=== PATIENT | male | born 1935 | race Caucasian/White ===

== ENCOUNTER 2019-11-13 06:00 | Outpatient (RCR) | payer MEDICARE, BC, SELFPAY | END 2019-12-13 23:59 | disposition home or self-care (01) | LOC: SST 06:00 | PROVIDERS: Family Provider Family Medicine; PCP Family Medicine; Visit Provider Family Medicine | DX: G90.3 Multi-system degeneration of the autonomic nervous system (principal); R47.1 Dysarthria and anarthria | CPT/HCPCS: 92607; 92608 ==

== ENCOUNTER 2019-12-14 06:00 | Outpatient (RCR) | payer MEDICARE, BC, SELFPAY | END 2020-01-11 23:59 | disposition home or self-care (01) | LOC: SST 06:00 | PROVIDERS: Family Provider Family Medicine; PCP Family Medicine; Visit Provider Family Medicine | DX: Z01.89 Encounter for other specified special examinations (principal) ==

== ENCOUNTER → 2020-01-31 11:08 | Day surgery (SDC) | payer MEDICARE, BC, SELFPAY | PROVIDERS: Family Provider Family Medicine; PCP Family Medicine; Visit Provider Internal Medicine Cardiovascular Disease | DX: I73.9 Peripheral vascular disease, unspecified (principal) | CPT/HCPCS: J1644; J2001; J2250; J3010; J3490 ==

== ENCOUNTER 2020-10-14 11:00 | Emergency (ER) | payer MEDICARE, BC, SELFPAY ==
[2020-10-14 11:03] VITALS: BP 111/58; PULSE 60; RESP 15; TEMP 36.4; O2SAT 96; BMI 26.9
--- NOTE | 2020-10-14 11:27 | XR_ITS ---
WS: [id number] Portable AP upright chest, 10/14/2020 Clinical Data: fever, diarrhea Comparison: Portable chest, 09/10/2019. Findings: No nodules, masses or effusions are seen. The heart is enlarged. The pulmonary vascularity is not increased. No pneumonia or pneumothorax is seen. The 2-lead pacemaker remains in good position . Midline sternotomy sutures are seen. The aortic arch and descending aorta show calcification and to rtuosity. XR/XR chest 1V portable [id number] Impression: Cardiomegaly and atherosclerosis.
--- NOTE | 2020-10-14 11:29 | W.ED.NAVMDI ---
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 All of the history is given by his . She states that he started having diarrhea about 3 days ago and has been progressively getting weaker. She denies nausea or vomiting. No cough or difficulty breathing beyond his baseline. He did have a low-grade temperature 2 days ago. Because of his progressive weakness she called his primary care provider who advised that he come to the emergency room for evaluation Associated nausea: No Associated symtoms: Denies change in vision, dysuria, headache(s), nausea or palpitations Review of Systems General: Reports: 10 or more systems reviewed and unremarkable except in HPI and below Const: Denies: fever(s), chills or body aches Eyes: Denies: change in vision or blurry vision ENMT: Denies: throat pain, enlarged tonsils, odynophagia, hoarseness, mouth pain or swelling of lips/tongue Card: Denies: palpitations, irregular heart rhythm, edema or swelling of feet/ankles Resp: Denies: dyspnea, productive cough or non-productive cough GI: Reports: diarrhea; Denies: abdominal pain, nausea or vomiting : Denies: flank pain, dysuria, urinary frequency, urinary urgency or urinary hesitancy Musc: Denies: neck pain, back pain or extremity swelling Skin/Breast: Denies: rash, pruritus or erythema Neuro: Reports: other (weakness); Denies: headache(s), numbness in extremities or weakness in extremities Endo: Denies: polyuria, polydipsia or tired all the time PFSH ED PFSH: Medical History CHF (congestive heart failure) Critical limb ischemia with history of revascularization of same extremity History of MA (myocardial infarction) PAD (peripheral artery disease) Surgical History S/P CABG (coronary artery bypass graft) X5 S/P cardiac pacemaker procedure Family History Family/Other No problems noted. Father , age 57 MA Myocardial infarction CAD (coronary artery disease) Hypertension Mother , of Brain CA age 66 Cancer Social History Smoking and tobacco status: former smoker History of recent travel: No Physical Exam Const: COMMON NORMALS: no acute distress, average body habitus, patient oriented x3, no limitations, healthy appearing, alert and well nourished HENMT: COMMON NORMALS: normocephalic, atraumatic and moist oral mucous membranes HEAD & SCALP: normocephalic and atraumatic Neck/C-Spine: COMMON NORMALS: no meningeal signs and no JVD Resp: COMMON NORMALS: normal respiratory effort, No retractions, No use of accessory muscles, clear to auscultation bilaterally and percussion normal AUSCULTATION: clear to auscultation bilaterally PERCUSSION: percussion normal Cardio: COMMON NORMALS: no JVD, regular rate, regular rhythm, S1 normal heart sound present, S2 normal heart sound present, No gallops present (Cardio), No clicks present (Cardio), No murmurs present (Cardio), No rub (Cardio) and Peripheral pulses 2+ throughout RATE: regular rate RHYTHM: regular rhythm HEART SOUNDS: S1 normal heart sound present and S2 normal heart sound present PERIPHERAL PULSES: Peripheral pulses 2+ throughout GI: COMMON NORMALS: Normal to inspection, nondistended, normoactive bowel sounds present, Soft to palpation, non-tender, No hepatosplenomegaly present, no masses and no bruits PALPATION: Yes Soft to palpation and Yes No hepatosplenomegaly present Extremity: COMMON NORMALS: normal to inspection, full ROM, capillary refill normal, no calf tenderness and no pedal edema Neuro: COMMON NORMALS: patient oriented x3 SENSORIUM/ORIENTATION: Yes alert MENINGEAL SIGNS: Yes no meningeal signs Skin: COMMON NORMALS: no rashes or lesions noted, no wounds, turgor normal, no jaundice, no petechiae and no mottling GENERAL SKIN EXAM: no rashes or lesions noted and turgor normal Course Reevaluation(s): Reevaluation #1: Discussed his lab and imaging findings with him. C. difficile still pending. CT scan shows distended colon but no signs of obstruction. Radiologist believes that this is from colitis and not obstruction. Left inguinal hernia with loops of bowel but no signs of obstruction. If his C. difficile is negative he will be discharged home. BUN elevated and he has some dehydration from a few days of diarrhea. Patient and his voiced understanding and they are in agreement with the plan. Time: 15:41 Vital Signs: Vital signs: Vital Signs Temperature 97.6 F 10/14/20 11:03 Pulse Rate 60 10/14/20 19:10 Respiratory Rate 16 10/14/20 19:10 Blood Pressure 118/59 10/14/20 19:10 Pulse Oximetry 97 10/14/20 19:10 MDM - Nausea/Vomiting/Diarrhea MDM Narrative: Medical decision making narrative: 84-year-old male who was brought into the emergency department due to diarrhea for several days causing weakness. Evaluation in the emergency department shows mild dehydration and no other concerning findings. CT scan shows colitis and a left inguinal hernia with bowel loops but no signs of an obstruction. He is discharged home to follow-up with his primary care provider. The patient and his were given signs and symptoms to look out for in case he develops bowel obstruction. We will follow up with his primary care provider. Medical Records: Attestation: I reviewed the patient's medical records. Lab Data: Labs: Lab Results 10/14/20 10/14/20 10/14/20 Range/Units 10:53 10:53 11:47 WBC 4.9 (4.0-10.0) 10^3/ uL RBC 3.83 L (4.1-5.3) 10^6/u L Hgb 12.1 (11.7-16.6) g/dL Hct 37.9 L (42.0-52.0) % MCV 99.0 H (80-94) fL MCH 31.6 (28.0-34.0) pg MCHC 31.9 (30.0-36.0) g/dL RDW 13.8 (12.1-15.1) % Plt Count 143 (130-400) 10^3/c mm MPV 10.5 H (7.4-10.4) fL Neut % (Auto) 62.1 % Lymph % (Auto) 22.8 % [place] % (Auto) 10.4 % Eos % (Auto) 3.9 % Baso % (Auto) 0.6 % Neut # (Auto) 3.06 (1.8-7.7) 10^3/u L Lymph # (Auto) 1.1 (0.8-4.8) 10^3/u L [place] # (Auto) 0.5 (0.2-0.9) 10^3/u L Eos # (Auto) 0.2 (0.0-0.8) 10^3/u L Baso # (Auto) 0.0 (0.0-0.1) 10^3/u L Nucleated RBC % (a uto) 0 % Nucleated RBCs # 0.0 /100WBC Sodium 140 (136-145) mmol/L Potassium 3.6 (3.5-5.1) mmol/L Chloride 104 (98-107) mmol/L Carbon Dioxide 26 (22-29) mmol/L Anion Gap 13.6 (5-19) BUN 26 H (8-23) mg/dL Creatinine 1.0 (0.7-1.2) mg/dL GFR Calculation Not Reportable Glucose 160 H (65-115) mg/dL POC Glucose (70-110) mg/dL Calculated Osmolal ity 298 H (285-295) mOsm/k g Lactate 1.0 (0.5-2.2) mmol/L Calcium 9.1 (8.5-10.5) mg/dL Magnesium 2.0 (1.7-2.3) mg/dL Total Bilirubin 0.5 (0.15-1.2) mg/dL AST 26 (0-40) U/L ALT 20 (0-41) U/L Alkaline Phosphata se 58 (40-130) IU/L Creatine Kinase 104 (39-308) U/L C-Reactive Protein 13.8 H (0.0-4.9) mg/L Total Protein 6.4 L (6.6-8.7) g/dL Albumin 3.8 (3.5-5.2) g/dL Globulin 2.6 (1.3-4.6) g/dL Lipase 8 L (13-60) U/L Urine Color (Yellow) Urine Appearance (CLEAR) Urine pH (5-7) Ur Specific Gravit y (1.005-1.030) Urine Protein (Negative) Urine Glucose (UA) (Normal) Urine Ketones (Negative) Urine Blood (Negative) Urine Nitrate (Negative) Urine Bilirubin (Negative) Urine Urobilinogen (Negative) mg/dL Ur Leukocyte Belén ase (Negative) Influenza Type A A g (Negative) Influenza Type B A g (Negative) SARS-CoV-2 Ag (Rap id) (Negative) 10/14/20 10/14/20 10/14/20 Range/Units 11:47 12:08 12:08 WBC (4.0-10.0) 10^3/ uL RBC (4.1-5.3) 10^6/u L Hgb (11.7-16.6) g/dL Hct (42.0-52.0) % MCV (80-94) fL MCH (28.0-34.0) pg MCHC (30.0-36.0) g/dL RDW (12.1-15.1) % Plt Count (130-400) 10^3/c mm MPV (7.4-10.4) fL Neut % (Auto) % Lymph % (Auto) % [place] % (Auto) % Eos % (Auto) % Baso % (Auto) % Neut # (Auto) (1.8-7.7) 10^3/u L Lymph # (Auto) (0.8-4.8) 10^3/u L [place] # (Auto) (0.2-0.9) 10^3/u L Eos # (Auto) (0.0-0.8) 10^3/u L Baso # (Auto) (0.0-0.1) 10^3/u L Nucleated RBC % (a uto) % Nucleated RBCs # /100WBC Sodium (136-145) mmol/L Potassium (3.5-5.1) mmol/L Chloride (98-107) mmol/L Carbon Dioxide (22-29) mmol/L Anion Gap (5-19) BUN (8-23) mg/dL Creatinine (0.7-1.2) mg/dL GFR Calculation Glucose (65-115) mg/dL POC Glucose (70-110) mg/dL Calculated Osmolal ity (285-295) mOsm/k g Lactate (0.5-2.2) mmol/L Calcium (8.5-10.5) mg/dL Magnesium (1.7-2.3) mg/dL Total Bilirubin (0.15-1.2) mg/dL AST (0-40) U/L ALT (0-41) U/L Alkaline Phosphata se (40-130) IU/L Creatine Kinase (39-308) U/L C-Reactive Protein (0.0-4.9) mg/L Total Protein (6.6-8.7) g/dL Albumin (3.5-5.2) g/dL Globulin (1.3-4.6) g/dL Lipase (13-60) U/L Urine Color Yellow (Yellow) Urine Appearance Clear (CLEAR) Urine pH 5 (5-7) Ur Specific Gravit y 1.015 (1.005-1.030) Urine Protein Neg (Negative) Urine Glucose (UA) Norm (Normal) Urine Ketones Negative (Negative) Urine Blood Neg (Negative) Urine Nitrate Negative (Negative) Urine Bilirubin Neg (Negative) Urine Urobilinogen Norm (Negative) mg/dL Ur Leukocyte Belén [place] Negative (Negative) Influenza Type A A g Negative (Negative) Influenza Type B A g Negative (Negative) SARS-CoV-2 Ag (Rap id) Negative (Negative) 10/14/20 Range/Units 19:41 WBC (4.0-10.0) 10^3/ uL RBC (4.1-5.3) 10^6/u L Hgb (11.7-16.6) g/dL Hct (42.0-52.0) % MCV (80-94) fL MCH (28.0-34.0) pg MCHC (30.0-36.0) g/dL RDW (12.1-15.1) % Plt Count (130-400) 10^3/c mm MPV (7.4-10.4) fL Neut % (Auto) % Lymph % (Auto) % [place] % (Auto) % Eos % (Auto) % Baso % (Auto) % Neut # (Auto) (1.8-7.7) 10^3/u L Lymph # (Auto) (0.8-4.8) 10^3/u L [place] # (Auto) (0.2-0.9) 10^3/u L Eos # (Auto) (0.0-0.8) 10^3/u L Baso # (Auto) (0.0-0.1) 10^3/u L Nucleated RBC % (a uto) % Nucleated RBCs # /100WBC Sodium (136-145) mmol/L Potassium (3.5-5.1) mmol/L Chloride (98-107) mmol/L Carbon Dioxide (22-29) mmol/L Anion Gap (5-19) BUN (8-23) mg/dL Creatinine (0.7-1.2) mg/dL GFR Calculation Glucose (65-115) mg/dL POC Glucose 52 (70-110) mg/dL Calculated Osmolal ity (285-295) mOsm/k g Lactate (0.5-2.2) mmol/L Calcium (8.5-10.5) mg/dL Magnesium (1.7-2.3) mg/dL Total Bilirubin (0.15-1.2) mg/dL AST (0-40) U/L ALT (0-41) U/L Alkaline Phosphata se (40-130) IU/L Creatine Kinase (39-308) U/L C-Reactive Protein (0.0-4.9) mg/L Total Protein (6.6-8.7) g/dL Albumin (3.5-5.2) g/dL Globulin (1.3-4.6) g/dL Lipase (13-60) U/L Urine Color (Yellow) Urine Appearance (CLEAR) Urine pH (5-7) Ur Specific Gravit y (1.005-1.030) Urine Protein (Negative) Urine Glucose (UA) (Normal) Urine Ketones (Negative) Urine Blood (Negative) Urine Nitrate (Negative) Urine Bilirubin (Negative) Urine Urobilinogen (Negative) mg/dL Ur Leukocyte Belén ase (Negative) Influenza Type A A g (Negative) Influenza Type B A g (Negative) SARS-CoV-2 Ag (Rap id) (Negative) Imaging Data^: CXR: Attestation: I personally reviewed and interpreted this imaging study as follows: Radiologist's impression: [place] [id number] XRay Report Signed Patient: Dany Whitehead #: [id number] : 7Acct#:[id number] Age/Sex: 84 / MADM Date: 10/14/20 Loc: ERRoom/Bed: Attending Dr: Ordering Provider/Ordering MD: Piter Jack MD, [facility] Date of Service: 10/14/20 Procedure(s): XR chest 1V portable [id number] Accession Number(s): [id number] Report Number: [id number] WS: [id number] Portable AP upright chest, 10/14/2020 Clinical Data: fever, diarrhea Comparison: Portable chest, 09/10/2019. Findings: No nodules, masses or effusions are seen. The heart is enlarged. The pulmonary vascularity is not increased. No pneumonia or pneumothorax is seen. The 2-lead pacemaker remains in good position. Midline sternotomy sutures are seen. The aortic arch and descending aorta show calcification and tortuosity. XR/XR chest 1V portable [id number] Impression: Cardiomegaly and atherosclerosis. Dictated By:Cathie Gaytan MD Signed By:Cathie Gaytan MDSigned Date/Time:10/14/20 1200 DD/ 1158 CT Abd/Pel: Radiologist's impression: [address] [address] [address] Scan Report Signed Patient: Dany Whitehead #: [id number] : 7Acct#:[id number] Age/Sex: 84 / MADM Date: 10/14/20 Loc: ERRoom/Bed: Attending Dr: Ordering Provider/Ordering MD: Piter Jack MD, [facility] Date of Service: 10/14/20 Procedure(s): CT abdomen pelvis w con* [id number] Accession Number(s): [id number] Report Number: [id number] WS: [id number] CT ABDOMEN AND PELVIS WITH CONTRAST HISTORY: DIARRHEA, weakness TECHNIQUE: Imaging performed of the abdomen and pelvis with IV contrast. Single phase imaging of the abdomen. Coronal and sagittal reformats are submitted. All CT scans at [facility] use at least one of these dose optimization techniques: automated exposure control; mA and/or kV adjustment per patient size (includes targeted exams where dose is matched to clinical indication); or iterative reconstruction. IV CONTRAST: Omnipaque 300; 95 mL IV. Oral contrast: No DLP: 1067.96 mGy.cm COMPARISON: 02/03/2010 Lower thorax: Bilateral lower lobe interstitial thickening, greatest at the LEFT lung base. There is additional atelectasis at the LEFT lung base. Bilateral gynecomastia. Moderately enlarged heart. Dual lead cardiac pacer wires are noted. No hiatal hernia. Liver/biliary system: Normal size liver with mild heterogeneity in the liver. No mass or bile duct dilatation. Gallbladder: Normal. No gallstones or wall thickening. No pericholecystic fluid. Pancreas: Significant fatty replacement of the pancreas. Spleen: Normal. Adrenal glands: Normal. Right kidney: Mild atrophy of the kidney with cortical thinning. Indeterminate low-attenuation lesion from the posterior upper pole. This lesion is partially obscured due to motion artifact. Left kidney: Moderate atrophy. Nonobstructing calcification in the lower pole. Aorta: Moderate atherosclerosis with no aneurysm. Heavy calcification noted in the splenic artery and the superior mesenteric artery. Lymphadenopathy: None. Free fluid: None. GI tract: There is marked fluid distention of the colon without a transition point. There is changing caliber in the mid small bowel without a focal mass at this is probably due to contraction as there is dilatation and fluid distention on both sides of this loop. There is also fluid distention of several small bowel loops. There is no wall thickening. There is very slight narrowing of the rectosigmoid junction but no discrete mass. Abdominal wall: Subcutaneous soft tissue nodule measures 14 mm anterior to the xiphoid process. Pelvis: No free fluid. Normally distended urinary bladder. Loop of small bowel extends into the proximal LEFT inguinal canal. There is mild fluid distention of bowel proximal and distal to this hernia may not be causing a significant obstruction. Bones: T12 anterior compression fracture by 75%. Osteopenia. Prior RIGHT hip arthroplasty. CT/CT abdomen pelvis w con* [id number] IMPRESSION: 1. Moderate fluid distention of the colon and portions of the small bowel. Suspect this is related to diffuse colitis. There is a small bowel transition point best seen on image 50 series 2 which may simply be contraction. 2. LEFT inguinal hernia contains a loop of small bowel. This loop of small bowel is mildly dilated proximal and distal to the hernia. Doubtful that this hernia is the site of obstruction at this time. 3. Moderate cardiomegaly. 4. Gynecomastia. Dictated By:Emily Britton DO Signed By:Emily Britton DOSigned Date/Time:10/14/20 1513 DD/ 1501 Discharge Plan Discharge Patient Disposition: Home Clinical Impression: Colitis, Hernia, inguinal, left, Acute dehydration Condition: Stable Prescriptions: Continued albuterol sulfate [ProAir HFA] 90 mcg/actuation HFA aerosol inhaler 2 puff INHALATION Q4H PRN (Reason: Shortness Of Breath) RF: 0 carvedilol 25 mg tablet 25 mg PO BID RF: 0 simvastatin 80 mg tablet 80 mg PO DAILY RF: 0 aspirin 81 mg tablet,delayed release (DR/EC) 81 mg PO DAILY RF: 0 tramadol 50 mg tablet 50 mg PO BEDTIME PRN (Reason: Pain) RF: 0 potassium chloride 20 mEq tablet,ER particles/crystals 20 meq PO DAILY RF: 0 tamsulosin 0.4 mg capsule 0.4 mg PO DAILY RF: 0 Humulin R Regular U-100 Insuln 100 unit/mL solution See Rx Instructions .ROUTE .COMPLEX RF: 0 escitalopram oxalate [Lexapro] 10 mg tablet 10 mg PO DAILY RF: 0 eplerenone 25 mg tablet 25 mg PO DAILY RF: 0 Spiriva with HandiHaler 18 mcg capsule, w/inhalation device 1 cap INHALATION DAILY RF: 0 Lantus Solostar U-100 Insulin 100 unit/mL (3 mL) insulin pen 20 unit SUBCUT QAM RF: 0 Eliquis 5 mg tablet 5 mg PO BID RF: 0 furosemide [Lasix] 40 mg tablet See Rx Instructions .ROUTE .COMPLEX RF: 0 magnesium L-lactate 84 mg tablet extended release 84 mg PO BID RF: 0 omeprazole 20 mg capsule,delayed release(DR/EC) 20 mg PO DAILY RF: 0 acetaminophen 650 mg Tablet Extended Release 1,300 mg PO BEDTIME RF: 0 olopatadine 0.1 % drops 1 drp ophthalmic (eye) BID RF: 0 gabapentin 300 mg capsule 600 mg PO BID RF: 0 Vitamin D3 25 mcg (1,000 unit) Capsule 1,000 unit PO BID RF: 0 Entresto 97-103 mg tablet 1 tab PO BID RF: 0 multivitamin Tablet 1 tab PO DAILY RF: 0 Discharge Orders: Discharge ED (Routine); Ordered 10/14/20 Ordered By: Piter Jack Referrals: Gopal Cameron MD [Primary Care Provider] - 1-3 days Discharge Diet: Advance as tolerated Discharge Activity: Increase activity as tolerated Patient Instructions: Diarrhea - Adult, Inguinal Hernia (ED) Activity Restrictions/Additional Instructions: Return for any new or worsening symptoms. Follow-up with your primary care provider within 3 days. Keep well-hydrated, so drink plenty of fluids. If you notice your abdomen getting distended or you start to vomit please return for evaluation. Coding Level of Care Code ED [employer] for Chg Fwd Exam Comprehensive
[2020-10-14 11:34] VITALS: BP 113/58; RESP 16; O2SAT 94
[2020-10-14 11:44] LABS: Basophils % 0.6 %; Eosinophils # 0.2 10^3/uL (0.0-0.8); Eosinophils % 3.9 %; Hematocrit 37.9 % (42.0-52.0); Hemoglobin 12.1 g/dL (11.7-16.6); Lymphocytes # 1.1 10^3/uL (0.8-4.8); Lymphocytes % 22.8 %; Mean Corpuscular HGB Conc 31.9 g/dL (30.0-36.0); Mean Corpuscular Hemoglobin 31.6 pg (28.0-34.0); Mean Platelet Volume 10.5 fL (7.4-10.4); Monocytes # 0.5 10^3/uL (0.2-0.9); Monocytes % 10.4 %; Neutrophils # 3.06 10^3/uL (1.8-7.7); Neutrophils % 62.1 %; Nucleated Red Blood Cells % 0 %; Platelet Count 143 10^3/cmm (130-400); Red Blood Count 3.83 10^6/uL (4.1-5.3); Red Cell Distribution Width 13.8 % (12.1-15.1); White Blood Count 4.9 10^3/uL (4.0-10.0)
[2020-10-14 11:53] LABS: Add Urine Microscopic? NO
[2020-10-14 11:58] LABS: Bilirubin Urine Neg (Negative); Blood Urine Neg (Negative); Glucose Urine UA Norm (Normal); Ketones Urine Negative (Negative); Leukocyte Esterase Urine Negative (Negative); Nitrate Urine Negative (Negative); Protein Urine Neg (Negative); Specific Gravity, Urine 1.015 (1.005-1.030); Urine Appearance Clear (CLEAR); Urine Color Yellow (Yellow); Urobilinogen Urine Norm (Negative); pH Urine 5 (5-7)
[2020-10-14 12:01] LABS: Alanine Aminotransferase 20 U/L (0-41); Albumin Level 3.8 g/dL (3.5-5.2); Alkaline Phosphatase 58 IU/L (40-130); Anion Gap 13.6 (5-19); Aspartate Amino Transferase 26 U/L (0-40); Blood Urea Nitrogen 26 mg/dL (8-23); C Reactive Protein 13.8 mg/L (0.0-4.9); Calcium 9.1 mg/dL (8.5-10.5); Carbon Dioxide 26 mmol/L (22-29); Chloride 104 mmol/L (98-107); Creatine Phosphokinase 104 U/L (39-308); Globulin 2.6 g/dL (1.3-4.6); Glucose 160 mg/dL (65-115); Lipase 8 U/L (13-60); Osmolality Calculated 298 mOsm/kg (285-295); Potassium 3.6 mmol/L (3.5-5.1); Sodium 140 mmol/L (136-145); Total Bilirubin 0.5 mg/dL (0.15-1.2); Total Protein 6.4 g/dL (6.6-8.7)
[2020-10-14 12:34] LABS: Influenza A by IFA Negative (Negative); Influenza B by IFA Negative (Negative); SARS Covid-2 Antigen Negative (Negative)
--- NOTE | 2020-10-14 13:16 | CT_ITS ---
WS: [id number] CT ABDOMEN AND PELVIS WITH CONTRAST HISTORY: DIARRHEA, weakness TECHNIQUE: Imaging performed of the abdomen and pelvis with IV contrast. Single phase imaging of the abdomen. Coronal and sagittal reformats are submitted. All CT scans at [facility] use at least one of these dose optimization techniques: automated exposure control; mA and/or kV adjustment per patient size (includes targeted exams where dose is matched to clinical indication); or iterativ e reconstruction. IV CONTRAST: Omnipaque 300; 95 mL IV. Oral contrast: No DLP: 1067.96 mGy.cm COMPARISON: 02/03/2010 Lower thorax: Bilateral lower lobe interstitial thickening, greatest at the LEFT lung base. There is additional atelectasis at the LEFT lung base. Bilateral gynecomastia. Moderately enlarged heart. Dual lead cardiac pacer wires are noted. No hiatal hernia. Liver/biliary system: Normal size liver with mild heterogeneity in the liver. No mass or bile duct di latation. Gallbladder: Normal. No gallstones or wall thickening. No pericholecystic fluid. Pancreas: Significant fatty replacement of the pancreas. Spleen: Normal. Adrenal glands: Normal. Right kidney: Mild atrophy of the kidney with cortical thinning. Indeterminate low-attenuation lesion from the posterior upper pole. This lesion is partially obscured due to motion artifact. Left kidney: Moderate atrophy. Nonobstructing calcification in the lower pole. Aorta: Moderate atherosclerosis with no aneurysm. Heavy calcification noted in the splenic artery and the superior mesenteric artery. Lymphadenopathy: None. Free fluid: None. GI tract: There is marked fluid distention of the colon without a transition point. There is changing caliber in the mid small bowel without a focal mass at this is probably due to contraction as there is dilatation and fluid distention on both sides of this loop. There is also fluid distention of lashae ral small bowel loops. There is no wall thickening. There is very slight narrowing of the rectosigmoi d junction but no discrete mass. Abdominal wall: Subcutaneous soft tissue nodule measures 14 mm anterior to the xiphoid process. Pelvis: No free fluid. Normally distended urinary bladder. Loop of small bowel extends into the proxi mal LEFT inguinal canal. There is mild fluid distention of bowel proximal and distal to this hernia m ay not be causing a significant obstruction. Bones: T12 anterior compression fracture by 75%. Osteopenia. Prior RIGHT hip arthroplasty. CT/CT abdomen pelvis w con* [id number] IMPRESSION: 1. Moderate fluid distention of the colon and portions of the small bowel. Levy spect this is related to diffuse colitis. There is a small bowel transition poi nt best seen on image 50 series 2 which may simply be contraction. 2. LEFT inguinal hernia contains a loop of small bowel. This loop of small bow el is mildly dilated proximal and distal to the hernia. Doubtful that this [place] is the site of obstruction at this time. 3. Moderate cardiomegaly. 4. Gynecomastia.
[2020-10-14 13:52] VITALS: BP 102/52; PULSE 60; RESP 15; O2SAT 95
[2020-10-14] MEDS: sodium chloride 0.9% 1,000 ML 999 ML IV (13:52)
[2020-10-14] MEDS: iohexol 300 mg/mL 100 mL Btl IV (15:01)
[2020-10-14 19:10] VITALS: BP 118/59; PULSE 60; RESP 16; O2SAT 97
[2020-10-14 19:53] LABS: Glucose Point of Care 52 mg/dL (70-110)
[2020-10-16 06:33] LABS: Quest SARS-CoV-2 RNA NOT DETECTED (NOT DETECTED)
--- NOTE | 2020-10-16 09:14 | PC.NURSE ---
Pt called and notified of negative COVID results.
== END 2020-10-14 20:11 | disposition home or self-care (01) ==
PROVIDERS: Emergency Provider Family Medicine; PCP Family Medicine
DX: K52.9 Noninfective gastroenteritis and colitis, unspecified (principal); K40.90 Unilateral inguinal hernia, without obstruction or gangrene, not specified as recurrent; E86.0 Dehydration; Z79.82 Long term (current) use of aspirin; Z79.01 Long term (current) use of anticoagulants; Z79.4 Long term (current) use of insulin; I50.9 Heart failure, unspecified; I25.2 Old myocardial infarction; Z95.1 Presence of aortocoronary bypass graft; Z95.0 Presence of cardiac pacemaker; Z87.891 Personal history of nicotine dependence
CPT/HCPCS: 12345; 36416; 71045; 74177; 80053; 81003; 82550; 82962; 83605; 83690; 83735; 85025; 86140; 87426; 87493; 87635; 87804; 96360; 99283; J7030; Q9967

== ENCOUNTER 2021-05-04 14:30 | Outpatient (CLI) | payer MEDICARE, BC, SELFPAY | END 2021-05-04 14:31 | disposition home or self-care (01) | LOC: WOUND 14:31 | PROVIDERS: PCP Family Medicine; Visit Provider Thoracic Surgery (Cardiothoracic Vascular Surgery) | DX: E11.622 Type 2 diabetes mellitus with other skin ulcer (principal); L97.812 Non-pressure chronic ulcer of other part of right lower leg with fat layer exposed; L97.822 Non-pressure chronic ulcer of other part of left lower leg with fat layer exposed; L97.312 Non-pressure chronic ulcer of right ankle with fat layer exposed | CPT/HCPCS: 97597; G0463 ==

== ENCOUNTER 2021-05-11 10:51 | Outpatient (CLI) | payer MEDICARE, BC, SELFPAY | END 2021-05-11 10:52 | disposition home or self-care (01) | LOC: WOUND 10:52 | PROVIDERS: PCP Family Medicine; Visit Provider Thoracic Surgery (Cardiothoracic Vascular Surgery) | DX: E11.622 Type 2 diabetes mellitus with other skin ulcer (principal); L97.822 Non-pressure chronic ulcer of other part of left lower leg with fat layer exposed; L97.312 Non-pressure chronic ulcer of right ankle with fat layer exposed | CPT/HCPCS: 97597 ==

== ENCOUNTER 2021-05-18 10:51 | Outpatient (CLI) | payer MEDICARE, BC, SELFPAY | END 2021-05-18 10:52 | disposition home or self-care (01) | LOC: WOUND 10:55 | PROVIDERS: PCP Family Medicine; Visit Provider Thoracic Surgery (Cardiothoracic Vascular Surgery) | DX: E11.621 Type 2 diabetes mellitus with foot ulcer (principal); L97.312 Non-pressure chronic ulcer of right ankle with fat layer exposed | CPT/HCPCS: 11042 ==

== ENCOUNTER 2021-06-08 09:50 | Outpatient (CLI) | payer MEDICARE, BC, SELFPAY | END 2021-06-08 09:51 | disposition home or self-care (01) | LOC: WOUND 09:52 | PROVIDERS: PCP Family Medicine; Visit Provider Nurse Practitioner Family | DX: E11.622 Type 2 diabetes mellitus with other skin ulcer (principal); L97.312 Non-pressure chronic ulcer of right ankle with fat layer exposed | CPT/HCPCS: 11042 ==

== ENCOUNTER 2021-06-15 10:27 | Outpatient (CLI) | payer MEDICARE, BC, SELFPAY | END 2021-06-15 10:28 | disposition home or self-care (01) | LOC: WOUND 10:28 | PROVIDERS: PCP Family Medicine; Visit Provider Thoracic Surgery (Cardiothoracic Vascular Surgery) | DX: E11.622 Type 2 diabetes mellitus with other skin ulcer (principal); L97.312 Non-pressure chronic ulcer of right ankle with fat layer exposed; Z87.891 Personal history of nicotine dependence | CPT/HCPCS: 11042 ==

== ENCOUNTER 2021-06-22 10:09 | Outpatient (CLI) | payer MEDICARE, BC, SELFPAY | END 2021-06-22 10:10 | disposition home or self-care (01) | LOC: WOUND 10:10 | PROVIDERS: PCP Family Medicine; Visit Provider Emergency Medicine | DX: E11.622 Type 2 diabetes mellitus with other skin ulcer (principal); L97.312 Non-pressure chronic ulcer of right ankle with fat layer exposed | CPT/HCPCS: 11042 ==

== ENCOUNTER 2021-06-29 10:10 | Outpatient (CLI) | payer MEDICARE, BC, SELFPAY | END 2021-06-29 10:11 | disposition home or self-care (01) | LOC: WOUND 10:13 | PROVIDERS: PCP Family Medicine; Visit Provider Thoracic Surgery (Cardiothoracic Vascular Surgery) | DX: E11.622 Type 2 diabetes mellitus with other skin ulcer (principal); L97.312 Non-pressure chronic ulcer of right ankle with fat layer exposed; Z87.891 Personal history of nicotine dependence | CPT/HCPCS: 11042 ==

== ENCOUNTER 2021-07-06 10:45 | Outpatient (CLI) | payer MEDICARE, BC, SELFPAY | END 2021-07-06 10:46 | disposition home or self-care (01) | LOC: WOUND 10:46 | PROVIDERS: PCP Family Medicine; Visit Provider Nurse Practitioner Family | DX: E11.622 Type 2 diabetes mellitus with other skin ulcer (principal); L97.312 Non-pressure chronic ulcer of right ankle with fat layer exposed; Z87.891 Personal history of nicotine dependence | CPT/HCPCS: 11042 ==

== ENCOUNTER 2021-07-21 10:19 | Outpatient (CLI) | payer MEDICARE, BC, SELFPAY | END 2021-07-21 10:20 | disposition home or self-care (01) | LOC: WOUND 10:21 | PROVIDERS: PCP Family Medicine; Visit Provider Thoracic Surgery (Cardiothoracic Vascular Surgery) | DX: E11.622 Type 2 diabetes mellitus with other skin ulcer (principal); L97.312 Non-pressure chronic ulcer of right ankle with fat layer exposed; Z87.891 Personal history of nicotine dependence | CPT/HCPCS: 97597 ==

== ENCOUNTER 2021-08-04 10:33 | Outpatient (CLI) | payer MEDICARE, BC, SELFPAY | END 2021-08-04 10:34 | disposition home or self-care (01) | LOC: WOUND 10:35 | PROVIDERS: PCP Family Medicine; Visit Provider Thoracic Surgery (Cardiothoracic Vascular Surgery) | DX: E11.622 Type 2 diabetes mellitus with other skin ulcer (principal); L97.312 Non-pressure chronic ulcer of right ankle with fat layer exposed; Z87.891 Personal history of nicotine dependence | CPT/HCPCS: 97597 ==

== ENCOUNTER → 2021-08-25 10:46 | Outpatient (BNVA) | payer MEDICARE, BC, SELFPAY | PROVIDERS: PCP Family Medicine; Visit Provider Internal Medicine | DX: E11.65 Type 2 diabetes mellitus with hyperglycemia (principal); E11.59 Type 2 diabetes mellitus with other circulatory complications; I25.10 Atherosclerotic heart disease of native coronary artery without angina pectoris; I73.9 Peripheral vascular disease, unspecified; I50.9 Heart failure, unspecified; Z79.4 Long term (current) use of insulin; Z87.891 Personal history of nicotine dependence | CPT/HCPCS: 99204 ==

== ENCOUNTER 2021-08-25 13:06 | Outpatient (CLI) | payer MEDICARE, BC, SELFPAY | END 2021-08-25 13:07 | disposition home or self-care (01) | LOC: WOUND 13:08 | PROVIDERS: PCP Family Medicine; Visit Provider Thoracic Surgery (Cardiothoracic Vascular Surgery) | DX: E11.622 Type 2 diabetes mellitus with other skin ulcer (principal); L97.312 Non-pressure chronic ulcer of right ankle with fat layer exposed; L97.821 Non-pressure chronic ulcer of other part of left lower leg limited to breakdown of skin; Z87.891 Personal history of nicotine dependence; E11.65 Type 2 diabetes mellitus with hyperglycemia; E11.59 Type 2 diabetes mellitus with other circulatory complications; I25.10 Atherosclerotic heart disease of native coronary artery without angina pectoris; I73.9 Peripheral vascular disease, unspecified; I50.9 Heart failure, unspecified; Z79.4 Long term (current) use of insulin | CPT/HCPCS: 97597; 99204 ==

== ENCOUNTER 2021-09-08 13:03 | Outpatient (CLI) | payer MEDICARE, BC, SELFPAY | END 2021-09-08 13:04 | disposition home or self-care (01) | LOC: WOUND 13:07 | PROVIDERS: PCP Family Medicine; Visit Provider Thoracic Surgery (Cardiothoracic Vascular Surgery) | DX: E11.622 Type 2 diabetes mellitus with other skin ulcer (principal); L97.312 Non-pressure chronic ulcer of right ankle with fat layer exposed; L97.821 Non-pressure chronic ulcer of other part of left lower leg limited to breakdown of skin; Z87.891 Personal history of nicotine dependence | CPT/HCPCS: 97597 ==

== ENCOUNTER 2021-09-22 13:18 | Outpatient (CLI) | payer MEDICARE, BC, SELFPAY | END 2021-09-22 13:19 | disposition home or self-care (01) | LOC: WOUND 13:20 | PROVIDERS: PCP Family Medicine; Visit Provider Thoracic Surgery (Cardiothoracic Vascular Surgery) | DX: E11.622 Type 2 diabetes mellitus with other skin ulcer (principal); L97.322 Non-pressure chronic ulcer of left ankle with fat layer exposed; Z87.891 Personal history of nicotine dependence | CPT/HCPCS: 97597 ==

== ENCOUNTER 2021-10-06 10:40 | Outpatient (CLI) | payer MEDICARE, BC, SELFPAY | END 2021-10-06 10:41 | disposition home or self-care (01) | LOC: WOUND 10:40 | PROVIDERS: PCP Family Medicine; Visit Provider Nurse Practitioner Family | DX: Z09 Encounter for follow-up examination after completed treatment for conditions other than malignant neoplasm (principal); Z87.891 Personal history of nicotine dependence | CPT/HCPCS: 99212 ==

== ENCOUNTER 2021-10-26 15:36 | Outpatient (CLI) | payer MEDICARE, BC, SELFPAY | END 2021-10-26 15:37 | disposition home or self-care (01) | LOC: WOUND 15:39 | PROVIDERS: PCP Family Medicine; Visit Provider Thoracic Surgery (Cardiothoracic Vascular Surgery) | DX: E11.622 Type 2 diabetes mellitus with other skin ulcer (principal); L97.812 Non-pressure chronic ulcer of other part of right lower leg with fat layer exposed; S80.812A Abrasion, left lower leg, initial encounter; X58.XXXA Exposure to other specified factors, initial encounter; Z87.891 Personal history of nicotine dependence | CPT/HCPCS: 97597; A6021 ==

== ENCOUNTER 2021-11-02 15:20 | Outpatient (CLI) | payer MEDICARE, BC, SELFPAY | END 2021-11-02 15:21 | disposition home or self-care (01) | LOC: WOUND 15:21 | PROVIDERS: PCP Family Medicine; Visit Provider Nurse Practitioner Family | DX: E11.622 Type 2 diabetes mellitus with other skin ulcer (principal); L97.812 Non-pressure chronic ulcer of other part of right lower leg with fat layer exposed; S80.812A Abrasion, left lower leg, initial encounter; X58.XXXA Exposure to other specified factors, initial encounter; Z87.891 Personal history of nicotine dependence | CPT/HCPCS: 11042; A6212 ==

== ENCOUNTER 2021-11-09 15:04 | Outpatient (CLI) | payer MEDICARE, BC, SELFPAY | END 2021-11-09 15:05 | disposition home or self-care (01) | LOC: WOUND 15:06 | PROVIDERS: PCP Family Medicine; Visit Provider Nurse Practitioner Family | DX: E11.622 Type 2 diabetes mellitus with other skin ulcer (principal); L97.812 Non-pressure chronic ulcer of other part of right lower leg with fat layer exposed; Z87.891 Personal history of nicotine dependence | CPT/HCPCS: 11042; 87070; 87077; 87186 ==

== ENCOUNTER 2021-11-16 14:47 | Outpatient (CLI) | payer MEDICARE, BC, SELFPAY | END 2021-11-16 14:48 | disposition home or self-care (01) | LOC: WOUND 14:48 | PROVIDERS: PCP Family Medicine; Visit Provider Nurse Practitioner Family | DX: E11.622 Type 2 diabetes mellitus with other skin ulcer (principal); L97.819 Non-pressure chronic ulcer of other part of right lower leg with unspecified severity; A49.8 Other bacterial infections of unspecified site; Z87.891 Personal history of nicotine dependence | CPT/HCPCS: 99213 ==

== ENCOUNTER 2021-11-25 13:25 | Outpatient (RCR) | payer MEDICARE, BC, SELFPAY | END 2021-12-13 23:59 | disposition home or self-care (01) | LOC: SPT 13:25 | PROVIDERS: PCP Family Medicine; Referring Provider Family Medicine; Visit Provider Family Medicine | DX: R53.1 Weakness (principal) | CPT/HCPCS: 97110; 97116; 97161 ==

== ENCOUNTER 2021-11-29 11:08 | Outpatient (CLI) | payer MEDICARE, BC, SELFPAY | END 2021-11-29 11:09 | disposition home or self-care (01) | LOC: WOUND 11:09 | PROVIDERS: PCP Family Medicine; Visit Provider Nurse Practitioner Family | DX: E11.65 Type 2 diabetes mellitus with hyperglycemia (principal); E11.59 Type 2 diabetes mellitus with other circulatory complications; I25.10 Atherosclerotic heart disease of native coronary artery without angina pectoris; I50.9 Heart failure, unspecified; I73.9 Peripheral vascular disease, unspecified; Z79.899 Other long term (current) drug therapy; E11.622 Type 2 diabetes mellitus with other skin ulcer; L97.812 Non-pressure chronic ulcer of other part of right lower leg with fat layer exposed; Z87.891 Personal history of nicotine dependence | CPT/HCPCS: 11042; 99214 ==

== ENCOUNTER 2021-12-13 04:43 | Inpatient (IN) | payer MEDICARE, BC, SELFPAY ==
[2021-12-13] VITALS (17 sets, daily range): BP systolic 109–160; BP diastolic 50–74; PULSE 60–64; RESP 17–30; TEMP 36.6; O2SAT 95–100; BMI 26.4; BMI 28.1
--- NOTE | 2021-12-13 04:47 | XRR_ITS ---
PROCEDURE INFORMATION: Exam: XR Chest Exam date and time: 12/13/2021 4:47 AM Age: 85 years old Clinical indication: Dyspnea; Prior surgery; Surgery date: 6+ months; Surgery type: Cabg, pacemaker; Additional info: SOB TECHNIQUE: Imaging protocol: XR of the chest. Views: 1 view. COMPARISON: CR XR chest 1V portable [id number] 10/14/2020 11:43 AM FINDINGS: Tubes, catheters and devices: A cardiac pacing device is again seen projecting over the left chest. Surgical clips project over the soft tissues in the left neck. Lungs: There is increased lung markings and patchy bilateral airspace opacities, involving mainly the left lower lobe, highly concerning for multifocal pneumonia. Possible trace left pleural effusion. No pneumothorax. Pleural spaces: See Lungs finding. Heart/Mediastinum: Stable cardiomediastinal silhouette. Bones/joints: Median sternotomy changes seen. Degenerative changes of the spine and shoulder joints noted. XR/XR chest 1V portable [id number] IMPRESSION: Bilateral airspace opacities with trace left pleural effusion, concerning for pneumonia. Pulmonary edema can have this appearance. Clinical correlation is recommended.
--- NOTE | 2021-12-13 04:47 | ECG_ITS ---
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
--- NOTE | 2021-12-13 04:56 | ED_ITS ---
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 She states his mind still works fine but he is bedbound and has difficulty talking here is not been able to answer any questions due to that he is able to shake his head yes or no. She states that he woke up this morning extremely short of breath and she called EMS they arrived patient was in the mid 80s on room air he does not wear oxygen at baseline. Patient is quite tachypneic here with accessory muscle use. Does have a history of congestive heart failure no history of COPD. She states that he has not been feeling real well lately but has had no fever or cough. Review of Systems General: Reports: ROS unobtainable due to medical condition Resp: Reports: dyspnea PFSH ED PFSH: Medical History A-fib ASCVD (arteriosclerotic cardiovascular disease) Cardiac defibrillator in place CHF (congestive heart failure) COPD (chronic obstructive pulmonary disease) Critical limb ischemia with history of revascularization of same extremity Diabetes mellitus History of [place] (myocardial infarction) History of prostate cancer Incontinence PAD (peripheral artery disease) Prostate CA Sleep apnea Surgical History S/P CABG (coronary artery bypass graft) X5 S/P cardiac pacemaker procedure S/P cataract surgery S/P eye surgery S/P hernia surgery S/P hip hemiarthroplasty S/P knee surgery S/P prostatectomy Family History Family/Other No problems noted. Father , age 57 [place] Myocardial infarction CAD (coronary artery disease) Hypertension Mother , of Brain CA age 66 Cancer Social History Smoking risk assessment/counseling performed?: Yes Alcohol intake: current Alcohol intake frequency: few times a week Alcohol type: hard liquor Desire information about alcohol rehabilitation?: No Counseling given: Yes Desire information about substance/drug rehabilitation?: No Counseling given: Yes Adopted: No Caregiver/support person: Yes Lives independently: Yes Household members: spouse and family Housing: House Marital status: Number of children: 23 Highest education level completed: Associate Degree: Academic Program service: No Current occupational status: retired History of recent travel: No Physical Exam Const: COMMON NORMALS: alert (non verbal but responds by shaking head yes or no) GENERAL APPEARANCE: in distress and ill appearing HENMT: COMMON NORMALS: normocephalic and atraumatic HEAD & SCALP: normocephalic and atraumatic Eye: COMMON NORMALS: Equal, round and reactive pupils present and EOMs intact bilaterally PUPIL: Yes Equal, round and reactive pupils present Neck/C-Spine: COMMON NORMALS: full ROM and supple Chest: COMMONS NORMALS: normal inspection of the chest and normal palpation of entire chest wall Resp: EFFORT & INSPECTION: Yes tachypneic, Yes respiratory distress, Yes labored and Yes retractions AUSCULTATION: diminished lung sounds Cardio: COMMON NORMALS: regular rate, regular rhythm and No murmurs present (Cardio) RATE: regular rate RHYTHM: regular rhythm GI: COMMON NORMALS: Normal to inspection, nondistended, normoactive bowel sounds present, Soft to palpation, non-tender and no masses PALPATION: Yes Soft to palpation Extremity: COMMON NORMALS: normal to inspection and full ROM Neuro: SENSORIUM/ORIENTATION: Yes alert (non verbal but responds by shaking head yes or no) Psych: COMMON NORMALS: cooperative Skin: COMMON NORMALS: no rashes or lesions noted and no wounds GENERAL SKIN EXAM: no rashes or lesions noted Course Vital Signs: Vital signs: Vital Signs Pulse Rate 60 12/13/21 07:47 Respiratory Rate 19 H 12/13/21 07:46 Blood Pressure 120/59 12/13/21 07:46 Pulse Oximetry 98 12/13/21 07:47 MDM - SOB/Dyspnea Lab Data : 12/13/21 04:55 12/13/21 04:55 Labs/Radiology: Radiology Impressions Chest X-Ray 12/13/21 04:47 IMPRESSION: Bilateral airspace opacities with trace left pleural effusion, concerning for pneumonia. Pulmonary edema can have this appearance. Clinical correlation is recommended. Chest CTA 12/13/21 05:55 IMPRESSION: 1. No visualized pulmonary embolus limited assessment due to motion degradation. 2. Bilateral pleural effusions and fluid expansion throughout the left oblique fissure. 3. Pulmonary consolidations bilateral lower lobe of lungs and left upper lobe which could reflect areas of atelectasis or pneumonic infiltrate. 4. Cardiomegaly. 5. Stable compression deformity of T12. 6. Mediastinal and right hilar adenopathy probably reactive. 7. Areas of sclerosis right transverse process of T7 and T8 are nonspecific. Laboratory Results WBC 9.0 10^3/uL (4.0-10.0) 12/13/21 04:55 RBC 3.59 10^6/uL (4.1-5.3) L 12/13/21 04:55 Hgb 11.1 g/dL (11.7-16.6) L 12/13/21 04:55 Hct 35.1 % (42.0-52.0) L 12/13/21 04:55 MCV 97.8 fl (80-94) H 12/13/21 04:55 MCH 30.9 pg (28.0-34.0) 12/13/21 04:55 MCHC 31.6 g/dL (30.0-36.0) 12/13/21 04:55 RDW 13.2 % (12.1-15.1) 12/13/21 04:55 Plt Count 146 10^3/cmm (130-400) 12/13/21 04:55 MPV 10.5 fL (7.4-10.4) H 12/13/21 04:55 Neut % (Auto) 82.0 % 12/13/21 04:55 Lymph % (Auto) 5.0 % 12/13/21 04:55 [place] % (Auto) 6.0 % 12/13/21 04:55 Eos % (Auto) 5.9 % 12/13/21 04:55 Baso % (Auto) 0.7 % 12/13/21 04:55 Neut # (Auto) 7.40 10^3/uL (1.8-7.7) 12/13/21 04:55 Lymph # (Auto) 0.5 10^3/uL (0.8-4.8) L 12/13/21 04:55 [place] # (Auto) 0.5 10^3/uL (0.2-0.9) 12/13/21 04:55 Eos # (Auto) 0.5 10^3/uL (0.0-0.8) 12/13/21 04:55 Baso # (Auto) 0.1 10^3/uL (0.0-0.1) 12/13/21 04:55 Nucleated RBC % (auto) 0 % 12/13/21 04:55 Nucleated RBCs # 0.0 /100WBC 12/13/21 04:55 PT 19.10 SECONDS (12.1-14.9) H 12/13/21 04:55 INR 1.56 (0.8-1.2) H 12/13/21 04:55 D-Dimer 3.81 ug/mIFEU (0-0.59) H 12/13/21 04:55 Specimen Type Arterial 12/13/21 04:52 Sample Site Radial, left 12/13/21 04:52 ABG pH 7.40 (7.35-7.45) 12/13/21 04:52 ABG pCO2 42.3 mmHg (35-45) 12/13/21 04:52 ABG pO2 92.5 mmHg (80.0-100.0) 12/13/21 04:52 ABG HCO3 26.0 mmol/L (22-26) 12/13/21 04:52 ABG Base Excess 1.0 mmol/L (-2.0-2.0) 12/13/21 04:52 [place] Test Pos 12/13/21 04:52 Hematocrit 32.8 % (42-52) L 12/13/21 04:52 Hgb O2 Saturation 95.8 % (95-100) 12/13/21 04:52 Carboxyhemoglobin 1.1 %THgb (0.4-20.1) 12/13/21 04:52 Methemoglobin 1.0 % (0.4-1.5) 12/13/21 04:52 Total Hemoglobin 10.7 g/dL (14-18) L 12/13/21 04:52 O2 Delivery Device Nc 12/13/21 04:52 O2 Liters/Min 4.0 % 12/13/21 04:52 Elementary Teacher ID Hensa 12/13/21 04:52 Sodium 139 mmol/L (136-145) 12/13/21 04:55 Potassium 4.7 mmol/L (3.5-5.1) 12/13/21 04:55 Chloride 103 mmol/L (98-107) 12/13/21 04:55 Carbon Dioxide 21 mmol/L (22-29) L 12/13/21 04:55 Anion Gap 19.7 (5-19) H 12/13/21 04:55 BUN 24 mg/dL (8-23) H 12/13/21 04:55 Creatinine 0.8 mg/dL (0.7-1.2) 12/13/21 04:55 GFR Calculation Not Reportable 12/13/21 04:55 Glucose 219 mg/dL (65-115) H 12/13/21 04:55 Calculated Osmolality 299 mOsm/kg (285-295) H 12/13/21 04:55 Lactic Acid 1.6 mmol/L (0.5-2.2) 12/13/21 04:55 Calcium 9.1 mg/dL (8.5-10.5) 12/13/21 04:55 Total Bilirubin 0.5 mg/dL (0.15-1.2) 12/13/21 04:55 AST 35 U/L (0-40) 12/13/21 04:55 ALT 21 U/L (0-41) 12/13/21 04:55 Alkaline Phosphatase 76 IU/L (40-130) 12/13/21 04:55 Troponin T Baseline 34 ng/L (0-15) H 12/13/21 04:55 Troponin T 120 Minute 45.61 ng/L (0-15) H 12/13/21 07:15 Delta Troponin T 11.61 ABS# (0-10) H* 12/13/21 07:15 C-Reactive Protein 63.2 mg/L (0.0-4.9) H 12/13/21 04:55 NT-Pro-B Natriuret Pep 3415 pg/mL (0-450) H 12/13/21 04:55 Total Protein 6.4 g/dL (6.6-8.7) L 12/13/21 04:55 Albumin 3.3 g/dL (3.5-5.2) L 12/13/21 04:55 Globulin 3.1 g/dL (1.3-4.6) 12/13/21 04:55 Procalcitonin 0.08 ng/mL (0-0.5) 12/13/21 04:55 Coronavirus 229E (PCR) Not detected (NOT DETECT) 12/13/21 06:35 SARS-CoV-2 (PCR) Not detected (NOT DETECT) 12/13/21 06:35 SARS-CoV-2 Ag (Rapid) Negative (Negative) 12/13/21 05:07 EKG Data EKG 1: I personally reviewed and interpreted this EKG as follows: EKG Interpretation Date: 12/13/21 EKG interpretation time: 04:56 Interpretation: paced hr [address] or t wave abnormalities qrs 189 qtc 457 Critical Care Time Critical Care Time: Critical Care Time: Yes Total Critical Care Time: 40 Attestation: The high probability of a clinically significant, sudden or life threatening deterioration of the patient's Resp system(s) required my full and direct attention, intervention and personal management. The critical care time is as shown. This time is in addition to time spent performing any reported procedures but includes the following: [x] Data and vital sign review and interpretation [x] Patient assessment, examination and intervention [x] Documentation [x] Medication orders and management Discharge Plan Discharge Patient Disposition: Admitted As Inpatient Clinical Impression: Elevated troponin I level, CHF (congestive heart failure), Diabetes type 2, uncontrolled, Coronary artery disease due to type 2 diabetes mellitus, History of [place] (myocardial infarction) Condition: Stable Sign Out Sign Out Data: Patient Sign Out occurred on 12/13/21 at 06:09. Patient's care was discussed, and care was transferred from to Jimbo Alexandre DO. Coding Level of Care Code ED Pipe Chipper for Chg Fwd Exam Comprehensive Documented by User: Jimbo Alexandre DO 12/13/21 09:40 HPI - SOB/Dyspnea General: Chief Complaint: Shortness of Breath/Dyspnea Stated Complaint: diff breathing Time Seen by Provider: 12/13/21 04:47 [facility] ED PFSH: Medical History A-fib ASCVD (arteriosclerotic cardiovascular disease) Cardiac defibrillator in place CHF (congestive heart failure) COPD (chronic obstructive pulmonary disease) Critical limb ischemia with history of revascularization of same extremity Diabetes mellitus History of [place] (myocardial infarction) History of prostate cancer Incontinence PAD (peripheral artery disease) Prostate CA Sleep apnea Surgical History S/P CABG (coronary artery bypass graft) X5 S/P cardiac pacemaker procedure S/P cataract surgery S/P eye surgery S/P hernia surgery S/P hip hemiarthroplasty S/P knee surgery S/P prostatectomy Family History Family/Other No problems noted. Father , age 57 [place] Myocardial infarction CAD (coronary artery disease) Hypertension Mother , of Brain CA age 66 Cancer Social History Smoking risk assessment/counseling performed?: Yes Alcohol intake: current Alcohol intake frequency: few times a week Alcohol type: hard liquor Desire information about alcohol rehabilitation?: No Counseling given: Yes Desire information about substance/drug rehabilitation?: No Counseling given: Yes Adopted: No Caregiver/support person: Yes Lives independently: Yes Household members: spouse and family Housing: House Marital status: Number of children: 23 Highest education level completed: Associate Degree: Academic Program service: No Current occupational status: retired History of recent travel: No Course Vital Signs: Vital signs: Vital Signs Pulse Rate 60 12/13/21 07:47 Respiratory Rate 19 H 12/13/21 07:46 Blood Pressure 120/59 12/13/21 07:46 Pulse Oximetry 98 12/13/21 07:47 MDM - SOB/Dyspnea Medical Decision Making Delta troponin is elevated D-dimer is also elevated PE scan negative for pulmonary emboli. Clinically highly suspicious for COVID with lymphocytosis procalcitonin normal. He is adequately oxygenated now on the BiPAP. Will admit at the time of this dictation his COVID PCR is pending his rapid was negative however I suspect he just out of the window for that test. He has been given Lovenox he is already had steroids we will hold off on remdesivir until we get his COVID back in house PCR so should be done shortly discussed with hospitalist orders written. In house PCR was negative. Patient given Lasix and Jewell placed discussed with Dr. Munoz. Medical Records I reviewed the patient's medical records. Lab Data I reviewed the patient's lab results. : 12/13/21 04:55 12/13/21 04:55 Labs/Radiology: Radiology Impressions Chest X-Ray 12/13/21 04:47 IMPRESSION: Bilateral airspace opacities with trace left pleural effusion, concerning for pneumonia. Pulmonary edema can have this appearance. Clinical correlation is recommended. Chest CTA 12/13/21 05:55 IMPRESSION: 1. No visualized pulmonary embolus limited assessment due to motion degradation. 2. Bilateral pleural effusions and fluid expansion throughout the left oblique fissure. 3. Pulmonary consolidations bilateral lower lobe of lungs and left upper lobe which could reflect areas of atelectasis or pneumonic infiltrate. 4. Cardiomegaly. 5. Stable compression deformity of T12. 6. Mediastinal and right hilar adenopathy probably reactive. 7. Areas of sclerosis right transverse process of T7 and T8 are nonspecific. Laboratory Results WBC 9.0 10^3/uL (4.0-10.0) 12/13/21 04:55 RBC 3.59 10^6/uL (4.1-5.3) L 12/13/21 04:55 Hgb 11.1 g/dL (11.7-16.6) L 12/13/21 04:55 Hct 35.1 % (42.0-52.0) L 12/13/21 04:55 MCV 97.8 fl (80-94) H 12/13/21 04:55 MCH 30.9 pg (28.0-34.0) 12/13/21 04:55 MCHC 31.6 g/dL (30.0-36.0) 12/13/21 04:55 RDW 13.2 % (12.1-15.1) 12/13/21 04:55 Plt Count 146 10^3/cmm (130-400) 12/13/21 04:55 MPV 10.5 fL (7.4-10.4) H 12/13/21 04:55 Neut % (Auto) 82.0 % 12/13/21 04:55 Lymph % (Auto) 5.0 % 12/13/21 04:55 [place] % (Auto) 6.0 % 12/13/21 04:55 Eos % (Auto) 5.9 % 12/13/21 04:55 Baso % (Auto) 0.7 % 12/13/21 04:55 Neut # (Auto) 7.40 10^3/uL (1.8-7.7) 12/13/21 04:55 Lymph # (Auto) 0.5 10^3/uL (0.8-4.8) L 12/13/21 04:55 [place] # (Auto) 0.5 10^3/uL (0.2-0.9) 12/13/21 04:55 Eos # (Auto) 0.5 10^3/uL (0.0-0.8) 12/13/21 04:55 Baso # (Auto) 0.1 10^3/uL (0.0-0.1) 12/13/21 04:55 Nucleated RBC % (auto) 0 % 12/13/21 04:55 Nucleated RBCs # 0.0 /100WBC 12/13/21 04:55 PT 19.10 SECONDS (12.1-14.9) H 12/13/21 04:55 INR 1.56 (0.8-1.2) H 12/13/21 04:55 D-Dimer 3.81 ug/mIFEU (0-0.59) H 12/13/21 04:55 Specimen Type Arterial 12/13/21 04:52 Sample Site Radial, left 12/13/21 04:52 ABG pH 7.40 (7.35-7.45) 12/13/21 04:52 ABG pCO2 42.3 mmHg (35-45) 12/13/21 04:52 ABG pO2 92.5 mmHg (80.0-100.0) 12/13/21 04:52 ABG HCO3 26.0 mmol/L (22-26) 12/13/21 04:52 ABG Base Excess 1.0 mmol/L (-2.0-2.0) 12/13/21 04:52 [place] Test Pos 12/13/21 04:52 Hematocrit 32.8 % (42-52) L 12/13/21 04:52 Hgb O2 Saturation 95.8 % (95-100) 12/13/21 04:52 Carboxyhemoglobin 1.1 %THgb (0.4-20.1) 12/13/21 04:52 Methemoglobin 1.0 % (0.4-1.5) 12/13/21 04:52 Total Hemoglobin 10.7 g/dL (14-18) L 12/13/21 04:52 O2 Delivery Device Nc 12/13/21 04:52 O2 Liters/Min 4.0 % 12/13/21 04:52 Elementary Teacher ID Hensa 12/13/21 04:52 Sodium 139 mmol/L (136-145) 12/13/21 04:55 Potassium 4.7 mmol/L (3.5-5.1) 12/13/21 04:55 Chloride 103 mmol/L (98-107) 12/13/21 04:55 Carbon Dioxide 21 mmol/L (22-29) L 12/13/21 04:55 Anion Gap 19.7 (5-19) H 12/13/21 04:55 BUN 24 mg/dL (8-23) H 12/13/21 04:55 Creatinine 0.8 mg/dL (0.7-1.2) 12/13/21 04:55 GFR Calculation Not Reportable 12/13/21 04:55 Glucose 219 mg/dL (65-115) H 12/13/21 04:55 Calculated Osmolality 299 mOsm/kg (285-295) H 12/13/21 04:55 Lactic Acid 1.6 mmol/L (0.5-2.2) 12/13/21 04:55 Calcium 9.1 mg/dL (8.5-10.5) 12/13/21 04:55 Total Bilirubin 0.5 mg/dL (0.15-1.2) 12/13/21 04:55 AST 35 U/L (0-40) 12/13/21 04:55 ALT 21 U/L (0-41) 12/13/21 04:55 Alkaline Phosphatase 76 IU/L (40-130) 12/13/21 04:55 Troponin T Baseline 34 ng/L (0-15) H 12/13/21 04:55 Troponin T 120 Minute 45.61 ng/L (0-15) H 12/13/21 07:15 Delta Troponin T 11.61 ABS# (0-10) H* 12/13/21 07:15 C-Reactive Protein 63.2 mg/L (0.0-4.9) H 12/13/21 04:55 NT-Pro-B Natriuret Pep 3415 pg/mL (0-450) H 12/13/21 04:55 Total Protein 6.4 g/dL (6.6-8.7) L 12/13/21 04:55 Albumin 3.3 g/dL (3.5-5.2) L 12/13/21 04:55 Globulin 3.1 g/dL (1.3-4.6) 12/13/21 04:55 Procalcitonin 0.08 ng/mL (0-0.5) 12/13/21 04:55 Coronavirus 229E (PCR) Not detected (NOT DETECT) 12/13/21 06:35 SARS-CoV-2 (PCR) Not detected (NOT DETECT) 12/13/21 06:35 SARS-CoV-2 Ag (Rapid) Negative (Negative) 12/13/21 05:07 Discharge Plan Discharge Patient Disposition: Admitted As Inpatient Clinical Impression: Elevated troponin I level, CHF (congestive heart failure), Diabetes type 2, uncontrolled, Coronary artery disease due to type 2 diabetes mellitus, History of [place] (myocardial infarction) Condition: Stable Sign Out Sign Out Data: Patient Sign Out occurred on 12/13/21 at 06:09. Patient's care was discussed, and care was transferred from to Jimbo Alexandre DO. Coding Level of Care Code ED Pipe Chipper for Codi Fwkobe Exam Comprehensive
[2021-12-13 05:06] LABS: ABG PCO2 42.3 mmHg (35-45); Arterial Blood Gas Hematocrit 32.8 % (42-52); Blood Gas Allen Test Pos; Blood Gas Sample Site Radial, left; Blood Gas Sample Type Arterial; Carboxyhemoglobin 1.1 %THgb (0.4-20.1); HGB O2 Sat 95.8 % (95-100); Oxygen Device NC; PO2 ABG 92.5 mmHg (80.0-100.0); Total Hemoglobin 10.7 g/dL (14-18)
[2021-12-13 05:14] LABS: Basophils # 0.1 10^3/uL (0.0-0.1); Basophils % 0.7 %; Eosinophils # 0.5 10^3/uL (0.0-0.8); Eosinophils % 5.9 %; Hematocrit 35.1 % (42.0-52.0); Hemoglobin 11.1 g/dL (11.7-16.6); Lymphocytes # 0.5 10^3/uL (0.8-4.8); Mean Corpuscular HGB Conc 31.6 g/dL (30.0-36.0); Mean Corpuscular Hemoglobin 30.9 pg (28.0-34.0); Mean Corpuscular Volume 97.8 fl (80-94); Mean Platelet Volume 10.5 fL (7.4-10.4); Monocytes # 0.5 10^3/uL (0.2-0.9); Nucleated Red Blood Cells % 0 %; Platelet Count 146 10^3/cmm (130-400); Red Blood Count 3.59 10^6/uL (4.1-5.3); Red Cell Distribution Width 13.2 % (12.1-15.1)
[2021-12-13] MEDS: ipratropium-albuterol 3 mL Neb INHALATION ×2 (05:24→22:00)
[2021-12-13 05:27] LABS: Lactic Sepsis W/Reflex 1.6 mmol/L (0.5-2.2)
[2021-12-13 05:40] LABS: Troponin(5th) Baseline 34 ng/L (0-15)
[2021-12-13 05:44] LABS: INR 1.56 (0.8-1.2)
[2021-12-13 05:48] LABS: Alanine Aminotransferase 21 U/L (0-41); Albumin Level 3.3 g/dL (3.5-5.2); Alkaline Phosphatase 76 IU/L (40-130); Blood Urea Nitrogen 24 mg/dL (8-23); Calcium 9.1 mg/dL (8.5-10.5); Carbon Dioxide 21 mmol/L (22-29); Chloride 103 mmol/L (98-107); Globulin 3.1 g/dL (1.3-4.6); Glucose 219 mg/dL (65-115); NT Pro B Type Natriuretic Pept 3415 pg/mL (0-450); Osmolality Calculated 299 mOsm/kg (285-295); Sodium 139 mmol/L (136-145); Total Bilirubin 0.5 mg/dL (0.15-1.2); Total Protein 6.4 g/dL (6.6-8.7)
[2021-12-13 05:49] LABS: Anion Gap 19.7 (5-19); Aspartate Amino Transferase 35 U/L (0-40); Potassium 4.7 mmol/L (3.5-5.1)
[2021-12-13 05:53] LABS: D Dimer 3.81 ug/mIFEU (0-0.59)
--- NOTE | 2021-12-13 05:55 | CTR_ITS ---
PROCEDURE INFORMATION: Exam: CTA Chest With Contrast Exam date and time: 12/13/2021 5:55 AM Age: 85 years old Clinical indication: Shortness of breath; Additional info: Sob/possible covid TECHNIQUE: Imaging protocol: Computed tomographic angiography of the chest with contrast. 3D rendering (Not supervised by radiologist): MIP and/or 3D reconstructed images were created by the technologist. Radiation optimization: All CT scans at this facility use at least one of these dose optimization techniques: automated exposure control; mA and/or kV adjustment per patient size (includes targeted exams where dose is matched to clinical indication); or iterative reconstruction. Contrast material: OMNI 350; Contrast volume: 95 ml; Contrast route: INTRAVENOUS (IV); COMPARISON: CT chest wo con [id number] 09/10/2019 3:25 PM RADIATION DOSE METRICS: Total DLP (mGy-cm): 583.06 FINDINGS: Tubes, catheters and devices: Cardiac device projects over the left chest with intracardiac lead tips positioned RA and RV. Pulmonary arteries: No visualized pulmonary embolus with limitation of peripheral arterial structures due to extreme motion degradation. Aorta: Calcified thoracic aorta. Lungs: Emphysematous changes within both lungs. Areas of parenchymal consolidation lower lobes bilaterally and partial interstitial opacity within the left upper lobe which could reflect areas of atelectasis or pneumonia. Few scattered granulomatous calcifications within the lungs bilaterally. Left hilar calcified lymph nodes. Pleural spaces: Bilateral pleural effusions. Likely fluid expansion of the left oblique fissure. Heart: Cardiomegaly. Normal right to left ventricular ratio. Atherosclerotic calcification distribution of coronary arteries. Lymph nodes: Nonspecific small mediastinal lymph nodes. Largest distal paratracheal lymph node measures 2.2 cm. Right hilar lymphadenopathy largest measures approximately 1.8 cm. Diaphragm: Elevation left hemidiaphragm. Stomach and bowel: Accentuated gastric folds. Bones/joints: Postoperative sternotomy. Degenerative change of the spine. Marked compression deformity of T12 is similar. Focal area of sclerosis right transverse process of T7 and T8. Soft tissues: Bilateral gynecomastia. CT/CT angio chest PE protcl [id number] IMPRESSION: 1. No visualized pulmonary embolus limited assessment due to motion degradation. 2. Bilateral pleural effusions and fluid expansion throughout the left oblique fissure. 3. Pulmonary consolidations bilateral lower lobe of lungs and left upper lobe which could reflect areas of atelectasis or pneumonic infiltrate. 4. Cardiomegaly. 5. Stable compression deformity of T12. 6. Mediastinal and right hilar adenopathy probably reactive. 7. Areas of sclerosis right transverse process of T7 and T8 are nonspecific.
[2021-12-13 05:59] LABS: SARS Covid-2 Antigen Negative (Negative)
[2021-12-13] MEDS: iohexol 350 mg/mL 100 mL Btl IV (06:50)
--- NOTE | 2021-12-13 07:00 | ECG_ITS ---
[facility] Test Date: 2021-12-13 Pat Name: Dany Whitehead Department: Room: Gender: Male Human Resources Temp: : [phone] Requested By: Zohreh Voss Order Number: [id number] Reading MD: LUPE BOCANEGRA Measurements Intervals [place] Rate: 60 P: TX: QRS: -82 QRSD: 195 T: 74 QT: 497 QTc: 497 Interpretive Statements ELECTRONIC VENTRICULAR PACEMAKER ABNORMAL RHYTHM ECG Compared to ECG 12/13/2021 04:56:52 No significant changes Electronically Signed On 12-13-2021 19:52:20 SUPERVISOR LITHARGE by ULPE BOCANEGRA [id number]
[2021-12-13 07:43] LABS: Troponin 5 2HR 45.61 ng/L (0-15)
[2021-12-13 07:46] LABS: Troponin 5 2HR Delta 11.61 ABS# (0-10)
[2021-12-13 07:51] LABS: C Reactive Protein 63.2 mg/L (0.0-4.9)
[2021-12-13 07:59] LABS: Procalcitonin 0.08 ng/mL (0-0.5)
--- NOTE | 2021-12-13 09:15 | PC.PHAR ---
pts verified pts medications-pts states the pt hasnt used his insulin since sep 09 2021 pt was using lantus solostar and humulin r 500 units/ml moisésikpen states the pt is only taking januvia-notes are made in the pharmacy comments
[2021-12-13 09:23] LABS: Adenovirus Not Detected (NOT DETECT); Chlamydia Pneumoniae Not Detected (NOT DETECT); Coronavirus 229E,HKU1,NL63,OC4 Not Detected (NOT DETECT); Human Metapneumovirus Not Detected (NOT DETECT); Human Rhinovirus/Enterovirus Not Detected (NOT DETECT); Influenza A Not Detected (NOT DETECT); Influenza A H1 Not Detected (NOT DETECT); Influenza A H1-2009 Not Detected (NOT DETECT); Influenza A H3 Not Detected (NOT DETECT); Influenza B Not Detected (NOT DETECT); Mycoplasma Pneumoniae Not Detected (NOT DETECT); Parainfluenza Virus Type 1 Not Detected (NOT DETECT); Parainfluenza Virus Type 2 Not Detected (NOT DETECT); Parainfluenza Virus Type 3 Not Detected (NOT DETECT); Parainfluenza Virus Type 4 Not Detected (NOT DETECT); Respiratory Syncytial Virus A Not Detected (NOT DETECT); Respiratory Syncytial Virus B Not Detected (NOT DETECT); SARS-COV-2 Not Detected (NOT DETECT)
[2021-12-13] MEDS: enoxaparin 100 mg/mL Syringe 90 MG SUBCUT (09:49)
[2021-12-13] MEDS: FUROsemide 10 mg/mL SDV 4mL 40 MG IVP (09:49)
--- NOTE | 2021-12-13 11:24 | PM.HP ---
Providers/Chief Complaint Admitting Physician: French Munoz MD Primary Care Provider: Gopal Cameron MD Chief Complaint: diff breathing History of Present Illness Dany Whitehead is a 85 year old male who presented to the emergency department with shortness of breath. He had enough distress he was placed on BiPAP shortly after arrival. From my understanding his shortness of breath started this morning, and he was not short of breath yesterday. He has difficulty giving history secondary to his underlying neurologic disorder. was not present when I visited with him. Return later and was present. She reported he was doing well yesterday without any chest pain. He was feeling tired. She has not noticed any excessive edema lately. She confirms the history obtained above. Has had decreased urination lately. Review of Systems General: Reports: 10 or more systems reviewed and unremarkable except in HPI and below Const: Denies: fever(s) or chills Eyes: Denies: change in vision ENMT: Denies: throat pain Card: Denies: chest pain Resp: Reports: dyspnea GI: Denies: abdominal pain, nausea or vomiting : Denies: flank pain Musc: Denies: neck pain Skin/Breast: Denies: rash Neuro: Reports: numbness in extremities and weakness in extremities Psych: Denies: anxiety Endo: Denies: polyuria German/Lymph: Denies: easy bruising All/Imm: Denies: urticaria Medications/Allergies Home Medications Medication Instructions Recorded Confirmed Last Taken Type apixaban 5 mg tablet (Eliquis) 5 mg PO BID 12/23/19 12/13/21 10/14/20 History aspirin 81 mg tablet,delayed 81 mg PO QAM 12/23/19 12/13/21 10/14/20 History release carvedilol 25 mg tablet 25 mg PO BID 12/23/19 12/13/21 10/14/20 History eplerenone 25 mg tablet 25 mg PO DAILY 12/23/19 12/13/21 10/14/20 History potassium chloride 20 mEq 20 meq PO QAM 12/23/19 12/13/21 10/14/20 History tablet,extended release(part/cryst) simvastatin 80 mg tablet 80 mg PO QAM 12/23/19 12/13/21 10/14/20 History tamsulosin 0.4 mg capsule 0.4 mg PO QPM 12/23/19 12/13/21 10/13/20 History tiotropium bromide 18 mcg capsule 1 cap INHALATION DAILY 12/23/19 12/13/21 Unknown History with inhalation device (Spiriva with HandiHaler) tramadol 50 mg tablet 50 mg PO BEDTIME PRN 12/23/19 12/13/21 Unknown History albuterol sulfate 90 mcg/actuation 2 puff INHALATION Q4H PRN 01/09/20 12/13/21 Unknown History aerosol inhaler (ProAir HFA) furosemide 40 mg tablet (Lasix) See Rx Instructions .ROUTE 01/09/20 12/13/21 10/14/20 History .COMPLEX tab magnesium L-lactate 84 mg 84 mg PO BID tab 01/09/20 12/13/21 Unknown History tablet,extended release omeprazole 20 mg capsule,delayed 20 mg PO QAM cap 01/09/20 12/13/21 10/14/20 History release acetaminophen 650 mg 1,300 mg PO BEDTIME PRN 10/14/20 12/13/21 12/12/21 History tablet,extended release cholecalciferol (vitamin D3) 25 1,000 unit PO BID 10/14/20 12/13/21 Unknown History mcg (1,000 unit) capsule (Vitamin D3) olopatadine 0.1 % eye drops 1 drp OPHTHALMIC (EYE) BID PRN 10/14/20 12/13/21 Unknown History sacubitril 97 mg-valsartan 103 mg 1 tab PO BID 10/14/20 12/13/21 10/14/20 History tablet (Entresto) blood-glucose meter,continuous #1 ea 08/25/21 12/13/21 Unknown Rx (Dexcom G6 [employer]) blood-glucose sensor (Dexcom G6 #3 ea 08/25/21 12/13/21 Unknown Rx Sensor) blood-glucose transmitter (Dexcom #1 ea 08/25/21 12/13/21 Unknown Rx G6 Transmitter) escitalopram oxalate 10 mg tablet 10 mg PO QAM 12/13/21 12/13/21 Unknown History gabapentin 400 mg capsule 800 mg PO BID 12/13/21 12/13/21 Unknown History nitrofurantoin 100 mg PO BID 12/13/21 12/13/21 Unknown History monohydrate/macrocrystals 100 mg capsule sitagliptin 100 mg tablet (Januvia) 100 mg PO QAM 12/13/21 12/13/21 Unknown History Allergies Allergy/AdvReac Type Severity Reaction Status Date / Time adhesive tape Allergy Mild ALGY-Rash Verified 12/13/21 08:39 latex Allergy Mild ALGY-Rash Verified 12/13/21 08:39 PFSH Acute PFSH: Medical History (Updated 12/13/21 @ 12:53 by French Munoz MD) A-fib ASCVD (arteriosclerotic cardiovascular disease) Cardiac defibrillator in place CHF (congestive heart failure) COPD (chronic obstructive pulmonary disease) Critical limb ischemia with history of revascularization of same extremity Depression Diabetes mellitus History of RI (myocardial infarction) History of prostate cancer Hyperlipidemia Incontinence PAD (peripheral artery disease) Prostate CA Sleep apnea Surgical History S/P CABG (coronary artery bypass graft) X5 S/P cardiac pacemaker procedure S/P cataract surgery S/P eye surgery S/P hernia surgery S/P hip hemiarthroplasty S/P knee surgery S/P prostatectomy Family History Family/Other No problems noted. Father , age 57 [place] Myocardial infarction CAD (coronary artery disease) Hypertension Mother , of Brain CA age 66 Cancer Social History Smoking risk assessment/counseling performed?: Yes Alcohol intake: current Alcohol intake frequency: few times a week Alcohol type: hard liquor Desire information about alcohol rehabilitation?: No Counseling given: Yes Desire information about substance/drug rehabilitation?: No Counseling given: Yes Adopted: No Caregiver/support person: Yes Lives independently: Yes Household members: spouse and family Housing: House Marital status: Number of children: 23 Highest education level completed: Associate Degree: Academic Program service: No Current occupational status: retired History of recent travel: No Vitals/I&O/Wt Last Vital Signs Pulse 61 12/13/21 11:12 Resp 19 H 12/13/21 07:46 BP 120/59 12/13/21 07:46 Pulse Ox 98 12/13/21 11:12 Weight last 48 hrs Weight 86.183 kg Physical Exam Narrative: EXAM NARRATIVE: General exam is a white male, who can answer yes or no by nodding but is difficult to understand. He is also able to write his responses. HEENT: Atraumatic normocephalic. Pupils equally round. BiPAP is on and oropharynx is not examined Neck is supple no lymphadenopathy or thyromegaly Cardiovascular regular rate and rhythm without murmur, no S3 or S4 Lungs diminished breath sounds bilaterally but clear. No wheezes or crackles heard with BiPAP on. Abdomen is soft nontender with positive bowel sounds. No obvious organomegaly exam is deferred Extremities atrophied. No cyanosis or clubbing. No edema. Neurologic: General atrophy of his musculature in his extremities. Skin no rash Data : 12/13/21 04:55 12/13/21 04:55 Other Labs: Troponin at baseline 34 with repeat of 45 at 120 minutes. 6-hour troponin pending. CRP 63, BNP 3415, albumin 3.3, pro calcitonin 0.08 Urinalysis ordered Covid PCR negative Lactate 1.6 LFTs normal ABG with a pH 7.4, PCO2 42, PO2 92 on 4 L INR 1.56, dimer 3.81 CTA chest demonstrated no pulmonary embolism, bilateral pleural effusions, consolidations atelectasis lower lobes, cardiomegaly Chest x-ray showed pacer, bilateral airspace disease/pulmonary edema Blood cultures were collected EKG demonstrated a ventricular pacemaker Micro: Microbiology 12/13/21 05:05 Blood Culture - Preliminary Blood SPECIMEN COLLECTED 12/13/21 04:55 Blood Culture - Preliminary Blood SPECIMEN COLLECTED A&P Assessment and plan (1) Acute respiratory failure with hypoxia: Covid negative Demonstrated by significant tachypnea in the emergency department, and requiring 4 L. From my understanding he had accessory muscle use as well on presentation. Cannot rule out pneumonia. Some atelectasis or infiltrate also present on x-ray. Considering his global weakness, difficulty phonation aspiration is a risk. Initiate Zosyn. Check MRSA PCR. Status: Acute (2) CHF (congestive heart failure): Acute congestive heart failure. Most likely this is acute diastolic heart failure but echocardiogram will delineate further. Lasix IV has been given in the emergency department. Check echocardiogram. Troponins with a positive delta. Full dose anticoagulation currently. Cannot rule out that this elevation is not secondary to his CHF. Has underlying coronary disease as well. Continue aspirin, carvedilol, statin for his atherosclerotic disease Hold Entresto during diuresis Status: Acute (3) Diabetes type 2, uncontrolled: Sliding scale insulin Consistent carb diet Status: Acute (4) A-fib: On anticoagulation with apixaban. Continue carvedilol Note that he has a ventricular pacer Status: Acute (5) COPD (chronic obstructive pulmonary disease): Eugenio scheduled No wheezing currently to suggest exacerbation. 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 She reports there has not been breathing issues associated with this to date, although the patient does wear trilogy at night to sleep. Status: Acute Plan No intubation or CPR but other aggressive measures/treatment ok Lovenox for DVT prophylaxis Attestations Medical Necessity Statement*: Will require greater than 2 midnight stay for evaluation and treatment of acute hypoxic respiratory failure and exacerbation of CHF. Time Spent in Patient Care: Greater than 35 minutes spent performing history and physical at bedside Coding Level of Care Code Acute Cell Operation Supervisor for Codi Ramos Diagnoses Acute respiratory failure with hypoxia J96.01 CHF (congestive heart failure) I50.9 Diabetes type 2, uncontrolled E11.65 A-fib I48.91 COPD (chronic obstructive pulmonary disease) J44.9 History of neurological degenerative disease Z86.69
[2021-12-13 11:33] LABS: Troponin 5 6HR 48.52 ng/L (0-15)
[2021-12-13 11:39] LABS: Troponin 5 6HR Delta 14.52 ng/L (0-12)
[2021-12-13 11:42] LABS: Bilirubin Urine Neg (Negative); Blood Urine Neg (Negative); Glucose Urine UA Norm (Normal); Ketones Urine 1+ (Negative); Leukocyte Esterase Urine Negative (Negative); Nitrate Urine Negative (Negative); Protein Urine Neg (Negative); Urine Appearance Clear (CLEAR); Urine Color Yellow (Yellow); Urobilinogen Urine Norm (Negative); pH Urine 5 (5-7)
[2021-12-13 11:44] LABS: Bacteria Urine TRACE /hpf; RBC Urine 0-4 /hpf (0-2); Squamous Epithelial Cell Urine 0-4 /hpf (0-5); WBC Urine RARE /hpf (0-5)
[2021-12-13 11:45] LABS: Add Urine Culture? No
--- NOTE | 2021-12-13 17:12 | PC.NURSE ---
Informed pharmacy that several meds that were ordered under transfer orders have not crossed over into [facility]. Pharmacy advised they have been working on meds for an ED code and will update as soon as possible.
[2021-12-13] MEDS: piperacillin-tazobactam 3.375 GM in sodium chloride 0.9% (plus) 50 ML IV (17:59)
[2021-12-13] MEDS: gabapentin 400 mg Capsule 800 MG PO (17:59)
[2021-12-13] MEDS: tamsulosin 0.4 mg Capsule PO (18:00)
[2021-12-13] MEDS: carvedilol 25 mg Tablet PO (18:00)
[2021-12-13] MEDS: apixaban 5 mg Tablet PO (18:00)
[2021-12-13 18:05] LABS: Glucose Point of Care 194 mg/dL (70-110)
[2021-12-13] MEDS: insulin lispro 100 unit/1 mL SUBCUT ×2 (18:05→23:50)
[2021-12-13 23:15] LABS: Glucose Point of Care 193 mg/dL (70-110)
[2021-12-13] MEDS: FUROsemide 10 mg/mL SDV 10mL 60 MG IVP (23:37)
[2021-12-14] VITALS (13 sets, daily range): BP systolic 108–125; BP diastolic 51–63; PULSE 59–79; RESP 6–17; TEMP 36.6–37; O2SAT 90–100
[2021-12-14] MEDS: piperacillin-tazobactam 3.375 GM in sodium chloride 0.9% (plus) 50 ML IV ×3 (01:52→18:34)
[2021-12-14] MEDS: ipratropium-albuterol 3 mL Neb INHALATION ×3 (04:06→14:56)
[2021-12-14] MEDS: potassium chloride ER 20 mEq Tablet PO (05:39)
[2021-12-14] MEDS: aspirin 81 mg EC Tablet PO (05:39)
[2021-12-14] MEDS: pantoprazole DR 40 mg Tablet PO (05:39)
[2021-12-14] MEDS: atorvastatin 40 mg Tablet PO (05:39)
[2021-12-14] MEDS: escitalopram 10 mg Tablet PO (05:39)
[2021-12-14 05:40] LABS: Basophils % 0.2 %; Hematocrit 33.6 % (42.0-52.0); Hemoglobin 10.3 g/dL (11.7-16.6); Lymphocytes # 0.6 10^3/uL (0.8-4.8); Lymphocytes % 11.8 %; Mean Corpuscular HGB Conc 30.7 g/dL (30.0-36.0); Mean Corpuscular Hemoglobin 31.2 pg (28.0-34.0); Mean Corpuscular Volume 101.8 fl (80-94); Mean Platelet Volume 10.6 fL (7.4-10.4); Monocytes # 0.3 10^3/uL (0.2-0.9); Monocytes % 5.5 %; Neutrophils # 4.38 10^3/uL (1.8-7.7); Neutrophils % 82.3 %; Nucleated Red Blood Cells % 0 %; Platelet Count 163 10^3/cmm (130-400); Red Cell Distribution Width 13.2 % (12.1-15.1); White Blood Count 5.3 10^3/uL (4.0-10.0)
--- NOTE | 2021-12-14 06:00 | USCV_ITS ---
Dany Whitehead Age: 85 Gender: M : 1935 Exam Date: 12/14/2021 06:11 Ordering Phys: French Munoz MD Technologist: CLAIRE Exam Location: [facility] [place] Indication: CHF BP: 125 / 54 HR: 59 Rhythm: Atrial fibrillation Technical Quality: Technically difficult study MEASUREMENTS (Male / Female) Normal Values 2D ECHO LVOT Diameter 2.0 cm LV Ejection Fraction MOD 2C 63.8 % LV Ejection Fraction 2C AL 64.4 % LA Diameter 4.3 cm LA Width 4.3 cm LA Height 6.6 cm RA Width 4.6 cm RA Height 5.9 cm Aorta at Sinotubular Diameter 3.0 cm M-MODE MV E Point Septal Separation 1.2 cm DOPPLER AV Peak Velocity 132.0 cm/s LVOT Peak Velocity 59.0 cm/s AV Area Cont Eq vti 1.5 cm squared AV Area Cont Eq pk 1.4 cm squared MV Peak Velocity 114.0 cm/s MV Area PHT 3.3 cm squared MV E' Velocity 58.0 cm/s Mitral E to MV E' Ratio 13.5 Mitral E to LV E' Lateral Ratio 9.9 Mitral E to LV E' Septal Ratio 21.4 TR Peak Velocity 293.4 cm/s TR Peak Gradient 34.4 mmHg TR Mean Velocity 227.0 cm/s TR Mean Gradient 22.7 mmHg TR Velocity Time Integral 94.6 cm TV Peak E Velocity 57.0 cm/s FINDINGS Left Ventricle Technically limited quality echocardiogram because of poor ultrasonic windows. Grossly LV systolic function is moderately reduced. Regional wall motion abnormalities cannot be assessed because of limited visualization. Right Ventricle Grossly normal size. RV function is decreased. Pacemaker lead is seen. Right Atrium The right atrium is normal in size. Left Atrium Left atrium is severely enlarged. Mitral Valve Grossly normal. Mild mitral regurgitation is seen Aortic Valve Not well-visualized. Tricuspid Valve Not well-visualized. Mild tricuspid regurgitation. RV systolic pressure is normal. Pulmonic Valve Not visualized Pericardium Grossly normal Aorta Normal ascending aorta dimension. CONCLUSIONS Technically limited quality echocardiogram because of poor ultrasonic windows. Grossly LV systolic function is moderately reduced. RV function is decreased. Pacemaker lead is seen. Left atrial enlargement. Mild mitral regurgitation. Valvular structures are not well-visualized. Comparison to prior echocardiogram was not possible because of imaging quality. Orlando Sanchez MD (Electronically Signed) Final Date: 14 December 2021 12:36 S
[2021-12-14 06:06] LABS: Alanine Aminotransferase 17 U/L (0-41); Alkaline Phosphatase 60 IU/L (40-130); Blood Urea Nitrogen 26 mg/dL (8-23); Calcium 9.2 mg/dL (8.5-10.5); Carbon Dioxide 23 mmol/L (22-29); Chloride 104 mmol/L (98-107); Globulin 3.4 g/dL (1.3-4.6); Glucose 141 mg/dL (65-115); Osmolality Calculated 299 mOsm/kg (285-295); Sodium 141 mmol/L (136-145); Total Bilirubin 0.4 mg/dL (0.15-1.2); Total Protein 6.4 g/dL (6.6-8.7)
[2021-12-14 06:10] LABS: Anion Gap 18.1 (5-19); Aspartate Amino Transferase 20 U/L (0-40); Potassium 4.1 mmol/L (3.5-5.1)
[2021-12-14 06:54] LABS: Glucose Point of Care 179 mg/dL (70-110)
[2021-12-14] MEDS: FUROsemide 10 mg/mL SDV 10mL 60 MG IVP (08:59)
[2021-12-14] MEDS: gabapentin 400 mg Capsule 800 MG PO ×2 (10:20→18:36)
[2021-12-14] MEDS: magnesium lactate 84 mg Tablet PO ×2 (10:20→18:36)
[2021-12-14] MEDS: insulin lispro 100 unit/1 mL SUBCUT ×3 (10:20→18:36)
[2021-12-14] MEDS: carvedilol 25 mg Tablet PO ×2 (10:21→18:36)
[2021-12-14] MEDS: apixaban 5 mg Tablet PO ×2 (10:21→18:36)
--- NOTE | 2021-12-14 11:15 | P.PN_ITS ---
Subjective Subjective: Interval history: Dany reports he feels much better. He was able to come off the BiPAP. Denies being short of breath currently. Medications: Reviewed: Yes Vitals/I&O/Wt Last Vital Signs Temp 98.6 F 12/14/21 08:00 Pulse 77 12/14/21 08:12 Resp 12 12/14/21 08:12 BP 122/51 12/14/21 08:00 Pulse Ox 95 12/14/21 08:12 12/13/21 12/14/21 12/14/21 22:59 06:59 14:59 Intake Total 50 / 50 50 / 100 Output Total 650 / 650 Balance 50 / 50 -600 / -550 Weight last 48 hrs Weight 91.49 kg Weight 86.183 kg Physical Exam Narrative: EXAM NARRATIVE: General exam is a white male, voice is hoarse but he is understandable. Neck is supple no lymphadenopathy or thyromegaly Cardiovascular regular rate and rhythm without murmur, no S3 or S4 Lungs diminished breath sounds bilaterally but clear. No wheezes or crackles this morning Abdomen is soft nontender with positive bowel sounds. No obvious organomegaly Extremities atrophied. No cyanosis or clubbing. No edema. Neurologic: No change Urinary Catheter Management: Jewell: Cath Placed During This Visit: yes Reason for Continuing Indwelling Catheter: Other Urinary Catheter Date of Insertion: 12/13/21 Urinary Catheter Time of Insertion: 11:15 Data : 12/14/21 04:37 12/14/21 04:37 Micro: Microbiology 12/13/21 05:05 Blood Culture - Preliminary Blood NEGATIVE TO DATE 12/13/21 04:55 Blood Culture - Preliminary Blood NEGATIVE TO DATE A&P Assessment and plan (1) Acute respiratory failure with hypoxia: Covid negative Demonstrated by significant tachypnea in the emergency department, and requiring 4 L. From my understanding he had accessory muscle use as well on presentation. Zosyn initiated for possible pneumonia. Some atelectasis or infiltrate also present on x-ray. Considering his global weakness, difficulty phonation aspiration is a risk. MRSA PCR pending. Currently on a mechanical soft diet. Speech therapy to evaluate. NIF ordered Status: Acute (2) CHF (congestive heart failure): Acute congestive heart failure. Most likely this is acute diastolic heart fa ilure but echocardiogram will delineate further. Currently on IV Lasix, 60 mg IV every 12 hours Await echocardiogram Full dose anticoagulation currently. Cannot rule out that this elevation is not secondary to his CHF. Has underlying coronary disease as well. Cardiology will consult Continue aspirin, carvedilol, statin for his atherosclerotic disease Hold Entresto during diuresis Status: Acute (3) Diabetes type 2, uncontrolled: Sliding scale insulin Consistent carb diet Status: Acute (4) A-fib: On anticoagulation with apixaban. Continue carvedilol Note that he has a ventricular pacer Status: Acute (5) COPD (chronic obstructive pulmonary disease): Eugenio scheduled No wheezing currently to suggest exacerbation. 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 She reports there has not been breathing issues associated with this to date, although the patient does wear trilogy at night to sleep. Await NIF Status: Acute Plan No intubation or CPR but other aggressive measures/treatment ok Lovenox for DVT prophylaxis Attestations Medical Necessity Statement*: Continue IV antibiotics, continue diuresis. Cardiology evaluation pending. Needs continued hospitalization for further diuresis pending this. Coding Level of Care Code Acute Installations Inspector for Chg Fwd Diagnoses Acute respiratory failure with hypoxia J96.01 CHF (congestive heart failure) I50.9 Diabetes type 2, uncontrolled E11.65 A-fib I48.91 COPD (chronic obstructive pulmonary disease) J44.9 History of neurological degenerative disease Z86.69
[2021-12-14 11:16] LABS: Glucose Point of Care 257 mg/dL (70-110)
--- NOTE | 2021-12-14 12:37 | PM.CONSULT ---
Providers/Reason For Consult Consulting Physician/Specialty*: Orlando Sanchez MD/ Cardiology Reason for Consult*: CHF exacerbation Requesting Physician: Dr Munoz Attending Physician: French Munoz MD Primary Care Provider: Gopal Cameron MD History of Present Illness History of Present Illness Dany Whitehead is a 85 year old male with past medical history of congestive heart failure and underlying neurologic disorder presented to the hospital with shortness of breath. He was briefly put on BiPAP. According to patient and family he started noticing breathing difficulty on the morning of presentation to hospital. He denied chest pain. Troponins were mildly elevated. NT proBNP was elevated at 3415. Troponins were 35>45>48. He has responded well to diuresis. Echocardiogram was technically limited however showed moderately reduced LV systolic function. Review of Systems General: Reports: 10 or more systems reviewed and unremarkable except in HPI and below Const: Denies: fever(s) or chills Eyes: Denies: change in vision ENMT: Denies: throat pain Card: Denies: chest pain Resp: Reports: dyspnea GI: Denies: abdominal pain, nausea or vomiting : Denies: flank pain Musc: Denies: neck pain Skin/Breast: Denies: rash Neuro: Reports: numbness in extremities and weakness in extremities Psych: Denies: anxiety Endo: Denies: polyuria German/Lymph: Denies: easy bruising All/Imm: Denies: urticaria Medications/Allergies Home Medications Medication Instructions Recorded Confirmed Last Taken Type apixaban 5 mg tablet (Eliquis) 5 mg PO BID 12/23/19 12/13/21 10/14/20 History aspirin 81 mg tablet,delayed 81 mg PO QAM 12/23/19 12/13/21 10/14/20 History release carvedilol 25 mg tablet 25 mg PO BID 12/23/19 12/13/21 10/14/20 History eplerenone 25 mg tablet 25 mg PO DAILY 12/23/19 12/13/21 10/14/20 History potassium chloride 20 mEq 20 meq PO QAM 12/23/19 12/13/21 10/14/20 History tablet,extended release(part/cryst) simvastatin 80 mg tablet 80 mg PO QAM 12/23/19 12/13/21 10/14/20 History tamsulosin 0.4 mg capsule 0.4 mg PO QPM 12/23/19 12/13/21 10/13/20 History tiotropium bromide 18 mcg capsule 1 cap INHALATION DAILY 12/23/19 12/13/21 Unknown History with inhalation device (Spiriva with HandiHaler) tramadol 50 mg tablet 50 mg PO BEDTIME PRN 12/23/19 12/13/21 Unknown History albuterol sulfate 90 mcg/actuation 2 puff INHALATION Q4H PRN 01/09/20 12/13/21 Unknown History aerosol inhaler (ProAir HFA) magnesium L-lactate 84 mg 84 mg PO BID tab 01/09/20 12/13/21 Unknown History tablet,extended release omeprazole 20 mg capsule,delayed 20 mg PO QAM cap 01/09/20 12/13/21 10/14/20 History release acetaminophen 650 mg 1,300 mg PO BEDTIME PRN 10/14/20 12/13/21 12/12/21 History tablet,extended release cholecalciferol (vitamin D3) 25 1,000 unit PO BID 10/14/20 12/13/21 Unknown History mcg (1,000 unit) capsule (Vitamin D3) olopatadine 0.1 % eye drops 1 drp OPHTHALMIC (EYE) BID PRN 10/14/20 12/13/21 Unknown History sacubitril 97 mg-valsartan 103 mg 1 tab PO BID 10/14/20 12/13/21 10/14/20 History tablet (Entresto) blood-glucose meter,continuous #1 ea 08/25/21 12/13/21 Unknown Rx (Dexcom G6 Block Trimmer) blood-glucose sensor (Dexcom G6 #3 ea 08/25/21 12/13/21 Unknown Rx Sensor) blood-glucose transmitter (Dexcom #1 ea 08/25/21 12/13/21 Unknown Rx G6 Transmitter) escitalopram oxalate 10 mg tablet 10 mg PO QAM 12/13/21 12/13/21 Unknown History gabapentin 400 mg capsule 800 mg PO BID 12/13/21 12/13/21 Unknown History nitrofurantoin 100 mg PO BID 12/13/21 12/13/21 Unknown History monohydrate/macrocrystals 100 mg capsule sitagliptin 100 mg tablet (Januvia) 100 mg PO QAM 12/13/21 12/13/21 Unknown History amoxicillin 875 mg-potassium 1 tab PO BID #14 tab 12/14/21 Unknown Rx clavulanate 125 mg tablet (Augmentin) furosemide 40 mg tablet (Lasix) 80 mg PO BID #120 tab 12/14/21 Unknown Rx Allergies Allergy/AdvReac Type Severity Reaction Status Date / Time adhesive tape Allergy Mild ALGY-Rash Verified 12/13/21 08:39 latex Allergy Mild ALGY-Rash Verified 12/13/21 08:39 Current Medications Generic Name Dose Route Start Last Admin Trade Name Rene PRN Reason Stop Dose Admin Albuterol/Ipratropium 3 ml 12/13/21 21:00 12/14/21 08:08 Ipratropium-Albuterol 3 Ml Neb INHALATION 3 ml Q6H.RESPIRATORY BERNY Administration Apixaban 5 mg 12/13/21 18:00 12/14/21 10:21 Apixaban 5 Mg Tablet PO 5 mg BID BERNY Administration Aspirin 81 mg 12/14/21 06:00 12/14/21 05:39 Aspirin 81 Mg Ec Tablet PO 81 mg QAM BERNY Administration Atorvastatin Calcium 40 mg 12/14/21 06:00 12/14/21 05:39 Atorvastatin 40 Mg Tablet PO 40 mg QAM BERNY Administration Carvedilol 25 mg 12/13/21 18:00 12/14/21 10:21 Carvedilol 25 Mg Tablet PO 25 mg BID BERNY Administration Escitalopram Oxalate 10 mg 12/14/21 06:00 12/14/21 05:39 Escitalopram 10 Mg Tablet PO 10 mg QAM BERNY Administration Furosemide 60 mg 12/13/21 21:00 12/14/21 08:59 Furosemide 10 Mg/Ml Sdv 10ml IVP 60 mg Q12H BERNY Administration Gabapentin 800 mg 12/13/21 18:00 12/14/21 10:20 Gabapentin 400 Mg Capsule PO 800 mg BID BERNY Administration Piperacillin Sod/Tazobactam 50 mls @ 12.5 mls/hr 12/13/21 18:00 12/14/21 10:23 Sod 3.375 gm/ Sodium Chloride IV 12.5 mls/hr Q8H BERNY Administration Insulin Human Lispro 0 unit 12/13/21 18:00 12/14/21 10:20 Insulin Lispro 100 Unit/1 Ml SUBCUT 2 unit WM&BEDTIME BERNY Administration Protocol Magnesium Lactate 84 mg 12/13/21 18:00 12/14/21 10:20 Magnesium Lactate 84 Mg Tablet PO 84 mg BID BERNY Administration Pantoprazole Sodium 40 mg 12/14/21 06:00 12/14/21 05:[address] 40 Mg Tablet PO 40 mg QAM BERNY Administration Potassium Chloride 20 meq 12/14/21 06:00 12/14/21 05:39 Potassium Chloride Er 20 Meq Tablet PO 20 meq QAM BERNY Administration Tamsulosin HCl 0.4 mg 12/13/21 18:00 12/13/21 18:00 Tamsulosin 0.4 Mg Capsule PO 0.4 mg QPM BERNY Administration PFSH Acute PFSH: Medical History A-fib ASCVD (arteriosclerotic cardiovascular disease) Cardiac defibrillator in place CHF (congestive heart failure) COPD (chronic obstructive pulmonary disease) Critical limb ischemia with history of revascularization of same extremity Depression Diabetes mellitus History of [place] (myocardial infarction) History of prostate cancer Hyperlipidemia Incontinence PAD (peripheral artery disease) Prostate CA Sleep apnea Surgical History S/P CABG (coronary artery bypass graft) X5 S/P cardiac pacemaker procedure S/P cataract surgery S/P eye surgery S/P hernia surgery S/P hip hemiarthroplasty S/P knee surgery S/P prostatectomy Family History Family/Other No problems noted. Father , age 57 [place] Myocardial infarction CAD (coronary artery disease) Hypertension Mother , of Brain CA age 66 Cancer Social History Smoking risk assessment/counseling performed?: Yes Alcohol intake: current Alcohol intake frequency: few times a week Alcohol type: hard liquor Desire information about alcohol rehabilitation?: No Counseling given: Yes Desire information about substance/drug rehabilitation?: No Counseling given: Yes Adopted: No Caregiver/support person: Yes Lives independently: Yes Household members: spouse and family Housing: House Marital status: Number of children: 23 Highest education level completed: Associate Degree: Academic Program service: No Current occupational status: retired History of recent travel: No Vitals/I&O/Wt Last Vital Signs Temp 98.6 F 12/14/21 08:00 Pulse 77 12/14/21 08:12 Resp 12 12/14/21 08:12 BP 122/51 12/14/21 08:00 Pulse Ox 95 12/14/21 08:12 12/13/21 12/14/21 12/14/21 22:59 06:59 14:59 Intake Total 50 / 50 50 / 100 Output Total 650 / 650 Balance 50 / 50 -600 / -550 Weight last 48 hrs Weight 201 lb 11.2 oz Weight 190 lb Physical Exam Narrative: EXAM NARRATIVE: GENERAL: Patient is alert no significant distress NECK: No jugular vein distension. [] HEENT: No cyanosis. No icterus. No pallor. [] HEART: Regular S1 and S2. LUNGS: Clear to auscultate bilaterally. [] ABDOMEN: Soft, nontender and nondistended. Positive bowel sounds. No guarding, rebound or tenderness. [] CENTRAL NERVOUS SYSTEM: Grossly nonfocal. [] EXTREMITIES: Lower extremities with 1+ edema Urinary Catheter Management: Jewell: Cath Placed During This Visit: yes Reason for Continuing Indwelling Catheter: Other Urinary Catheter Date of Insertion: 12/13/21 Urinary Catheter Time of Insertion: 11:15 Data : 12/14/21 04:37 12/14/21 04:37 Micro: Microbiology 12/13/21 05:05 Blood Culture - Preliminary Blood NEGATIVE TO DATE 12/13/21 04:55 Blood Culture - Preliminary Blood NEGATIVE TO DATE A&P Assessment and plan (1) A-fib: Status: Acute (2) CHF (congestive heart failure): Status: Acute (3) Coronary artery disease due to type 2 diabetes mellitus: Status: Acute (4) Diabetes type 2, uncontrolled: Status: Acute (5) COPD (chronic obstructive pulmonary disease): Status: Acute Plan Patient has responded well to IV diuretics. Increase in home Lasix dose to 80 mg twice daily. Restart Entresto. Continue Coreg. Continue Eliquis Low-sodium diet and fluid restriction advised. Thank you for involving us with care of this patient. Patient is stable to be discharged from cardiology standpoint. Outpatient follow-up appointment with cardiology in 7 to 10 days Coding Level of Care Code Acute Cable Installation Technician for [facility] Fwd Diagnoses A-fib I48.91 CHF (congestive heart failure) I50.9 Coronary artery disease due to type 2 diabetes mellitus E11.59; I25.10 Diabetes type 2, uncontrolled E11.65 COPD (chronic obstructive pulmonary disease) J44.9
[2021-12-14 17:28] LABS: Glucose Point of Care 165 mg/dL (70-110)
[2021-12-14] MEDS: tamsulosin 0.4 mg Capsule PO (18:36)
--- NOTE | 2021-12-14 18:43 | PM.DCS ---
Discharge Providers Date of Admission: 12/13/21 09:03 Date of Discharge: December 14, 2021 Attending Provider at Admission: French Munoz MD Attending Provider at Discharge: French Munoz MD Primary Care Provider: Gopal Cameron MD Diagnoses at Discharge Discharge Diagnosis (1) Acute respiratory failure with hypoxia: Status: Resolved (2) CHF (congestive heart failure): Status: Acute (3) Diabetes type 2, uncontrolled: Status: Acute (4) A-fib: Status: Acute (5) COPD (chronic obstructive pulmonary disease): Status: Acute (6) History of neurological degenerative disease: Status: Acute Reason for Visit Reason for Visit: diff breathing Hospital Course Hospital Course Dany presented to the hospital with difficulty breathing. Arriving in the emergency department he was requiring 4 L of oxygen but this was not effective and he was significantly tachypneic. He was placed on BiPAP. Laboratory included slight elevation of troponin with delta ultimately of 14. EKG was nondiagnostic, paced ventricular rhythm. BNP was elevated. X-ray was most consistent with congestive heart failure, although pneumonia could not be ruled out. Covid PCR was negative. CTA no pulmonary embolism, bilateral effusions, lower lobe consolidations or atelectasis. He was placed on IV antibiotics, and diuresed. With diuresis he rapidly improved and was able to come off BiPAP by the next day, and was placed on room air. Cardiology evaluated the patient and believed higher Lasix dosing was needed. Echocardiogram was of poor quality but showed moderately reduced LV function, RV decreased function and mild mitral regurgitation. It was thought he could go home on a higher dose of Lasix, complete a short course of antibiotics, and have close follow-up with his primary care provider. Cardiology follow-up was also provided. A NIF was attempted secondary to his neurologic disorder but not unable to be obtained. Certainly following diuresis there appeared to be no overall severe air compromise from his neurologic condition. Physical Exam Narrative: EXAM NARRATIVE: General exam no distress Neck is supple Cardiovascular regular rate and rhythm Lungs clear Abdomen is soft, positive bowel sounds Extremities no sinus clubbing or edema, no atrophy Urinary Catheter Management: Jewell: Cath Placed During This Visit: yes Reason for Continuing Indwelling Catheter: Other Urinary Catheter Date of Insertion: 12/13/21 Urinary Catheter Time of Insertion: 11:15 Discharge Data Studies Completed and Pending Completed Studies During Hospitalization Category Date Time Status CTA chest [CT angio chest PE protcl [id number]] Urgent Cat Scan 12/13/21 05:55 Completed XR chest 1V portable [id number] Urgent Exams 12/13/21 04:47 Completed CV. echo complete* [id number] Routine Ultrasound 12/14/21 06:00 Completed Pending at discharge Category Date Time Status BMP [Basic Metabolic Panel] AM LABS Lab 12/15/21 04:00 Ordered Blood Culture Stat Lab 12/13/21 05:05 Results Sputum Culture Routine Lab 12/13/21 17:01 Uncollected Radiology Impressions Chest X-Ray 12/13/21 04:47 IMPRESSION: Bilateral airspace opacities with trace left pleural effusion, concerning for pneumonia. Pulmonary edema can have this appearance. Clinical correlation is recommended. Chest CTA 12/13/21 05:55 IMPRESSION: 1. No visualized pulmonary embolus limited assessment due to motion degradation. 2. Bilateral pleural effusions and fluid expansion throughout the left oblique fissure. 3. Pulmonary consolidations bilateral lower lobe of lungs and left upper lobe which could reflect areas of atelectasis or pneumonic infiltrate. 4. Cardiomegaly. 5. Stable compression deformity of T12. 6. Mediastinal and right hilar adenopathy probably reactive. 7. Areas of sclerosis right transverse process of T7 and T8 are nonspecific. Laboratory Results WBC 5.3 10^3/uL (4.0-10.0) 12/14/21 04:37 RBC 3.30 10^6/uL (4.1-5.3) L 12/14/21 04:37 Hgb 10.3 g/dL (11.7-16.6) L 12/14/21 04:37 Hct 33.6 % (42.0-52.0) L 12/14/21 04:37 MCV 101.8 fl (80-94) H 12/14/21 04:37 MCH 31.2 pg (28.0-34.0) 12/14/21 04:37 MCHC 30.7 g/dL (30.0-36.0) 12/14/21 04:37 RDW 13.2 % (12.1-15.1) 12/14/21 04:37 Plt Count 163 10^3/cmm (130-400) 12/14/21 04:37 MPV 10.6 fL (7.4-10.4) H 12/14/21 04:37 Neut % (Auto) 82.3 % 12/14/21 04:37 Lymph % (Auto) 11.8 % 12/14/21 04:37 [place] % (Auto) 5.5 % 12/14/21 04:37 Eos % (Auto) 0.0 % 12/14/21 04:37 Baso % (Auto) 0.2 % 12/14/21 04:37 Neut # (Auto) 4.38 10^3/uL (1.8-7.7) 12/14/21 04:37 Lymph # (Auto) 0.6 10^3/uL (0.8-4.8) L 12/14/21 04:37 [place] # (Auto) 0.3 10^3/uL (0.2-0.9) 12/14/21 04:37 Eos # (Auto) 0.0 10^3/uL (0.0-0.8) 12/14/21 04:37 Baso # (Auto) 0.0 10^3/uL (0.0-0.1) 12/14/21 04:37 Nucleated RBC % (auto) 0 % 12/14/21 04:37 Nucleated RBCs # 0.0 /100WBC 12/14/21 04:37 PT 19.10 SECONDS (12.1-14.9) H 12/13/21 04:55 INR 1.56 (0.8-1.2) H 12/13/21 04:55 D-Dimer 3.81 ug/mIFEU (0-0.59) H 12/13/21 04:55 Specimen Type Arterial 12/13/21 04:52 Sample Site Radial, left 12/13/21 04:52 ABG pH 7.40 (7.35-7.45) 12/13/21 04:52 ABG pCO2 42.3 mmHg (35-45) 12/13/21 04:52 ABG pO2 92.5 mmHg (80.0-100.0) 12/13/21 04:52 ABG HCO3 26.0 mmol/L (22-26) 12/13/21 04:52 ABG Base Excess 1.0 mmol/L (-2.0-2.0) 12/13/21 04:52 [place] Test Pos 12/13/21 04:52 Hematocrit 32.8 % (42-52) L 12/13/21 04:52 Hgb O2 Saturation 95.8 % (95-100) 12/13/21 04:52 Carboxyhemoglobin 1.1 %THgb (0.4-20.1) 12/13/21 04:52 Methemoglobin 1.0 % (0.4-1.5) 12/13/21 04:52 Total Hemoglobin 10.7 g/dL (14-18) L 12/13/21 04:52 O2 Delivery Device Nc 12/13/21 04:52 O2 Liters/Min 4.0 % 12/13/21 04:52 Marketing Operations Assistant ID Hensa 12/13/21 04:52 Sodium 141 mmol/L (136-145) 12/14/21 04:37 Potassium 4.1 mmol/L (3.5-5.1) 12/14/21 04:37 Chloride 104 mmol/L (98-107) 12/14/21 04:37 Carbon Dioxide 23 mmol/L (22-29) 12/14/21 04:37 Anion Gap 18.1 (5-19) 12/14/21 04:37 BUN 26 mg/dL (8-23) H 12/14/21 04:37 Creatinine 0.8 mg/dL (0.7-1.2) 12/14/21 04:37 GFR Calculation Not Reportable 12/14/21 04:37 Glucose 141 mg/dL (65-115) H 12/14/21 04:37 POC Glucose 165 mg/dL (70-110) H 12/14/21 17:04 Calculated Osmolality 299 mOsm/kg (285-295) H 12/14/21 04:37 Lactic Acid 1.6 mmol/L (0.5-2.2) 12/13/21 04:55 Calcium 9.2 mg/dL (8.5-10.5) 12/14/21 04:37 Total Bilirubin 0.4 mg/dL (0.15-1.2) 12/14/21 04:37 AST 20 U/L (0-40) 12/14/21 04:37 ALT 17 U/L (0-41) 12/14/21 04:37 Alkaline Phosphatase 60 IU/L (40-130) 12/14/21 04:37 Troponin T Baseline 34 ng/L (0-15) H 12/13/21 04:55 Troponin T 120 Minute 45.61 ng/L (0-15) H 12/13/21 07:15 Delta Troponin T 11.61 ABS# (0-10) H* 12/13/21 07:15 Troponin T Hi Sens 6Hr 48.52 ng/L (0-15) H 12/13/21 10:53 Troponin T Hi Sens 6Hr Delta 14.52 ng/L (0-12) H* 12/13/21 10:53 C-Reactive Protein 63.2 mg/L (0.0-4.9) H 12/13/21 04:55 NT-Pro-B Natriuret Pep 3415 pg/mL (0-450) H 12/13/21 04:55 Total Protein 6.4 g/dL (6.6-8.7) L 12/14/21 04:37 Albumin 3.0 g/dL (3.5-5.2) L 12/14/21 04:37 Globulin 3.4 g/dL (1.3-4.6) 12/14/21 04:37 Procalcitonin 0.08 ng/mL (0-0.5) 12/13/21 04:55 TSH 0.60 uIU/mL (0.27-4.20) 12/13/21 10:53 Urine Color Yellow (Yellow) 12/13/21 11:25 Urine Appearance Clear (CLEAR) 12/13/21 11:25 Urine pH 5 (5-7) 12/13/21 11:25 Ur Specific [place] 1.010 (1.005-1.030) 12/13/21 11:25 Urine Protein Neg (Negative) 12/13/21 11:25 Urine Glucose (UA) Norm (Normal) 12/13/21 11:25 Urine Ketones 1+ (Negative) H 12/13/21 11:25 Urine Blood Neg (Negative) 12/13/21 11:25 Urine Nitrate Negative (Negative) 12/13/21 11:25 Urine Bilirubin Neg (Negative) 12/13/21 11:25 Urine Urobilinogen Norm mg/dL (Negative) 12/13/21 11:25 Ur Leukocyte Esterase Negative (Negative) 12/13/21 11:25 Urine RBC 0-4 /hpf (0-2) H 12/13/21 11:25 Urine WBC Rare /hpf (0-5) 12/13/21 11:25 Ur Squamous Epith Cells 0-4 /hpf (0-5) H 12/13/21 11:25 Amorphous Sediment Not Reportable 12/13/21 11:25 Urine Bacteria Trace /hpf (NONE) 12/13/21 11:25 Coronavirus 229E (PCR) Not detected (NOT DETECT) 12/13/21 06:35 SARS-CoV-2 (PCR) Not detected (NOT DETECT) 12/13/21 06:35 SARS-CoV-2 Ag (Rapid) Negative (Negative) 12/13/21 05:07 Vitals Last Vital Signs Temp 97.9 F 12/14/21 16:00 Pulse 64 12/14/21 16:00 Resp 15 12/14/21 16:00 BP 108/52 12/14/21 16:00 Pulse Ox 100 12/14/21 16:00 Discharge Plan Discharge Patient Disposition: Home Health Service Condition: Stable Prescriptions: New Lasix 40 mg tablet 80 mg PO BID Qty: 120 0RF Augmentin 875-125 mg tablet 1 tab PO BID Qty: 14 0RF Continued albuterol sulfate [ProAir HFA] 90 mcg/actuation HFA aerosol inhaler 2 puff INHALATION Q4H PRN (Reason: Shortness Of Breath) 0RF (DME) Dexcom G6 Extrusion Former Misc See Rx Instructions .Route Qty: 1 3RF Rx Instructions: Check BS 4 times a day. (DME) Dexcom G6 Sensor Device See Rx Instructions .Route Qty: 3 3RF Rx Instructions: As directed (DME) Dexcom G6 Transmitter Device See Rx Instructions .Route Qty: 1 3RF Rx Instructions: As directed carvedilol 25 mg tablet 25 mg PO BID 0RF simvastatin 80 mg tablet 80 mg PO QAM 0RF aspirin 81 mg tablet,delayed release (DR/EC) 81 mg PO QAM 0RF tramadol 50 mg tablet 50 mg PO BEDTIME PRN (Reason: Pain) 0RF potassium chloride 20 mEq tablet,ER particles/crystals 20 meq PO QAM 0RF tamsulosin 0.4 mg capsule 0.4 mg PO QPM 0RF eplerenone 25 mg tablet 25 mg PO DAILY 0RF Spiriva with HandiHaler 18 mcg capsule, w/inhalation device 1 cap INHALATION DAILY 0RF Eliquis 5 mg tablet 5 mg PO BID 0RF magnesium L-lactate 84 mg tablet extended release 84 mg PO BID 0RF omeprazole 20 mg capsule,delayed release(DR/EC) 20 mg PO QAM 0RF nitrofurantoin monohyd/m-cryst 100 mg capsule 100 mg PO BID 0RF escitalopram oxalate 10 mg tablet 10 mg PO QAM 0RF gabapentin 400 mg capsule 800 mg PO BID 0RF Januvia 100 mg tablet 100 mg PO QAM 0RF acetaminophen 650 mg Tablet Extended Release 1,300 mg PO BEDTIME PRN (Reason: Sleep) 0RF olopatadine 0.1 % drops 1 drp ophthalmic (eye) BID PRN (Reason: unknown) 0RF cholecalciferol (vitamin D3) [Vitamin D3] 25 mcg (1,000 unit) Capsule 1,000 unit PO BID 0RF Entresto 97-103 mg tablet 1 tab PO BID 0RF Discontinued furosemide [Lasix] 40 mg tablet See Rx Instructions .ROUTE .COMPLEX 0RF Rx Instructions: 80mg in AM and 40mg in PM Discharge Orders: Discharge Order (Routine); Ordered 12/14/21 Ordered By: French Munoz Referrals: Amparo Shearer FNP [Nurse Practitioner] - 7-10 days Gopal Cameron MD [Primary Care Provider] - 12/15/21 2:00 pm (BMP on followup) Patient Instructions: Furosemide (By mouth), Amoxicillin/Clavulanate Potassium (By mouth), Opioid Safety Activity Restrictions/Additional Instructions: Take all meds as prescirbed. Return for any concerns. Wear your Trilogy at night and whenever sleeping/napping Discharge Attestations Time Spent in Discharge Care*: greater than 30 min Quality Metrics Clinical Quality Measures [ No reported AMI, CVA or VTE this stay] Coding Level of Care Code Acute Chg FW DC note Diagnoses Acute respiratory failure with hypoxia J96.01 CHF (congestive heart failure) I50.9 Diabetes type 2, uncontrolled E11.65 A-fib I48.91 COPD (chronic obstructive pulmonary disease) J44.9 History of neurological degenerative disease Z86.69
== END 2021-12-14 19:41 | disposition home health service (06) | DRG 291 ==
LOC: ER 08:38 → ER IP 16:19 → MEDSURG 20:23
PROVIDERS: Emergency Medicine; Admitting Provider Internal Medicine; Emergency Provider Family Medicine; PCP Family Medicine; Visit Provider Internal Medicine
DX: I50.23 Acute on chronic systolic (congestive) heart failure (principal); J96.01 Acute respiratory failure with hypoxia; J98.11 Atelectasis; E11.65 Type 2 diabetes mellitus with hyperglycemia; I48.91 Unspecified atrial fibrillation; J44.9 Chronic obstructive pulmonary disease, unspecified; Z86.69 Personal history of other diseases of the nervous system and sense organs; Z79.82 Long term (current) use of aspirin; Z79.01 Long term (current) use of anticoagulants; Z79.84 Long term (current) use of oral hypoglycemic drugs; I25.10 Atherosclerotic heart disease of native coronary artery without angina pectoris; Z95.810 Presence of automatic (implantable) cardiac defibrillator; I25.2 Old myocardial infarction; Z85.46 Personal history of malignant neoplasm of prostate; R32 Unspecified urinary incontinence; E11.51 Type 2 diabetes mellitus with diabetic peripheral angiopathy without gangrene
CPT/HCPCS: 36415; 36416; 36600; 51702; 71045; 71275; 80053; 81001; 82805; 82962; 83605; 83880; 84145; 84443; 84484; 85025; 85378; 85610; 86140; 87040; 87426; 87635; 87641; 92523; 92610; 93005; 93306; 94640; 94660; 96365; 96372; 96375; 99291; J1650; J1815; J1940; J2543; J2930; Q9967

== ENCOUNTER 2021-12-23 15:19 | Outpatient (CLI) | payer MEDICARE, BC, SELFPAY | END 2021-12-23 15:20 | disposition home or self-care (01) | LOC: WOUND 15:19 | PROVIDERS: PCP Family Medicine; Visit Provider Nurse Practitioner Family | DX: I96 Gangrene, not elsewhere classified (principal); E11.622 Type 2 diabetes mellitus with other skin ulcer; L97.819 Non-pressure chronic ulcer of other part of right lower leg with unspecified severity; Z87.891 Personal history of nicotine dependence | CPT/HCPCS: 99214 ==

== ENCOUNTER 2021-12-29 15:04 | Outpatient (CLI) | payer MEDICARE, BC, SELFPAY | END 2021-12-29 15:05 | disposition home or self-care (01) | LOC: WOUND 15:06 | PROVIDERS: PCP Family Medicine; Visit Provider Thoracic Surgery (Cardiothoracic Vascular Surgery) | DX: I96 Gangrene, not elsewhere classified (principal); E11.622 Type 2 diabetes mellitus with other skin ulcer; L97.812 Non-pressure chronic ulcer of other part of right lower leg with fat layer exposed; Z87.891 Personal history of nicotine dependence | CPT/HCPCS: 11042; 97597 ==

== ENCOUNTER 2022-01-12 15:00 | Outpatient (CLI) | payer MEDICARE, BC, SELFPAY | END 2022-01-12 15:01 | disposition home or self-care (01) | LOC: WOUND 15:04 | PROVIDERS: PCP Family Medicine; Visit Provider Thoracic Surgery (Cardiothoracic Vascular Surgery) | DX: I96 Gangrene, not elsewhere classified (principal); E11.622 Type 2 diabetes mellitus with other skin ulcer; L97.811 Non-pressure chronic ulcer of other part of right lower leg limited to breakdown of skin; E11.621 Type 2 diabetes mellitus with foot ulcer; L97.411 Non-pressure chronic ulcer of right heel and midfoot limited to breakdown of skin; Z87.891 Personal history of nicotine dependence | CPT/HCPCS: 11042; 97597 ==

== ENCOUNTER 2022-01-26 10:39 | Outpatient (CLI) | payer MEDICARE, BC, SELFPAY | END 2022-01-26 10:40 | disposition home or self-care (01) | LOC: WOUND 10:40 | PROVIDERS: PCP Family Medicine; Visit Provider Thoracic Surgery (Cardiothoracic Vascular Surgery) | DX: E11.622 Type 2 diabetes mellitus with other skin ulcer (principal); L97.811 Non-pressure chronic ulcer of other part of right lower leg limited to breakdown of skin; E11.621 Type 2 diabetes mellitus with foot ulcer; L97.511 Non-pressure chronic ulcer of other part of right foot limited to breakdown of skin; Z87.891 Personal history of nicotine dependence | CPT/HCPCS: 97597 ==

== ENCOUNTER → 2022-02-02 13:47 | Outpatient (BNVA) | payer MEDICARE, BC, SELFPAY | PROVIDERS: PCP Family Medicine; Visit Provider Thoracic Surgery (Cardiothoracic Vascular Surgery) | DX: E11.622 Type 2 diabetes mellitus with other skin ulcer (principal); I96 Gangrene, not elsewhere classified; L97.811 Non-pressure chronic ulcer of other part of right lower leg limited to breakdown of skin; Z09 Encounter for follow-up examination after completed treatment for conditions other than malignant neoplasm | CPT/HCPCS: 97597 ==

== ENCOUNTER → 2022-02-09 15:03 | Outpatient (BNVA) | payer MEDICARE, BC, SELFPAY | PROVIDERS: PCP Family Medicine; Visit Provider Thoracic Surgery (Cardiothoracic Vascular Surgery) | DX: I96 Gangrene, not elsewhere classified (principal); E11.622 Type 2 diabetes mellitus with other skin ulcer; L97.811 Non-pressure chronic ulcer of other part of right lower leg limited to breakdown of skin; Z87.891 Personal history of nicotine dependence | CPT/HCPCS: 97597 ==

== ENCOUNTER → 2022-02-16 14:46 | Outpatient (BNVA) | payer MEDICARE, BC, SELFPAY | PROVIDERS: PCP Family Medicine; Visit Provider Thoracic Surgery (Cardiothoracic Vascular Surgery) | DX: E11.622 Type 2 diabetes mellitus with other skin ulcer (principal); I96 Gangrene, not elsewhere classified; L97.821 Non-pressure chronic ulcer of other part of left lower leg limited to breakdown of skin; Z87.891 Personal history of nicotine dependence | CPT/HCPCS: 11042 ==

== ENCOUNTER → 2022-03-02 14:20 | Outpatient (BNVA) | payer MEDICARE, BC, SELFPAY | PROVIDERS: PCP Family Medicine; Visit Provider Nurse Practitioner Family | DX: E11.622 Type 2 diabetes mellitus with other skin ulcer (principal); I96 Gangrene, not elsewhere classified; L97.811 Non-pressure chronic ulcer of other part of right lower leg limited to breakdown of skin; Z87.891 Personal history of nicotine dependence; Z09 Encounter for follow-up examination after completed treatment for conditions other than malignant neoplasm | CPT/HCPCS: 11042 ==

== ENCOUNTER → 2022-03-16 14:54 | Outpatient (BNVA) | payer MEDICARE, BC, SELFPAY | PROVIDERS: PCP Family Medicine; Visit Provider Thoracic Surgery (Cardiothoracic Vascular Surgery) | DX: E11.621 Type 2 diabetes mellitus with foot ulcer (principal); L97.811 Non-pressure chronic ulcer of other part of right lower leg limited to breakdown of skin; I96 Gangrene, not elsewhere classified; Z87.891 Personal history of nicotine dependence | CPT/HCPCS: 97597; A6212 ==

== ENCOUNTER → 2022-03-23 13:11 | Outpatient (BNVA) | payer MEDICARE, BC, SELFPAY | PROVIDERS: PCP Family Medicine; Visit Provider Thoracic Surgery (Cardiothoracic Vascular Surgery) | DX: E11.622 Type 2 diabetes mellitus with other skin ulcer (principal); L97.811 Non-pressure chronic ulcer of other part of right lower leg limited to breakdown of skin; I96 Gangrene, not elsewhere classified; Z87.891 Personal history of nicotine dependence | CPT/HCPCS: 97597 ==

== ENCOUNTER → 2022-03-30 13:09 | Outpatient (BNVA) | payer MEDICARE, BC, SELFPAY | PROVIDERS: PCP Family Medicine; Visit Provider Thoracic Surgery (Cardiothoracic Vascular Surgery) | DX: E11.621 Type 2 diabetes mellitus with foot ulcer (principal); L97.811 Non-pressure chronic ulcer of other part of right lower leg limited to breakdown of skin; I96 Gangrene, not elsewhere classified | CPT/HCPCS: 97597 ==

== ENCOUNTER 2022-04-07 08:59 | Outpatient (CLI) | payer MEDICARE, BC, SELFPAY ==
--- NOTE | 2022-04-07 | US_ITS ---
WS: [id number] Exam: US soft tissue/extremity [id number] Date/Time of Exam: 04/07/2022 12:00 AM Reason For Exam: LUMP RT LOWER EXTREMITY The right lower leg is targeted for ultrasound evaluation. An ovoid subcutaneous hypoechoic nodule is noted that measures approximately 1 x 0.7 x 0.42 cm. No si gnificant vascularity is noted. This may represent a hematoma. A phlegmon or abscess could have simil ar appearance but would be less likely. There were no other discrete soft tissue lesions in this shikha on. US/US soft tissue/extremity [id number] IMPRESSION: 1. Oh 1 x 0.7 x 0.42 cm subcutaneous hypoechoic ovoid nodule of the right lower leg. This may represent a hematoma or phlegmon. No significant vascularity was demonstrated. Recommendations if the patient fails to respond to conservative management or t his lesion becomes larger, then further workup with contrast CT scanning of thi s area could be considered for further evaluation.
== END 2022-04-07 09:00 | disposition home or self-care (01) ==
LOC: RADOUTREAD 04-08 09:05
PROVIDERS: PCP Family Medicine; Visit Provider Family Medicine
DX: R22.41 Localized swelling, mass and lump, right lower limb (principal)
CPT/HCPCS: 76882

== ENCOUNTER → 2022-04-13 13:09 | Outpatient (BNVA) | payer MEDICARE, BC, SELFPAY | PROVIDERS: PCP Family Medicine; Visit Provider Thoracic Surgery (Cardiothoracic Vascular Surgery) | DX: E11.621 Type 2 diabetes mellitus with foot ulcer (principal); L97.811 Non-pressure chronic ulcer of other part of right lower leg limited to breakdown of skin | CPT/HCPCS: 97597 ==

== ENCOUNTER → 2022-04-27 14:51 | Outpatient (BNVA) | payer MEDICARE, BC, SELFPAY | PROVIDERS: PCP Family Medicine; Visit Provider Nurse Practitioner Family | DX: E11.621 Type 2 diabetes mellitus with foot ulcer (principal); L97.812 Non-pressure chronic ulcer of other part of right lower leg with fat layer exposed; I96 Gangrene, not elsewhere classified | CPT/HCPCS: 11042 ==

== ENCOUNTER → 2022-04-28 11:00 | Outpatient (BNVA) | payer MEDICARE, BC, SELFPAY | PROVIDERS: PCP Family Medicine; Visit Provider Internal Medicine | DX: E11.65 Type 2 diabetes mellitus with hyperglycemia (principal); E11.59 Type 2 diabetes mellitus with other circulatory complications; I25.10 Atherosclerotic heart disease of native coronary artery without angina pectoris; I25.810 Atherosclerosis of coronary artery bypass graft(s) without angina pectoris; I50.9 Heart failure, unspecified; E78.2 Mixed hyperlipidemia; I73.9 Peripheral vascular disease, unspecified; Z79.84 Long term (current) use of oral hypoglycemic drugs; Z87.891 Personal history of nicotine dependence | CPT/HCPCS: 80048; 83036; 99214 ==

== ENCOUNTER → 2022-05-06 11:09 | Outpatient (BNVA) | payer MEDICARE, BC, SELFPAY | PROVIDERS: PCP Family Medicine; Visit Provider Internal Medicine | DX: I50.9 Heart failure, unspecified (principal); E11.59 Type 2 diabetes mellitus with other circulatory complications; I25.10 Atherosclerotic heart disease of native coronary artery without angina pectoris; I99.8 Other disorder of circulatory system; Z95.9 Presence of cardiac and vascular implant and graft, unspecified; Z87.891 Personal history of nicotine dependence | CPT/HCPCS: 99213; 99214 ==

== ENCOUNTER → 2022-05-11 14:47 | Outpatient (BNVA) | payer MEDICARE, BC, SELFPAY | PROVIDERS: PCP Family Medicine; Visit Provider Thoracic Surgery (Cardiothoracic Vascular Surgery) | DX: E11.622 Type 2 diabetes mellitus with other skin ulcer (principal); L97.812 Non-pressure chronic ulcer of other part of right lower leg with fat layer exposed; I96 Gangrene, not elsewhere classified; L97.811 Non-pressure chronic ulcer of other part of right lower leg limited to breakdown of skin | CPT/HCPCS: 11042; 97597; A6212 ==

== ENCOUNTER → 2022-05-18 13:16 | Outpatient (BNVA) | payer MEDICARE, BC, SELFPAY | PROVIDERS: PCP Family Medicine; Visit Provider Podiatrist Foot & Ankle Surgery | DX: E11.8 Type 2 diabetes mellitus with unspecified complications (principal); L60.3 Nail dystrophy; M20.41 Other hammer toe(s) (acquired), right foot; M20.42 Other hammer toe(s) (acquired), left foot; E11.42 Type 2 diabetes mellitus with diabetic polyneuropathy; I73.9 Peripheral vascular disease, unspecified | CPT/HCPCS: 99214 ==

== ENCOUNTER → 2022-06-01 13:34 | Outpatient (BNVA) | payer MEDICARE, BC, SELFPAY | PROVIDERS: PCP Family Medicine; Visit Provider Thoracic Surgery (Cardiothoracic Vascular Surgery) | DX: E11.622 Type 2 diabetes mellitus with other skin ulcer (principal); L97.812 Non-pressure chronic ulcer of other part of right lower leg with fat layer exposed; I96 Gangrene, not elsewhere classified; L97.811 Non-pressure chronic ulcer of other part of right lower leg limited to breakdown of skin | CPT/HCPCS: 11042; 87070; 87077; 87176; 87186; 87205; 97597; A6212 ==

== ENCOUNTER → 2022-06-08 14:04 | Outpatient (BNVA) | payer MEDICARE, BC, SELFPAY | PROVIDERS: PCP Family Medicine; Visit Provider Nurse Practitioner Family | DX: E11.622 Type 2 diabetes mellitus with other skin ulcer (principal); L97.812 Non-pressure chronic ulcer of other part of right lower leg with fat layer exposed; L97.811 Non-pressure chronic ulcer of other part of right lower leg limited to breakdown of skin; I96 Gangrene, not elsewhere classified | CPT/HCPCS: 11042 ==

== ENCOUNTER → 2022-06-22 13:49 | Outpatient (BNVA) | payer MEDICARE, BC, SELFPAY | PROVIDERS: PCP Family Medicine; Visit Provider Thoracic Surgery (Cardiothoracic Vascular Surgery) | DX: E11.622 Type 2 diabetes mellitus with other skin ulcer (principal); L97.812 Non-pressure chronic ulcer of other part of right lower leg with fat layer exposed; L97.821 Non-pressure chronic ulcer of other part of left lower leg limited to breakdown of skin | CPT/HCPCS: 11042; 97597 ==

== ENCOUNTER 2022-06-23 17:51 | Inpatient (IN) | payer MEDICARE, BC, SELFPAY ==
--- NOTE | 2022-06-23 18:01 | ED_ITS ---
HPI - General Adult General: Chief complaint: General Medical Stated complaint: LETHARGIC Time Seen by Provider: 06/23/22 18:00 Limitations: altered mental status and physical limitation History of Present Illness: Mr. Whitehead is an 86-year-old gentleman with significant past medical history of heart failure,Unspecified neurologic disorder, chronic leg wounds, hypertension, hyperlipidemia, atrial fibrillation on Eliquis, and diabetes who presents to the emergency department due to mental status change. At baseline the patient is fairly debilitated but does communicate that was difficult to understand. He was last definitively known well at approximately 2 PM and was subsequently found to be more weak and noncommunicative. He also was noted to have a fever. Recent changes in health include new medication of Levaquin started yesterday for chronic leg wounds. Additionally has had dark cloudy urine. T-max at home was 101. Overall course of symptoms has persisted. Intensity is moderate. History is otherwise limited by patient's mental status/baseline medical condition however no other specific changes in health, exacerbating, or alleviating factors identified. History is provided by daughter and a friend who also helps with caregiving. Onset (ago): hour(s) (LKW 1400) Review of Systems General: Reports: ROS unobtainable due to medical condition and ROS unobtainable due to mental status PFS ED PFSH: Medical History (Updated 07/09/22 @ 15:07 by Sergio Palacios MD) A-fib ASCVD (arteriosclerotic cardiovascular disease) Cardiac defibrillator in place CHF (congestive heart failure) CHF (congestive heart failure) COPD (chronic obstructive pulmonary disease) Critical limb ischemia with history of revascularization of same extremity Depression Diabetes mellitus Diabetes type 2, uncontrolled History of ME (myocardial infarction) History of prostate cancer Hyperlipemia, mixed Hyperlipidemia Incontinence PAD (peripheral artery disease) Prostate CA Sleep apnea Tracheobronchomalacia Surgical History (Updated 06/24/22 @ 14:02 by Cr Bolden MD) S/P CABG (coronary artery bypass graft) X5 S/P cardiac pacemaker procedure S/P carotid endarterectomy S/P cataract surgery S/P eye surgery S/P hernia surgery S/P hip hemiarthroplasty S/P knee surgery S/P prostatectomy Family History Family/Other No problems noted. Father , age 57 [place] Myocardial infarction CAD (coronary artery disease) Hypertension Mother , of Brain CA age 66 Cancer Social History Smoking and tobacco status: former smoker Smoking risk assessment/counseling performed?: Yes Alcohol intake: current Alcohol intake frequency: few times a week Alcohol type: hard liquor Desire information about alcohol rehabilitation?: No Counseling given: Yes Desire information about substance/drug rehabilitation?: No Counseling given: Yes Adopted: No Caregiver/support person: Yes Lives independently: Yes Household members: spouse and family Housing: House Marital status: Number of children: 23 Highest education level completed: Associate Degree: Academic Program service: No Current occupational status: retired History of recent travel: No Physical Exam Const: COMMON NORMALS: alert GENERAL APPEARANCE: ill appearing HENMT: COMMON NORMALS: normocephalic and atraumatic HEAD & SCALP: normocephalic and atraumatic THROAT: posterior oropharynx normal (Dry mucous membranes) Eye: COMMON NORMALS: conjunctivae normal CONJUNCTIVA: Yes conjunctivae no rmal SCLERA: sclerae normal Neck/C-Spine: COMMON NORMALS: supple GENERAL: Yes trachea midline Resp: COMMON NORMALS: clear to auscultation bilaterally EFFORT & INSPECTION: Yes tachypneic AUSCULTATION: clear to auscultation bilaterally Cardio: COMMON NORMALS: regular rate and regular rhythm RATE: regular rate RHYTHM: regular rhythm GI: COMMON NORMALS: Soft to palpation PALPATION: Yes Soft to palpation and No Tenderness to palpation present (GI) Extremity: NARRATIVE EXTREMITY EXAM: Lower extremity wounds on the right lower extremity, dressings in place, no significant evidence of drainage or surrounding erythema GENERAL: Yes normal exam except as noted and No edema Neuro: COMMON NORMALS: moves all extremities SENSORIUM/ORIENTATION: Yes alert and Yes Orientation impaired Course ED course: - Patient was seen and evaluated by me at bedside - Patient placed on cardiac monitors, IV access obtained - Initial evaluation notable for exam as above. Patient outside tPA window. - Labs and xrays personally interpreted by me EKG shows ventricularly paced rhythm, no STEMI -Aspirin given for NSTEMI upon return of delta troponin - Labs notable for leukocytosis, macrocytic anemia. Metabolic panel without acute electrolyte derangement to explain symptoms. ABG with normal pH, mild hypoxemia on nasal cannula. Delta troponin positive, likely type II. BNP elevated. Nitrate positive UTI. Antibiotic ordered. - Imaging notable for no acute intracranial hemorrhage or mass. Chest x-ray with evidence of mild interstitial edema. No acute pathology identified on additional CT imaging to explain abnormalities. - Upon serial reexamination after treatment the patient was similar - Based on patient history, evaluation, and testing as interpreted the most likely cause of the patient's condition is complicated UTI with altered mental status and hypoxemia of uncertain etiology possible related to mild acute on chronic heart failure - The results of ED evaluation were discussed with the patient including plan for admission due to requirement for level of care not available if discharged to prevent significant worsening/deterioration. - Admitting service was contacted and Dr Jolly with the hospitalist service agreed to admit the patient - Patient was admitted without further deterioration or significant events. Note: Click bubbles or prepopulated epps in note writing are used for assistance with data collection and billing and are inherently more limited than narrative and other text portions of this note. Please use narrative for additional clinical history and defer to narrative/free test for any case of contradictory information. If information appears in only free text or click bubble it should be considered present or absent as reported. Please contact note chief writer for clarifications of clinical information or contradictory information. MDM is a brief summary, contradictory or erroneous seeming information should be clarified and full note should be reviewed. Vital Signs: Vital signs: Vital Signs Temperature 98.6 F 06/26/22 12:00 Pulse Rate 65 06/26/22 12:21 Respiratory Rate 16 06/26/22 12:15 Blood Pressure 123/65 06/26/22 12:00 Pulse Oximetry 94 06/26/22 12:15 Oxygen Delivery Me thod 06/26/22 12:15 Oxygen Flow Rate 2 06/25/22 20:42 Fraction of Inspir ed Oxygen 30 06/24/22 08:00 MDM - General Adult Medical Decision Making 86-year-old gentleman with complex past medical history presenting with altered mental status. Patient outside tPA window and neurologic exam is nonfocal. Patient found to have new oxygen requirement of uncertain etiology. Patient additionally found to have urinary tract infection which may explain symptoms. Antibiotic given and patient admitted for further management. Medical Records I reviewed the patient's medical records. Lab Data I reviewed the patient's lab results. : 06/26/22 01:10 06/26/22 01:10 Radiology Impressions Chest/Abdomen/Pelvis CT 06/23/22 19:47 IMPRESSION: 1. No acute findings. 2. Chronic opacity in the left lower lobe is similar to 12/13/2021, suggesting scarring and atelectasis. 3. Incidental findings above. IMPRESSION: 1. No acute findings. 2. Incidental findings above. Head CT 06/23/22 19:47 IMPRESSION: 1. No acute intracranial abnormality. 2. 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 Chest X-Ray 06/25/22 16:54 IMPRESSION: No acute findings. Stable chronic opacity in the left lung base. Probable scarring and atelectasis. Laboratory Results WBC 12.6 10^3/uL (4.0-10.0) H 06/23/22 19:17 RBC 3.68 10^6/uL (4.1-5.3) L 06/23/22 19:17 Hgb 11.3 g/dL (11.7-16.6) L 06/23/22 19:17 Hct 36.3 % (42.0-52.0) L 06/23/22 19:17 MCV 98.6 fl (80-94) H 06/23/22 19:17 MCH 30.7 pg (28.0-34.0) 06/23/22 19:17 MCHC 31.1 g/dL (30.0-36.0) 06/23/22 19:17 RDW 14.4 % (12.1-15.1) 06/23/22 19:17 Plt Count 135 10^3/cmm (130-400) 06/23/22 19:17 MPV 10.2 fL (7.4-10.4) 06/23/22 19:17 Neut % (Auto) 88.4 % 06/23/22 19:17 Lymph % (Auto) 4.7 % 06/23/22 19:17 [place] % (Auto) 5.0 % 06/23/22 19:17 Eos % (Auto) 1.2 % 06/23/22 19:17 Baso % (Auto) 0.3 % 06/23/22 19:17 Neut # (Auto) 11.11 10^3/uL (1.8-7.7) H 06/23/22 19:17 Lymph # (Auto) 0.6 10^3/uL (0.8-4.8) L 06/23/22 19:17 [place] # (Auto) 0.6 10^3/uL (0.2-0.9) 06/23/22 19:17 Eos # (Auto) 0.2 10^3/uL (0.0-0.8) 06/23/22 19:17 Baso # (Auto) 0.0 10^3/uL (0.0-0.1) 06/23/22 19:17 Nucleated RBC % (auto) 0 % 06/23/22 19:17 Nucleated RBCs # 0.0 /100WBC 06/23/22 19:17 Specimen Type Arterial 06/23/22 18:33 Sample Site Radial, left 06/23/22 18:33 ABG pH 7.42 (7.35-7.45) 06/23/22 18:33 ABG pCO2 40.0 mmHg (35-45) 06/23/22 18:33 ABG pO2 65.2 mmHg (80.0-100.0) L 06/23/22 18:33 ABG HCO3 26.0 mmol/L (22-26) 06/23/22 18:33 ABG Base Excess 1.4 mmol/L (-2.0-2.0) 06/23/22 18:33 [place] Test Pos 06/23/22 18:33 Hematocrit 36.0 % (42-52) L 06/23/22 18:33 O2 Delivery Device Nc 06/23/22 18:33 O2 Liters/Min 2.0 % 06/23/22 18:33 FiO2 28.0 % 06/23/22 18:33 Production Foreman ID glc 06/23/22 18:33 Sodium 142 mmol/L (136-145) 06/23/22 19:17 Potassium 4.8 mmol/L (3.5-5.1) 06/23/22 19:17 Chloride 102 mmol/L (98-107) 06/23/22 19:17 Carbon Dioxide 27 mmol/L (22-29) 06/23/22 19:17 Anion Gap 17.8 (5-19) 06/23/22 19:17 BUN 25 mg/dL (8-23) H 06/23/22 19:17 Creatinine 0.8 mg/dL (0.7-1.2) 06/23/22 19:17 GFR Calculation Not Reportable 06/23/22 19:17 Glucose 254 mg/dL (65-115) H 06/23/22 19:17 POC Glucose 264 mg/dL (70-110) H 06/23/22 19:12 Estimat Average Glucose 146 06/23/22 19:17 Hemoglobin A1c 6.7 % (4.0-6.0) H 06/23/22 19:17 Calculated Osmolality 307 mOsm/kg (285-295) H 06/23/22 19:17 Calcium 8.9 mg/dL (8.5-10.5) 06/23/22 19:17 Magnesium 2.0 mg/dL (1.7-2.3) 06/23/22 19:17 Total Bilirubin 0.5 mg/dL (0.15-1.2) 06/23/22 19:17 AST 25 U/L (0-40) 06/23/22 19:17 ALT 20 U/L (0-41) 06/23/22 19:17 Alkaline Phosphatase 57 IU/L (40-130) 06/23/22 19:17 Creatine Kinase 69 U/L (39-308) 06/23/22 19:17 Troponin T Baseline 25 ng/L (0-15) H 06/23/22 19:17 Troponin T 120 Minute 35.55 ng/L (0-15) H 06/23/22 21:38 Delta Troponin T 10.55 ABS# (0-10) H* 06/23/22 21:38 C-Reactive Protein 9.1 mg/L (0.0-4.9) H 06/23/22 19:17 NT-Pro-B Natriuret Pep 2780 pg/mL (0-450) H 06/23/22 19:17 Total Protein 6.6 g/dL (6.6-8.7) 06/23/22 19:17 Albumin 4.1 g/dL (3.5-5.2) 06/23/22 19:17 Globulin 2.5 g/dL (1.3-4.6) 06/23/22 19:17 Procalcitonin 0.21 ng/mL (0-0.5) 06/23/22 19:17 TSH 1.93 uIU/mL (0.27-4.20) 06/23/22 19:17 Urine Color Yellow (Yellow) 06/23/22 20:59 Urine Appearance Clear (CLEAR) 06/23/22 20:59 Urine pH 5 (5-7) 06/23/22 20:59 Ur Specific [place] 1.015 (1.005-1.030) 06/23/22 20:59 Urine Protein Neg (Negative) 06/23/22 20:59 Urine Glucose (UA) Trace (Normal) H 06/23/22 20:59 Urine Ketones 1+ (Negative) H 06/23/22 20:59 Urine Blood 3+ (Negative) H 06/23/22 20:59 Urine Nitrate Positive (Negative) H 06/23/22 20:59 Urine Bilirubin Neg (Negative) 06/23/22 20:59 Urine Urobilinogen Norm mg/dL (Negative) 06/23/22 20:59 Ur Leukocyte Esterase 1+ (Negative) H 06/23/22 20:59 Urine RBC 5-10 /hpf (0-2) H 06/23/22 20:59 Urine WBC >100 /hpf (0-5) H 06/23/22 20:59 Ur Squamous Epith Cells 0-4 /hpf (0-5) H 06/23/22 20:59 Amorphous Sediment Not Reportable 06/23/22 20:59 Urine Bacteria 4+ /hpf (NONE) H 06/23/22 20:59 Influenza Type A Ag Negative (Negative) 06/23/22 19:12 Influenza Type B Ag Negative (Negative) 06/23/22 19:12 SARS-CoV-2 Ag (Rapid) Negative (Negative) 06/23/22 19:12 Critical Care Time Critical Care Time: Critical Care Time: Yes Total Critical Care Time: 40 Attestation: Due to a high probability of clinically significant, possibly life threatening deterioration, the patient required my highest level of attention and preparedness to intervene emergently and I personally spent this critical care time directly and personally managing the patient. This critical care time included obtaining a history; examining the patient; pulse oximetry; ordering and review of laboratory and imaging studies; arranging urgent treatment with development of a management plan; evaluation of patient's response to treatment; frequent reassessment; and, discussions with other providers as applicable. It was exclusive of separately billable procedures. Primary system involved is neuro and infectious/immune. Discharge Plan Discharge Patient Disposition: Admitted As Inpatient Admit Provider: Job Jolly Clinical Impression: Complicated urinary tract infection, Altered mental status, Hypoxemia, CHF (congestive heart failure), Non-ST elevation (NSTEMI) myocardial infarction Condition: Stable Discharge Diet: Cardiac and Diabetic Discharge Activity: Resume usual activity Coding Level of Care Code ED System Software Programmer for Chg Fwd Exam Comprehensive
[2022-06-23 18:07] VITALS: BP 148/76; PULSE 60; RESP 20; TEMP 37.2; O2SAT 95; BMI 25.9
--- NOTE | 2022-06-23 18:21 | XRR_ITS ---
PROCEDURE INFORMATION: Exam: XR Chest Exam date and time: 06/23/2022 6:35 PM Age: 86 years old Clinical indication: Cough and shortness of breath; Additional info: AMS, new o2 TECHNIQUE: Imaging protocol: Radiologic exam of the chest. Views: 1 view. COMPARISON: CR (CHEST, ) 12/13/2021 5:02 AM FINDINGS: Tubes, catheters and devices: There is a dual-lead AICD with leads positioned in the right atrium and right ventricle. Lungs: There is no consolidation. Central interstitial markings are indistinct. Findings are similar to those seen on 12/13/2021. Pleural spaces: There is no pleural effusion or pneumothorax. Heart/Mediastinum: There is moderate enlargement of the cardiac silhouette. Bones/joints: Sternal wires are present. There is no displacement to suggest sternal dehiscence. No acute fracture. XR/XR chest 1V portable [id number] IMPRESSION: Stable cardiac enlargement and indistinct central interstitial markings since 12/13/2021. Findings suggest mild chronic or recurrent interstitial edema.
--- NOTE | 2022-06-23 18:22 | ECG_ITS ---
[facility] Test Date: 2022-06-23 Pat Name: Dany Whitehead Department: Room: Gender: Male Rim Technician: : 1935 Requested By: Sergio Palacios Order Number: [id number] Loredo MD: Shelia Del Valle M.D. Measurements Intervals [place] Rate: 60 P: [place]: QRS: -80 QRSD: 189 T: 0 QT: 455 QTc: 455 Interpretive Statements ELECTRONIC VENTRICULAR PACEMAKER ABNORMAL RHYTHM ECG Compared to ECG 12/13/2021 06:51:36 No significant changes Electronically Signed On 06-23-2022 18:36:43 CDT by Shelia Del Valle M.D. [id number]
[2022-06-23 18:45] LABS: ABG PH Result 7.42 (7.35-7.45); Base Excess ABG 1.4 mmol/L (-2.0-2.0); Blood Gas Allen Test Pos; Blood Gas Operator Identificat glc; Blood Gas Sample Site Radial, left; Blood Gas Sample Type Arterial; Oxygen Device NC; PO2 ABG 65.2 mmHg (80.0-100.0)
--- NOTE | 2022-06-23 19:21 | PC.NURSE ---
REPORT GIVEN TO HIMA HARVEY ASSUMED CARE.
[2022-06-23 19:22] LABS: Basophils % 0.3 %; Eosinophils # 0.2 10^3/uL (0.0-0.8); Eosinophils % 1.2 %; Hematocrit 36.3 % (42.0-52.0); Hemoglobin 11.3 g/dL (11.7-16.6); Lymphocytes # 0.6 10^3/uL (0.8-4.8); Lymphocytes % 4.7 %; Mean Corpuscular HGB Conc 31.1 g/dL (30.0-36.0); Mean Corpuscular Hemoglobin 30.7 pg (28.0-34.0); Mean Corpuscular Volume 98.6 fl (80-94); Mean Platelet Volume 10.2 fL (7.4-10.4); Monocytes # 0.6 10^3/uL (0.2-0.9); Neutrophils # 11.11 10^3/uL (1.8-7.7); Neutrophils % 88.4 %; Nucleated Red Blood Cells % 0 %; Platelet Count 135 10^3/cmm (130-400); Red Blood Count 3.68 10^6/uL (4.1-5.3); Red Cell Distribution Width 14.4 % (12.1-15.1); White Blood Count 12.6 10^3/uL (4.0-10.0)
[2022-06-23 19:45] LABS: Troponin(5th) Baseline 25 ng/L (0-15)
[2022-06-23 19:47] LABS: Influenza A by IFA Negative (Negative); Influenza B by IFA Negative (Negative)
--- NOTE | 2022-06-23 19:47 | CTR_ITS ---
PROCEDURE INFORMATION: Exam: CT Head Without Contrast Exam date and time: 06/23/2022 8:15 PM Age: 86 years old Clinical indication: Altered mental status/memory loss; Patient HX: General weakness with lethargy and fever. ; Additional info: AMS TECHNIQUE: Imaging protocol: Computed tomography of the head without contrast. Radiation optimization: All CT scans at this facility use at least one of these dose optimization techniques: automated exposure control; mA and/or kV adjustment per patient size (includes targeted exams where dose is matched to clinical indication); or iterative reconstruction. COMPARISON: CT head wo con* [id number] 09/10/2019 10:58 AM RADIATION DOSE METRICS: Total DLP (mGy-cm): 1507.28 FINDINGS: Brain: There is diffuse cerebral atrophy and chronic microvascular white matter disease. There are focal hypodensities in the bilateral basal ganglia consistent with old lacunar infarcts. There is no acute intracranial hemorrhage. Cerebral ventricles: There is mild ex vacuo dilation of the lateral ventricles. The basal cisterns are unremarkable. Paranasal sinuses: There is mucosal thickening in the ethmoid air cells. There is no fluid in the paranasal sinuses to suggest acute sinusitis. Mastoid air cells: The mastoid air cells are clear. Bones/joints: The calvarium is intact. Soft tissues: The visible extracranial soft tissues are unremarkable. CT/CT head wo con* [id number] IMPRESSION: 1. No acute intracranial abnormality. 2. 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
--- NOTE | 2022-06-23 19:47 | CTR_ITS ---
PROCEDURE INFORMATION: Exam: CT Chest With Contrast; Diagnostic Exam date and time: 06/23/2022 8:21 PM Age: 86 years old Clinical indication: Abdominal tenderness; Fever and shortness of breath; Prior surgery; Surgery type: Cabg. Pacemaker. Hernia repair. Prostatectomy. Thr. Patient HX: SOB with fever and abd discomfort. Elevated troponin and hypoxia on monitor. History of prostate cancer. ; Additional info: AMS, new o2, abd discomfort TECHNIQUE: Imaging protocol: Diagnostic computed tomography of the chest with contrast. Radiation optimization: All CT scans at this facility use at least one of these dose optimization techniques: automated exposure control; mA and/or kV adjustment per patient size (includes targeted exams where dose is matched to clinical indication); or iterative reconstruction. Contrast material: OMNI 350; Contrast volume: 80 ml; COMPARISON: CT angio chest PE protcl [id number] 12/13/2021 6:41 AM RADIATION DOSE METRICS: Total DLP (mGy-cm): 1362.03 FINDINGS: Limitations: Mild respiratory motion artifact. Tubes, catheters and devices: There is a dual-lead AICD with leads positioned in the right atrium and right ventricle. Lungs: There is mild upper lung predominant centrilobular emphysema. There is volume loss and coarse reticular opacity in the left lung base, similar to the findings on 12/13/2021. There is decreased AP diameter of the distal trachea and central bronchi consistent with tracheobronchomalacia. Pleural spaces: Unremarkable. No pneumothorax. No pleural effusion. Heart: There is moderate cardiac enlargement. There is moderate coronary artery calcification. There is no pericardial effusion. Lymph nodes: There is no mediastinal or hilar lymphadenopathy. Vasculature: There is moderate aortic atherosclerotic disease. The central pulmonary arteries are unremarkable. Bones/joints: There are bone islands in the right T7 and T8 transverse processes. No acute fracture. There has been a sternotomy with intact repair. No dehiscence. Moderate chronic T12 compression fractures stable. Soft tissues: There is bilateral gynecomastia. PROCEDURE INFORMATION: Exam: CT Abdomen And Pelvis With Contrast Exam date and time: 06/23/2022 8:21 PM Age: 86 years old Clinical indication: Abdominal tenderness; Fever and shortness of breath; Prior surgery; Surgery type: Cabg. Pacemaker. Hernia repair. Prostatectomy. Thr. Patient HX: SOB with fever and abd discomfort. Elevated troponin and hypoxia on monitor. History of prostate cancer. ; Additional info: AMS, new o2, abd discomfort TECHNIQUE: Imaging protocol: Computed tomography of the abdomen and pelvis with contrast. Radiation optimization: All CT scans at this facility use at least one of these dose optimization techniques: automated exposure control; mA and/or kV adjustment per patient size (includes targeted exams where dose is matched to clinical indication); or iterative reconstruction. Contrast material: OMNI 350; Contrast volume: 80 ml; COMPARISON: CT abdomen pelvis w con* [id number] 10/14/2020 2:46 PM RADIATION DOSE METRICS: Total DLP (mGy-cm): 1362.03 FINDINGS: Liver: The liver is normal. Gallbladder and bile ducts: The gallbladder is distended. The wall is thin. No calcified stones. There is no intrahepatic or extrahepatic bile duct dilation. Pancreas: There is marked atrophy of the pancreas. Spleen: The spleen is unremarkable. Adrenal glands: The adrenal glands are unremarkable. Kidneys and ureters: There is mild atrophy of both kidneys. There is no hydronephrosis or stones. Mild bilateral renal vascular calcification. Stomach and bowel: The stomach is unremarkable. The small bowel is nondilated. The colon is unremarkable. The rectum is stool distended measuring 7.6 cm diameter. There is no sign of colitis. Appendix: The appendix is not visible. Intraperitoneal space: There is no free air or significant intraperitoneal free fluid. Vasculature: There is severe aortic atherosclerotic disease. The portal, splenic and superior mesenteric veins are patent. Lymph nodes: There is no lymphadenopathy in the retroperitoneum, mesentery, pelvis or inguinal regions. Urinary bladder: The urinary bladder is unremarkable. Reproductive: The prostate has been removed. Bones/joints: There is moderate degenerative disease in the lumbar spine. The right hip prosthesis is intact and well aligned. The bony pelvis is intact. Soft tissues: There is a small left inguinal hernia containing a short segment of nondilated small bowel. CT/CT chest abd pel w con* IMPRESSION: 1. No acute findings. 2. Chronic opacity in the left lower lobe is similar to 12/13/2021, suggesting scarring and atelectasis. 3. Incidental findings above. IMPRESSION: 1. No acute findings. 2. Incidental findings above.
[2022-06-23 19:49] LABS: SARS Covid-2 Antigen Negative (Negative)
[2022-06-23 19:53] LABS: NT Pro B Type Natriuretic Pept 2780 pg/mL (0-450); Procalcitonin 0.21 ng/mL (0-0.5)
[2022-06-23 20:04] LABS: Alanine Aminotransferase 20 U/L (0-41); Albumin Level 4.1 g/dL (3.5-5.2); Alkaline Phosphatase 57 IU/L (40-130); Anion Gap 17.8 (5-19); Aspartate Amino Transferase 25 U/L (0-40); Blood Urea Nitrogen 25 mg/dL (8-23); C Reactive Protein 9.1 mg/L (0.0-4.9); Calcium 8.9 mg/dL (8.5-10.5); Carbon Dioxide 27 mmol/L (22-29); Chloride 102 mmol/L (98-107); Creatine Phosphokinase 69 U/L (39-308); Globulin 2.5 g/dL (1.3-4.6); Glucose 254 mg/dL (65-115); Osmolality Calculated 307 mOsm/kg (285-295); Potassium 4.8 mmol/L (3.5-5.1); Sodium 142 mmol/L (136-145); Total Bilirubin 0.5 mg/dL (0.15-1.2); Total Protein 6.6 g/dL (6.6-8.7)
--- NOTE | 2022-06-23 20:22 | ECG_ITS ---
[facility] Test Date: 2022-06-23 Pat Name: Dany Whitehead Department: Room: Gender: Male Chocolate Dipper: : 1935 Requested By: Sergio Palacios Order Number: [id number] Loredo MD: Shelia Del Valle M.D. Measurements Intervals [place] Rate: 60 P: MD: QRS: -79 QRSD: 184 T: 60 QT: 487 QTc: 487 Interpretive Statements ELECTRONIC VENTRICULAR PACEMAKER ABNORMAL RHYTHM ECG Compared to ECG 06/23/2022 18:32:59 No significant changes Electronically Signed On 06-24-2022 7:07:07 CDT by Shelia Del Valle M.D. [id number]
[2022-06-23] MEDS: iohexol 350 mg/mL 100 mL Btl IV (20:23)
[2022-06-23 21:21] LABS: Thyroid Stimulating Hormone 1.93 uIU/mL (0.27-4.20)
[2022-06-23 21:35] LABS: Add Urine Culture? Yes; Add Urine Microscopic? YES; Bacteria Urine 4+ /hpf; Bilirubin Urine Neg (Negative); Blood Urine 3+ (Negative); Glucose Urine UA Trace (Normal); Ketones Urine 1+ (Negative); Leukocyte Esterase Urine 1+ (Negative); Nitrate Urine Positive (Negative); Protein Urine Neg (Negative); Specific Gravity, Urine 1.015 (1.005-1.030); Squamous Epithelial Cell Urine 0-4 /hpf (0-5); Urine Appearance Clear (CLEAR); Urine Color Yellow (Yellow); Urobilinogen Urine Norm (Negative); WBC Urine >100 /hpf (0-5); pH Urine 5 (5-7)
[2022-06-23] MEDS: cefTRIAXone 1,000 MG in sodium chloride 0.9% (plus) 50 ML 100 MG IV (21:40)
[2022-06-23 22:06] LABS: Troponin 5 2HR 35.55 ng/L (0-15)
[2022-06-23 22:17] LABS: Troponin 5 2HR Delta 10.55 ABS# (0-10)
--- NOTE | 2022-06-23 22:36 | P.HP_ITS ---
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 Patient is accompanied by daughter present bedside, currently patient alert to person, not to place, not to time, does not follow commands is on 2 L, normotensive, afebrile. Most of the history was provided by patient's daughter and patient's personal nurse at bedside. I am told that at baseline patient is not able to ambulate, is in wheelchair and can feed himself, he does have troubles with speech at times, but no significant cognitive issues. He has a history of recurrent UTIs. He has had prostate cancer with a prostatectomy. He is also had increased coughing episodes. Family tells me since this afternoon, he has been much more confused, more altered, not following commands, more weak, decreased appetite, he has had a fever. Review of Systems General: Reports: ROS unobtainable due to mental status Medications/Allergies Home Medications Medication Instructions Recorded Confirmed Last Taken Type apixaban 5 mg tablet (Eliquis) 5 mg PO BID 12/23/19 05/06/22 10/14/20 History aspirin 81 mg tablet,delayed 81 mg PO QAM 12/23/19 05/06/22 10/14/20 History release carvedilol 25 mg tablet 25 mg PO BID 12/23/19 05/06/22 10/14/20 History eplerenone 25 mg tablet 25 mg PO DAILY 12/23/19 05/06/22 10/14/20 History potassium chloride 20 mEq 20 meq PO QAM 12/23/19 05/06/22 10/14/20 History tablet,extended release(part/cryst) simvastatin 80 mg tablet 80 mg PO QAM 12/23/19 05/06/22 10/14/20 History tamsulosin 0.4 mg capsule 0.4 mg PO QPM 12/23/19 05/06/22 10/13/20 History tiotropium bromide 18 mcg capsule 1 cap inhalation DAILY 12/23/19 05/06/22 Unknown History with inhalation device (Spiriva with HandiHaler) tramadol 50 mg tablet 50 mg PO BEDTIME PRN Pain 12/23/19 05/06/22 Unknown History albuterol sulfate 90 mcg/actuation 2 puff inhalation Q4H PRN 01/09/20 05/06/22 Unknown History aerosol inhaler (ProAir HFA) Shortness Of Breath magnesium L-lactate 84 mg 84 mg PO BID 01/09/20 05/06/22 Unknown History tablet,extended release omeprazole 20 mg capsule,delayed 20 mg PO QAM rx filled on 10/21/21 01/09/20 05/06/22 10/14/20 History release 30d/s for 20mg bid pts states pt takes 20mg daily acetaminophen 650 mg 1,300 mg PO BEDTIME PRN Sleep 10/14/20 05/06/22 12/12/21 History tablet,extended release cholecalciferol (vitamin D3) 25 1,000 unit PO BID 10/14/20 05/06/22 Unknown History mcg (1,000 unit) capsule (Vitamin D3) olopatadine 0.1 % eye drops 1 drp ophthalmic (eye) BID PRN 10/14/20 05/06/22 Unknown History unknown sacubitril 97 mg-valsartan 103 mg 1 tab PO BID 10/14/20 05/06/22 10/14/20 History tablet (Entresto) blood-glucose meter,continuous #1 ea 08/25/21 04/28/22 Unknown Rx (Dexcom G6 Wire Worker) blood-glucose sensor (Dexcom G6 #3 ea 08/25/21 04/28/22 Unknown Rx Sensor) blood-glucose transmitter (Dexcom #1 ea 08/25/21 04/28/22 Unknown Rx G6 Transmitter) escitalopram oxalate 10 mg tablet 10 mg PO QAM 12/13/21 05/06/22 Unknown History gabapentin 400 mg capsule 800 mg PO BID 12/13/21 05/06/22 Unknown History sitagliptin 100 mg tablet (Januvia) 100 mg PO QAM 12/13/21 05/06/22 Unknown History furosemide 40 mg tablet (Lasix) 80 mg PO BID 05/06/22 Unknown History hydrocodone 5 mg-acetaminophen 325 1 tab PO BID PRN pain 05/06/22 05/06/22 Unknown History mg tablet Diabetic Shoes with smooth bottom #1 ea 05/18/22 05/18/22 Unknown Rx and 3 Pairs of Inserts levofloxacin 500 mg tablet 500 mg PO DAILY infection 7 days 06/22/22 Unknown Rx #7 tabs metronidazole 500 mg tablet 500 mg PO TID infection 5 days #15 06/23/22 Unknown Rx tabs Allergies Allergy/AdvReac Type Severity Reaction Status Date / Time adhesive tape Allergy Mild ALGY-Rash Verified 05/18/22 13:36 latex Allergy Mild ALGY-Rash Verified 05/18/22 13:36 PFSH Acute PFSH: Medical History A-fib ASCVD (arteriosclerotic cardiovascular disease) Cardiac defibrillator in place CHF (congestive heart failure) COPD (chronic obstructive pulmonary disease) Critical limb ischemia with history of revascularization of same extremity Depression Diabetes mellitus History of CT (myocardial infarction) History of prostate cancer Hyperlipidemia Incontinence PAD (peripheral artery disease) Prostate CA Sleep apnea Surgical History S/P CABG (coronary artery bypass graft) X5 S/P cardiac pacemaker procedure S/P cataract surgery S/P eye surgery S/P hernia surgery S/P hip hemiarthroplasty S/P knee surgery S/P prostatectomy Family History Family/Other No problems noted. Father , age 57 [address] Myocardial infarction CAD (coronary artery disease) Hypertension Mother , of Brain CA age 66 Cancer Social History Smoking and tobacco status: former smoker Smoking risk assessment/counseling performed?: Yes Alcohol intake: current Alcohol intake frequency: few times a week Alcohol type: hard liquor Desire information about alcohol rehabilitation?: No Counseling given: Yes Desire information about substance/drug rehabilitation?: No Counseling given: Yes Adopted: No Caregiver/support person: Yes Lives independently: Yes Household members: spouse and family Housing: House Marital status: Number of children: 23 Highest education level completed: Associate Degree: Academic Program service: No Current occupational status: retired History of recent travel: No Vitals/I&O/Wt Last Vital Signs Temp 99.0 F 06/23/22 18:07 Pulse 60 06/23/22 18:07 Resp 20 H 06/23/22 18:07 BP 148/76 06/23/22 18:07 Pulse Ox 95 06/23/22 18:07 O2 Del Method 06/23/22 18:07 O2 Flow Rate 2 06/23/22 18:07 Weight last 48 hrs Weight 84.368 kg Physical Exam Const: COMMON NORMALS: no acute distress EXAM LIMITATIONS: altered mental status ORIENTATION/CONSCIOUSNESS: Yes awake, Yes oriented to person and Yes confused; not oriented to place and not oriented to time HENMT: COMMON NORMALS: normocephalic HEAD & SCALP: normocephalic Resp: COMMON NORMALS: normal respiratory effort, No retractions, No use of accessory muscles and clear to auscultation bilaterally AUSCULTATION: clear to auscultation bilaterally Cardio: COMMON NORMALS: no JVD, regular rate, regular rhythm, S1 normal heart sound present and S2 normal heart sound present RATE: regular rate RHYTHM: regular rhythm HEART SOUNDS: S1 normal heart sound present and S2 normal heart sound present GI: COMMON NORMALS: Normal to inspection, nondistended, normoactive bowel sounds present, Soft to palpation, non-tender, No hepatosplenomegaly present, no masses and no bruits PALPATION: Yes Soft to palpation and Yes No hepatosplenomegaly present Extremity: COMMON NORMALS: no calf tenderness and no pedal edema NARRATIVE EXTREMITY EXAM: Right lower extremity, she, has 2 superficial ulcers, dressed Data : 06/23/22 19:17 06/23/22 19:17 Micro: Microbiology 06/23/22 19:25 Blood Culture - Preliminary Blood SPECIMEN COLLECTED 06/23/22 19:21 Blood Culture - Preliminary Blood SPECIMEN COLLECTED A&P Assessment and plan (1) Altered mental status: Status: Acute (2) Complicated urinary tract infection: Status: Acute (3) Aspiration pneumonia: Status: Acute (4) Cellulitis: Status: Acute (5) NSTEMI (non-ST elevated myocardial infarction): Status: Acute (6) Sepsis: Status: Acute (7) Hyperlipemia, mixed: Status: Acute (8) COPD (chronic obstructive pulmonary disease): Status: Acute (9) A-fib: Status: Acute (10) CHF (congestive heart failure): Status: Acute Plan Altered mental status -Likely multifactorial from UTI, aspiration pneumonia -Has a history of recurrent UTIs, -Potentially has urinary retention from multisystem atrophy -Has had prostate cancer with prostatectomy -Start Zosyn -Urine cultures, blood cultures Aspiration pneumonia -Monitor respiratory status closely -Currently n.p.o. -Zosyn as above -Aspiration precautions -We will have speech therapy see patient -Potential aspiration pneumonia aspiration pneumonitis related to multisystem atrophy Cellulitis, has been on Levaquin -Right matamoros, wound care -Vancomycin as above -Monitor and de-escalate antibiotic therapy Sepsis -With endorgan dysfunction, including acute encephalopathy, NSTEMI NSTEMI -Serial EKGs, serial troponins, telemetry monitoring -Is already on aspirin, statin, Eliquis -Likely from sepsis as above, however cannot rule out underlying cardiac etiology CAD COPD, continue home Trelegy CHF, not in exacerbation, will reduce reduce Lasix to 40 twice daily, continue Entresto, continue Coreg Full code Eliquis for DVT prophylaxis Attestations Medical Necessity Statement*: Patient requires hospitalization, inpatient, greater than 2 midnights for altered mental status, UTI, aspiration pneumonia, cellulitis, NSTEMI Coding Level of Care Code Acute Manufacturing Laborer for [facility] Fwd Diagnoses Altered mental status R41.82 Complicated urinary tract infection N39.0 Aspiration pneumonia J69.0 Cellulitis L03.90 NSTEMI (non-ST elevated myocardial infarction) I21.4 Sepsis A41.9 Hyperlipemia, mixed E78.2 COPD (chronic obstructive pulmonary disease) J44.9 A-fib I48.91 CHF (congestive heart failure) I50.9
[2022-06-23] MEDS: aspirin 300 mg Supp PR (22:55)
[2022-06-23 23:17] LABS: Glucose Point of Care 264 mg/dL (70-110)
[2022-06-23 23:32] VITALS: BP 115/48; PULSE 60; RESP 22; TEMP 38.4; O2SAT 97
[2022-06-24] VITALS (15 sets, daily range): BP systolic 113–173; BP diastolic 48–78; PULSE 59–62; RESP 14–22; TEMP 36.7–38.4; O2SAT 95–100
[2022-06-24 00:18] LABS: Estmated Average Glucose 146; Hemoglobin A1C 6.7 % (4.0-6.0)
--- NOTE | 2022-06-24 00:20 | PC.PHAR ---
Pharmacokinetic dosing service Date: 06/24/22 Time: 20 Objective: Patient: Dany Whitehead Floor: 264-1 Age: 86 yo Serum creatinine: 0.8 mg/dL Height: 71.0 Inches Weight (kg): 84.368 Diagnosis: Relevant medical/social history: Cultures and sensitivities: Other labs: Assessment: IBW (kg): 75.30 Dosing wt(kg): 84.368 Estimated Creatinine clearance (ml/min): 71.9 CRCL method: Cockcroft and Gault using ibw(default). Drug selected: Vancomycin Loading dose (mg): 0 Vd (liters): 75.9 (factor used: 0.9 L/kg) Herbie (hr-1): 0.064 Half life (hrs): 10.83 Recommended dose: 1250 mg Interval: 12 hrs Infusion time (hrs): 1.5 Predicted peak (mcg/mL): 29.3 Predicted trough (mcg/mL): 14.96 Total body weight is being used for vancomycin dosing. Renal function is stable [ ] /unstable [ ] Recommendations: Give Vancomycin 1250 mg q 12 hrs with an expected Cpeak of 29.3 mcg/ml and an expected Ctrough of 14.96 mcg/ml Renal dosing of other antibiotics (review renal dosing of other medications and list guidelines here): Thank you for the consult, will continue to follow. Signature: Beth Meng [facility]
--- NOTE | 2022-06-24 00:22 | ECG_ITS ---
[facility] Test Date: 2022-06-24 Pat Name: Dany Whitehead Department: Room: 264 Gender: Male School Manager: : 1935 Requested By: Sergio Palacios Order Number: [id number] Loredo MD: Thiago Horton M.D. Measurements Intervals [place] Rate: 60 P: NM: QRS: -80 QRSD: 197 T: -24 QT: 496 QTc: 496 Interpretive Statements ELECTRONIC VENTRICULAR PACEMAKER ABNORMAL RHYTHM ECG Compared to ECG 06/23/2022 20:37:06 No significant changes Electronically Signed On 06-24-2022 18:30:39 CDT by Thiago Horton M.D. [id number]
[2022-06-24] MEDS: acetaminophen 650 mg Supp PR (00:45)
[2022-06-24] MEDS: vancomycin 1,250 MG/250 ML PIGGYBACK 250 MG IV ×2 (00:54→13:11)
[2022-06-24 00:56] LABS: Lactic Sepsis W/Reflex 1.9 mmol/L (0.5-2.2)
[2022-06-24 02:09] LABS: Basophils % 0.2 %; Hematocrit 32.5 % (42.0-52.0); Hemoglobin 10.2 g/dL (11.7-16.6); Lymphocytes # 0.6 10^3/uL (0.8-4.8); Lymphocytes % 4.1 %; Mean Corpuscular HGB Conc 31.4 g/dL (30.0-36.0); Mean Corpuscular Hemoglobin 31.3 pg (28.0-34.0); Mean Corpuscular Volume 99.7 fl (80-94); Mean Platelet Volume 10.2 fL (7.4-10.4); Monocytes # 0.6 10^3/uL (0.2-0.9); Monocytes % 4.1 %; Neutrophils # 12.95 10^3/uL (1.8-7.7); Nucleated Red Blood Cells % 0 %; Platelet Count 139 10^3/cmm (130-400); Red Blood Count 3.26 10^6/uL (4.1-5.3); Red Cell Distribution Width 14.6 % (12.1-15.1); White Blood Count 14.2 10^3/uL (4.0-10.0)
[2022-06-24 02:20] LABS: Lactate (Lactic Acid level) 1.5 mmol/L (0.5-2.2)
[2022-06-24 02:34] LABS: Troponin 5 6HR 47.76 ng/L (0-15)
[2022-06-24 02:37] LABS: NT Pro B Type Natriuretic Pept 6002 pg/mL (0-450); Procalcitonin 3.27 ng/mL (0-0.5)
[2022-06-24 02:39] LABS: Troponin 5 6HR Delta 22.76 ng/L (0-12)
[2022-06-24 02:52] LABS: Alanine Aminotransferase 23 U/L (0-41); Albumin Level 3.4 g/dL (3.5-5.2); Alkaline Phosphatase 52 IU/L (40-130); Anion Gap 13.4 (5-19); Aspartate Amino Transferase 27 U/L (0-40); Blood Urea Nitrogen 23 mg/dL (8-23); C Reactive Protein 24.5 mg/L (0.0-4.9); Calcium 8.7 mg/dL (8.5-10.5); Carbon Dioxide 27 mmol/L (22-29); Chloride 104 mmol/L (98-107); Globulin 2.8 g/dL (1.3-4.6); Glucose 263 mg/dL (65-115); Osmolality Calculated 303 mOsm/kg (285-295); Phosphorus 3.1 mg/dL (2.5-4.5); Potassium 4.4 mmol/L (3.5-5.1); Sodium 140 mmol/L (136-145); Total Bilirubin 0.4 mg/dL (0.15-1.2); Total Protein 6.2 g/dL (6.6-8.7)
[2022-06-24 06:18] LABS: Glucose Point of Care 218 mg/dL (70-110)
[2022-06-24] MEDS: insulin lispro 100 unit/1 mL SUBCUT ×2 (09:16→17:55)
[2022-06-24] MEDS: carvedilol 25 mg Tablet PO (10:40)
[2022-06-24] MEDS: FUROsemide 40 mg Tablet PO (10:40)
[2022-06-24] MEDS: apixaban 5 mg Tablet PO (10:40)
[2022-06-24] MEDS: cholecalciferol (vitamin D3) 1,000 unit Tablet 1000 UNIT PO (10:40)
[2022-06-24] MEDS: sacubitril/valsartan 24-26 mg Tablet 4 EACH PO (10:40)
[2022-06-24] MEDS: magnesium lactate 84 mg Tablet PO (10:40)
[2022-06-24] MEDS: lactobacillus 1 Tablet 1 TAB PO (10:40)
--- NOTE | 2022-06-24 11:38 | PC.OT ---
OT orders received. Per telephone order with physician, OT evaluation order cancelled d/t pt at baseline function.
--- NOTE | 2022-06-24 12:08 | PC.PT ---
Discussed patient with Dr. Hutchison, after learning patient's baseline function to be nonambulatory, and requiring total assistance of 2 persons for transfers, for quite some time now, and it was decided that PT and OT evaluations are inappropriate at this time .
[2022-06-24 12:51] LABS: Glucose Point of Care 125 mg/dL (70-110)
--- NOTE | 2022-06-24 13:58 | P.PN_ITS ---
Subjective Subjective: Admitted overnight. Patient's caregiver at bedside. Overnight patient was on BiPAP. Appreciate lab results and imaging results. Has remained hemodynamically stable and afebrile. On examination patient is on nasal cannula, awake, somewhat alert but not able to communicate. Able to follow simp le commands. Able to swallow his oral medications but at high risk of aspiration. Vitals/I&O/Wt Last Vital Signs Temp 98.7 F 06/24/22 12:00 Pulse 60 06/24/22 12:00 Resp 17 06/24/22 12:00 BP 130/75 06/24/22 12:00 Pulse Ox 99 06/24/22 12:00 O2 Del Method 06/24/22 12:00 O2 Flow Rate 2 06/24/22 00:00 FiO2 30 06/24/22 08:00 06/23/22 06/24/22 06/24/22 22:59 06:59 14:59 Intake Total 50 / 50 250 / 300 Output Total 700 / 700 Balance 50 / 50 -450 / -400 Weight last 48 hrs Weight 84.368 kg Physical Exam Narrative: General: No acute distress, awake, somewhat alert, able to follow simple commands, not able to communicate, chronically sick appearing HEENT: PERRLA, pupils bilaterally equal and reactive Chest: Normal vesicular breath sounds bilaterally, bronchial breath sounds bilaterally upper zone, coarse crackles present CVS: S1-S2 regular, no murmurs, no tachycardia, no gallops, no rubs Abdomen: Soft, nontender, no organomegaly, bowel sounds present, morbidly obese Neuro: No focal deficits, no facial deformity, AO x3, no focal deficit Data : 06/24/22 01:37 06/24/22 01:37 Micro: Microbiology 06/24/22 02:02 MRSA Culture - Final Nose 06/23/22 19:25 Blood Culture - Preliminary Blood SPECIMEN COLLECTED 06/23/22 19:21 Blood Culture - Preliminary Blood SPECIMEN COLLECTED A&P Assessment and plan (1) Sepsis: Status: Acute (2) Complicated urinary tract infection: Status: Acute (3) Aspiration pneumonia: Status: Acute (4) Altered mental status: Status: Acute (5) COPD (chronic obstructive pulmonary disease): Status: Acute (6) A-fib: Status: Acute (7) CHF (congestive heart failure): Status: Acute (8) Diabetes type 2, uncontrolled: Status: Acute Plan Altered mental status: Multifactorial. Most likely secondary to sepsis from UTI and possible aspiration pneumonia along with worsening of baseline mentation. Pro-Osei elevated. Urinalysis dirty. Follow-up cultures including blood culture, urine culture. MRSA swab negative. On review of culture history has history of Proteus E. coli, MSSA from leg wound. Start on Zosyn. Stop vancomycin. High likelihood of aspiration pneumonia. 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 NPO. Cannot do modified barium swallow as patient did not go in wheelchair. Diet to be advanced as per speech evaluation. Cellulitis of right matamoros: Continue with wound care as before. Antibiotic as above. Elevated troponin: Most likely demand ischemia from sepsis. Already on aspirin, statin, Eliquis. Cannot rule out underlying cardiac etiology as patient cannot tell about his baseline symptoms. COPD without exacerbation Type 2 diabetes mellitus: Insulin sliding scale every 6 hourly. 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 Continue other chronic medications. Analgesia: Tylenol as needed Glycemic control: Insulin sliding scale low-dose protocol every 6 hourly Nutrition: N.p.o. except medications. To be advanced as per swallow evaluation. CODE STATUS: Full code. Will need to confirm with patient's DPOA regarding goals of care. Likely patient will need modified diet versus PEG tube placement for nutrition. PUD prophylaxis: Famotidine DVT prophylaxis: Eliquis will suffice as DVT prophylaxis Discharge planning: Back home with caregiver once medically appropriate Continue with care at [facility] floor with telemetry. This documentation was created by [employer] manager books software. Every effort was made to ensure accuracy of manager books. Any obvious errors or omissions should be clarified with the author of the document. Attestations Medical Necessity Statement*: Requires further hospitalization for management of sepsis secondary to UTI, aspiration pneumonitis while diet is appropriately advanced Time Spent in Patient Care: Greater than 35 minutes Coding Level of Care Code Acute Staff Physical Therapist for [facility] Fwd Diagnoses Sepsis A41.9 Complicated urinary tract infection N39.0 Aspiration pneumonia J69.0 Altered mental status R41.82 COPD (chronic obstructive pulmonary disease) J44.9 A-fib I48.91 CHF (congestive heart failure) I50.9 Diabetes type 2, uncontrolled E11.65
[2022-06-24] MEDS: famotidine 20 mg/2 mL INJ IVP (14:39)
[2022-06-24] MEDS: piperacillin-tazobactam 3.375 GM in sodium chloride 0.9% (plus) 50 ML IV ×2 (14:39→21:56)
[2022-06-24] MEDS: tamsulosin 0.4 mg Capsule PO (17:22)
[2022-06-24 17:34] LABS: Glucose Point of Care 226 mg/dL (70-110)
[2022-06-24 20:58] LABS: Glucose Point of Care 136 mg/dL (70-110)
[2022-06-25] VITALS (11 sets, daily range): BP systolic 132–165; BP diastolic 71–87; PULSE 58–68; RESP 16–33; TEMP 36.8–37.8; O2SAT 92–100
[2022-06-25] MEDS: ondansetron 2 mg/ML SDV 2 mL 4 MG IVP (01:21)
[2022-06-25] MEDS: famotidine 20 mg/2 mL INJ IVP ×2 (01:21→15:42)
[2022-06-25 05:44] LABS: Basophils % 0.4 %; Eosinophils % 0.2 %; Hematocrit 33.3 % (42.0-52.0); Hemoglobin 10.4 g/dL (11.7-16.6); Lymphocytes # 0.7 10^3/uL (0.8-4.8); Lymphocytes % 7.5 %; Mean Corpuscular HGB Conc 31.2 g/dL (30.0-36.0); Mean Corpuscular Hemoglobin 30.8 pg (28.0-34.0); Mean Corpuscular Volume 98.5 fl (80-94); Mean Platelet Volume 10.6 fL (7.4-10.4); Monocytes # 0.5 10^3/uL (0.2-0.9); Monocytes % 5.3 %; Neutrophils # 7.98 10^3/uL (1.8-7.7); Neutrophils % 86.3 %; Nucleated Red Blood Cells % 0 %; Platelet Count 117 10^3/cmm (130-400); Red Blood Count 3.38 10^6/uL (4.1-5.3); Red Cell Distribution Width 14.6 % (12.1-15.1); White Blood Count 9.3 10^3/uL (4.0-10.0)
[2022-06-25] MEDS: piperacillin-tazobactam 3.375 GM in sodium chloride 0.9% (plus) 50 ML IV ×3 (06:11→23:17)
[2022-06-25 06:20] LABS: Alanine Aminotransferase 39 U/L (0-41); Albumin Level 3.3 g/dL (3.5-5.2); Alkaline Phosphatase 62 IU/L (40-130); Anion Gap 17.7 (5-19); Aspartate Amino Transferase 58 U/L (0-40); Blood Urea Nitrogen 24 mg/dL (8-23); Calcium 8.9 mg/dL (8.5-10.5); Carbon Dioxide 24 mmol/L (22-29); Chloride 106 mmol/L (98-107); Globulin 3.1 g/dL (1.3-4.6); Glucose 202 mg/dL (65-115); Magnesium 2.1 mg/dL (1.7-2.3); Osmolality Calculated 308 mOsm/kg (285-295); Phosphorus 2.9 mg/dL (2.5-4.5); Potassium 3.7 mmol/L (3.5-5.1); Sodium 144 mmol/L (136-145); Total Bilirubin 0.4 mg/dL (0.15-1.2); Total Protein 6.4 g/dL (6.6-8.7)
[2022-06-25 06:24] LABS: Glucose Point of Care 199 mg/dL (70-110)
[2022-06-25] MEDS: sacubitril/valsartan 24-26 mg Tablet 4 EACH PO ×2 (09:08→20:55)
[2022-06-25] MEDS: atorvastatin 40 mg Tablet PO (09:09)
[2022-06-25] MEDS: potassium chloride ER 20 mEq Tablet PO (09:09)
[2022-06-25] MEDS: FUROsemide 40 mg Tablet PO ×2 (09:09→20:55)
[2022-06-25] MEDS: lactobacillus 1 Tablet 1 TAB PO ×2 (09:09→20:55)
[2022-06-25] MEDS: cholecalciferol (vitamin D3) 1,000 unit Tablet 1000 UNIT PO ×2 (09:09→20:56)
[2022-06-25] MEDS: magnesium lactate 84 mg Tablet PO ×2 (09:09→20:55)
[2022-06-25] MEDS: escitalopram 10 mg Tablet PO (09:09)
[2022-06-25] MEDS: carvedilol 25 mg Tablet PO ×2 (09:09→20:55)
[2022-06-25] MEDS: aspirin 81 mg EC Tablet PO (09:10)
[2022-06-25] MEDS: apixaban 5 mg Tablet PO ×2 (09:10→20:55)
[2022-06-25 10:56] LABS: Glucose Point of Care 230 mg/dL (70-110)
--- NOTE | 2022-06-25 13:58 | P.PN_ITS ---
Subjective Subjective: No acute events overnight. Today morning seen with daughter at bedside. Patient is awake and alert. Diet changed as per swallow evaluation yesterday. Tolerating better. Has remained afebrile. Vitals/I&O/Wt Last Vital Signs Temp 98.3 F 06/25/22 11:42 Pulse 64 06/25/22 11:42 Resp 16 06/25/22 11:42 BP 142/71 06/25/22 11:42 Pulse Ox 100 06/25/22 11:42 O2 Del Method 06/25/22 11:42 O2 Flow Rate 2 06/25/22 04:00 FiO2 30 06/24/22 08:00 06/24/22 06/25/22 06/25/22 22:59 06:59 14:59 Intake Total 50 / 300 50 / 350 360 / 360 Output Total 900 / 900 250 / 1150 Balance -850 / -600 -200 / -800 359 / 359 Weight last 48 hrs Weight 84.368 kg Physical Exam Narrative: General: No acute distress, awake, somewhat alert, able to follow simple commands, not able to communicate, chronically sick appearing HEENT: PERRLA, pupils bilaterally equal and reactive Chest: Normal vesicular breath sounds bilaterally, bronchial breath sounds bilaterally upper zone, coarse crackles present CVS: S1-S2 regular, no murmurs, no tachycardia, no gallops, no rubs Abdomen: Soft, nontender, no organomegaly, bowel sounds present, morbidly obese Neuro: No focal deficits, no facial deformity, AO x3, no focal deficit Data : 06/25/22 05:20 06/25/22 05:20 Micro: Microbiology 06/23/22 20:59 Urine Culture - Final Urine,Clean Catch 06/23/22 19:25 Blood Culture - Preliminary Blood NEGATIVE TO DATE 06/23/22 19:21 Blood Culture - Preliminary Blood NEGATIVE TO DATE 06/24/22 02:02 MRSA Culture - Final Nose A&P Assessment and plan (1) Sepsis: Status: Acute (2) Complicated urinary tract infection: Status: Acute (3) Aspiration pneumonia: Status: Acute (4) Altered mental status: Status: Acute (5) COPD (chronic obstructive pulmonary disease): Status: Acute (6) A-fib: Status: Acute (7) CHF (congestive heart failure): Status: Acute (8) Diabetes type 2, uncontrolled: Status: Acute Plan Altered mental status: Resolved. Multifactorial. Most likely secondary to sepsis from UTI and possible aspiration pneumonia along with worsening of baseline mentation. Follow-up cultures including blood culture, urine culture. MRSA swab negative. On review of culture history has history of Proteus E. coli, MSSA from leg wound. Continue with Zosyn. Most likely patient will be discharged on Augmentin and Levaquin to finish a 7-day course High likelihood of aspiration pneumonia. 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 Diet change as per swallow evaluation. Continue with dysphagia level 1 pur?ed diet. Given BPH, being bedridden, it is advised to the patient that going forward going straight catheterization once every 2 to 3 days would prevent from further UTI, renal dysfunction from urinary retention. Daughter verbalized understanding. Cellulitis of right matamoros: Continue with wound care as before. Antibiotic as above. Elevated troponin: Most likely demand ischemia from sepsis. Already on aspirin, statin, Eliquis. Cannot rule out underlying cardiac etiology as patient cannot tell about his baseline symptoms. COPD without exacerbation Type 2 diabetes mellitus: Insulin sliding scale every 6 hourly. 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 Continue other chronic medications. Analgesia: Tylenol as needed Glycemic control: Insulin sliding scale moderate dose protocol before meals and at bedtime Nutrition: Dysphagia 1 pur?ed diet. To advance as per swallow evaluation. CODE STATUS: Full code. Discussed in detail with patient and patient's daughter at bedside. For now patient would like to remain full code. Will discuss further with his family. PUD prophylaxis: Famotidine DVT prophylaxis: Eliquis will suffice as DVT prophylaxis Discharge planning: Back home with caregiver once medically appropriate Continue with care at [facility] with telemetry. This documentation was created by [employer] business operations consultant software. Every effort was made to ensure accuracy of business operations consultant. Any obvious errors or omissions should be clarified with the author of the document. Attestations Medical Necessity Statement*: Requires further hospitalization for management of UTI, aspiration pneumonitis from chronic aspiration. Time Spent in Patient Care: Greater than 35 minutes Coding Level of Care Code Acute Snuff Grinder And Screener for [facility] Fwd Diagnoses Sepsis A41.9 Complicated urinary tract infection N39.0 Aspiration pneumonia J69.0 Altered mental status R41.82 COPD (chronic obstructive pulmonary disease) J44.9 A-fib I48.91 CHF (congestive heart failure) I50.9 Diabetes type 2, uncontrolled E11.65
[2022-06-25 16:46] LABS: Glucose Point of Care 241 mg/dL (70-110)
--- NOTE | 2022-06-25 16:54 | XRR_ITS ---
PROCEDURE INFORMATION: Exam: XR Chest Exam date and time: 06/25/2022 5:06 PM Age: 86 years old Clinical indication: Shortness of breath; Prior surgery; Surgery date: 6+ months; Surgery type: Pacemaker in 2004; Patient HX: SOB, per nursing respiratory breaths became more shallow today, per family not normally on o2, 93% on 2l today TECHNIQUE: Imaging protocol: Radiologic exam of the chest. Views: 1 view. COMPARISON: CT chest abd pel w con* 06/23/2022 8:21 PM FINDINGS: Tubes, catheters and devices: There is a dual-lead AICD with leads positioned in the right atrium and right ventricle. Lungs: Stable mild nonspecific opacity in the left lung base. Right lung is grossly clear. Pleural spaces: There is no pleural effusion or pneumothorax. Heart/Mediastinum: There is moderate enlargement of the cardiac silhouette. Bones/joints: Sternal wires are present. There is no displacement to suggest sternal dehiscence. XR/XR chest 1V portable [id number] IMPRESSION: No acute findings. Stable chronic opacity in the left lung base. Probable scarring and atelectasis.
[2022-06-25] MEDS: FUROsemide 10 mg/mL SDV 4mL 40 MG IVP (17:17)
[2022-06-25 17:18] LABS: ABG PCO2 43.6 mmHg (35-45); ABG PH Result 7.39 (7.35-7.45); Alveolar-Arterial Oxygen Gradi 3.8 mmHg (5-10); Arterial Blood Gas Hematocrit 34.9 % (42-52); Base Excess ABG 0.8 mmol/L (-2.0-2.0); Blood Gas Allen Test Pos; Blood Gas Operator Identificat O; Blood Gas Sample Site Radial, left; Blood Gas Sample Type Arterial; Carboxyhemoglobin 1.2 %THgb (0.4-20.1); HCO3 ABG 26.1 mmol/L (22-26); HGB O2 Sat 92.7 % (95-100); Ionized Calcium Level - ABG 1.2 mmol/L (1.1-1.4); Methemoglobin 0.7 % (0.4-1.5); Oxygen Device NC; Oxygen Saturation ABG 94.5; PO2 ABG 66.8 mmHg (80.0-100.0); Total Hemoglobin 11.4 g/dL (14-18)
[2022-06-25] MEDS: ipratropium-albuterol 3 mL Neb INHALATION ×2 (17:24→20:31)
[2022-06-25 17:40] LABS: NT Pro B Type Natriuretic Pept 18110 pg/mL (0-450)
--- NOTE | 2022-06-25 18:14 | ECG_ITS ---
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 Measurements Intervals [place] Rate: 62 P: CT: QRS: -74 QRSD: 202 T: 0 QT: 459 QTc: 468 Interpretive Statements ELECTRONIC VENTRICULAR PACEMAKER Compared to ECG 06/24/2022 00:06:17 No significant changes Electronically Signed On 06-25-2022 20:29:47 CDT by Orlando Sanchez M.D. [id number]
[2022-06-25 18:56] LABS: Troponin(5th) Baseline 49 ng/L (0-15)
--- NOTE | 2022-06-25 20:14 | ECG_ITS ---
[facility] Test Date: 2022-06-25 Pat Name: Dany Whitehead Department: Room: 264 Gender: Male Lab Assistant: : 1935 Requested By: Cr Bolden Order Number: [id number] Facundo MD: Orlando Sanchez M.D. Measurements Intervals [place] Rate: 60 P: AK: QRS: -57 QRSD: 146 T: 13 QT: 459 QTc: 459 Interpretive Statements ELECTRONIC VENTRICULAR PACEMAKER -- CONTOUR ANALYSIS BASED ON INTRINSIC RHYTHM INTRAVENTRICULAR CONDUCTION DELAY [130+ ms QRS DURATION] Compared to ECG 06/25/2022 18:34:30 Intraventricular conduction delay now present Electronically Signed On 06-27-2022 17:50:19 CDT by Orlando Sanchez M.D. [id number]
[2022-06-25] MEDS: budesonide 0.5 mg/2 mL Neb INHALATION (20:32)
[2022-06-25] MEDS: tamsulosin 0.4 mg Capsule PO (20:56)
[2022-06-25 21:14] LABS: Glucose Point of Care 261 mg/dL (70-110)
[2022-06-25 21:31] LABS: Troponin 5 2HR 48.63 ng/L (0-15)
[2022-06-25 21:43] LABS: Troponin 5 2HR Delta -0.37 ABS# (0-10)
[2022-06-25] MEDS: insulin lispro 100 unit/1 mL SUBCUT (21:48)
[2022-06-26] VITALS (8 sets, daily range): BP systolic 123–164; BP diastolic 65–88; PULSE 60–92; RESP 15–16; TEMP 36.4–37; O2SAT 92–96
--- NOTE | 2022-06-26 00:14 | ECG_ITS ---
[facility] Test Date: 2022-06-26 Pat Name: Dany Whitehead Department: Room: 264 Gender: Male Machine Icer: : 1935 Requested By: Cr Bolden Order Number: [id number] Facundo MD: Orlando Sanchez M.D. Measurements Intervals [place] Rate: 61 P: WI: QRS: -64 QRSD: 150 T: -35 QT: 474 QTc: 479 Interpretive Statements ELECTRONIC VENTRICULAR PACEMAKER -- CONTOUR ANALYSIS BASED ON INTRINSIC RHYTHM LEFT AXIS DEVIATION [QRS AXIS < -30] RIGHT BUNDLE BRANCH BLOCK [120+ ms QRS DURATION, UPRIGHT V1, 40+ ms S IN I/aVL/V4/V5/V6] Compared to ECG 06/25/2022 20:36:32 Left-axis deviation now present Right bundle-branch block now present Intraventricular conduction delay no longer present Electronically Signed On 06-27-2022 17:49:26 CDT by Orlando Sanchez M.D. [id number]
[2022-06-26 01:44] LABS: Basophils % 0.1 %; Hemoglobin 10.6 g/dL (11.7-16.6); Lymphocytes # 0.7 10^3/uL (0.8-4.8); Lymphocytes % 10.5 %; Mean Corpuscular HGB Conc 32.1 g/dL (30.0-36.0); Mean Corpuscular Volume 96.5 fl (80-94); Mean Platelet Volume 10.6 fL (7.4-10.4); Monocytes # 0.2 10^3/uL (0.2-0.9); Monocytes % 2.3 %; Neutrophils # 6.12 10^3/uL (1.8-7.7); Neutrophils % 86.5 %; Nucleated Red Blood Cells % 0 %; Platelet Count 116 10^3/cmm (130-400); Red Blood Count 3.42 10^6/uL (4.1-5.3); Red Cell Distribution Width 14.3 % (12.1-15.1); White Blood Count 7.1 10^3/uL (4.0-10.0)
[2022-06-26 02:09] LABS: Troponin 5 6HR 40.91 ng/L (0-15)
[2022-06-26 02:12] LABS: Alanine Aminotransferase 31 U/L (0-41); Albumin Level 3.5 g/dL (3.5-5.2); Alkaline Phosphatase 50 IU/L (40-130); Anion Gap 15.3 (5-19); Aspartate Amino Transferase 26 U/L (0-40); Blood Urea Nitrogen 25 mg/dL (8-23); Calcium 8.9 mg/dL (8.5-10.5); Carbon Dioxide 27 mmol/L (22-29); Chloride 105 mmol/L (98-107); Globulin 2.9 g/dL (1.3-4.6); Glucose 191 mg/dL (65-115); Magnesium 2.1 mg/dL (1.7-2.3); Osmolality Calculated 308 mOsm/kg (285-295); Potassium 3.3 mmol/L (3.5-5.1); Sodium 144 mmol/L (136-145); Total Bilirubin 0.4 mg/dL (0.15-1.2); Total Protein 6.4 g/dL (6.6-8.7)
[2022-06-26 02:13] LABS: Troponin 5 6HR Delta -8.09 ng/L (0-12)
[2022-06-26] MEDS: famotidine 20 mg/2 mL INJ IVP (02:38)
[2022-06-26] MEDS: escitalopram 10 mg Tablet PO (05:28)
[2022-06-26] MEDS: potassium chloride ER 20 mEq Tablet PO (05:28)
[2022-06-26] MEDS: aspirin 81 mg EC Tablet PO (05:28)
[2022-06-26] MEDS: atorvastatin 40 mg Tablet PO (05:28)
[2022-06-26] MEDS: piperacillin-tazobactam 3.375 GM in sodium chloride 0.9% (plus) 50 ML IV (05:31)
[2022-06-26 06:47] LABS: Glucose Point of Care 203 mg/dL (70-110)
[2022-06-26] MEDS: apixaban 5 mg Tablet PO (08:18)
[2022-06-26] MEDS: carvedilol 25 mg Tablet PO (08:18)
[2022-06-26] MEDS: lactobacillus 1 Tablet 1 TAB PO (08:18)
[2022-06-26] MEDS: cholecalciferol (vitamin D3) 1,000 unit Tablet 1000 UNIT PO (08:18)
[2022-06-26] MEDS: magnesium lactate 84 mg Tablet PO (08:18)
[2022-06-26] MEDS: FUROsemide 40 mg Tablet PO (08:18)
[2022-06-26] MEDS: sacubitril/valsartan 24-26 mg Tablet 4 EACH PO (08:47)
[2022-06-26] MEDS: ipratropium-albuterol 3 mL Neb INHALATION ×2 (08:49→12:10)
[2022-06-26] MEDS: budesonide 0.5 mg/2 mL Neb INHALATION (08:49)
--- NOTE | 2022-06-26 09:26 | PC.SOCIAL ---
IMM update IMM updated with patient and daughter. Copy Pg 2 provided. Verbalized an understanding. Initialled, dated, timed, and placed in chart.
[2022-06-26] MEDS: insulin lispro 100 unit/1 mL SUBCUT (09:27)
--- NOTE | 2022-06-26 10:52 | PM.DCS ---
Discharge Providers Date of Admission: 06/23/22 21:49 Date of Discharge: June 26, 2022 Attending Provider at Admission: Job Jolly MD Attending Provider at Discharge: Cr Bolden MD Primary Care Provider: Gopal Cameron MD Diagnoses at Discharge Discharge Diagnosis (1) Sepsis: Status: Acute (2) Complicated urinary tract infection: Status: Acute (3) Aspiration pneumonia: Status: Acute (4) Altered mental status: Status: Acute (5) COPD (chronic obstructive pulmonary disease): Status: Acute (6) A-fib: Status: Acute (7) CHF (congestive heart failure): Status: Acute (8) Diabetes type 2, uncontrolled: Status: Acute Reason for Visit Reason for Visit: LETHARGIC Hospital Course Hospital Course Dany Whitehead is a 86 year old male with a past medical history of multisystem atrophy, atrial fibrillation on Eliquis, history of CHF, noninsulin-dependent type 2 diabetes mellitus, GERD, CAD, history of defibrillator placed, COPD on home trilogy, history of limb ischemia, history of CABG, who presents to [facility] due to altered mental status and fevers.? Patient is accompanied by daughter present bedside, currently patient alert to person, not to place, not to time, does not follow commands is on 2 L, normotensive, afebrile.? Most of the history was provided by patient's daughter and patient's personal nurse at bedside.? I am told that at baseline patient is not able to ambulate, is in wheelchair and can feed himself, he does have troubles with speech at times, but no significant cognitive issues.? He has a history of recurrent UTIs.? He has had prostate cancer with a prostatectomy.? He is also had increased coughing episodes.? Family tells me since this afternoon, he has been much more confused, more altered, not following commands, more weak, decreased appetite, he has had a fever. Patient known to the hospital for evaluation and management of altered mental status secondary to sepsis from possible UTI and aspiration pneumonia. He was started on broad-spectrum antibiotics. His blood cultures, urine culture during hospitalization remain negative. He responded well to the treatment and has been back to his baseline mentation for last 48 hours. As there was a concern for aspiration pneumonia swallow evaluation was done and diet was changed accordingly. Patient could not have a modified barium swallow done because he was unable to sit in the wheelchair. His hospitalization was otherwise unremarkable. He is been discharged in hemodynamically stable condition on oral Levaquin and doxycycline for next 7 days. He is advised to change his diet as per swallow evaluation recommendation. He is also advised to have a straight catheterization done at home once every 2 to 3 days. Physical Exam Narrative: General: No acute distress, AO x3, able to communicate HEENT: PERRLA, pupils bilaterally equal and reactive Chest: Normal vesicular breath sounds bilaterally, bronchial breath sounds bilaterally upper zone, coarse crackles present CVS: S1-S2 regular, no murmurs, no tachycardia, no gallops, no rubs Abdomen: Soft, nontender, no organomegaly, bowel sounds present, morbidly obese Neuro: No focal deficits, no facial deformity, AO x3, no focal deficit Discharge Data Studies Completed and Pending Completed Studies During Hospitalization Category Date Time Status CT chest abdomen pelvis [CT chest abd pel w con*] Stat Cat Scan 06/23/22 19:[address] head wo con* [id number] Stat Cat Scan 06/23/22 19:47 Completed XR chest 1V portable [id number] Stat Exams 06/23/22 18:21 Completed XR chest 1V portable [id number] Stat Exams 06/25/22 16:54 Completed Pending at discharge Category Date Time Status Blood Culture Stat Lab 06/23/22 19:25 Results Clostridioides Difficile PCR Routine Lab 06/23/22 23:32 Ordered Enteric Bacterial Panel by PCR Routine Lab 06/23/22 23:32 Ordered Enteric Parasite Panel by PCR Routine Lab 06/23/22 23:32 Ordered Immunochemical Fecal OCB Routine Lab 06/23/22 23:32 Ordered Lactoferrin Routine Lab 06/23/22 23:32 Ordered Sputum Culture and Gram Stain Stat Lab 06/23/22 22:35 Uncollected Radiology Impressions Chest/Abdomen/Pelvis CT 06/23/22 19:47 IMPRESSION: 1. No acute findings. 2. Chronic opacity in the left lower lobe is similar to 12/13/2021, suggesting scarring and atelectasis. 3. Incidental findings above. IMPRESSION: 1. No acute findings. 2. Incidental findings above. Head CT 06/23/22 19:47 IMPRESSION: 1. No acute intracranial abnormality. 2. 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 Chest X-Ray 06/25/22 16:54 IMPRESSION: No acute findings. Stable chronic opacity in the left lung base. Probable scarring and atelectasis. Microbiology 06/23/22 20:59 Urine,Clean Catch Urine Culture - Final 06/23/22 19:25 Blood Blood Culture - Preliminary NEGATIVE TO DATE 06/23/22 19:21 Blood Blood Culture - Preliminary NEGATIVE TO DATE 06/24/22 02:02 Nose MRSA Culture - Final Laboratory Results WBC 7.1 10^3/uL (4.0-10.0) 06/26/22 01:10 RBC 3.42 10^6/uL (4.1-5.3) L 06/26/22 01:10 Hgb 10.6 g/dL (11.7-16.6) L 06/26/22 01:10 Hct 33.0 % (42.0-52.0) L 06/26/22 01:10 MCV 96.5 fl (80-94) H 06/26/22 01:10 MCH 31.0 pg (28.0-34.0) 06/26/22 01:10 MCHC 32.1 g/dL (30.0-36.0) 06/26/22 01:10 RDW 14.3 % (12.1-15.1) 06/26/22 01:10 Plt Count 116 10^3/cmm (130-400) L 06/26/22 01:10 MPV 10.6 fL (7.4-10.4) H 06/26/22 01:10 Neut % (Auto) 86.5 % 06/26/22 01:10 Lymph % (Auto) 10.5 % 06/26/22 01:10 [place] % (Auto) 2.3 % 06/26/22 01:10 Eos % (Auto) 0.0 % 06/26/22 01:10 Baso % (Auto) 0.1 % 06/26/22 01:10 Neut # (Auto) 6.12 10^3/uL (1.8-7.7) 06/26/22 01:10 Lymph # (Auto) 0.7 10^3/uL (0.8-4.8) L 06/26/22 01:10 [place] # (Auto) 0.2 10^3/uL (0.2-0.9) 06/26/22 01:10 Eos # (Auto) 0.0 10^3/uL (0.0-0.8) 06/26/22 01:10 Baso # (Auto) 0.0 10^3/uL (0.0-0.1) 06/26/22 01:10 Nucleated RBC % (auto) 0 % 06/26/22 01:10 Nucleated RBCs # 0.0 /100WBC 06/26/22 01:10 Specimen Type Arterial 06/25/22 17:08 Sample Site Radial, left 06/25/22 17:08 ABG pH 7.39 (7.35-7.45) 06/25/22 17:08 ABG pCO2 43.6 mmHg (35-45) 06/25/22 17:08 ABG pO2 66.8 mmHg (80.0-100.0) L 06/25/22 17:08 ABG HCO3 26.1 mmol/L (22-26) H 06/25/22 17:08 ABG O2 Saturation 94.5 06/25/22 17:08 ABG Base Excess 0.8 mmol/L (-2.0-2.0) 06/25/22 17:08 [place] Test Pos 06/25/22 17:08 A-a O2 Gradient 3.8 mmHg (5-10) L 06/25/22 17:08 Hematocrit 34.9 % (42-52) L 06/25/22 17:08 Hgb O2 Saturation 92.7 % (95-100) L 06/25/22 17:08 Carboxyhemoglobin 1.2 %THgb (0.4-20.1) 06/25/22 17:08 Methemoglobin 0.7 % (0.4-1.5) 06/25/22 17:08 Total Hemoglobin 11.4 g/dL (14-18) L 06/25/22 17:08 Sodium 143.0 mmol/L (131-143) 06/25/22 17:08 Potassium 4.0 mmol/L (3.5-5.0) 06/25/22 17:08 Glucose 239.0 mg/dL (70-115) H 06/25/22 17:08 Ionized Calcium 1.2 mmol/L (1.1-1.4) 06/25/22 17:08 O2 Delivery Device Nc 06/25/22 17:08 O2 Liters/Min 2.0 % 06/25/22 17:08 FiO2 28.0 % 06/23/22 18:33 Sales Record Clerk ID O 06/25/22 17:08 Sodium 144 mmol/L (136-145) 06/26/22 01:10 Potassium 3.3 mmol/L (3.5-5.1) L 06/26/22 01:10 Chloride 105 mmol/L (98-107) 06/26/22 01:10 Carbon Dioxide 27 mmol/L (22-29) 06/26/22 01:10 Anion Gap 15.3 (5-19) 06/26/22 01:10 BUN 25 mg/dL (8-23) H 06/26/22 01:10 Creatinine 0.9 mg/dL (0.7-1.2) 06/26/22 01:10 GFR Calculation Not Reportable 06/26/22 01:10 Glucose 191 mg/dL (65-115) H 06/26/22 01:10 POC Glucose 203 mg/dL (70-110) H 06/26/22 06:36 Estimat Average Glucose 146 06/23/22 19:17 Hemoglobin A1c 6.7 % (4.0-6.0) H 06/23/22 19:17 Calculated Osmolality 308 mOsm/kg (285-295) H 06/26/22 01:10 Lactic Acid 1.9 mmol/L (0.5-2.2) 06/23/22 23:54 Lactate 1.5 mmol/L (0.5-2.2) 06/24/22 01:37 Calcium 8.9 mg/dL (8.5-10.5) 06/26/22 01:10 Phosphorus 3.0 mg/dL (2.5-4.5) 06/26/22 01:10 Magnesium 2.1 mg/dL (1.7-2.3) 06/26/22 01:10 Total Bilirubin 0.4 mg/dL (0.15-1.2) 06/26/22 01:10 AST 26 U/L (0-40) 06/26/22 01:10 ALT 31 U/L (0-41) 06/26/22 01:10 Alkaline Phosphatase 50 IU/L (40-130) 06/26/22 01:10 Creatine Kinase 69 U/L (39-308) 06/23/22 19:17 Troponin T Baseline 49 ng/L (0-15) H 06/25/22 18:27 Troponin T 120 Minute 48.63 ng/L (0-15) H 06/25/22 20:50 Delta Troponin T -0.37 ABS# (0-10) L 06/25/22 20:50 Troponin T Hi Sens 6Hr 40.91 ng/L (0-15) H 06/26/22 01:10 Troponin T Hi Sens 6Hr Delta -8.09 ng/L (0-12) L 06/26/22 01:10 C-Reactive Protein 24.5 mg/L (0.0-4.9) H 06/24/22 01:37 NT-Pro-B Natriuret Pep 65059 pg/mL (0-450) H 06/25/22 05:20 Total Protein 6.4 g/dL (6.6-8.7) L 06/26/22 01:10 Albumin 3.5 g/dL (3.5-5.2) 06/26/22 01:10 Globulin 2.9 g/dL (1.3-4.6) 06/26/22 01:10 Procalcitonin 3.27 ng/mL (0-0.5) H 06/24/22 01:37 TSH 1.93 uIU/mL (0.27-4.20) 06/23/22 19:17 Urine Color Yellow (Yellow) 06/23/22 20:59 Urine Appearance Clear (CLEAR) 06/23/22 20:59 Urine pH 5 (5-7) 06/23/22 20:59 Ur Specific [place] 1.015 (1.005-1.030) 06/23/22 20:59 Urine Protein Neg (Negative) 06/23/22 20:59 Urine Glucose (UA) Trace (Normal) H 06/23/22 20:59 Urine Ketones 1+ (Negative) H 06/23/22 20:59 Urine Blood 3+ (Negative) H 06/23/22 20:59 Urine Nitrate Positive (Negative) H 06/23/22 20:59 Urine Bilirubin Neg (Negative) 06/23/22 20:59 Urine Urobilinogen Norm mg/dL (Negative) 06/23/22 20:59 Ur Leukocyte Esterase 1+ (Negative) H 06/23/22 20:59 Urine RBC 5-10 /hpf (0-2) H 06/23/22 20:59 Urine WBC >100 /hpf (0-5) H 06/23/22 20:59 Ur Squamous Epith Cells 0-4 /hpf (0-5) H 06/23/22 20:59 Amorphous Sediment Not Reportable 06/23/22 20:59 Urine Bacteria 4+ /hpf (NONE) H 06/23/22 20:59 Influenza Type A Ag Negative (Negative) 06/23/22 19:12 Influenza Type B Ag Negative (Negative) 06/23/22 19:12 SARS-CoV-2 Ag (Rapid) Negative (Negative) 06/23/22 19:12 Vitals Last Vital Signs Temp 97.9 F 06/26/22 07:53 Pulse 92 06/26/22 09:09 Resp 16 06/26/22 09:00 BP 162/77 06/26/22 07:53 Pulse Ox 93 06/26/22 09:00 O2 Del Method 06/26/22 09:00 O2 Flow Rate 2 06/25/22 20:42 FiO2 30 06/24/22 08:00 Discharge Plan Discharge Patient Disposition: Home Condition: Stable Prescriptions: New doxycycline hyclate 100 mg capsule 100 mg PO Q12H 7 Days Qty: 14 0RF Continued albuterol sulfate [ProAir HFA] 90 mcg/actuation HFA aerosol inhaler 2 puff INHALATION Q4H PRN (Reason: Shortness Of Breath) (DME) Dexcom G6 Corporate Quality Manager Misc See Rx Instructions .Route Qty: 1 3RF Rx Instructions: Check BS 4 times a day. (DME) Dexcom G6 Sensor Device See Rx Instructions .Route Qty: 3 3RF Rx Instructions: As directed (DME) Dexcom G6 Transmitter Device See Rx Instructions .Route Qty: 1 3RF Rx Instructions: As directed Lasix 40 mg tablet 80 mg PO DIRECTED Label Comments: 80mg qam and 40q q pm Rx Instructions: takes 2 (80mg) in AM and 1 (40 mg) PM hydrocodone-acetaminophen 5-325 mg tablet 1 tab PO BID PRN (Reason: pain) carvedilol 25 mg tablet 25 mg PO BID simvastatin 80 mg tablet 80 mg PO QAM aspirin 81 mg tablet,delayed release (DR/EC) 81 mg PO QAM potassium chloride 20 mEq tablet,ER particles/crystals 20 meq PO QAM tamsulosin 0.4 mg capsule 0.4 mg PO QPM eplerenone 25 mg tablet 25 mg PO DAILY Spiriva with HandiHaler 18 mcg capsule, w/inhalation device 1 cap INHALATION DAILY Eliquis 5 mg tablet 5 mg PO BID magnesium L-lactate 84 mg tablet extended release 84 mg PO BID omeprazole 20 mg capsule,delayed release(DR/EC) 20 mg PO QAM (DME) Diabetic Shoes with smooth bottom and 3 Pairs of Inserts See Rx Instructions .Route .MEDSUPPLY Qty: 1 0RF Rx Instructions: As directed escitalopram oxalate 10 mg tablet 10 mg PO QAM Januvia 100 mg tablet 100 mg PO QAM acetaminophen 650 mg Tablet Extended Release 650 mg PO BEDTIME PRN (Reason: Sleep) olopatadine 0.1 % drops 1 drp ophthalmic (eye) BID PRN (Reason: unknown) cholecalciferol (vitamin D3) [Vitamin D3] 25 mcg (1,000 unit) Capsule 1,000 unit PO BID Entresto 97-103 mg tablet 1 tab PO BID levofloxacin 500 mg tablet 500 mg PO DAILY 7 Days Qty: 7 0RF Changed gabapentin 400 mg capsule 400 mg PO BID Qty: 10 0RF Discontinued metronidazole 500 mg tablet 500 mg PO TID 5 Days Qty: 15 0RF Discharge Orders: Discharge Order (Routine); Ordered 06/26/22 Ordered By: Cr Bolden Referrals: Gopal Cameron MD [Primary Care Provider] - 7-10 days (Please call Monday to schedule a follow up appointment.) Discharge Diet: Cardiac and Diabetic Discharge Activity: Resume usual activity Patient Instructions: Doxycycline (By mouth), Heart Attack (DC), Urinary Tract Infection in Men (DC), Sepsis (DC) Activity Restrictions/Additional Instructions: Dysphagia Level 1 Pureed Diet Straight catheterization to be done every 3 days. Levoflox once a day for 7 days, Doxycycline 100 mg PO BID for 7 days. Discharge Attestations Time Spent in Discharge Care*: greater than 30 min Specific Discharge Activities: educating patient, educating and/or supporting family/caregiver, discussing with rn case management/social workers/dc planners, documenting/other paperwork and evaluating patient/reviewing data Status at Discharge: Cognitive status at discharge: mildly impaired cognition, Behavioral status at discharge: cooperative, Functional status at discharge: wheelchair bound, Overall status at discharge: patient is back to baseline Quality Metrics Clinical Quality Measures [ No reported AMI, CVA or VTE this stay] Coding Level of Care Code Acute Chg FW DC note History Comprehensive Exam Comprehensive Medical Decision Making High Complexity Diagnoses Sepsis A41.9 Complicated urinary tract infection N39.0 Aspiration pneumonia J69.0 Altered mental status R41.82 COPD (chronic obstructive pulmonary disease) J44.9 A-fib I48.91 CHF (congestive heart failure) I50.9 Diabetes type 2, uncontrolled E11.65
[2022-06-26 11:02] LABS: Glucose Point of Care 229 mg/dL (70-110)
== END 2022-06-26 14:19 | disposition home or self-care (01) | DRG 871 ==
LOC: ER 21:48 → MEDSURG 22:09
PROVIDERS: Admitting Provider Family Medicine; Emergency Provider Emergency Medicine; PCP Family Medicine; Visit Provider Student in an Organized Health Care Education/Training Program
DX: A41.9 Sepsis, unspecified organism (principal); J69.0 Pneumonitis due to inhalation of food and vomit; N39.0 Urinary tract infection, site not specified; I50.42 Chronic combined systolic (congestive) and diastolic (congestive) heart failure; L03.115 Cellulitis of right lower limb; I24.8 Other forms of acute ischemic heart disease; I48.91 Unspecified atrial fibrillation; E11.51 Type 2 diabetes mellitus with diabetic peripheral angiopathy without gangrene; K21.9 Gastro-esophageal reflux disease without esophagitis; I25.10 Atherosclerotic heart disease of native coronary artery without angina pectoris; J44.9 Chronic obstructive pulmonary disease, unspecified; F32.A Depression, unspecified; E78.2 Mixed hyperlipidemia; N40.0 Benign prostatic hyperplasia without lower urinary tract symptoms; J39.8 Other specified diseases of upper respiratory tract; Z99.3 Dependence on wheelchair; Z79.01 Long term (current) use of anticoagulants; Z79.51 Long term (current) use of inhaled steroids; Z79.84 Long term (current) use of oral hypoglycemic drugs; Z79.82 Long term (current) use of aspirin; Z99.81 Dependence on supplemental oxygen; Z87.440 Personal history of urinary (tract) infections; Z87.891 Personal history of nicotine dependence; Z95.810 Presence of automatic (implantable) cardiac defibrillator; Z85.46 Personal history of malignant neoplasm of prostate; Z95.1 Presence of aortocoronary bypass graft; I25.2 Old myocardial infarction
CPT/HCPCS: 11042; 36415; 36416; 36600; 51701; 70450; 71045; 71260; 74177; 80051; 80053; 81001; 82330; 82550; 82803; 82805; 82962; 83036; 83605; 83735; 83880; 84100; 84145; 84443; 84484; 85025; 86140; 87040; 87086; 87426; 87641; 87804; 92507; 92523; 92526; 92610; 93005; 94640; 94660; 94664; 96365; 96372; 97597; 99285; J0696; J1815; J1940; J2405; J2543; J2930; J3370; J3490; J7626; Q9967

== ENCOUNTER → 2022-07-06 13:55 | Outpatient (BNVA) | payer MEDICARE, BC, SELFPAY | PROVIDERS: PCP Family Medicine; Visit Provider Thoracic Surgery (Cardiothoracic Vascular Surgery) | DX: I96 Gangrene, not elsewhere classified (principal); L97.821 Non-pressure chronic ulcer of other part of left lower leg limited to breakdown of skin | CPT/HCPCS: 97597; A6212 ×2 ==

== ENCOUNTER → 2022-07-20 14:03 | Outpatient (BNVA) | payer MEDICARE, BC, SELFPAY | PROVIDERS: PCP Family Medicine; Visit Provider Thoracic Surgery (Cardiothoracic Vascular Surgery) | DX: E11.621 Type 2 diabetes mellitus with foot ulcer (principal); L97.811 Non-pressure chronic ulcer of other part of right lower leg limited to breakdown of skin; L97.822 Non-pressure chronic ulcer of other part of left lower leg with fat layer exposed; I96 Gangrene, not elsewhere classified | CPT/HCPCS: 15271; A6206; A6250; A6251; Q4205 ==

== ENCOUNTER → 2022-07-27 14:55 | Outpatient (BNVA) | payer MEDICARE, BC, SELFPAY | PROVIDERS: PCP Family Medicine; Visit Provider Nurse Practitioner Family | DX: I96 Gangrene, not elsewhere classified (principal); E11.622 Type 2 diabetes mellitus with other skin ulcer; L97.822 Non-pressure chronic ulcer of other part of left lower leg with fat layer exposed | CPT/HCPCS: 15275; A6206; A6250; Q4205 ==

== ENCOUNTER → 2022-07-28 13:55 | Outpatient (BNVA) | payer MEDICARE, BC, SELFPAY | PROVIDERS: PCP Family Medicine; Visit Provider Internal Medicine | DX: E11.59 Type 2 diabetes mellitus with other circulatory complications (principal); E11.65 Type 2 diabetes mellitus with hyperglycemia; I25.10 Atherosclerotic heart disease of native coronary artery without angina pectoris; I73.9 Peripheral vascular disease, unspecified; I50.9 Heart failure, unspecified; E78.2 Mixed hyperlipidemia; Z87.891 Personal history of nicotine dependence; Z79.84 Long term (current) use of oral hypoglycemic drugs | CPT/HCPCS: 99214 ==

== ENCOUNTER → 2022-08-03 14:47 | Outpatient (BNVA) | payer MEDICARE, BC, SELFPAY | PROVIDERS: PCP Family Medicine; Visit Provider Thoracic Surgery (Cardiothoracic Vascular Surgery) | DX: I96 Gangrene, not elsewhere classified (principal); E11.621 Type 2 diabetes mellitus with foot ulcer; L97.822 Non-pressure chronic ulcer of other part of left lower leg with fat layer exposed | CPT/HCPCS: 15271; A6207; Q4205 ==

== ENCOUNTER → 2022-08-10 14:44 | Outpatient (BNVA) | payer MEDICARE, BC, SELFPAY | PROVIDERS: PCP Family Medicine; Visit Provider Thoracic Surgery (Cardiothoracic Vascular Surgery) | DX: I96 Gangrene, not elsewhere classified (principal); E11.622 Type 2 diabetes mellitus with other skin ulcer; L97.822 Non-pressure chronic ulcer of other part of left lower leg with fat layer exposed | CPT/HCPCS: 15271; A6206; Q4205 ==

== ENCOUNTER → 2022-08-17 15:29 | Outpatient (BNVA) | payer MEDICARE, BC, SELFPAY | PROVIDERS: PCP Family Medicine; Visit Provider Thoracic Surgery (Cardiothoracic Vascular Surgery) | DX: E11.622 Type 2 diabetes mellitus with other skin ulcer (principal); L97.822 Non-pressure chronic ulcer of other part of left lower leg with fat layer exposed | CPT/HCPCS: 99212 ==

== ENCOUNTER → 2022-08-24 13:30 | Outpatient (BNVA) | payer MEDICARE, BC, SELFPAY | PROVIDERS: PCP Family Medicine; Visit Provider Thoracic Surgery (Cardiothoracic Vascular Surgery) | DX: Z09 Encounter for follow-up examination after completed treatment for conditions other than malignant neoplasm (principal) | CPT/HCPCS: 99212 ==

== ENCOUNTER → 2022-09-15 11:02 | Outpatient (BNVA) | payer MEDICARE, BC, SELFPAY | PROVIDERS: PCP Family Medicine; Visit Provider Podiatrist Foot & Ankle Surgery | DX: E11.8 Type 2 diabetes mellitus with unspecified complications (principal); L60.3 Nail dystrophy; M20.41 Other hammer toe(s) (acquired), right foot; M20.42 Other hammer toe(s) (acquired), left foot; E11.42 Type 2 diabetes mellitus with diabetic polyneuropathy; I73.9 Peripheral vascular disease, unspecified | CPT/HCPCS: 11721 ==

== ENCOUNTER 2022-09-23 15:24 | Emergency (ER) | payer MEDICARE, BC, SELFPAY ==
[2022-09-23] VITALS (9 sets, daily range): BP systolic 94–135; BP diastolic 49–78; PULSE 59–81; RESP 14–18; TEMP 36.3–36.6; O2SAT 95–98; BMI 24.7
--- NOTE | 2022-09-23 17:12 | XRR_ITS ---
PROCEDURE INFORMATION: Exam: XR Chest Exam date and time: 09/23/2022 7:52 PM Age: 86 years old Clinical indication: Cough TECHNIQUE: Imaging protocol: Radiologic exam of the chest. Views: 1 view. COMPARISON: CR XR chest 1V portable [id number] 06/25/2022 5:06 PM FINDINGS: Tubes, catheters and devices: There is transvenous AICD in place with leads in appropriate position. Lungs: There are emphysematous changes in both lungs. There is some mild subsegmental atelectasis or infiltrate at the left lung base not significantly changed. Visualized portions of the right lung are clear. Pleural spaces: Unremarkable. No pleural effusion. No pneumothorax. Heart/Mediastinum: Heart is within normal limits of size. Bones/joints: Sternotomy wires and mediastinal surgical clips are present, consistent with previous coronary arterial bypass grafting. XR/XR chest 1V portable [id number] IMPRESSION: Mild left basilar atelectasis or infiltrate similar to 06/25/2022.
[2022-09-23 18:04] LABS: Glucose Point of Care 183 mg/dL (70-110)
[2022-09-23 18:09] LABS: Basophils # 0.1 10^3/uL (0.0-0.1); Basophils % 0.9 %; Eosinophils # 0.4 10^3/uL (0.0-0.8); Eosinophils % 7.6 %; Hematocrit 36.3 % (42.0-52.0); Hemoglobin 11.3 g/dL (11.7-16.6); Lymphocytes # 0.7 10^3/uL (0.8-4.8); Lymphocytes % 12.1 %; Mean Corpuscular HGB Conc 31.1 g/dL (30.0-36.0); Mean Corpuscular Hemoglobin 30.6 pg (28.0-34.0); Mean Corpuscular Volume 98.4 fl (80-94); Mean Platelet Volume 10.3 fL (7.4-10.4); Monocytes # 0.4 10^3/uL (0.2-0.9); Monocytes % 7.8 %; Neutrophils # 3.83 10^3/uL (1.8-7.7); Neutrophils % 71.2 %; Nucleated Red Blood Cells % 0 %; Platelet Count 136 10^3/cmm (130-400); Red Blood Count 3.69 10^6/uL (4.1-5.3); Red Cell Distribution Width 13.7 % (12.1-15.1); White Blood Count 5.4 10^3/uL (4.0-10.0)
[2022-09-23 18:33] LABS: Lactic Sepsis W/Reflex 1.2 mmol/L (0.5-2.2)
[2022-09-23 18:46] LABS: Alanine Aminotransferase 11 U/L (0-41); Albumin Level 3.8 g/dL (3.5-5.2); Alkaline Phosphatase 50 U/L (40-130); Anion Gap 15.4 (5-19); Aspartate Amino Transferase 17 U/L (0-40); Blood Urea Nitrogen 45 mg/dL (8-23); Calcium 9.3 mg/dL (8.5-10.5); Carbon Dioxide 28 mmol/L (22-29); Chloride 101 mmol/L (98-107); Globulin 3.6 g/dL (1.3-4.6); Glucose 162 mg/dL (65-115); NT Pro B Type Natriuretic Pept 4491 pg/mL (0-450); Osmolality Calculated 305 mOsm/kg (285-295); Potassium 4.4 mmol/L (3.5-5.1); Sodium 140 mmol/L (136-145); Total Bilirubin 0.4 mg/dL (0.15-1.2); Total Protein 7.4 g/dL (6.6-8.7)
--- NOTE | 2022-09-23 19:18 | ED_ITS ---
HPI - General Adult General: Chief complaint: General Medical Stated complaint: lethargy, respiratory infection Time Seen by Provider: 09/23/22 18:45 Source: patient History of Present Illness: 86-year-old male with multiple medical problems. These include multisystem atrophy, CHF, A. fib, coronary disease, pacemaker placement, type 2 diabetes. He presents with lethargy today. Home health noted that he had a low blood pressure at home. He seemed to improve in the lethargy department since being here for the last few hours in the waiting room. He has recently been treated for respiratory infection with Flagyl and doxycycline. He still has a wet cough. He ran a temperature yesterday but not today. Onset (ago): hour(s) Radiation: non-radiation Quality: other Pain Consistency: other Relieving factors: other Exacerbating factors: other Associated symptoms: Reports confusion (very mild earlier, improved currenly), cough, decreased appetite, dyspnea (improving), fevers/chills and weakness (generalized); Deny chest pain, diaphoresis, headache(s), nausea, seizures or vomiting Review of Systems Const: Reports: fever(s) (yesterday); Denies: chills, body aches or diaphoresis ENMT: Denies: throat pain Card: Denies: chest pain Resp: Reports: dyspnea (improving) GI: Denies: abdominal pain, nausea or vomiting Musc: Denies: neck pain Neuro: Reports: confusion (very mild earlier, improved currenly); Denies: headache(s) PFS ED PFSH: Medical History A-fib ASCVD (arteriosclerotic cardiovascular disease) Cardiac defibrillator in place CHF (congestive heart failure) CHF (congestive heart failure) COPD (chronic obstructive pulmonary disease) Critical limb ischemia with history of revascularization of same extremity Depression Diabetes mellitus Diabetes type 2, uncontrolled History of [place] (myocardial infarction) History of prostate cancer Hyperlipemia, mixed Hyperlipidemia Incontinence PAD (peripheral artery disease) Prostate CA Sleep apnea Tracheobronchomalacia Surgical History S/P CABG (coronary artery bypass graft) X5 S/P cardiac pacemaker procedure S/P carotid endarterectomy S/P cataract surgery S/P eye surgery S/P hernia surgery S/P hip hemiarthroplasty S/P knee surgery S/P prostatectomy Family History Family/Other No problems noted. Father , age 57 [place] Myocardial infarction CAD (coronary artery disease) Hypertension Mother , of Brain CA age 66 Cancer Social History Smoking and tobacco status: former smoker Smoking risk assessment/counseling performed?: Yes Alcohol intake: current Alcohol intake frequency: few times a week Alcohol type: hard liquor Desire information about alcohol rehabilitation?: No Counseling given: Yes Desire information about substance/drug rehabilitation?: No Counseling given: Yes Adopted: No Caregiver/support person: Yes Lives independently: Yes Household members: spouse and family Housing: House Marital status: Number of children: 23 Highest education level completed: Associate Degree: Academic Program service: No Current occupational status: retired History of recent travel: No Physical Exam Const: GENERAL APPEARANCE: cooperative and frail appearing HENMT: COMMON NORMALS: normocephalic, atraumatic and Normal external nose present HEAD & SCALP: normocephalic and atraumatic FACE & SINUS: normal facial exam NOSE: Normal external nose present Eye: COMMON NORMALS: Equal, round and reactive pupils present and EOMs intact bilaterally PUPIL: Yes Equal, round and reactive pupils present Neck/C-Spine: GENERAL: Yes trachea midline Chest: CHEST: Yes Symmetrical chest wall rise Resp: COMMON NORMALS: normal respiratory effort and No use of accessory mu scles AUSCULTATION: rhonchi lower bilaterally and diminished lung sounds GI: COMMON NORMALS: Normal to inspection, nondistended, normoactive bowel sounds present, Soft to palpation and non-tender PALPATION: Yes Soft to palpation Course Vital Signs: Vital signs: Vital Signs Temperature 97.9 F 09/23/22 22:57 Pulse Rate 60 09/23/22 22:57 Respiratory Rate 17 09/23/22 22:57 Blood Pressure 130/70 09/23/22 22:57 Pulse Oximetry 98 09/23/22 22:57 Oxygen Delivery Me thod 09/23/22 21:00 [facility] - General Adult Medical Decision Making Patient is significantly more awake currently. His hemoglobin is 11. White blood cell count is 5.4. His BUN and creatinine are elevated above baseline at 45 and 1.5. His sugar is 162. His chest x-ray appears stable from prior with chronic scarring in the left lower lobe. He does have a wet cough on exam.. Patient is much improved after a liter of fluid here. He is alert, awake, and talking. He is normotensive. Explained to patient and family that is renal function worsens, likely due to dehydration, medication takes longer to clear which can cause hypotension and mental status change, essentially has symptoms. His other laboratory looks benign. He needs his renal function rechecked in 48 to 72 hours to ensure it continues to improve. Lab Data : 09/23/22 17:53 09/23/22 17:53 Radiology Impressions Chest X-Ray 09/23/22 17:12 IMPRESSION: Mild left basilar atelectasis or infiltrate similar to 06/25/2022. Laboratory Results WBC 5.4 10^3/uL (4.0-10.0) 09/23/22 17:53 RBC 3.69 10^6/uL (4.1-5.3) L 09/23/22 17:53 Hgb 11.3 g/dL (11.7-16.6) L 09/23/22 17:53 Hct 36.3 % (42.0-52.0) L 09/23/22 17:53 MCV 98.4 fl (80-94) H 09/23/22 17:53 MCH 30.6 pg (28.0-34.0) 09/23/22 17:53 MCHC 31.1 g/dL (30.0-36.0) 09/23/22 17:53 RDW 13.7 % (12.1-15.1) 09/23/22 17:53 Plt Count 136 10^3/cmm (130-400) 09/23/22 17:53 MPV 10.3 fL (7.4-10.4) 09/23/22 17:53 Neut % (Auto) 71.2 % 09/23/22 17:53 Lymph % (Auto) 12.1 % 09/23/22 17:53 [place] % (Auto) 7.8 % 09/23/22 17:53 Eos % (Auto) 7.6 % 09/23/22 17:53 Baso % (Auto) 0.9 % 09/23/22 17:53 Neut # (Auto) 3.83 10^3/uL (1.8-7.7) 09/23/22 17:53 Lymph # (Auto) 0.7 10^3/uL (0.8-4.8) L 09/23/22 17:53 [place] # (Auto) 0.4 10^3/uL (0.2-0.9) 09/23/22 17:53 Eos # (Auto) 0.4 10^3/uL (0.0-0.8) 09/23/22 17:53 Baso # (Auto) 0.1 10^3/uL (0.0-0.1) 09/23/22 17:53 Nucleated RBC % (auto) 0 % 09/23/22 17:53 Nucleated RBCs # 0.0 /100WBC 09/23/22 17:53 Sodium 140 mmol/L (136-145) 09/23/22 17:53 Potassium 4.4 mmol/L (3.5-5.1) 09/23/22 17:53 Chloride 101 mmol/L (98-107) 09/23/22 17:53 Carbon Dioxide 28 mmol/L (22-29) 09/23/22 17:53 Anion Gap 15.4 (5-19) 09/23/22 17:53 BUN 45 mg/dL (8-23) H 09/23/22 17:53 Creatinine 1.5 mg/dL (0.7-1.2) H 09/23/22 17:53 GFR Calculation Not Reportable 09/23/22 17:53 Glucose 162 mg/dL (65-115) H 09/23/22 17:53 POC Glucose 183 mg/dL (70-110) H 09/23/22 17:56 Calculated Osmolality 305 mOsm/kg (285-295) H 09/23/22 17:53 Lactic Acid 1.2 mmol/L (0.5-2.2) 09/23/22 17:53 Calcium 9.3 mg/dL (8.5-10.5) 09/23/22 17:53 Total Bilirubin 0.4 mg/dL (0.15-1.2) 09/23/22 17:53 AST 17 U/L (0-40) 09/23/22 17:53 ALT 11 U/L (0-41) 09/23/22 17:53 Alkaline Phosphatase 50 U/L (40-130) 09/23/22 17:53 NT-Pro-B Natriuret Pep 4491 pg/mL (0-450) H 09/23/22 17:53 Total Protein 7.4 g/dL (6.6-8.7) 09/23/22 17:53 Albumin 3.8 g/dL (3.5-5.2) 09/23/22 17:53 Globulin 3.6 g/dL (1.3-4.6) 09/23/22 17:53 Urine Color Yellow (Yellow) 09/23/22 21:40 Urine Appearance Clear (CLEAR) 09/23/22 21:40 Urine pH 5 (5-7) 09/23/22 21:40 Ur Specific [place] 1.015 (1.005-1.030) 09/23/22 21:40 Urine Protein Neg (Negative) 09/23/22 21:40 Urine Glucose (UA) Norm (Normal) 09/23/22 21:40 Urine Ketones Negative (Negative) 09/23/22 21:40 Urine Blood 2+ (Negative) H 09/23/22 21:40 Urine Nitrate Negative (Negative) 09/23/22 21:40 Urine Bilirubin Neg (Negative) 09/23/22 21:40 Urine Urobilinogen Neg mg/dL (Negative) 09/23/22 21:40 Ur Leukocyte Esterase Negative (Negative) 09/23/22 21:40 Urine RBC None /hpf (0-2) 09/23/22 21:40 Urine WBC 0-4 /hpf (0-5) H 09/23/22 21:40 Ur Squamous Epith Cells None /hpf (0-5) 09/23/22 21:40 Amorphous Sediment Not Reportable 09/23/22 21:40 Urine Bacteria None /hpf (NONE) 09/23/22 21:40 Discharge Plan Discharge Patient Disposition: Home Clinical Impression: Acute dehydration, Acute kidney injury Condition: Stable Prescriptions: No Action albuterol sulfate [ProAir HFA] 90 mcg/actuation HFA aerosol inhaler 2 puff INHALATION Q4H PRN (Reason: Shortness Of Breath) (DME) 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 (DME) Dexcom G6 Sensor Device See Rx Instructions .Route Qty: 3 3RF Rx Instructions: As directed (DME) Dexcom G6 Transmitter Device See Rx Instructions .Route Qty: 1 3RF Rx Instructions: As directed Lasix 40 mg tablet 80 mg PO DIRECTED Label Comments: 80mg qam and 40q q pm Rx Instructions: takes 2 (80mg) in AM and 1 (40 mg) PM hydrocodone-acetaminophen 5-325 mg tablet 1 tab PO BID PRN (Reason: pain) carvedilol 25 mg tablet 25 mg PO BID simvastatin 80 mg tablet 80 mg PO QAM aspirin 81 mg tablet,delayed release (DR/EC) 81 mg PO QAM potassium chloride 20 mEq tablet,ER particles/crystals 20 meq PO QAM tamsulosin 0.4 mg capsule 0.4 mg PO QPM eplerenone 25 mg tablet 25 mg PO DAILY Spiriva with HandiHaler 18 mcg capsule, w/inhalation device 1 cap INHALATION DAILY Eliquis 5 mg tablet 5 mg PO BID magnesium L-lactate 84 mg tablet extended release 84 mg PO BID omeprazole 20 mg capsule,delayed release(DR/EC) 20 mg PO QAM sitagliptin 50 mg tablet 50 mg PO DAILY Qty: 90 3RF (DME) Diabetic Shoes with smooth bottom and 3 Pairs of Inserts See Rx Instructions .Route .MEDSUPPLY Qty: 1 0RF Rx Instructions: As directed escitalopram oxalate 10 mg tablet 10 mg PO QAM acetaminophen 650 mg Tablet Extended Release 650 mg PO BEDTIME PRN (Reason: Sleep) olopatadine 0.1 % drops 1 drp ophthalmic (eye) BID PRN (Reason: unknown) cholecalciferol (vitamin D3) [Vitamin D3] 25 mcg (1,000 unit) Capsule 1,000 unit PO BID Entresto 97-103 mg tablet 1 tab PO BID gabapentin 400 mg capsule 400 mg PO BID Qty: 10 0RF levofloxacin 500 mg tablet 500 mg PO DAILY 7 Days Qty: 7 0RF Discharge Orders: Discharge ED (Routine); Ordered 09/23/22 Ordered By: Bassam Lynn Referrals: Gopal Cameron MD [Primary Care Provider] - Patient Instructions: Dehydration (ED), Acute Kidney Injury (DC) Activity Restrictions/Additional Instructions: Drink plenty of liquids for the next 24 to 48 hours you should have your kidney function rechecked at your doctor's office early in the week, Monday or Monday. Return for worsening lethargy, shortness of breath, mental status changes, fever, any other concerning symptoms. 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
--- NOTE | 2022-09-23 19:20 | ECG_ITS ---
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 Measurements Intervals [place] Rate: 66 P: 0 PA: 0 QRS: 30 QRSD: 187 T: 69 QT: 471 QTc: 496 Interpretive Statements ELECTRONIC VENTRICULAR PACEMAKER 100% V paced rhythm For interpretation is not possible Electronically Signed On 09-24-2022 15:06:43 SAFETY INTERN by Thiago Horton M.D. [id number]
--- NOTE | 2022-09-23 19:30 | PC.NURSE ---
Pt placed in room at shift change, this nurse came in to assess him and get history from family. ekg completed by nurse tech. Pt is on monitor, is comfortable, a&ox4, daughter is here at bedside, vitals are stable.
[2022-09-23] MEDS: sodium chloride 0.9% 1,000 ML 999 ML IV (21:03)
[2022-09-23 22:05] LABS: Add Urine Microscopic? YES; Bilirubin Urine Neg (Negative); Blood Urine 2+ (Negative); Glucose Urine UA Norm (Normal); Ketones Urine Negative (Negative); Leukocyte Esterase Urine Negative (Negative); Nitrate Urine Negative (Negative); Protein Urine Neg (Negative); Specific Gravity, Urine 1.015 (1.005-1.030); Urine Appearance Clear (CLEAR); Urine Color Yellow (Yellow); Urobilinogen Urine Neg (Negative); pH Urine 5 (5-7)
[2022-09-23 22:07] LABS: Add Urine Culture? No; WBC Urine 0-4 /hpf (0-5)
== END 2022-09-23 23:00 | disposition home or self-care (01) ==
PROVIDERS: Emergency Medicine; Emergency Provider Emergency Medicine; PCP Family Medicine
DX: E86.0 Dehydration (principal); N17.9 Acute kidney failure, unspecified; Z79.82 Long term (current) use of aspirin; Z79.01 Long term (current) use of anticoagulants; Z87.891 Personal history of nicotine dependence; I50.9 Heart failure, unspecified; J44.9 Chronic obstructive pulmonary disease, unspecified; E11.9 Type 2 diabetes mellitus without complications; I25.2 Old myocardial infarction; Z85.46 Personal history of malignant neoplasm of prostate; E78.2 Mixed hyperlipidemia; Z95.1 Presence of aortocoronary bypass graft; Z95.0 Presence of cardiac pacemaker
CPT/HCPCS: 36415; 36416; 51701; 71045; 80053; 81001; 82962; 83605; 83880; 85025; 93005; 99285; J7030

== ENCOUNTER → 2022-12-06 10:21 | Outpatient (BNVA) | payer MEDICARE, BC, SELFPAY | PROVIDERS: PCP Family Medicine; Visit Provider Podiatrist Foot & Ankle Surgery | DX: E11.8 Type 2 diabetes mellitus with unspecified complications (principal); L60.3 Nail dystrophy; M20.41 Other hammer toe(s) (acquired), right foot; M20.42 Other hammer toe(s) (acquired), left foot; E11.42 Type 2 diabetes mellitus with diabetic polyneuropathy; I73.9 Peripheral vascular disease, unspecified | CPT/HCPCS: 11721 ==

== ENCOUNTER → 2023-01-12 10:38 | Outpatient (BNVA) | payer MEDICARE, BC, SELFPAY | PROVIDERS: PCP Family Medicine; Visit Provider Podiatrist Foot & Ankle Surgery | DX: E11.621 Type 2 diabetes mellitus with foot ulcer (principal); L97.512 Non-pressure chronic ulcer of other part of right foot with fat layer exposed; L60.3 Nail dystrophy; M20.41 Other hammer toe(s) (acquired), right foot; M20.42 Other hammer toe(s) (acquired), left foot; E11.42 Type 2 diabetes mellitus with diabetic polyneuropathy; I73.9 Peripheral vascular disease, unspecified | CPT/HCPCS: 99214 ==

== ENCOUNTER → 2023-01-18 10:31 | Outpatient (BNVA) | payer MEDICARE, BC, SELFPAY | PROVIDERS: PCP Family Medicine; Visit Provider Podiatrist Foot & Ankle Surgery | DX: E11.621 Type 2 diabetes mellitus with foot ulcer (principal); L97.512 Non-pressure chronic ulcer of other part of right foot with fat layer exposed; L60.3 Nail dystrophy; M20.41 Other hammer toe(s) (acquired), right foot; M20.42 Other hammer toe(s) (acquired), left foot; E11.42 Type 2 diabetes mellitus with diabetic polyneuropathy; I73.9 Peripheral vascular disease, unspecified | CPT/HCPCS: 99214 ==

== ENCOUNTER 2023-01-30 09:48 | Outpatient (CLI) | payer MEDICARE, BC, SELFPAY ==
[2023-01-30 10:29] LABS: Estmated Average Glucose 154
[2023-01-30 10:33] LABS: Alanine Aminotransferase 11 U/L (0-41); Albumin Level 3.9 g/dL (3.5-5.2); Alkaline Phosphatase 52 U/L (40-130); Anion Gap 14.1 (5-19); Aspartate Amino Transferase 14 U/L (0-40); Blood Urea Nitrogen 18 mg/dL (8-23); Calcium 9.2 mg/dL (8.5-10.5); Carbon Dioxide 29 mmol/L (22-29); Chloride 102 mmol/L (98-107); Chol HDL Ratio 2.49 mg/dL (1.0-5.00); Cholesterol 107 mg/dL (0-200); Globulin 2.6 g/dL (1.3-4.6); Glucose 145 mg/dL (65-115); HDL Cholesterol 43 mg/dL (60-100); LDL Cholesterol Calculated 47 mg/dL (50-129); LDL HDL Ratio 1.09 RATIO (0.00-3.22); Osmolality Calculated 296 mOsm/kg (285-295); Potassium 4.1 mmol/L (3.5-5.1); Sodium 141 mmol/L (136-145); Total Bilirubin 0.5 mg/dL (0.15-1.2); Total Protein 6.5 g/dL (6.6-8.7); Triglycerides 84 mg/dL (0-150)
== END 2023-01-30 09:49 | disposition home or self-care (01) ==
LOC: LAB 09:51
PROVIDERS: PCP Family Medicine; Visit Provider Family Medicine
DX: E11.22 Type 2 diabetes mellitus with diabetic chronic kidney disease (principal)
CPT/HCPCS: 80053; 80061; 83036

== ENCOUNTER → 2023-02-01 15:06 | Outpatient (BNVA) | payer MEDICARE, BC, SELFPAY | PROVIDERS: PCP Family Medicine; Visit Provider Podiatrist Foot & Ankle Surgery | DX: E11.621 Type 2 diabetes mellitus with foot ulcer (principal); L97.512 Non-pressure chronic ulcer of other part of right foot with fat layer exposed; L60.3 Nail dystrophy; M20.41 Other hammer toe(s) (acquired), right foot; M20.42 Other hammer toe(s) (acquired), left foot; E11.42 Type 2 diabetes mellitus with diabetic polyneuropathy; I73.9 Peripheral vascular disease, unspecified | CPT/HCPCS: 99214 ==

== ENCOUNTER → 2023-02-15 15:44 | Outpatient (BNVA) | payer MEDICARE, BC, SELFPAY | PROVIDERS: PCP Family Medicine; Visit Provider Podiatrist Foot & Ankle Surgery | DX: E11.621 Type 2 diabetes mellitus with foot ulcer (principal); I73.9 Peripheral vascular disease, unspecified; L97.512 Non-pressure chronic ulcer of other part of right foot with fat layer exposed; L60.3 Nail dystrophy; M20.41 Other hammer toe(s) (acquired), right foot; M20.42 Other hammer toe(s) (acquired), left foot; E11.42 Type 2 diabetes mellitus with diabetic polyneuropathy | CPT/HCPCS: 99214 ==

== ENCOUNTER → 2023-03-02 13:39 | Outpatient (BNVA) | payer MEDICARE, BC, SELFPAY | PROVIDERS: PCP Family Medicine; Visit Provider Podiatrist Foot & Ankle Surgery | DX: E11.621 Type 2 diabetes mellitus with foot ulcer (principal); L97.512 Non-pressure chronic ulcer of other part of right foot with fat layer exposed; L60.3 Nail dystrophy; M20.41 Other hammer toe(s) (acquired), right foot; M20.42 Other hammer toe(s) (acquired), left foot; E11.42 Type 2 diabetes mellitus with diabetic polyneuropathy; I73.9 Peripheral vascular disease, unspecified | CPT/HCPCS: 99213 ==

== ENCOUNTER → 2023-03-15 14:45 | Outpatient (BNVA) | payer MEDICARE, BC, SELFPAY | PROVIDERS: PCP Family Medicine; Visit Provider Podiatrist Foot & Ankle Surgery | DX: E11.621 Type 2 diabetes mellitus with foot ulcer (principal); I73.9 Peripheral vascular disease, unspecified; L97.512 Non-pressure chronic ulcer of other part of right foot with fat layer exposed; Z51.89 Encounter for other specified aftercare; L60.3 Nail dystrophy; M20.41 Other hammer toe(s) (acquired), right foot; M20.42 Other hammer toe(s) (acquired), left foot; E11.42 Type 2 diabetes mellitus with diabetic polyneuropathy | CPT/HCPCS: 99213 ==

== ENCOUNTER → 2023-03-29 12:56 | Outpatient (BNVA) | payer MEDICARE, BC, SELFPAY | PROVIDERS: PCP Family Medicine; Visit Provider Podiatrist Foot & Ankle Surgery | DX: E11.621 Type 2 diabetes mellitus with foot ulcer (principal); L97.512 Non-pressure chronic ulcer of other part of right foot with fat layer exposed; L60.3 Nail dystrophy; M20.41 Other hammer toe(s) (acquired), right foot; M20.42 Other hammer toe(s) (acquired), left foot; E11.42 Type 2 diabetes mellitus with diabetic polyneuropathy; I73.9 Peripheral vascular disease, unspecified; M20.31 Hallux varus (acquired), right foot; M20.32 Hallux varus (acquired), left foot | CPT/HCPCS: 99214 ==

== ENCOUNTER 2023-04-01 20:28 | Inpatient (IN) | payer MEDICARE, BC, SELFPAY ==
[2023-04-01] VITALS (14 sets, daily range): BP systolic 70–109; BP diastolic 40–56; PULSE 60–62; RESP 16–20; TEMP 36.4; O2SAT 92–97
--- NOTE | 2023-04-01 20:49 | XRR_ITS ---
PROCEDURE INFORMATION: Exam: XR Chest Exam date and time: 04/01/2023 9:03 PM Age: 87 years old Clinical indication: Other: AMS; Prior surgery; Surgery date: 6+ months; Surgery type: Unknown TECHNIQUE: Imaging protocol: Radiologic exam of the chest. Views: 1 view. COMPARISON: CR XR chest 1V portable [id number] 09/23/2022 7:52 PM FINDINGS: Tubes, catheters and devices: Permanent pacemaker/AICD noted. Lungs: Mild increased interstitial lung markings. Increased density at the bilateral lung bases, left worse than right. Findings suggest mild pulmonary edema. Bibasilar pneumonia not excluded. Pleural spaces: Small left pleural effusion. No pneumothorax. Heart/Mediastinum: Cardiomegaly is present. Vasculature: The thoracic aorta is atherosclerotic. Bones/joints: Median sternotomy noted. XR/XR chest 1V portable [id number] IMPRESSION: 1. Cardiomegaly is present. 2. Mild increased interstitial lung markings. Increased density at the bilateral lung bases, left worse than right. Findings suggest mild pulmonary edema. Bibasilar pneumonia not excluded. 3. Small left pleural effusion suspected.
--- NOTE | 2023-04-01 20:49 | CTR_ITS ---
PROCEDURE INFORMATION: Exam: CT Head Without Contrast Exam date and time: 04/01/2023 9:48 PM Age: 87 years old Clinical indication: Altered mental status/memory loss; Additional info: AMS TECHNIQUE: Imaging protocol: Computed tomography of the head without contrast. Radiation optimization: All CT scans at this facility use at least one of these dose optimization techniques: automated exposure control; mA and/or kV adjustment per patient size (includes targeted exams where dose is matched to clinical indication); or iterative reconstruction. REPORTING DATA: Count of CT and Cardiac NM exams in prior 12 months: This patient has received 2 known CTs and 0 known cardiac nuclear medicine studies in the 12 months prior to the current study. COMPARISON: CT head wo con* [id number] 06/23/2022 8:15 PM RADIATION DOSE METRICS: Total DLP (mGy-cm): 1614.08 FINDINGS: Brain: Age related parenchymal volume loss noted. There is decreased attenuation of the periventricular white matter, consistent with chronic microangiopathic white matter disease. 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 No parenchymal edema identified. No intracranial hemorrhage noted. Cerebral ventricles: No ventriculomegaly. Paranasal sinuses: Air-fluid level noted in the left sphenoid sinus. Mucoperiosteal thickening in the ethmoid frontal, and maxillary sinuses. Mastoid air cells: Unremarkable as visualized. No mastoid effusion. Bones/joints: Unremarkable. No acute fracture. Soft tissues: There are punctate foci of air seen in the right scalp soft tissues, of uncertain etiology. CT/CT head wo con* [id number] IMPRESSION: 1. There are punctate foci of air seen in the right scalp soft tissues, of uncertain etiology. 2. No acute intracranial abnormality demonstrated. 3. Findings of pansinusitis are noted.
[2023-04-01] MEDS: sodium chloride 0.9% 1,000 ML 999 ML IV ×2 (20:55→21:15)
--- NOTE | 2023-04-01 20:57 | ECG_ITS ---
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 Measurements Intervals [place] Rate: 60 P: 0 [place]: 0 QRS: -82 QRSD: 201 T: 91 QT: 524 QTc: 524 Interpretive Statements ELECTRONIC VENTRICULAR PACEMAKER Compared to ECG 09/23/2022 19:20:59 No significant changes Electronically Signed On 04-01-2023 22:05:12 CDT by Orlando Sanchez M.D. [id number]
--- NOTE | 2023-04-01 20:58 | ECG_ITS ---
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 Measurements Intervals [place] Rate: 60 P: 0 [place]: 0 QRS: -82 QRSD: 200 T: 92 QT: 533 QTc: 533 Interpretive Statements ELECTRONIC VENTRICULAR PACEMAKER Compared to ECG 04/01/2023 20:57:34 No significant changes Electronically Signed On 04-02-2023 12:37:27 CDT by Orlando Sanchez M.D. [id number]
[2023-04-01 21:06] LABS: ABG PCO2 47.3 mmHg (35-45); ABG PH Result 7.36 (7.35-7.45); Base Excess ABG 0.7 mmol/L (-2.0-2.0); Blood Gas Allen Test Pos; Blood Gas LPM 2.5 %; Blood Gas Sample Site Radial, left; Blood Gas Sample Type Arterial; HCO3 ABG 26.5 mmol/L (22-26); Oxygen Device NC; PO2 ABG 70.1 mmHg (80.0-100.0)
[2023-04-01] MEDS: naloxone 0.4 mg/ml SDV IVP ×2 (21:06→22:46)
[2023-04-01 21:08] LABS: Basophils # 0.1 10^3/uL (0.0-0.1); Basophils % 0.5 %; Eosinophils # 0.2 10^3/uL (0.0-0.8); Eosinophils % 1.6 %; Hematocrit 33.5 % (42.0-52.0); Hemoglobin 10.5 g/dL (11.7-16.6); Lymphocytes # 0.7 10^3/uL (0.8-4.8); Lymphocytes % 7.7 %; Mean Corpuscular HGB Conc 31.3 g/dL (30.0-36.0); Mean Corpuscular Hemoglobin 30.7 pg (28.0-34.0); Mean Platelet Volume 10.1 fL (7.4-10.4); Monocytes # 0.6 10^3/uL (0.2-0.9); Monocytes % 5.8 %; Neutrophils # 7.97 10^3/uL (1.8-7.7); Neutrophils % 83.9 %; Nucleated Red Blood Cells % 0 %; Platelet Count 178 10^3/cmm (130-400); Red Blood Count 3.42 10^6/uL (4.1-5.3); Red Cell Distribution Width 13.9 % (12.1-15.1); White Blood Count 9.5 10^3/uL (4.0-10.0)
--- NOTE | 2023-04-01 21:11 | PC.NURSE ---
Daughter states pt seems to be more awake and like himself after the narcan, reports pt had last pain pill around 1830.
[2023-04-01 21:25] LABS: Lactic Sepsis W/Reflex 1.9 mmol/L (0.5-2.2)
[2023-04-01 21:27] LABS: Troponin(5th) Baseline 46 ng/L (0-15)
[2023-04-01 21:35] LABS: Alanine Aminotransferase 6 U/L (0-41); Albumin Level 3.4 g/dL (3.5-5.2); Alkaline Phosphatase 41 U/L (40-130); Anion Gap 16.1 (5-19); Aspartate Amino Transferase 9 U/L (0-40); Blood Urea Nitrogen 22 mg/dL (8-23); C Reactive Protein 37.4 mg/L (0.0-4.9); Calcium 8.4 mg/dL (8.5-10.5); Carbon Dioxide 26 mmol/L (22-29); Chloride 100 mmol/L (98-107); Globulin 2.7 g/dL (1.3-4.6); Glucose 292 mg/dL (65-115); Magnesium 1.9 mg/dL (1.7-2.3); NT Pro B Type Natriuretic Pept 4667 pg/mL (0-450); Osmolality Calculated 300 mOsm/kg (285-295); Potassium 4.1 mmol/L (3.5-5.1); Sodium 138 mmol/L (136-145); Total Bilirubin 0.4 mg/dL (0.15-1.2); Total Protein 6.1 g/dL (6.6-8.7)
--- NOTE | 2023-04-01 22:03 | ED_ITS ---
HPI - Altered Mental Status General: Chief Complaint: Altered Mental Status Stated Complaint: AMS Time Seen by Provider: 04/01/23 20:42 History of Present Illness: 87-year-old gentleman presenting with decreased mental status. Daughter has noticed a change in his mental status over the last 24 hours or so. He is currently being treated for urinary tract infection and a respiratory infection she says. No fever. He has seemed generally more sleepy. He has been in more pain than usual, and has received a couple of more hydrocodone lately than usual as well. He does not usually use oxygen at home complaint: altered mental status and decreased responsiveness Onset (ago): hour(s) Timing confirmed by: family member Severity: moderate Consistency of symptoms: Getting Worse Context: change in medication and other Associated symptoms: Deny depression Review of Systems Const: Reports: chills; Denies: fever(s) ENMT: Denies: throat pain Card: Denies: chest pain Resp: Reports: dyspnea and non-productive cough GI: Denies: abdominal pain, nausea or vomiting Neuro: Denies: headache(s) Psych: Denies: depression PFSH ED PFSH: Medical History A-fib ASCVD (arteriosclerotic cardiovascular disease) Cardiac defibrillator in place CHF (congestive heart failure) CHF (congestive heart failure) COPD (chronic obstructive pulmonary disease) Critical limb ischemia with history of revascularization of same extremity Depression Diabetes mellitus Diabetes type 2, uncontrolled History of [place] (myocardial infarction) History of prostate cancer Hyperlipemia, mixed Hyperlipidemia Incontinence PAD (peripheral artery disease) Prostate CA Sleep apnea Tracheobronchomalacia Surgical History S/P CABG (coronary artery bypass graft) X5 S/P cardiac pacemaker procedure S/P carotid endarterectomy S/P cataract surgery S/P eye surgery S/P hernia surgery S/P hip hemiarthroplasty S/P knee surgery S/P prostatectomy Family History Family/Other No problems noted. Father , age 57 [place] Myocardial infarction CAD (coronary artery disease) Hypertension Mother , of Brain CA age 66 Cancer Social History (Reviewed 04/01/23 @ 23:49 by KATYA Delgadillo Smoking and tobacco status: former smoker Smoking risk assessment/counseling performed?: Yes Alcohol intake: current Alcohol intake frequency: few times a week Alcohol type: hard liquor Desire information about alcohol rehabilitation?: No Counseling given: Yes Substance/Drug Use: never Desire information about substance/drug rehabilitation?: No Counseling given: Yes Adopted: No Caregiver/support person: Yes Lives independently: Yes Household members: spouse and family Housing: House Marital status: Number of children: 23 Highest education level completed: Associate Degree: Academic Program service: No Current occupational status: retired Physical Exam Const: GENERAL APPEARANCE: cooperative, lethargic, ill appearing and frail appearing ORIENTATION/CONSCIOUSNESS: Yes lethargic HENMT: COMMON NORMALS: normocephalic and atraumatic HEAD & SCALP: normocephalic and atraumatic FACE & SINUS: face symmetric Eye: GENERAL EYE: normal light reflex PUPIL: Yes Pinpoint pupils DIRECT OPHTHALMOSCOPY: Yes normal light reflex Neck/C-Spine: GENERAL: Yes trachea midline Chest: CHEST: Yes Symmetrical chest wall rise Resp: EFFORT & INSPECTION: Yes labored and Yes uses accessory muscles AUSCULTATION: diminished lung sounds Cardio: COMMON NORMALS: regular rate and regular rhythm RATE: regular rate RHYTHM: regular rhythm GI: COMMON NORMALS: Normal to inspection, nondistended, normoactive bowel sounds present, Soft to palpation and non-tender PALPATION: Yes Soft to palpation Extremity: GENERAL: Yes edema (1+) Neuro: [place] COMA SCALE: document GCS findings [place] coma scale eye opening: To sound [place] coma scale verbal response: Confused [place] coma scale motor response: Obey commands [place] coma scale total score: 13 SENSORIUM/ORIENTATION: Yes lethargic Psych: COMMON NORMALS: cooperative Skin: NARRATIVE SKIN EXAM: right toe wound/ulcer Course Vital Signs: Vital signs: Vital Signs Temperature 99.9 F H 04/02/23 14:00 Pulse Rate 60 04/02/23 16:00 Respiratory Rate 18 04/02/23 16:00 Blood Pressure 101/38 04/02/23 16:00 Pulse Oximetry 92 04/02/23 16:00 Oxygen Delivery Me thod Nasal Cannula 04/02/23 16:00 Oxygen Flow Rate 2 04/02/23 16:00 Fraction of Inspir ed Oxygen 30 04/02/23 08:45 MDM - Altered Mental Status Medical Decision Making 87-year-old male with decreased mental status. He was found to be significantly hypotensive with pressures in the 60s systolic on arrival. Given his extra hyd rocodone, recent illness, and pupil size, 0.4 mg of Narcan was administered with increased blood pressure and increase in mental status. Blood pressure after 2 L has improved to 100/50. Heart rate remains paced at 60. Saturations 92% on a 2 L nasal cannula. White blood cell count is 9.5. Hemoglobin 10.5. Sugar is 292, other BMP parameters not remarkable. Blood gas shows pH is 7.36, with some PCO2 elevation of 47 which is minimal. Chest x-ray shows increased interstitial infiltrates bilaterally in the bases with a small left pleural effusion suspicious for worsening pneumonia versus heart failure. BNP is significantly elevated. First troponin is mildly elevated but does appear near baseline. Lactic acid is only 1.9. Head CT is nonacute. There are findings of pansinusitis present. Blood cultures have been drawn. Antibiotics started for broad-spectrum coverage. Given his history of hypotension that is significant on arrival, he will require ICU admit. Lab Data 04/02/23 02:50 04/02/23 02:50 Radiology Impressions Chest X-Ray 04/01/23 20:49 IMPRESSION: 1. Cardiomegaly is present. 2. Mild increased interstitial lung markings. Increased density at the bilateral lung bases, left worse than right. Findings suggest mild pulmonary edema. Bibasilar pneumonia not excluded. 3. Small left pleural effusion suspected. Head CT 04/01/23 20:49 IMPRESSION: 1. There are punctate foci of air seen in the right scalp soft tissues, of uncertain etiology. 2. No acute intracranial abnormality demonstrated. 3. Findings of pansinusitis are noted. Laboratory Results WBC 9.5 10^3/uL (4.0-10.0) 04/01/23 20:50 RBC 3.42 10^6/uL (4.1-5.3) L 04/01/23 20:50 Hgb 10.5 g/dL (11.7-16.6) L 04/01/23 20:50 Hct 33.5 % (42.0-52.0) L 04/01/23 20:50 MCV 98.0 fl (80-94) H 04/01/23 20:50 MCH 30.7 pg (28.0-34.0) 04/01/23 20:50 MCHC 31.3 g/dL (30.0-36.0) 04/01/23 20:50 RDW 13.9 % (12.1-15.1) 04/01/23 20:50 Plt Count 178 10^3/cmm (130-400) 04/01/23 20:50 MPV 10.1 fL (7.4-10.4) 04/01/23 20:50 Neut % (Auto) 83.9 % 04/01/23 20:50 Lymph % (Auto) 7.7 % 04/01/23 20:50 [place] % (Auto) 5.8 % 04/01/23 20:50 Eos % (Auto) 1.6 % 04/01/23 20:50 Baso % (Auto) 0.5 % 04/01/23 20:50 Neut # (Auto) 7.97 10^3/uL (1.8-7.7) H 04/01/23 20:50 Lymph # (Auto) 0.7 10^3/uL (0.8-4.8) L 04/01/23 20:50 [place] # (Auto) 0.6 10^3/uL (0.2-0.9) 04/01/23 20:50 Eos # (Auto) 0.2 10^3/uL (0.0-0.8) 04/01/23 20:50 Baso # (Auto) 0.1 10^3/uL (0.0-0.1) 04/01/23 20:50 Nucleated RBC % (auto) 0 % 04/01/23 20:50 Nucleated RBCs # 0.0 /100WBC 04/01/23 20:50 Specimen Type Arterial 04/01/23 21:00 Sample Site Radial, left 04/01/23 21:00 ABG pH 7.36 (7.35-7.45) 04/01/23 21:00 ABG pCO2 47.3 mmHg (35-45) H 04/01/23 21:00 ABG pO2 70.1 mmHg (80.0-100.0) L 04/01/23 21:00 ABG HCO3 26.5 mmol/L (22-26) H 04/01/23 21:00 ABG Base Excess 0.7 mmol/L (-2.0-2.0) 04/01/23 21:00 [place] Test Pos 04/01/23 21:00 Hematocrit 30.0 % (42-52) L 04/01/23 21:00 O2 Delivery Device Nc 04/01/23 21:00 O2 Liters/Min 2.5 % 04/01/23 21:00 Manager Of Health ID [email or web address] 04/01/23 21:00 Sodium 138 mmol/L (136-145) 04/01/23 20:50 Potassium 4.1 mmol/L (3.5-5.1) 04/01/23 20:50 Chloride 100 mmol/L (98-107) 04/01/23 20:50 Carbon Dioxide 26 mmol/L (22-29) 04/01/23 20:50 Anion Gap 16.1 (5-19) 04/01/23 20:50 BUN 22 mg/dL (8-23) 04/01/23 20:50 Creatinine 1.2 mg/dL (0.7-1.2) 04/01/23 20:50 GFR Calculation Not Reportable 04/01/23 20:50 Glucose 292 mg/dL (65-115) H 04/01/23 20:50 Calculated Osmolality 300 mOsm/kg (285-295) H 04/01/23 20:50 Lactic Acid 1.9 mmol/L (0.5-2.2) 04/01/23 20:50 Calcium 8.4 mg/dL (8.5-10.5) L 04/01/23 20:50 Magnesium 1.9 mg/dL (1.7-2.3) 04/01/23 20:50 Total Bilirubin 0.4 mg/dL (0.15-1.2) 04/01/23 20:50 AST 9 U/L (0-40) 04/01/23 20:50 ALT 6 U/L (0-41) 04/01/23 20:50 Alkaline Phosphatase 41 U/L (40-130) 04/01/23 20:50 Troponin T Baseline 46 ng/L (0-15) H 04/01/23 20:50 Troponin T 120 Minute 39.60 ng/L (0-15) H 04/01/23 22:22 Delta Troponin T -6.40 ABS# (0-10) L 04/01/23 22:22 C-Reactive Protein 37.4 mg/L (0.0-4.9) H 04/01/23 20:50 NT-Pro-B Natriuret Pep 4667 pg/mL (0-450) H 04/01/23 20:50 Total Protein 6.1 g/dL (6.6-8.7) L 04/01/23 20:50 Albumin 3.4 g/dL (3.5-5.2) L 04/01/23 20:50 Globulin 2.7 g/dL (1.3-4.6) 04/01/23 20:50 Critical Care Time Critical Care Time: Critical Care Time: Yes Total Critical Care Time: 45 Attestation: This case had a high probability of a clinically significant, sudden, or life threatening deterioration of this patient's condition which required my full and direct attention, intervention and personal management. Time is independent of any procedures performed. Discharge Plan Discharge Patient Disposition: Admitted As Inpatient Admit Provider: Lenka Cuba Clinical Impression: Opiate overdose, Aspiration pneumonia, Hypoxemia Condition: Serious Coding Level of Care Code ED Research Associate Policy for Codi Ramos
[2023-04-01] MEDS: piperacillin-tazobactam 4.5 GM in sodium chloride 0.9% (plus) 50 ML IV (22:47)
--- NOTE | 2023-04-01 23:42 | PM.HP ---
Providers/Chief Complaint Admitting Physician: Lenka Cuba MD Primary Care Provider: Gopal Cameron MD Chief Complaint: AMS History of Present Illness Dany Whitehead is a 87 year old male with a past medical history of atrial fibrillation on Eliquis, history of CHF, noninsulin-dependent type 2 diabetes mellitus, GERD, CAD, history of defibrillator placed, COPD on home trilogy, history of limb ischemia, history of CABG, who presents to [facility] due to altered mental status. Most of the history was provided by patient's daughter. At baseline patient is not able to ambulate, is in wheelchair and can feed himself, he does have troubles with speech at times, but no significant cognitive issues.? He has a history of recurrent UTIs.? He has had prostate cancer with a prostatectomy. Over the last week, patient has been complaining of persistent nausea which has not improved in spite of taking antiemetics. Over the last 24 hrs patient has been much more confused, more altered, not following commands. He was diagnosed with a pneumonia approximately 1 week ago for which she is currently on doxycycline. Anytime that patient takes antibiotics he also takes prophylactic metronidazole for a prior history of C. difficile. He is also been treated for UTI in the past 2 weeks. He has been using more opiates for pain management. On ER arrival he was found to be significantly hypotensive with pressures in the 60s systolic on arrival.? Given his extra hydrocodone, and constricted pupil , 0.4 mg of Narcan was administered with increased blood pressure and improvement in mental status. Patient's mentation is now closer to baseline and he is much more alert according to the daughter. I am unable to understand his speech, however daughter confirms that this is at baseline he does have some dysarthria, daughter is able to understand his speech completely. Blood pressure after 2 L NS has improved to 100/50.? Heart rate remains paced at 60.? Saturations 92% on a 2 L nasal cannula. He is able to correctly tell me his name, date of , the fact that he is in a hospital. Review of Systems General: Reports: ROS unobtainable due to mental status Medications/Allergies Home Medications Medication Instructions Recorded Confirmed Last Taken Type apixaban 5 mg tablet (Eliquis) 5 mg PO BID 12/23/19 03/19/23 10/14/20 History aspirin 81 mg tablet,delayed 81 mg PO QAM 12/23/19 03/19/23 10/14/20 History release carvedilol 25 mg tablet 25 mg PO BID 12/23/19 03/19/23 10/14/20 History eplerenone 25 mg tablet 25 mg PO DAILY 12/23/19 03/19/23 10/14/20 History potassium chloride 20 mEq 20 meq PO QAM 12/23/19 03/19/23 10/14/20 History tablet,extended release(part/cryst) simvastatin 80 mg tablet 80 mg PO QAM 12/23/19 03/19/23 10/14/20 History tamsulosin 0.4 mg capsule 0.4 mg PO QPM 12/23/19 03/19/23 10/13/20 History tiotropium bromide 18 mcg capsule 1 cap inhalation DAILY 12/23/19 03/19/23 Unknown History with inhalation device (Spiriva with HandiHaler) albuterol sulfate 90 mcg/actuation 2 puff inhalation Q4H PRN 01/09/20 03/19/23 Unknown History aerosol inhaler (ProAir HFA) Shortness Of Breath magnesium L-lactate 84 mg 84 mg PO BID 01/09/20 03/19/23 Unknown History tablet,extended release omeprazole 20 mg capsule,delayed 20 mg PO QAM rx filled on 10/21/21 01/09/20 03/19/23 10/14/20 History release 30d/s for 20mg bid pts states pt takes 20mg daily acetaminophen 650 mg 650 mg PO BEDTIME PRN Sleep 10/14/20 03/19/23 12/12/21 History tablet,extended release cholecalciferol (vitamin D3) 25 1,000 unit PO BID 10/14/20 03/19/23 Unknown History mcg (1,000 unit) capsule (Vitamin D3) olopatadine 0.1 % eye drops 1 drp ophthalmic (eye) BID PRN 10/14/20 03/19/23 Unknown History unknown sacubitril 97 mg-valsartan 103 mg 1 tab PO BID 10/14/20 03/19/23 10/14/20 History tablet (Entresto) blood-glucose meter,continuous #1 ea 08/25/21 03/19/23 Unknown Rx (Dexcom G6 Order Desk Clerk) blood-glucose sensor (Dexcom G6 #3 ea 08/25/21 03/19/23 Unknown Rx Sensor device) blood-glucose transmitter (Dexcom #1 ea 08/25/21 03/19/23 Unknown Rx G6 Transmitter device) escitalopram oxalate 10 mg tablet 10 mg PO QAM 12/13/21 03/19/23 Unknown History furosemide 40 mg tablet (Lasix) 80 mg PO DIRECTED 05/06/22 03/19/23 Unknown History hydrocodone 5 mg-acetaminophen 325 1 tab PO BID PRN pain 05/06/22 03/19/23 Unknown History mg tablet Diabetic Shoes with smooth bottom #1 ea 05/18/22 03/19/23 Unknown Rx and 3 Pairs of Inserts gabapentin 400 mg capsule 400 mg PO BID #10 caps 06/26/22 03/19/23 Unknown Rx sitagliptin phosphate 50 mg tablet 50 mg PO DAILY #90 tabs 08/30/22 03/19/23 Unknown Rx cadexomer iodine 0.9 % topical gel 40 g topical ONCE 30 days #40 grams 01/12/23 03/19/23 Unknown Rx ciprofloxacin HCl 500 mg tablet 500 mg PO BID 14 days #28 tabs 02/01/23 03/19/23 Unknown Rx (Cipro) metronidazole 500 mg tablet 500 mg PO BID 14 days #28 tabs 02/01/23 03/19/23 Unknown Rx Allergies Allergy/AdvReac Type Severity Reaction Status Date / Time adhesive tape Allergy Mild ALGY-Rash Verified 04/01/23 20:58 latex Allergy Mild ALGY-Rash Verified 04/01/23 20:58 PFSH Acute PFSH: Medical History A-fib ASCVD (arteriosclerotic cardiovascular disease) Cardiac defibrillator in place CHF (congestive heart failure) CHF (congestive heart failure) COPD (chronic obstructive pulmonary disease) Critical limb ischemia with history of revascularization of same extremity Depression Diabetes mellitus Diabetes type 2, uncontrolled History of [place] (myocardial infarction) History of prostate cancer Hyperlipemia, mixed Hyperlipidemia Incontinence PAD (peripheral artery disease) Prostate CA Sleep apnea Tracheobronchomalacia Surgical History S/P CABG (coronary artery bypass graft) X5 S/P cardiac pacemaker procedure S/P carotid endarterectomy S/P cataract surgery S/P eye surgery S/P hernia surgery S/P hip hemiarthroplasty S/P knee surgery S/P prostatectomy Family History Family/Other No problems noted. Father , age 57 [place] Myocardial infarction CAD (coronary artery disease) Hypertension Mother , of Brain CA age 66 Cancer Social History Smoking and tobacco status: former smoker Smoking risk assessment/counseling performed?: Yes Alcohol intake: current Alcohol intake frequency: few times a week Alcohol type: hard liquor Desire information about alcohol rehabilitation?: No Counseling given: Yes Substance/Drug Use: never Desire information about substance/drug rehabilitation?: No Counseling given: Yes Adopted: No Caregiver/support person: Yes Lives independently: Yes Household members: spouse and family Housing: House Marital status: Number of children: 23 Highest education level completed: Associate Degree: Academic Program service: No Current occupational status: retired Vitals/I&O/Wt Last Vital Signs Temp 97.6 F 04/01/23 20:33 Pulse 62 04/01/23 21:30 Resp 17 04/01/23 21:30 BP 99/53 04/01/23 21:30 Pulse Ox 95 04/01/23 21:30 O2 Del Method Nasal Cannula 04/01/23 21:30 O2 Flow Rate 2.5 04/01/23 21:10 04/01/23 04/01/23 04/02/23 14:59 22:59 06:59 Intake Total 1333 / 1333 50 / 1383 Balance 1333 / 1333 50 / 1383 Weight last 48 hrs Weight 80.739 kg Physical Exam Narrative: General: Chronically ill-appearing male laying in bed in no acute distress, AO x3, speech is extremely slurred, daughter confirms this is baseline, she is able to understand his speech completely. HEENT: PERRLA, pupils bilaterally equal and reactive, pallors not present Chest: Normal vesicular breath sounds, no added sounds, equal good air entry bilaterally CVS: S1-S2 regular, no murmurs, no tachycardia, no gallops, no rubs Abdomen: Soft, nontender, no organomegaly, bowel sounds present Neuro: Bilateral lower extremity diffuse muscle atrophy. Extremities: Healthy surgical dressing present on the right hip, mild tenderness, soft no erythema. Data 04/02/23 02:50 04/02/23 02:50 Micro: Microbiology 04/01/23 22:22 Blood Culture - Preliminary Blood SPECIMEN COLLECTED 04/01/23 22:10 Blood Culture - Preliminary Blood SPECIMEN COLLECTED Other data: Radiology Impressions Chest X-Ray 04/01/23 20:49 IMPRESSION: 1. Cardiomegaly is present. 2. Mild increased interstitial lung markings. Increased density at the bilateral lung bases, left worse than right. Findings suggest mild pulmonary edema. Bibasilar pneumonia not excluded. 3. Small left pleural effusion suspected. Head CT 04/01/23 20:49 IMPRESSION: 1. There are punctate foci of air seen in the right scalp soft tissues, of uncertain etiology. 2. No acute intracranial abnormality demonstrated. 3. Findings of pansinusitis are noted. Laboratory Results WBC 9.5 10^3/uL (4.0-10.0) 04/01/23 20:50 RBC 3.42 10^6/uL (4.1-5.3) L 04/01/23 20:50 Hgb 10.5 g/dL (11.7-16.6) L 04/01/23 20:50 Hct 33.5 % (42.0-52.0) L 04/01/23 20:50 MCV 98.0 fl (80-94) H 04/01/23 20:50 MCH 30.7 pg (28.0-34.0) 04/01/23 20:50 MCHC 31.3 g/dL (30.0-36.0) 04/01/23 20:50 RDW 13.9 % (12.1-15.1) 04/01/23 20:50 Plt Count 178 10^3/cmm (130-400) 04/01/23 20:50 MPV 10.1 fL (7.4-10.4) 04/01/23 20:50 Neut % (Auto) 83.9 % 04/01/23 20:50 Lymph % (Auto) 7.7 % 04/01/23 20:50 [place] % (Auto) 5.8 % 04/01/23 20:50 Eos % (Auto) 1.6 % 04/01/23 20:50 Baso % (Auto) 0.5 % 04/01/23 20:50 Neut # (Auto) 7.97 10^3/uL (1.8-7.7) H 04/01/23 20:50 Lymph # (Auto) 0.7 10^3/uL (0.8-4.8) L 04/01/23 20:50 [place] # (Auto) 0.6 10^3/uL (0.2-0.9) 04/01/23 20:50 Eos # (Auto) 0.2 10^3/uL (0.0-0.8) 04/01/23 20:50 Baso # (Auto) 0.1 10^3/uL (0.0-0.1) 04/01/23 20:50 Nucleated RBC % (auto) 0 % 04/01/23 20:50 Nucleated RBCs # 0.0 /100WBC 04/01/23 20:50 Specimen Type Arterial 04/01/23 21:00 Sample Site Radial, left 04/01/23 21:00 ABG pH 7.36 (7.35-7.45) 04/01/23 21:00 ABG pCO2 47.3 mmHg (35-45) H 04/01/23 21:00 ABG pO2 70.1 mmHg (80.0-100.0) L 04/01/23 21:00 ABG HCO3 26.5 mmol/L (22-26) H 04/01/23 21:00 ABG Base Excess 0.7 mmol/L (-2.0-2.0) 04/01/23 21:00 [place] Test Pos 04/01/23 21:00 Hematocrit 30.0 % (42-52) L 04/01/23 21:00 O2 Delivery Device Nc 04/01/23 21:00 O2 Liters/Min 2.5 % 04/01/23 21:00 Liquid Sugar Melter ID [email or web address] 04/01/23 21:00 Sodium 138 mmol/L (136-145) 04/01/23 20:50 Potassium 4.1 mmol/L (3.5-5.1) 04/01/23 20:50 Chloride 100 mmol/L (98-107) 04/01/23 20:50 Carbon Dioxide 26 mmol/L (22-29) 04/01/23 20:50 Anion Gap 16.1 (5-19) 04/01/23 20:50 BUN 22 mg/dL (8-23) 04/01/23 20:50 Creatinine 1.2 mg/dL (0.7-1.2) 04/01/23 20:50 GFR Calculation Not Reportable 04/01/23 20:50 Glucose 292 mg/dL (65-115) H 04/01/23 20:50 Calculated Osmolality 300 mOsm/kg (285-295) H 04/01/23 20:50 Lactic Acid 1.9 mmol/L (0.5-2.2) 04/01/23 20:50 Calcium 8.4 mg/dL (8.5-10.5) L 04/01/23 20:50 Magnesium 1.9 mg/dL (1.7-2.3) 04/01/23 20:50 Total Bilirubin 0.4 mg/dL (0.15-1.2) 04/01/23 20:50 AST 9 U/L (0-40) 04/01/23 20:50 ALT 6 U/L (0-41) 04/01/23 20:50 Alkaline Phosphatase 41 U/L (40-130) 04/01/23 20:50 Troponin T Baseline 46 ng/L (0-15) H 04/01/23 20:50 Troponin T 120 Minute 39.60 ng/L (0-15) H 04/01/23 22:22 Delta Troponin T -6.40 ABS# (0-10) L 04/01/23 22:22 C-Reactive Protein 37.4 mg/L (0.0-4.9) H 04/01/23 20:50 NT-Pro-B Natriuret Pep 4667 pg/mL (0-450) H 04/01/23 20:50 Total Protein 6.1 g/dL (6.6-8.7) L 04/01/23 20:50 Albumin 3.4 g/dL (3.5-5.2) L 04/01/23 20:50 Globulin 2.7 g/dL (1.3-4.6) 04/01/23 20:50 04/01/23 21:00 ABG pH 7.36 ABG pCO2 47.3 H ABG pO2 70.1 L ABG HCO3 26.5 H ABG Base Excess 0.7 A&P Assessment and plan (1) Altered mental status: (2) Opiate overdose: (3) CHF (congestive heart failure): Acute on chronic systolic and diastolic heart failure Last echocardiogram from December 2021 showed grossly LV systolic function moderately reduced reduced RV function. Plan 87-year-old male with multiple comorbidities as listed above presenting to the emergency room today with altered mental status. Upon arrival was noted to be increasingly lethargic and somnolent, blood pressure 60/40 He has been taking increased dose of opiates over the past week due to generalized aches and pains He was given Narcan with excellent response. Patient's mentation improved, now back at baseline, blood pressure additionally improved. With Narcan and fluid bolus his blood pressure is currently maintained at 100/50 at the time of my assessment. Troponins are mildly elevated, baseline at 46, 2-hour at 39 and 6-hour at 40, delta is are negative at both 2 and 6-hour. Less likely ACS. EKG showing paced rhythm. Check UA, urine culture Blood cultures taken prior to starting antibiotics. Recent urine cultures are not available for review at this time, however given history of recurrent UTIs and multiple different courses of antibiotics, will use meropenem empirically. CT of his head is without any acute intracranial abnormalities. Chest x-ray shows cardiomegaly and bilateral increased interstitial markings likely pulmonary edema. Lasix 40 mg IV every 24 hours to be started. If BP tolerates may need to be titrated up. Given hypotension, currently holding Entresto and eplerenone. Attestations Medical Necessity Statement*: Greater than 2 midnight admission is anticipated for above defined care, close monitoring in the ICU after being given Narcan Coding Level of Care Code Critical Care >/= 30 minutes Diagnoses Altered mental status R41.82 Opiate overdose T40.601A CHF (congestive heart failure) I50.9
[2023-04-02] VITALS (85 sets, daily range): BP systolic 85–133; BP diastolic 36–75; PULSE 49–80; RESP 12–21; TEMP 36.6–37.7; O2SAT 82–100; BMI 26.5
[2023-04-02] MEDS: vancomycin 1,250 MG/250 ML PIGGYBACK 250 MG IV (00:17)
[2023-04-02] MEDS: meropenem 1,000 MG in sodium chloride 0.9% (plus) 50 ML 100 MG IV ×3 (01:12→15:54)
--- NOTE | 2023-04-02 02:50 | ECG_ITS ---
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 Measurements Intervals [place] Rate: 60 P: 0 CO: 0 QRS: -87 QRSD: 180 T: 86 QT: 487 QTc: 487 Interpretive Statements ELECTRONIC VENTRICULAR PACEMAKER Compared to ECG 04/01/2023 20:58:53 No significant changes Electronically Signed On 04-02-2023 12:36:36 CDT by Orlando Sanchez M.D. [email or web address]
[2023-04-02] MEDS: ipratropium-albuterol 3 mL Neb INHALATION ×4 (03:16→19:54)
[2023-04-02 03:53] LABS: Basophils % 0.6 %; Eosinophils # 0.2 10^3/uL (0.0-0.8); Eosinophils % 3.2 %; Hematocrit 29.5 % (42.0-52.0); Hemoglobin 8.9 g/dL (11.7-16.6); Lymphocytes # 0.7 10^3/uL (0.8-4.8); Lymphocytes % 10.3 %; Mean Corpuscular HGB Conc 30.2 g/dL (30.0-36.0); Mean Corpuscular Hemoglobin 30.7 pg (28.0-34.0); Mean Corpuscular Volume 101.7 fl (80-94); Mean Platelet Volume 10.1 fL (7.4-10.4); Monocytes # 0.4 10^3/uL (0.2-0.9); Monocytes % 5.9 %; Neutrophils # 5.51 10^3/uL (1.8-7.7); Neutrophils % 79.9 %; Nucleated Red Blood Cells % 0 %; Platelet Count 141 10^3/cmm (130-400); Red Cell Distribution Width 13.9 % (12.1-15.1); White Blood Count 6.9 10^3/uL (4.0-10.0)
[2023-04-02 04:31] LABS: Troponin 5 6HR 40.43 ng/L (0-15)
[2023-04-02 04:35] LABS: Bilirubin Urine Neg (Negative); Blood Urine Trace (Negative); Glucose Urine UA Norm (Normal); Ketones Urine Negative (Negative); Nitrate Urine Positive (Negative); Protein Urine Neg (Negative); Specific Gravity, Urine 1.015 (1.005-1.030); Urine Appearance Cloudy (CLEAR); Urine Color Yellow (Yellow); Urobilinogen Urine Norm (Negative); pH Urine 5 (5-7)
[2023-04-02 04:36] LABS: Add Urine Microscopic? YES; Leukocyte Esterase Urine 1+ (Negative)
[2023-04-02 04:38] LABS: Add Urine Culture? Yes; Bacteria Urine 1+ /hpf; RBC Urine 0-4 /hpf (0-2); Squamous Epithelial Cell Urine 0-4 /hpf (0-5); WBC Urine 80-100 /hpf (0-5)
[2023-04-02 04:42] LABS: Troponin 5 6HR Delta -5.57 ng/L (0-12)
[2023-04-02 05:13] LABS: Alanine Aminotransferase 6 U/L (0-41); Albumin Level 3.1 g/dL (3.5-5.2); Alkaline Phosphatase 41 U/L (40-130); Aspartate Amino Transferase 9 U/L (0-40); Blood Urea Nitrogen 20 mg/dL (8-23); Calcium 7.7 mg/dL (8.5-10.5); Carbon Dioxide 26 mmol/L (22-29); Chloride 106 mmol/L (98-107); Globulin 2.2 g/dL (1.3-4.6); Glucose 129 mg/dL (65-115); Magnesium 1.8 mg/dL (1.7-2.3); Osmolality Calculated 296 mOsm/kg (285-295); Sodium 141 mmol/L (136-145); Total Bilirubin 0.3 mg/dL (0.15-1.2); Total Protein 5.3 g/dL (6.6-8.7)
[2023-04-02] MEDS: FUROsemide 10 mg/mL SDV 4mL 40 MG IVP (06:55)
[2023-04-02 07:08] LABS: Glucose Point of Care 184 mg/dL (70-110)
[2023-04-02] MEDS: insulin lispro 100 unit/1 mL SUBCUT ×3 (09:10→20:53)
[2023-04-02] MEDS: carvedilol 25 mg Tablet PO (09:12)
[2023-04-02] MEDS: apixaban 5 mg Tablet PO ×2 (09:12→17:57)
--- NOTE | 2023-04-02 09:12 | PM.PN ---
Subjective Subjective: This morning patient was on BiPAP He gives me a thumbs up when asked him how he is doing Blood pressures is better Patient is wanting to eat I have updated ICU nurse Denia Vitals/I&O/Wt Last Vital Signs Temp 99.9 F H 04/02/23 07:47 Pulse 60 04/02/23 08:54 Resp 16 04/02/23 08:49 BP 102/45 04/02/23 06:30 Pulse Ox 96 04/02/23 08:49 O2 Del Method BiPAP 04/02/23 08:49 O2 Flow Rate 30 04/02/23 08:49 FiO2 30 04/02/23 08:45 04/01/23 04/02/23 04/02/23 22:59 06:59 14:59 Intake Total 1333 / 1333 350.017 / 1683.017 Output Total 350 / 350 Balance 1333 / 1333 0.017 / 1333.017 Weight last 48 hrs Weight 84 kg Weight 80.739 kg Physical Exam Narrative: Muscle mass loss Signs of heart failure Lower extremity venous stasis dermatitis [place] Currently on BiPAP Give me a thumbs up when asked him how he is doing Able to follow commands Hemodynamically stable Abdomen soft Jewell catheter in place Bowel sound present Urinary Catheter Management: Jewell: Cath Placed During This Visit: yes Reason for Continuing Indwelling Catheter: Accurate Measurement of Urinary Output in Critically Ill Patients Urinary Catheter Date of Insertion: 04/02/23 Urinary Catheter Time of Insertion: 04:00 Data 04/02/23 02:50 04/02/23 02:50 Micro: Microbiology 04/01/23 22:22 Blood Culture - Preliminary Blood SPECIMEN COLLECTED 04/01/23 22:10 Blood Culture - Preliminary Blood SPECIMEN COLLECTED A&P Assessment and plan (1) Opiate overdose: (2) Hammertoe, bilateral: (3) Onychodystrophy: (4) Hypoxemia: (5) Altered mental status: (6) Complicated urinary tract infection: (7) CHF (congestive heart failure): (8) Coronary artery disease due to type 2 diabetes mellitus: (9) DNI (do not intubate): Plan Unintentional/accidental opiate overdose Improved with Narcan Metabolic encephalopathy related to UTI: Resolving Acute systolic CHF exacerbation Judicious use of diuretics because of low blood pressure clinically patient looks fluid overloaded Patient has an AICD Patient is wheelchair-bound, use trilogy at nighttime, currently on BiPAP DNR/DNI okay with defibrillation and ACLS drugs Left voicemail to her daughter Patient can eat today He can get a break from his BiPAP Afebrile CT head unremarkable I will start him on low-dose Lasix monitor his blood pressure for now Attestations Medical Necessity Statement*: Can be transferred out of ICU Diagnoses Opiate overdose T40.601A Hammertoe, bilateral M20.41; M20.42 Onychodystrophy L60.3 Hypoxemia R09.02 Altered mental status R41.82 Complicated urinary tract infection N39.0 CHF (congestive heart failure) I50.9 Coronary artery disease due to type 2 diabetes mellitus E11.59; I25.10 DNI (do not intubate) Z78.9
[2023-04-02 11:24] LABS: Glucose Point of Care 224 mg/dL (70-110)
[2023-04-02] MEDS: metroNIDAZOLE 500 MG Tablet PO ×2 (15:54→20:39)
[2023-04-02 16:56] LABS: Glucose Point of Care 81 mg/dL (70-110)
[2023-04-02] MEDS: tamsulosin 0.4 mg Capsule PO (17:57)
[2023-04-02] MEDS: acetaminophen 325 mg Tablet 650 MG PO (20:29)
[2023-04-02 20:52] LABS: Glucose Point of Care 199 mg/dL (70-110)
[2023-04-03] VITALS (52 sets, daily range): BP systolic 102–165; BP diastolic 34–77; PULSE 60–67; RESP 9–24; TEMP 36.9–37.6; O2SAT 90–100
[2023-04-03] MEDS: meropenem 1,000 MG in sodium chloride 0.9% (plus) 50 ML 100 MG IV ×2 (01:54→08:51)
[2023-04-03 03:43] LABS: Basophils # 0.1 10^3/uL (0.0-0.1); Basophils % 0.7 %; Eosinophils # 0.4 10^3/uL (0.0-0.8); Eosinophils % 5.4 %; Hematocrit 33.9 % (42.0-52.0); Hemoglobin 10.1 g/dL (11.7-16.6); Lymphocytes # 1.2 10^3/uL (0.8-4.8); Lymphocytes % 15.9 %; Mean Corpuscular HGB Conc 29.8 g/dL (30.0-36.0); Mean Corpuscular Hemoglobin 29.5 pg (28.0-34.0); Mean Corpuscular Volume 99.1 fl (80-94); Mean Platelet Volume 10.5 fL (7.4-10.4); Monocytes # 0.7 10^3/uL (0.2-0.9); Monocytes % 9.4 %; Neutrophils # 5.22 10^3/uL (1.8-7.7); Neutrophils % 68.1 %; Nucleated Red Blood Cells % 0 %; Platelet Count 171 10^3/cmm (130-400); Red Blood Count 3.42 10^6/uL (4.1-5.3); Red Cell Distribution Width 13.9 % (12.1-15.1); White Blood Count 7.7 10^3/uL (4.0-10.0)
[2023-04-03 04:01] LABS: Blood Urea Nitrogen 20 mg/dL (8-23); Calcium 8.5 mg/dL (8.5-10.5); Carbon Dioxide 26 mmol/L (22-29); Chloride 107 mmol/L (98-107); Glucose 108 mg/dL (65-115); Osmolality Calculated 299 mOsm/kg (285-295); Sodium 143 mmol/L (136-145)
[2023-04-03 04:19] LABS: Anion Gap 14.3 (5-19); Potassium 4.3 mmol/L (3.5-5.1)
[2023-04-03] MEDS: atorvastatin 40 mg Tablet PO (06:14)
[2023-04-03] MEDS: pantoprazole DR 40 mg Tablet PO (06:16)
[2023-04-03] MEDS: aspirin 81 mg EC Tablet PO (06:17)
[2023-04-03 07:28] LABS: Glucose Point of Care 148 mg/dL (70-110)
[2023-04-03] MEDS: ipratropium-albuterol 3 mL Neb INHALATION (08:31)
[2023-04-03] MEDS: insulin lispro 100 unit/1 mL SUBCUT (08:42)
[2023-04-03] MEDS: metroNIDAZOLE 500 MG Tablet PO (08:51)
[2023-04-03] MEDS: FUROsemide 20 mg Tablet PO (08:51)
[2023-04-03 11:20] LABS: Glucose Point of Care 159 mg/dL (70-110)
--- NOTE | 2023-04-03 11:51 | P.DS_ITS ---
Discharge Providers Date of Admission: 04/01/23 23:24 Date of Discharge: April 03, 2023 Attending Provider at Admission: Lenka Cuba MD Attending Provider at Discharge: Miriam Greenberg MD Primary Care Provider: Gopal Cameron MD Diagnoses at Discharge Discharge Diagnosis (1) Opiate overdose: Status: Acute (2) Hammertoe, bilateral: Status: Acute (3) Onychodystrophy: Status: Acute (4) Hypoxemia: Status: Acute (5) Altered mental status: Status: Acute (6) Complicated urinary tract infection: Status: Acute (7) CHF (congestive heart failure): Status: Acute (8) Coronary artery disease due to type 2 diabetes mellitus: Status: Acute (9) DNI (do not intubate): Status: Acute Reason for Visit Reason for Visit: AMS Hospital Course Hospital Course 87-year-old male with multiple comorbid conditions such as systolic CHF, AICD, wheelchair-bound, follows up with tenderizer tender in [place] currently on Entre sto, eplerenone, Eliquis for A-fib, DNR/DNI presented with metabolic encephalopathy related to UTI, daughter is stating that there is no way he overdosed on opioids, she thinks his body might be slowly metabolizing medications as he is suffering from polypharmacy. Patient mentation improved within 10 to 8 hours, patient was able to eat better, he has been diagnosed with UTI for which he will require Levaquin at the time of discharge. Cultures are negative. He remained afebrile. Daughter kept updated on daily basis who was at the bedside. Patient may resume all of his medications, he has close follow-up appointment with his tenderizer tender in upcoming few weeks. CODE STATUS rediscussed with his daughter: Patient does not want chest compressions or intubation however he does have an AICD they would allow ACLS medications and defibrillation Physical Exam Narrative: Patient is awake and alert Room air Afebrile Able to follow commands Tolerating diet Daughters at the bedside Lower extremity muscle weakness, venous stasis dermatitis Urinary Catheter Management: Jewell: Cath Placed During This Visit: yes Reason for Continuing Indwelling Catheter: Accurate Measurement of Urinary Output in Critically Ill Patients Urinary Catheter Date of Insertion: 04/02/23 Urinary Catheter Time of Insertion: 04:00 Discharge Data Studies Completed and Pending Completed Studies During Hospitalization Category Date Time Status CT head wo con* [id number] Stat Cat Scan 04/01/23 20:49 Completed XR chest 1V portable [id number] Stat Exams 04/01/23 20:49 Completed Pending at discharge Category Date Time Status Blood Culture Stat Lab 04/01/23 22:22 Results Urine Culture Stat Lab 04/02/23 04:00 Results Radiology Impressions Chest X-Ray 04/01/23 20:49 IMPRESSION: 1. Cardiomegaly is present. 2. Mild increased interstitial lung markings. Increased density at the bilateral lung bases, left worse than right. Findings suggest mild pulmonary edema. Bibasilar pneumonia not excluded. 3. Small left pleural effusion suspected. Head CT 04/01/23 20:49 IMPRESSION: 1. There are punctate foci of air seen in the right scalp soft tissues, of uncertain etiology. 2. No acute intracranial abnormality demonstrated. 3. Findings of pansinusitis are noted. Laboratory Results WBC 7.7 10^3/uL (4.0-10.0) 04/03/23 02:25 RBC 3.42 10^6/uL (4.1-5.3) L 04/03/23 02:25 Hgb 10.1 g/dL (11.7-16.6) L 04/03/23 02:25 Hct 33.9 % (42.0-52.0) L 04/03/23 02:25 MCV 99.1 fl (80-94) H 04/03/23 02:25 MCH 29.5 pg (28.0-34.0) 04/03/23 02:25 MCHC 29.8 g/dL (30.0-36.0) L 04/03/23 02:25 RDW 13.9 % (12.1-15.1) 04/03/23 02:25 Plt Count 171 10^3/cmm (130-400) 04/03/23 02:25 MPV 10.5 fL (7.4-10.4) H 04/03/23 02:25 Neut % (Auto) 68.1 % 04/03/23 02:25 Lymph % (Auto) 15.9 % 04/03/23 02:25 [place] % (Auto) 9.4 % 04/03/23 02:25 Eos % (Auto) 5.4 % 04/03/23 02:25 Baso % (Auto) 0.7 % 04/03/23 02:25 Neut # (Auto) 5.22 10^3/uL (1.8-7.7) 04/03/23 02:25 Lymph # (Auto) 1.2 10^3/uL (0.8-4.8) 04/03/23 02:25 [place] # (Auto) 0.7 10^3/uL (0.2-0.9) 04/03/23 02:25 Eos # (Auto) 0.4 10^3/uL (0.0-0.8) 04/03/23 02:25 Baso # (Auto) 0.1 10^3/uL (0.0-0.1) 04/03/23 02:25 Nucleated RBC % (auto) 0 % 04/03/23 02:25 Nucleated RBCs # 0.0 /100WBC 04/03/23 02:25 Specimen Type Arterial 04/01/23 21:00 Sample Site Radial, left 04/01/23 21:00 ABG pH 7.36 (7.35-7.45) 04/01/23 21:00 ABG pCO2 47.3 mmHg (35-45) H 04/01/23 21:00 ABG pO2 70.1 mmHg (80.0-100.0) L 04/01/23 21:00 ABG HCO3 26.5 mmol/L (22-26) H 04/01/23 21:00 ABG Base Excess 0.7 mmol/L (-2.0-2.0) 04/01/23 21:00 [place] Test Pos 04/01/23 21:00 Hematocrit 30.0 % (42-52) L 04/01/23 21:00 O2 Delivery Device Nc 04/01/23 21:00 O2 Liters/Min 2.5 % 04/01/23 21:00 Fun House Operator ID [email or web address] 04/01/23 21:00 Sodium 143 mmol/L (136-145) 04/03/23 02:25 Potassium 4.3 mmol/L (3.5-5.1) 04/03/23 02:25 Chloride 107 mmol/L (98-107) 04/03/23 02:25 Carbon Dioxide 26 mmol/L (22-29) 04/03/23 02:25 Anion Gap 14.3 (5-19) 04/03/23 02:25 BUN 20 mg/dL (8-23) 04/03/23 02:25 Creatinine 0.7 mg/dL (0.7-1.2) 04/03/23 02:25 GFR Calculation Not Reportable 04/03/23 02:25 Glucose 108 mg/dL (65-115) 04/03/23 02:25 POC Glucose 159 mg/dL (70-110) H 04/03/23 11:12 Calculated Osmolality 299 mOsm/kg (285-295) H 04/03/23 02:25 Lactic Acid 1.9 mmol/L (0.5-2.2) 04/01/23 20:50 Calcium 8.5 mg/dL (8.5-10.5) 04/03/23 02:25 Magnesium 1.8 mg/dL (1.7-2.3) 04/02/23 02:50 Total Bilirubin 0.3 mg/dL (0.15-1.2) 04/02/23 02:50 AST 9 U/L (0-40) 04/02/23 02:50 ALT 6 U/L (0-41) 04/02/23 02:50 Alkaline Phosphatase 41 U/L (40-130) 04/02/23 02:50 Troponin T Baseline 46 ng/L (0-15) H 04/01/23 20:50 Troponin T 120 Minute 39.60 ng/L (0-15) H 04/01/23 22:22 Delta Troponin T -6.40 ABS# (0-10) L 04/01/23 22:22 Troponin T Hi Sens 6Hr 40.43 ng/L (0-15) H 04/02/23 02:50 Troponin T Hi Sens 6Hr Delta -5.57 ng/L (0-12) L 04/02/23 02:50 C-Reactive Protein 37.4 mg/L (0.0-4.9) H 04/01/23 20:50 NT-Pro-B Natriuret Pep 4667 pg/mL (0-450) H 04/01/23 20:50 Total Protein 5.3 g/dL (6.6-8.7) L 04/02/23 02:50 Albumin 3.1 g/dL (3.5-5.2) L 04/02/23 02:50 Globulin 2.2 g/dL (1.3-4.6) 04/02/23 02:50 Urine Color Yellow (Yellow) 04/02/23 04:00 Urine Appearance Cloudy (CLEAR) A 04/02/23 04:00 Urine pH 5 (5-7) 04/02/23 04:00 Ur Specific [place] 1.015 (1.005-1.030) 04/02/23 04:00 Urine Protein Neg (Negative) 04/02/23 04:00 Urine Glucose (UA) Norm (Normal) 04/02/23 04:00 Urine Ketones Negative (Negative) 04/02/23 04:00 Urine Blood Trace (Negative) H 04/02/23 04:00 Urine Nitrate Positive (Negative) H 04/02/23 04:00 Urine Bilirubin Neg (Negative) 04/02/23 04:00 Urine Urobilinogen Norm mg/dL (Negative) 04/02/23 04:00 Ur Leukocyte Esterase 1+ (Negative) H 04/02/23 04:00 Urine RBC 0-4 /hpf (0-2) H 04/02/23 04:00 Urine WBC 80-100 /hpf (0-5) H 04/02/23 04:00 Ur Squamous Epith Cells 0-4 /hpf (0-5) H 04/02/23 04:00 Amorphous Sediment Not Reportable 04/02/23 04:00 Urine Bacteria 1+ /hpf (NONE) H 04/02/23 04:00 Vitals Last Vital Signs Temp 98.6 F 04/03/23 08:45 Pulse 62 04/03/23 10:15 Resp 19 H 04/03/23 09:00 BP 115/70 04/03/23 10:15 Pulse Ox 91 04/03/23 10:15 O2 Del Method Room Air 04/03/23 08:45 O2 Flow Rate 4 04/03/23 08:30 FiO2 30 04/03/23 10:00 Discharge Plan Discharge Patient Disposition: Home Condition: Serious Prescriptions: New levofloxacin 750 mg tablet 750 mg PO DAILY 7 Days Qty: 7 0RF Continued albuterol sulfate [ProAir HFA] 90 mcg/actuation HFA aerosol inhaler 2 puff INHALATION Q4H PRN (Reason: Shortness Of Breath) (DME) Dexcom G6 Requirements Manager Misc See Rx Instructions .Route Qty: 1 3RF Rx Instructions: Check BS 4 times a day. (DME) Dexcom G6 Sensor Device See Rx Instructions .Route Qty: 3 3RF Rx Instructions: As directed (DME) Dexcom G6 Transmitter Device See Rx Instructions .Route Qty: 1 3RF Rx Instructions: As directed Lasix 40 mg tablet 80 mg PO DIRECTED Patient Comments: 80mg qam and 40q q pm Rx Instructions: takes 2 (80mg) in AM and 1 (40 mg) PM hydrocodone-acetaminophen 5-325 mg tablet 1 tab PO BID PRN (Reason: pain) carvedilol 25 mg tablet 25 mg PO BID simvastatin 80 mg tablet 80 mg PO QAM aspirin 81 mg tablet,delayed release (DR/EC) 81 mg PO QAM potassium chloride 20 mEq tablet,ER particles/crystals 20 meq PO QAM tamsulosin 0.4 mg capsule 0.4 mg PO QPM eplerenone 25 mg tablet 25 mg PO DAILY Spiriva with HandiHaler 18 mcg capsule, w/inhalation device 1 cap INHALATION DAILY Eliquis 5 mg tablet 5 mg PO BID magnesium L-lactate 84 mg tablet extended release 84 mg PO BID omeprazole 20 mg capsule,delayed release(DR/EC) 20 mg PO QAM sitagliptin phosphate 50 mg tablet 50 mg PO DAILY Qty: 90 3RF (DME) Diabetic Shoes with smooth bottom and 3 Pairs of Inserts See Rx Instructions .Route .MEDSUPPLY Qty: 1 0RF Rx Instructions: As directed metronidazole 500 mg tablet 500 mg PO BID 14 Days Qty: 28 0RF escitalopram oxalate 10 mg tablet 10 mg PO QAM acetaminophen 650 mg Tablet Extended Release 650 mg PO BEDTIME PRN (Reason: Sleep) olopatadine 0.1 % drops 1 drp ophthalmic (eye) BID PRN (Reason: unknown) cholecalciferol (vitamin D3) [Vitamin D3] 25 mcg (1,000 unit) Capsule 1,000 unit PO BID Entresto 97-103 mg tablet 1 tab PO BID Zofran 4 mg Tablet 4 mg PO Q8H PRN (Reason: Nausea) hydroxyzine HCl 25 mg tablet 25 mg PO BEDTIME Macrobid 100 mg Capsule 100 mg PO BID Rx Instructions: must administer with a meal/food gabapentin 400 mg capsule 400 mg PO BID Qty: 10 0RF Discharge Orders: Discharge Order (Routine); Ordered 04/03/23 Ordered By: iMriam Greenberg Referrals: Gopal Cameron MD [Primary Care Provider] - Discharge Diet: Cardiac Patient Instructions: Hyponatremia (ED), Benzodiazepine Use Disorder (ED), Dementia (ED), Non-diabetic Hypoglycemia (ED), Hypoglycemia in a Person with Diabetes (ED), Concussion (ED), Alcohol Intoxication (ED), Subarachnoid Hemorrhage (GEN), Altered Mental Status (ED), Opioid Safety Discharge Attestations Time Spent in Discharge Care*: greater than 30 min Status at Discharge: Cognitive status at discharge: mildly impaired cognition , Behavioral status at discharge: cooperative , Quality Metrics Clinical Quality Measures [ No reported AMI, CVA or VTE this stay] Coding Level of Care Code Acute Code for Chg Fwd Diagnoses Opiate overdose T40.601A Hammertoe, bilateral M20.41; M20.42 Onychodystrophy L60.3 Hypoxemia R09.02 Altered mental status R41.82 Complicated urinary tract infection N39.0 CHF (congestive heart failure) I50.9 Coronary artery disease due to type 2 diabetes mellitus E11.59; I25.10 DNI (do not intubate) Z78.9
--- NOTE | 2023-04-03 13:25 | PC.NURSE ---
Discharge Note Patient discharged to home via wheelchair accompanied by daughter. Discharge instructions reviewed with patient and daughter. All prescriptions sent to patient preferred pharmacy. Belongings sent home with patient upon discharge.
== END 2023-04-03 12:44 | disposition home health service (06) | DRG 917 ==
LOC: ER 22:04 → ICU 23:24
PROVIDERS: Admitting Provider Student in an Organized Health Care Education/Training Program; Emergency Provider Emergency Medicine; PCP Family Medicine; Visit Provider Internal Medicine
DX: T40.601A Poisoning by unspecified narcotics, accidental (unintentional), initial encounter (principal); G93.41 Metabolic encephalopathy; I50.23 Acute on chronic systolic (congestive) heart failure; J18.9 Pneumonia, unspecified organism; N39.0 Urinary tract infection, site not specified; Z95.0 Presence of cardiac pacemaker; Z99.3 Dependence on wheelchair; I48.91 Unspecified atrial fibrillation; Z66 Do not resuscitate; Z79.51 Long term (current) use of inhaled steroids; Z79.891 Long term (current) use of opiate analgesic; Z79.82 Long term (current) use of aspirin; Z79.01 Long term (current) use of anticoagulants; Z79.02 Long term (current) use of antithrombotics/antiplatelets; G31.84 Mild cognitive impairment of uncertain or unknown etiology; M20.42 Other hammer toe(s) (acquired), left foot; M20.41 Other hammer toe(s) (acquired), right foot; I25.10 Atherosclerotic heart disease of native coronary artery without angina pectoris; Z95.1 Presence of aortocoronary bypass graft; E11.51 Type 2 diabetes mellitus with diabetic peripheral angiopathy without gangrene; Z85.46 Personal history of malignant neoplasm of prostate; Z87.891 Personal history of nicotine dependence; E78.2 Mixed hyperlipidemia; I25.2 Old myocardial infarction; F32.A Depression, unspecified; R47.1 Dysarthria and anarthria; I95.9 Hypotension, unspecified; Z87.440 Personal history of urinary (tract) infections; Z90.79 Acquired absence of other genital organ(s)
CPT/HCPCS: 36415; 36416; 36600; 51702; 70450; 71045; 80048; 80053; 81001; 82803; 82962; 83605; 83735; 83880; 84484; 85025; 86140; 87040; 87086; 93005; 94640; 94660; 96365; 96366; 96367; 96372; 96375; 99214; 99285; J1815; J1940; J2185; J2310; J2543; J3370; J7030; J7060

== ENCOUNTER → 2023-04-11 13:25 | Outpatient (BNVA) | payer MEDICARE, BC, SELFPAY | PROVIDERS: PCP Family Medicine; Visit Provider Podiatrist Foot & Ankle Surgery | DX: E11.621 Type 2 diabetes mellitus with foot ulcer (principal); L97.512 Non-pressure chronic ulcer of other part of right foot with fat layer exposed; L60.3 Nail dystrophy; M20.41 Other hammer toe(s) (acquired), right foot; M20.42 Other hammer toe(s) (acquired), left foot; E11.42 Type 2 diabetes mellitus with diabetic polyneuropathy; I73.9 Peripheral vascular disease, unspecified; M20.31 Hallux varus (acquired), right foot; M20.32 Hallux varus (acquired), left foot | CPT/HCPCS: 99213 ==

== ENCOUNTER → 2023-04-12 12:55 | Outpatient (BNVA) | payer MEDICARE, BC, SELFPAY | PROVIDERS: PCP Family Medicine; Visit Provider Internal Medicine | DX: E11.59 Type 2 diabetes mellitus with other circulatory complications (principal); E11.65 Type 2 diabetes mellitus with hyperglycemia; E11.649 Type 2 diabetes mellitus with hypoglycemia without coma; I25.10 Atherosclerotic heart disease of native coronary artery without angina pectoris; I50.9 Heart failure, unspecified; E78.2 Mixed hyperlipidemia; I95.9 Hypotension, unspecified; Z79.84 Long term (current) use of oral hypoglycemic drugs | CPT/HCPCS: 99214 ==

== ENCOUNTER → 2023-04-18 14:02 | Outpatient (BNVA) | payer MEDICARE, BC, SELFPAY | PROVIDERS: PCP Family Medicine; Visit Provider Internal Medicine | DX: I50.9 Heart failure, unspecified (principal); E11.59 Type 2 diabetes mellitus with other circulatory complications; I25.10 Atherosclerotic heart disease of native coronary artery without angina pectoris; I99.8 Other disorder of circulatory system; Z95.9 Presence of cardiac and vascular implant and graft, unspecified; Z79.84 Long term (current) use of oral hypoglycemic drugs | CPT/HCPCS: 99214 ==

== ENCOUNTER → 2023-05-02 13:47 | Outpatient (BNVA) | payer MEDICARE, BC, SELFPAY | PROVIDERS: PCP Family Medicine; Visit Provider Podiatrist Foot & Ankle Surgery | DX: E11.621 Type 2 diabetes mellitus with foot ulcer (principal); L97.512 Non-pressure chronic ulcer of other part of right foot with fat layer exposed; L60.3 Nail dystrophy; M20.41 Other hammer toe(s) (acquired), right foot; M20.42 Other hammer toe(s) (acquired), left foot; E11.42 Type 2 diabetes mellitus with diabetic polyneuropathy; I73.9 Peripheral vascular disease, unspecified; M20.31 Hallux varus (acquired), right foot; M20.32 Hallux varus (acquired), left foot | CPT/HCPCS: 99214 ==

== ENCOUNTER → 2023-05-19 10:54 | Outpatient (BNVA) | payer MEDICARE, BC, SELFPAY | PROVIDERS: PCP Family Medicine; Visit Provider Podiatrist Foot & Ankle Surgery | DX: I73.9 Peripheral vascular disease, unspecified (principal); E11.621 Type 2 diabetes mellitus with foot ulcer; L97.514 Non-pressure chronic ulcer of other part of right foot with necrosis of bone; L60.3 Nail dystrophy; M20.41 Other hammer toe(s) (acquired), right foot; M20.42 Other hammer toe(s) (acquired), left foot; E11.42 Type 2 diabetes mellitus with diabetic polyneuropathy; M20.31 Hallux varus (acquired), right foot; M20.32 Hallux varus (acquired), left foot | CPT/HCPCS: 11044 ==

== ENCOUNTER → 2023-06-02 11:12 | Outpatient (BNVA) | payer MEDICARE, BC, SELFPAY | PROVIDERS: PCP Family Medicine; Visit Provider Podiatrist Foot & Ankle Surgery | DX: Z51.89 Encounter for other specified aftercare (principal); E11.621 Type 2 diabetes mellitus with foot ulcer; L97.514 Non-pressure chronic ulcer of other part of right foot with necrosis of bone; I73.9 Peripheral vascular disease, unspecified; E11.42 Type 2 diabetes mellitus with diabetic polyneuropathy; M20.42 Other hammer toe(s) (acquired), left foot; M20.41 Other hammer toe(s) (acquired), right foot; L60.3 Nail dystrophy; M20.31 Hallux varus (acquired), right foot; M20.32 Hallux varus (acquired), left foot | CPT/HCPCS: 99214 ==

== ENCOUNTER → 2023-06-28 14:24 | Outpatient (BNVA) | payer MEDICARE, BC, SELFPAY | PROVIDERS: PCP Family Medicine; Visit Provider Podiatrist Foot & Ankle Surgery | DX: L60.3 Nail dystrophy (principal); M20.41 Other hammer toe(s) (acquired), right foot; M20.42 Other hammer toe(s) (acquired), left foot; L97.514 Non-pressure chronic ulcer of other part of right foot with necrosis of bone; Z51.89 Encounter for other specified aftercare; M20.32 Hallux varus (acquired), left foot; M20.31 Hallux varus (acquired), right foot | CPT/HCPCS: 99213 ==

== ENCOUNTER → 2023-07-19 14:28 | Outpatient (BNVA) | payer MEDICARE, BC, SELFPAY | PROVIDERS: PCP Family Medicine; Visit Provider Podiatrist Foot & Ankle Surgery | DX: M20.41 Other hammer toe(s) (acquired), right foot (principal); M20.42 Other hammer toe(s) (acquired), left foot; L97.514 Non-pressure chronic ulcer of other part of right foot with necrosis of bone; M20.31 Hallux varus (acquired), right foot; M20.32 Hallux varus (acquired), left foot | CPT/HCPCS: 11044 ==

== ENCOUNTER → 2023-07-27 16:05 | Outpatient (BNVA) | payer MEDICARE, BC, SELFPAY | PROVIDERS: PCP Family Medicine; Visit Provider Podiatrist Foot & Ankle Surgery | DX: L97.514 Non-pressure chronic ulcer of other part of right foot with necrosis of bone (principal) | CPT/HCPCS: 11044; 87070; 87075; 87205 ==

== ENCOUNTER → 2023-08-08 15:46 | Outpatient (BNVA) | payer MEDICARE, BC, SELFPAY | PROVIDERS: PCP Family Medicine; Visit Provider Podiatrist Foot & Ankle Surgery | DX: M20.41 Other hammer toe(s) (acquired), right foot (principal); M20.42 Other hammer toe(s) (acquired), left foot; L97.514 Non-pressure chronic ulcer of other part of right foot with necrosis of bone; M20.32 Hallux varus (acquired), left foot; M20.31 Hallux varus (acquired), right foot | CPT/HCPCS: 99213 ==

== ENCOUNTER → 2023-08-24 16:01 | Outpatient (BNVA) | payer MEDICARE, BC, SELFPAY | PROVIDERS: PCP Family Medicine; Visit Provider Podiatrist Foot & Ankle Surgery | DX: L97.514 Non-pressure chronic ulcer of other part of right foot with necrosis of bone (principal); M20.32 Hallux varus (acquired), left foot; M20.31 Hallux varus (acquired), right foot; M20.41 Other hammer toe(s) (acquired), right foot; M20.42 Other hammer toe(s) (acquired), left foot | CPT/HCPCS: 73630; 99213 ==

== ENCOUNTER → 2023-09-08 11:13 | Outpatient (BNVA) | payer MEDICARE, BC, SELFPAY | PROVIDERS: PCP Family Medicine; Visit Provider Podiatrist Foot & Ankle Surgery | DX: M20.41 Other hammer toe(s) (acquired), right foot (principal); M20.42 Other hammer toe(s) (acquired), left foot; M20.30 Hallux varus (acquired), unspecified foot; L97.514 Non-pressure chronic ulcer of other part of right foot with necrosis of bone | CPT/HCPCS: 99213 ==

== ENCOUNTER → 2023-09-28 15:16 | Outpatient (BNVA) | payer MEDICARE, BC, SELFPAY | PROVIDERS: PCP Family Medicine; Visit Provider Podiatrist Foot & Ankle Surgery | DX: M20.41 Other hammer toe(s) (acquired), right foot (principal); M20.42 Other hammer toe(s) (acquired), left foot; L97.514 Non-pressure chronic ulcer of other part of right foot with necrosis of bone; M20.32 Hallux varus (acquired), left foot; M20.31 Hallux varus (acquired), right foot | CPT/HCPCS: 99213 ==

== ENCOUNTER → 2023-10-17 15:31 | Outpatient (BNVA) | payer MEDICARE, BC, SELFPAY | PROVIDERS: PCP Family Medicine; Visit Provider Internal Medicine | DX: E11.59 Type 2 diabetes mellitus with other circulatory complications (principal); I25.10 Atherosclerotic heart disease of native coronary artery without angina pectoris; E11.65 Type 2 diabetes mellitus with hyperglycemia; I50.9 Heart failure, unspecified; E78.2 Mixed hyperlipidemia; I95.9 Hypotension, unspecified; Z87.440 Personal history of urinary (tract) infections; Z79.84 Long term (current) use of oral hypoglycemic drugs; M20.41 Other hammer toe(s) (acquired), right foot; M20.42 Other hammer toe(s) (acquired), left foot; M20.31 Hallux varus (acquired), right foot; M20.32 Hallux varus (acquired), left foot; L97.514 Non-pressure chronic ulcer of other part of right foot with necrosis of bone | CPT/HCPCS: 36415; 80053; 80061; 83036; 99214 ==

== ENCOUNTER 2023-10-18 13:49 | Outpatient (CLI) | payer MEDICARE, BC, SELFPAY ==
[2023-10-18 14:45] LABS: Creatinine Urine, Random 63 mg/dL (39-259)
[2023-10-18 15:00] LABS: Microalbum Creatinine Ratio Ur 1651 mg/dL (0-20); Microalbumin Random Urine 104 ug/dL (0-20)
== END 2023-10-18 13:50 | disposition home or self-care (01) ==
LOC: LAB 13:52
PROVIDERS: PCP Family Medicine; Visit Provider Internal Medicine
DX: E11.59 Type 2 diabetes mellitus with other circulatory complications (principal); I25.10 Atherosclerotic heart disease of native coronary artery without angina pectoris
CPT/HCPCS: 82044

== ENCOUNTER → 2023-11-02 15:34 | Outpatient (BNVA) | payer MEDICARE, BC, SELFPAY | PROVIDERS: PCP Family Medicine; Visit Provider Podiatrist Foot & Ankle Surgery | DX: M20.41 Other hammer toe(s) (acquired), right foot (principal); M20.42 Other hammer toe(s) (acquired), left foot; L97.514 Non-pressure chronic ulcer of other part of right foot with necrosis of bone; M20.32 Hallux varus (acquired), left foot; M20.31 Hallux varus (acquired), right foot | CPT/HCPCS: 99213 ==

== ENCOUNTER 2023-11-08 12:47 | Outpatient (CLI) | payer MEDICARE, BC, SELFPAY ==
--- NOTE | 2023-11-08 13:24 | USR_ITS ---
PROCEDURE INFORMATION: Exam: US Retroperitoneal; Complete; Kidneys and Bladder Exam date and time: 11/08/2023 1:44 PM Age: 87 years old Clinical indication: Condition or disease; Kidney or ureter condition; Other: UTI; Additional info: Recurrent uti/hx of smoking/hx of hematuria TECHNIQUE: Imaging protocol: Real-time ultrasound of the retroperitoneum with image documentation. Complete exam focused on the kidneys and bladder. COMPARISON: US bladder [id number] 09/18/2017 7:21 AM FINDINGS: Right kidney: No stones. No hydronephrosis. Left kidney: No stones. No hydronephrosis. Urinary bladder: No acute findings. US/US renal BI* [id number] IMPRESSION: No acute findings.
== END 2023-11-08 12:48 | disposition home or self-care (01) ==
LOC: RAD 12:47
PROVIDERS: PCP Family Medicine; Visit Provider Nurse Practitioner Family
DX: N39.0 Urinary tract infection, site not specified (principal); Z87.891 Personal history of nicotine dependence; Z87.448 Personal history of other diseases of urinary system
CPT/HCPCS: 76770

== ENCOUNTER → 2023-11-22 15:06 | Outpatient (BNVA) | payer MEDICARE, BC, SELFPAY | PROVIDERS: PCP Family Medicine; Visit Provider Podiatrist Foot & Ankle Surgery | DX: M20.41 Other hammer toe(s) (acquired), right foot (principal); M20.42 Other hammer toe(s) (acquired), left foot; L97.514 Non-pressure chronic ulcer of other part of right foot with necrosis of bone; M20.32 Hallux varus (acquired), left foot; M20.31 Hallux varus (acquired), right foot | CPT/HCPCS: 99213 ==

== ENCOUNTER → 2023-12-06 13:32 | Outpatient (BNVA) | payer MEDICARE, BC, SELFPAY | PROVIDERS: PCP Family Medicine; Visit Provider Podiatrist Foot & Ankle Surgery | DX: I73.9 Peripheral vascular disease, unspecified (principal); L97.522 Non-pressure chronic ulcer of other part of left foot with fat layer exposed; L97.514 Non-pressure chronic ulcer of other part of right foot with necrosis of bone | CPT/HCPCS: 11043; 73630 ==

== ENCOUNTER → 2023-12-13 15:16 | Outpatient (BNVA) | payer MEDICARE, BC, SELFPAY | PROVIDERS: PCP Family Medicine; Visit Provider Podiatrist Foot & Ankle Surgery | DX: L97.514 Non-pressure chronic ulcer of other part of right foot with necrosis of bone (principal); I73.9 Peripheral vascular disease, unspecified; L97.522 Non-pressure chronic ulcer of other part of left foot with fat layer exposed; R60.0 Localized edema | CPT/HCPCS: 29445 ==

== ENCOUNTER → 2023-12-18 15:27 | Outpatient (BNVA) | payer MEDICARE, BC, SELFPAY | PROVIDERS: PCP Family Medicine; Visit Provider Podiatrist Foot & Ankle Surgery | DX: L97.514 Non-pressure chronic ulcer of other part of right foot with necrosis of bone (principal); I73.9 Peripheral vascular disease, unspecified; L97.522 Non-pressure chronic ulcer of other part of left foot with fat layer exposed; R60.0 Localized edema | CPT/HCPCS: 29445 ==

== ENCOUNTER → 2023-12-25 15:38 | Outpatient (BNVA) | payer MEDICARE, BC, SELFPAY | PROVIDERS: PCP Family Medicine; Visit Provider Podiatrist Foot & Ankle Surgery | DX: L97.514 Non-pressure chronic ulcer of other part of right foot with necrosis of bone (principal); I73.9 Peripheral vascular disease, unspecified; L97.522 Non-pressure chronic ulcer of other part of left foot with fat layer exposed; R60.0 Localized edema | CPT/HCPCS: 29445 ==

== ENCOUNTER → 2024-01-01 15:12 | Outpatient (BNVA) | payer MEDICARE, BC, SELFPAY | PROVIDERS: PCP Family Medicine; Visit Provider Podiatrist Foot & Ankle Surgery | DX: Z51.89 Encounter for other specified aftercare (principal); L97.514 Non-pressure chronic ulcer of other part of right foot with necrosis of bone; I73.9 Peripheral vascular disease, unspecified; L97.522 Non-pressure chronic ulcer of other part of left foot with fat layer exposed; R60.0 Localized edema | CPT/HCPCS: 29445 ==

== ENCOUNTER → 2024-01-08 15:15 | Outpatient (BNVA) | payer MEDICARE, BC, SELFPAY | PROVIDERS: PCP Family Medicine; Visit Provider Podiatrist Foot & Ankle Surgery | DX: L97.514 Non-pressure chronic ulcer of other part of right foot with necrosis of bone (principal); I73.9 Peripheral vascular disease, unspecified; L97.522 Non-pressure chronic ulcer of other part of left foot with fat layer exposed; R60.0 Localized edema | CPT/HCPCS: 99213 ==

== ENCOUNTER → 2024-01-15 15:14 | Outpatient (BNVA) | payer MEDICARE, BC, SELFPAY | PROVIDERS: PCP Family Medicine; Visit Provider Podiatrist Foot & Ankle Surgery | DX: L97.514 Non-pressure chronic ulcer of other part of right foot with necrosis of bone (principal); I73.9 Peripheral vascular disease, unspecified; L97.522 Non-pressure chronic ulcer of other part of left foot with fat layer exposed; R60.0 Localized edema | CPT/HCPCS: 29445 ==

== ENCOUNTER → 2024-01-22 15:17 | Outpatient (BNVA) | payer MEDICARE, BC, SELFPAY | PROVIDERS: PCP Family Medicine; Visit Provider Podiatrist Foot & Ankle Surgery | DX: L97.514 Non-pressure chronic ulcer of other part of right foot with necrosis of bone (principal); I73.9 Peripheral vascular disease, unspecified; L97.522 Non-pressure chronic ulcer of other part of left foot with fat layer exposed; R60.0 Localized edema | CPT/HCPCS: 29445 ==

== ENCOUNTER 2024-01-26 16:02 | Inpatient (IN) | payer MEDICARE, BC, SELFPAY ==
[2024-01-26] VITALS (7 sets, daily range): BP systolic 100–127; BP diastolic 50–57; PULSE 62–72; RESP 19–24; TEMP 37.1–37.4; O2SAT 91–95; BMI 25.1
--- NOTE | 2024-01-26 16:07 | ECG_ITS ---
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 Measurements Intervals [place] Rate: 60 P: 0 VA: 0 QRS: -89 QRSD: 199 T: 90 QT: 497 QTc: 498 Interpretive Statements ELECTRONIC VENTRICULAR PACEMAKER Compared to ECG 04/02/2023 03:26:06 No significant changes Electronically Signed On 01-26-2024 22:01:38 CDT by Orlando Sanchez M.D. [email or web address]
--- NOTE | 2024-01-26 16:08 | XRR_ITS ---
PROCEDURE INFORMATION: Exam: XR Chest Exam date and time: 01/26/2024 4:16 PM Age: 88 years old Clinical indication: Cough and dyspnea; Additional info: Dyspnea/cough TECHNIQUE: Imaging protocol: Radiologic exam of the chest. Views: 1 view. COMPARISON: CR XR chest 2V* [id number] 04/27/2023 3:01 PM FINDINGS: Tubes, catheters and devices: Sternal sutures are noted along with a left-sided pacemaker with leads in good position. Lungs: There is patchy atelectasis in the left lung base which appears chronic. No lung mass or infiltrate. Pleural spaces: Unremarkable. No pleural effusion. No pneumothorax. Heart/Mediastinum: Mild cardiomegaly is noted. Bones/joints: Unremarkable. XR/XR chest 1V portable [id number] IMPRESSION: No acute findings.
--- NOTE | 2024-01-26 16:10 | CTR_ITS ---
PROCEDURE INFORMATION: Exam: CT Head Without Contrast Exam date and time: 01/26/2024 4:38 PM Age: 88 years old Clinical indication: Altered mental status/memory loss; Age related cognitive decline; Additional info: AMS TECHNIQUE: Imaging protocol: Computed tomography of the head without contrast. Radiation optimization: All CT scans at this facility use at least one of these dose optimization techniques: automated exposure control; mA and/or kV adjustment per patient size (includes targeted exams where dose is matched to clinical indication); or iterative reconstruction. COMPARISON: CT head wo con* [id number] 04/01/2023 9:48 PM RADIATION DOSE METRICS: Total DLP (mGy-cm): 1162.11 FINDINGS: Brain: Prominent diffuse cerebral atrophy is noted. There is mild chronic periventricular white matter ischemic change. There is no evidence of mass effect, infarct or hemorrhage. Cerebral ventricles: No ventriculomegaly. No midline shift. Paranasal sinuses: Visualized sinuses are unremarkable. No fluid levels. Mastoid air cells: Visualized mastoid air cells are well aerated. Bones/joints: Unremarkable. No acute fracture. Soft tissues: Unremarkable. CT/CT head wo con* [id number] IMPRESSION: 1. No acute findings. 2. Cerebral atrophy is noted along with chronic white matter ischemic changes.
--- NOTE | 2024-01-26 16:26 | ED_ITS ---
HPI - Altered Mental Status 2 General: Chief Complaint: Altered Mental Status Stated Complaint: ams, sob, altered mentation Time Seen by Provider: 01/26/24 16:06 Source: family Mode of arrival: EMS History of Present Illness: 88-year-old male presents emergency room with increased weakness shortness of breath on altered mental status he is alert to verbal stimulation but does not respond well. He has pressure ulcers bilaterally on his feet on the left he has an Unna boot in place on the right he has issue daughter that is with him says there is been some osteomyelitis involved on the right foot he is not currently getting antibiotics but is followed regularly by Dr. Francis. His blood sugars been elevated. They have noticed a low-grade fever. No report of chest pain. Has a rollator but since April 2023 he has been a full assist to use a stand to sit or wheelchair to get him around he lives at home currently. He does get therapies at home. No reports of chest pain. MD complaint: altered mental status Review of Systems 2 Const: Denies: fever(s) or chills Card: Denies: chest pain Resp: Denies: dyspnea GI: Denies: abdominal pain : Denies: dysuria, urinary frequency or urinary urgency Musc: Denies: neck pain or back pain Skin/Breast: Denies: rash PFSH ED 2 PFSH: Medical History DNI (do not intubate) Opiate overdose Tracheobronchomalacia Aspiration pneumonia Hypoxemia Altered mental status Complicated urinary tract infection Hyperlipemia, mixed Depression Hyperlipidemia CHF (congestive heart failure) Coronary artery disease due to type 2 diabetes mellitus Sleep apnea Diabetes mellitus History of prostate cancer COPD (chronic obstructive pulmonary disease) ASCVD (arteriosclerotic cardiovascular disease) A-fib Cardiac defibrillator in place Prostate CA Incontinence Diabetes type 2, uncontrolled PAD (peripheral artery disease) Critical limb ischemia with history of revascularization of same extremity History of UT (myocardial infarction) CHF (congestive heart failure) Hammertoe, bilateral Onychodystrophy Surgical History S/P carotid endarterectomy S/P hip hemiarthroplasty S/P hernia surgery S/P cataract surgery S/P knee surgery S/P eye surgery S/P prostatectomy S/P cardiac pacemaker procedure S/P CABG (coronary artery bypass graft) X5 Family History Family/Other No problems noted. Father , age 57 UT Myocardial infarction CAD (coronary artery disease) Hypertension Mother , of Brain CA age 66 Cancer Social History Smoking and tobacco/nicotine status: former use of tobacco/nicotine Alcohol intake: current Alcohol intake frequency: few times a week Alcohol type: hard liquor Substance/Drug Use: never Adopted: No Caregiver/support person: Yes Lives independently: Yes Household members: spouse and family Housing: House Marital status: Number of children: 23 Highest education level completed: Associate Degree: Academic Program service: No Current occupational status: retired Physical Exam 2 Const: GENERAL APPEARANCE: lethargic ORIENTATION/CONSCIOUSNESS: Yes lethargic HENMT: COMMON NORMALS: normocephalic and atraumatic HEAD & SCALP: n ormocephalic and atraumatic Resp: COMMON NORMALS: normal respiratory effort, No retractions, No use of accessory muscles and clear to auscultation bilaterally AUSCULTATION: clear to auscultation bilaterally Cardio: COMMON NORMALS: regular rate, regular rhythm and No murmurs present (Cardio) RATE: regular rate RHYTHM: regular rhythm GI: COMMON NORMALS: Soft to palpation and No hepatosplenomegaly present A USCULTATION: Yes normoactive bowel sounds PALPATION: Yes Soft to palpation, No Tenderness to palpation present (GI), No Guarding due to palpation present (GI) and Yes No hepatosplenomegaly present Extremity: COMMON NORMALS: normal to inspection, capillary refill normal, no clubbing, cyanosis or edema, no calf tenderness and no pedal edema Neuro: SENSORIUM/ORIENTATION: Yes lethargic Skin: COMMON NORMALS: no rashes or lesions noted GENERAL SKIN EXAM: no rashes or lesions noted Course 2 Vital Signs: Vital signs: Vital Signs Temperature 98.2 F 01/27/24 04:00 Pulse Rate 86 01/27/24 08:00 Respiratory Rate 16 01/27/24 08:00 Blood Pressure 135/67 01/27/24 08:00 Pulse Oximetry 93 01/27/24 08:00 Oxygen Delivery Me thod Room Air 01/27/24 08:00 MDM - Altered Mental Status Medical Decision Making Altered mental status difficult to arouse. No leukocytosis but does have cystitis.. No acute CT findings in the head. Will admit to observation IV antibiotics started discussed with family. Reviewed with hospitalist orders written. CT confirms no acute obstruction or nephrolithiasis there is question of delayed gastric emptying. Reviewed with hospitalist they will address. Medical Records I reviewed the patient's medical records. Lab Data I reviewed the patient's lab results. 01/27/24 03:20 01/27/24 03:20 Radiology Impressions Chest X-Ray 01/26/24 16:08 IMPRESSION: No acute findings. Head CT 01/26/24 16:10 IMPRESSION: 1. No acute findings. 2. Cerebral atrophy is noted along with chronic white matter ischemic changes. Abdomen/Pelvis CT 01/26/24 17:35 IMPRESSION: 1. Findings raising the question of low-grade partial small bowel obstruction in the proper clinical setting. 2. Rectal wall thickening raising the question of proctitis or sequela of radiation change. Follow-up proctoscopy is recommended to exclude an underlying mucosal neoplasm. 3. Mild pericholecystic haziness. Consider correlation with biliary labs and right upper quadrant ultrasound. Laboratory Results WBC 11.12 10^3/uL (3.29-11.43) 01/26/24 16:42 RBC 3.92 10^6/uL (3.85-5.65) 01/26/24 16:42 Hgb 12.00 g/dL (11.27-16.99) 01/26/24 16:42 Hct 37.5 % (37-53) 01/26/24 16:42 MCV 95.7 fl (82-101) 01/26/24 16:42 MCH 30.6 pg (27-33) 01/26/24 16:42 MCHC 32.0 g/dL (30-55) 01/26/24 16:42 RDW 14.0 % (12.1-15.1) 01/26/24 16:42 Plt Count 119 10^3/cmm (157-399) L 01/26/24 16:42 MPV 10.4 fL (7.4-10.4) 01/26/24 16:42 Neut % (Auto) 88.8 % 01/26/24 16:42 Lymph % (Auto) 5.2 % 01/26/24 16:42 [place]ing % (Auto) 5.0 % 01/26/24 16:42 Eos % (Auto) 0.2 % 01/26/24 16:42 Baso % (Auto) 0.4 % 01/26/24 16:42 Neut # (Auto) 9.88 10^3/uL (1.8-7.7) H 01/26/24 16:42 Lymph # (Auto) 0.6 10^3/uL (0.8-4.8) L 01/26/24 16:42 Harding # (Auto) 0.6 10^3/uL (0.2-0.9) 01/26/24 16:42 Eos # (Auto) 0.0 10^3/uL (0.0-0.8) 01/26/24 16:42 Baso # (Auto) 0.0 10^3/uL (0.0-0.1) 01/26/24 16:42 Nucleated RBC % (auto) 0 % 01/26/24 16: Nucleated RBCs # 0.0 /100WBC 01/26/24 16:42 D-Dimer 1.30 ug/mLFEU (0-0.59) H 01/26/24 16:42 Sodium 138 mmol/L (136-145) 01/26/24 16:42 Potassium 4.7 mmol/L (3.5-5.1) 01/26/24 16:42 Chloride 99 mmol/L (98-107) 01/26/24 16:42 Carbon Dioxide 27 mmol/L (22-29) 01/26/24 16:42 Anion Gap 16.7 (5-19) 01/26/24 16:42 BUN 29 mg/dL (8-23) H 01/26/24 16:42 Creatinine 0.9 mg/dL (0.7-1.2) 01/26/24 16:42 GFR Calculation Not Reportable 01/26/24 16:42 Glucose 347 mg/dL (65-115) H 01/26/24 16:42 POC Glucose 323 mg/dL (70-110) H 01/26/24 16:32 Calculated Osmolality 306 mOsm/kg (285-295) H 01/26/24 16:42 Lactic Acid 1.6 mmol/L (0.5-2.2) 01/26/24 16:42 Calcium 9.1 mg/dL (8.5-10.5) 01/26/24 16:42 Total Bilirubin 1.0 mg/dL (0.15-1.2) 01/26/24 16:42 AST 20 U/L (0-40) 01/26/24 16:42 ALT 16 U/L (0-41) 01/26/24 16:42 Alkaline Phosphatase 64 U/L (40-130) 01/26/24 16:42 Creatine Kinase 51 U/L (39-308) 01/26/24 16:42 Troponin T Baseline 48 ng/L (0-15) H 01/26/24 16:42 NT-Pro-B Natriuret Pep 5427 pg/mL (0-450) H 01/26/24 16:42 Total Protein 6.7 g/dL (6.6-8.7) 01/26/24 16:42 Albumin 4.1 g/dL (3.5-5.2) 01/26/24 16:42 Globulin 2.6 g/dL (1.3-4.6) 01/26/24 16:42 Urine Color Yellow (Yellow) 01/26/24 17:03 Urine Appearance Clear (CLEAR) 01/26/24 17:03 Urine pH 5 (5-7) 01/26/24 17:03 Ur Specific [place] 1.015 (1.005-1.030) 01/26/24 17:03 Urine Protein Neg (Negative) 01/26/24 17:03 Urine Glucose (UA) Norm (Normal) 01/26/24 17:03 Urine Ketones Negative (Negative) 01/26/24 17:03 Urine Blood 3+ (Negative) H 01/26/24 17:03 Urine Nitrate Positive (Negative) H 01/26/24 17:03 Urine Bilirubin Neg (Negative) 01/26/24 17:03 Urine Urobilinogen Norm mg/dL (Negative) 01/26/24 17:03 Ur Leukocyte Esterase 1+ (Negative) H 01/26/24 17:03 Urine RBC 0-4 /hpf (0-2) H 01/26/24 17:03 Urine WBC 5-10 /hpf (0-5) H 01/26/24 17:03 Ur Squamous Epith Cells 0-4 /hpf (0-5) H 01/26/24 17:03 Amorphous Sediment Not Reportable 01/26/24 17:03 Urine Bacteria 4+ /hpf (NONE) H 01/26/24 17:03 All radiology interpretation(s) finalized by discharge Discharge Plan Discharge Patient Disposition: Admitted As Inpatient Admit Provider: Le Hutson Clinical Impression: Cystitis, Proctitis Condition: Stable Coding Level of Care Code ED Dipper Machine Operator for Codi Ramos
[2024-01-26 16:35] LABS: Glucose Point of Care 323 mg/dL (70-110)
--- NOTE | 2024-01-26 16:54 | PC.PHAR ---
pts daughter verified pts medications-notes are made in the pharmacy comments
[2024-01-26 17:04] LABS: Basophils % 0.4 %; Eosinophils % 0.2 %; Hematocrit 37.5 % (37-53); Lymphocytes # 0.6 10^3/uL (0.8-4.8); Lymphocytes % 5.2 %; Mean Corpuscular Hemoglobin 30.6 pg (27-33); Mean Corpuscular Volume 95.7 fl (82-101); Mean Platelet Volume 10.4 fL (7.4-10.4); Monocytes # 0.6 10^3/uL (0.2-0.9); Neutrophils # 9.88 10^3/uL (1.8-7.7); Neutrophils % 88.8 %; Nucleated Red Blood Cells % 0 %; Platelet Count 119 10^3/cmm (157-399); Red Blood Count 3.92 10^6/uL (3.85-5.65); White Blood Count 11.12 10^3/uL (3.29-11.43)
[2024-01-26 17:19] LABS: Troponin(5th) Baseline 48 ng/L (0-15)
[2024-01-26 17:21] LABS: Lactic Sepsis W/Reflex 1.6 mmol/L (0.5-2.2)
[2024-01-26 17:23] LABS: Add Urine Culture? Yes; Add Urine Microscopic? YES; Bacteria Urine 4+ /hpf; Bilirubin Urine Neg (Negative); Blood Urine 3+ (Negative); Glucose Urine UA Norm (Normal); Ketones Urine Negative (Negative); Leukocyte Esterase Urine 1+ (Negative); Nitrate Urine Positive (Negative); Protein Urine Neg (Negative); RBC Urine 0-4 /hpf (0-2); Specific Gravity, Urine 1.015 (1.005-1.030); Squamous Epithelial Cell Urine 0-4 /hpf (0-5); Urine Appearance Clear (CLEAR); Urine Color Yellow (Yellow); Urobilinogen Urine Norm (Negative); pH Urine 5 (5-7)
--- NOTE | 2024-01-26 17:35 | CTR_ITS ---
PROCEDURE INFORMATION: Exam: CT Abdomen And Pelvis Without Contrast Exam date and time: 01/26/2024 6:08 PM Age: 88 years old Clinical indication: Abdominal pain; Prior surgery; Surgery date: 6+ months; Surgery type: Cabg. Pacer. Hernia. Prostate. [place]. Patient HX: Bilateral flank pain with fever and hematuria. History of prostate cancer. TECHNIQUE: Imaging protocol: Computed tomography of the abdomen and pelvis without contrast. Radiation optimization: All CT scans at this facility use at least one of these dose optimization techniques: automated exposure control; mA and/or kV adjustment per patient size (includes targeted exams where dose is matched to clinical indication); or iterative reconstruction. COMPARISON: CT chest abdpel w/*[id number] 06/23/2022 8:21 PM RADIATION DOSE METRICS: Total DLP (mGy-cm): 733.13 FINDINGS: Lungs: Subsegmental bibasilar atelectasis. The visualized lung bases are otherwise clear. Moderate cardiomegaly with pacer lead partially visualized. Diaphragm: No evidence of diaphragmatic defect. Liver: No evidence of focal hepatic lesion within limitation of a noncontrast exam. Gallbladder and bile ducts: Mild pericholecystic haziness. No evidence of intra-hepatic or extra-hepatic biliary dilatation. Pancreas: Atrophic. Spleen: Grossly unremarkable. Adrenal glands: Grossly unremarkable. Kidneys and ureters: No gross renal parenchymal abnormality. No evidence of hydronephrosis or ureteral stone. Stomach and bowel: Multiple loops of prominent and borderline dilated small bowel measuring up to 2.7 cm with scattered air-fluid levels. There is nondistention of the distal ileum. There is rectal wall thickening. Appendix: Diverticulosis without evidence of acute diverticulitis. No bowel obstruction or perienteric inflammatory changes. Intraperitoneal space: No evidence of free air or fluid collection. Vasculature: Extensive atherosclerosis without evidence of aneurysmal dilitation of abdominal aorta. Lymph nodes: No evidence of adenopathy. Urinary bladder: Grossly unremarkable. Reproductive: Status post prostatectomy. Bones/joints: No evidence of acute fracture or aggresive osseous lesion. Bony demineralization compatible with osteopenia or osteoporosis. Chronic T12 vertebral body compression fracture with a proximally 60% height loss. 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 Right hip arthroplasty noted without gross evidence of complication within the field of view. Soft tissues: No evidence of fluid collection or hematoma in the superficial soft tissues. CT/CT kidney stone [id number] IMPRESSION: 1. Findings raising the question of low-grade partial small bowel obstruction in the proper clinical setting. 2. Rectal wall thickening raising the question of proctitis or sequela of radiation change. Follow-up proctoscopy is recommended to exclude an underlying mucosal neoplasm. 3. Mild pericholecystic haziness. Consider correlation with biliary labs and right upper quadrant ultrasound.
[2024-01-26 17:40] LABS: Alanine Aminotransferase 16 U/L (0-41); Albumin Level 4.1 g/dL (3.5-5.2); Alkaline Phosphatase 64 U/L (40-130); Anion Gap 16.7 (5-19); Aspartate Amino Transferase 20 U/L (0-40); Blood Urea Nitrogen 29 mg/dL (8-23); Calcium 9.1 mg/dL (8.5-10.5); Carbon Dioxide 27 mmol/L (22-29); Chloride 99 mmol/L (98-107); Creatine Phosphokinase 51 U/L (39-308); Creatinine Clr Calc Pharmacy 65.5034; Globulin 2.6 g/dL (1.3-4.6); Glucose 347 mg/dL (65-115); NT Pro B Type Natriuretic Pept 5427 pg/mL (0-450); Osmolality Calculated 306 mOsm/kg (285-295); Potassium 4.7 mmol/L (3.5-5.1); Sodium 138 mmol/L (136-145); Total Protein 6.7 g/dL (6.6-8.7)
[2024-01-26] MEDS: cefTRIAXone 1,000 MG in sodium chloride 0.9% (plus) 50 ML 100 MG IV (17:56)
[2024-01-26 19:09] LABS: Troponin 5 2HR 50.68 ng/L (0-15); Troponin 5 2HR Delta 2.68 ABS# (0-10)
[2024-01-26] MEDS: sodium chloride 0.9% 1,000 ML 75 ML IV (20:49)
--- NOTE | 2024-01-26 20:58 | P.HP_ITS ---
Providers/Chief Complaint 2 Admitting Physician: Le Hutson MD Primary Care Provider: Gopal Cameron MD Chief Complaint: ams, sob, altered mentation History of Present Illness Dany Whitehead is a 88 year old male who came to the hospital for worsening of confusion lethargy fatigue. Daughter at the bedside, as per the daughter Mr. Whitehead tries to communicate with the family, he eats regular food, family is being taught higher lift because he has multiple ulcers on his left foot for which she is seeing Dr. Francis, his dressing is changed every Monday, As per the daughter Mr. Whitehead received COVID-19 booster vaccine on Monday and since then he has been going downhill, they have not noticed any fever, nausea, vomiting, diarrhea but today he had a large bowel movement before he came to the hospital, patient has not complained abdominal pain or chest pain There is concern for UTI CT abdomen pelvis scanning showing partial bowel obstruction with concern of proctitis Patient extremely dry Oriented to himself only Daughter stating that due to self cath, his urologist is in [facility], [place], operated by [facility], patient wears adult diapers Workup in the ER also reveals BNP of 5000 troponin without significant delta Patient clinical looks extremely dry Review of Systems 2 General: Reports: ROS unobtainable due to medical condition Medications/Allergies Home Medications Medication Instructions Recorded Confirmed Last Taken Type apixaban 5 mg tablet (Eliquis) 5 mg PO BID 12/23/19 01/26/24 01/26/24 History aspirin 81 mg tablet,delayed 81 mg PO QAM 12/23/19 01/26/24 01/26/24 History release carvedilol 25 mg tablet 25 mg PO BID 12/23/19 01/26/24 01/26/24 History eplerenone 25 mg tablet 25 mg PO QAM 12/23/19 01/26/24 01/26/24 History potassium chloride 20 mEq 20 meq PO QAM 12/23/19 01/26/24 01/26/24 History tablet,extended release(part/cryst) simvastatin 80 mg tablet 80 mg PO QAM 12/23/19 01/26/24 01/26/24 History tamsulosin 0.4 mg capsule 0.4 mg PO QPM 12/23/19 01/26/24 01/25/24 History albuterol sulfate 90 mcg/actuation 1 - 2 puff inhalation Q4H PRN 01/09/20 01/26/24 Unknown History aerosol inhaler (ProAir HFA) Shortness Of Breath magnesium L-lactate 84 mg 84 mg PO BID 01/09/20 01/26/24 01/26/24 History tablet,extended release omeprazole 20 mg capsule,delayed 20 mg PO BID 01/09/20 01/26/24 01/26/24 History release acetaminophen 650 mg 650 mg PO BEDTIME PRN Sleep 10/14/20 01/26/24 12/12/21 History tablet,extended release cholecalciferol (vitamin D3) 25 1,000 unit PO BID 10/14/20 01/26/24 01/26/24 History mcg (1,000 unit) capsule (Vitamin D3) olopatadine 0.1 % eye drops 1 drp ophthalmic (eye) BID unknown 10/14/20 01/26/24 Unknown History furosemide 40 mg tablet (Lasix) See Rx Instructions .Route .COMPLEX 05/06/22 01/26/24 01/26/24 History hydrocodone 5 mg-acetaminophen 325 1 tab PO BEDTIME 05/06/22 01/26/24 01/24/24 History mg tablet Diabetic Shoes with smooth bottom #1 ea 05/18/22 01/26/24 Unknown Rx and 3 Pairs of Inserts hydroxyzine HCl 25 mg tablet 25 mg PO BEDTIME 04/02/23 01/26/24 01/25/24 History ondansetron HCl 4 mg tablet 4 mg PO Q8H PRN Nausea 04/02/23 01/26/24 Unknown History gabapentin 400 mg capsule 400 mg PO BID 04/18/23 01/26/24 01/26/24 History sacubitril 49 mg-valsartan 51 mg 1 tab PO BID 05/19/23 01/26/24 01/26/24 History tablet (Entresto) compression stockings C and D #1 ea 12/25/23 01/26/24 Unknown Rx escitalopram oxalate 20 mg tablet 20 mg PO QAM 01/26/24 01/26/24 01/26/24 History fexofenadine 60 mg tablet (Noelle 60 mg PO BID 01/26/24 01/26/24 01/26/24 History Allergy) sitagliptin phosphate 50 mg tablet 50 mg PO QAM 0301/26/24 01/26/24 History (Januvia) umeclidinium 62.5 mcg/actuation 1 inh inhalation QAM 01/26/24 01/26/24 Unknown History blister powder for inhalation (Incruse Ellipta) Allergies Allergy/AdvReac Type Severity Reaction Status Date / Time adhesive tape Allergy Mild ALGY-Rash Verified 01/22/24 15:45 latex Allergy Mild ALGY-Rash Verified 01/22/24 15:45 cats Allergy coughing Uncoded 01/22/24 15:45 dogs Allergy coughing Uncoded 01/22/24 15:45 PFSH Acute 2 PFSH: Medical History DNI (do not intubate) Opiate overdose Tracheobronchomalacia Aspiration pneumonia Hypoxemia Altered mental status Complicated urinary tract infection Hyperlipemia, mixed Depression Hyperlipidemia CHF (congestive heart failure) Coronary artery disease due to type 2 diabetes mellitus Sleep apnea Diabetes mellitus History of prostate cancer COPD (chronic obstructive pulmonary disease) ASCVD (arteriosclerotic cardiovascular disease) A-fib Cardiac defibrillator in place Prostate CA Incontinence Diabetes type 2, uncontrolled PAD (peripheral artery disease) Critical limb ischemia with history of revascularization of same extremity History of UT (myocardial infarction) CHF (congestive heart failure) Hammertoe, bilateral Onychodystrophy Surgical History S/P carotid endarterectomy S/P hip hemiarthroplasty S/P hernia surgery S/P cataract surgery S/P knee surgery S/P eye surgery S/P prostatectomy S/P cardiac pacemaker procedure S/P CABG (coronary artery bypass graft) X5 Family History Family/Other No problems noted. Father , age 57 UT Myocardial infarction CAD (coronary artery disease) Hypertension Mother , of Brain CA age 66 Cancer Social History Smoking and tobacco/nicotine status: former use of tobacco/nicotine Alcohol intake: current Alcohol intake frequency: few times a week Alcohol type: hard liquor Substance/Drug Use: never Adopted: No Caregiver/support person: Yes Lives independently: Yes Household members: spouse and family Housing: House Marital status: Number of children: 23 Highest education level completed: Associate Degree: Academic Program service: No Current occupational status: retired Vitals/I&O/Wt Last Vital Signs Temp 98.8 F 01/26/24 20:00 Pulse 67 01/26/24 20:00 Resp 19 H 01/26/24 20:00 BP 100/50 01/26/24 20:00 Pulse Ox 95 01/26/24 20:00 O2 Del Method Room Air 01/26/24 20:00 01/26/24 01/26/24 01/26/24 06:59 14:59 22:59 Intake Total 50 / 50 Balance 50 / 50 Weight last 48 hrs Weight 79.469 kg Weight 90.718 kg Physical Exam 2 Narrative: Pleasant and cooperative Very dry mucous membranes Dehydrated Left foot covered with dressing Offloading dressing right foot Abdomen soft Hyperactive bowel sounds S1, S2 Currently on room air Patient is oriented to himself multiple to answer all of my questions Short attention span Daughter is at the bedside Currently patient is on room air afebrile with stable hemodynamics Data 01/26/24 16:42 01/26/24 16:42 Micro: Microbiology 01/26/24 16:45 Blood Culture - Preliminary Blood SPECIMEN COLLECTED 01/26/24 16:42 Blood Culture - Preliminary Blood SPECIMEN COLLECTED A&P Assessment and plan (1) Hypotension: (2) PVD (peripheral vascular disease): (3) History of neurological degenerative disease: (4) Tracheobronchomalacia: (5) Proctitis: (6) Partial bowel obstruction: (7) Hyperglycemia: Plan Metabolic encephalopathy related to proctitis Concern for UTI Start antibiotics Keep him n.p.o. for possible obstruction No active emesis Abdominal pain not present Hyperactive bowel sounds My threshold to put NG tube will stay low in case he starts complain abdominal pain or vomits For now I would continue gentle fluid hydration Clinically he is extremely dry High BNP no active signs of heart failure For UTI patient will get antibiotics we will wait for urine culture report Patient self caths at home urologist in [place] Patient is bedbound will request D-dimer to rule out thromboembolic phenomenon He will be considered high risk He is on Eliquis already 5 mg twice a day which I would hold because of partial SBO we will switch him to therapeutic Lovenox Patient is on limited resuscitation does not want intubation, this was discussed on previous admissions patient only wants defibrillation and ACLS drugs in ICU admission This should be discussed in the morning when patient is more awake and alert Attestations 2 Medical Necessity Statement*: More than 2 midnights anticipated Diagnoses Hypotension I95.9 PVD (peripheral vascular disease) I73.9 History of neurological degenerative disease Z86.69 Tracheobronchomalacia J39.8 Proctitis K62.89 Partial bowel obstruction K56.600 Hyperglycemia R73.9
[2024-01-26 21:03] LABS: Lactic Sepsis W/Reflex 1.9 mmol/L (0.5-2.2)
[2024-01-26 21:18] LABS: Procalcitonin 4.36 ng/mL (0-0.5); Thyroid Stimulating Hormone 1.97 uIU/mL (0.27-4.20)
[2024-01-26 22:21] LABS: Glucose Point of Care 329 mg/dL (70-110)
[2024-01-26] MEDS: insulin lispro 100 unit/1 mL SUBCUT (23:17)
[2024-01-26] MEDS: enoxaparin 100 mg/mL Syringe 80 MG SUBCUT (23:17)
[2024-01-26] MEDS: piperacillin-tazobactam 3.375 GM in sodium chloride 0.9% (plus) 50 ML IV (23:17)
[2024-01-26 23:18] LABS: Troponin 5 6HR 43.28 ng/L (0-15)
[2024-01-26 23:19] LABS: Troponin 5 6HR Delta -4.72 ng/L (0-12)
[2024-01-27] VITALS (14 sets, daily range): BP systolic 109–140; BP diastolic 58–83; PULSE 57–86; RESP 16–21; TEMP 36.4–38.4; O2SAT 92–100
--- NOTE | 2024-01-27 02:11 | PC.NURSE ---
NG insertion Insertion of NG tube was unsuccessful. 3 attempts were made by this nurse and Charge nurse. Insertion was attempted in both nares. Third attempt resulted in bloody nose in left nare. Patient had difficulty following instructions during insertion. Dr. Greenberg notified that NG had not been placed, no new orders at this time.
[2024-01-27 03:50] LABS: Basophils % 0.3 %; Eosinophils % 0.1 %; Hematocrit 35.8 % (37-53); Lymphocytes % 9.9 %; Mean Corpuscular HGB Conc 31.3 g/dL (30-55); Mean Corpuscular Hemoglobin 30.2 pg (27-33); Mean Corpuscular Volume 96.5 fl (82-101); Mean Platelet Volume 10.9 fL (7.4-10.4); Monocytes # 0.7 10^3/uL (0.2-0.9); Neutrophils % 82.2 %; Nucleated Red Blood Cells % 0 %; Platelet Count 118 10^3/cmm (157-399); Red Blood Count 3.71 10^6/uL (3.85-5.65); Red Cell Distribution Width 14.2 % (12.1-15.1); White Blood Count 10.33 10^3/uL (3.29-11.43)
--- NOTE | 2024-01-27 04:21 | PC.RESP ---
Patient has a bipap order the order states that patient needs NG tube before being placed on bipap so he does not vomit in the mask. contcacted Doctor at 0225. waiting on a reply. Due to the possible vomitting patient was not placed on bipap to avoid the risk of aspiration.
[2024-01-27 04:23] LABS: Alanine Aminotransferase 13 U/L (0-41); Albumin Level 3.6 g/dL (3.5-5.2); Alkaline Phosphatase 51 U/L (40-130); Aspartate Amino Transferase 18 U/L (0-40); Blood Urea Nitrogen 27 mg/dL (8-23); Calcium 9.1 mg/dL (8.5-10.5); Carbon Dioxide 28 mmol/L (22-29); Chloride 104 mmol/L (98-107); Creatinine Clr Calc Pharmacy 61.8232; Globulin 2.9 g/dL (1.3-4.6); Glucose 162 mg/dL (65-115); Osmolality Calculated 303 mOsm/kg (285-295); Sodium 142 mmol/L (136-145); Total Bilirubin 0.6 mg/dL (0.15-1.2); Total Protein 6.5 g/dL (6.6-8.7)
[2024-01-27] MEDS: piperacillin-tazobactam 3.375 GM in sodium chloride 0.9% (plus) 50 ML IV ×3 (06:22→21:39)
[2024-01-27 06:26] LABS: Glucose Point of Care 178 mg/dL (70-110)
[2024-01-27] MEDS: morphine 4 mg/mL SDV 1 mL 2 MG IVP ×2 (07:14→14:54)
[2024-01-27] MEDS: sodium chloride 0.9% 1,000 ML 75 ML IV ×2 (09:35→21:40)
--- NOTE | 2024-01-27 09:39 | US_ITS ---
WS: [id number] RIGHT UPPER QUADRANT ULTRASOUND HISTORY: pericholecystic haziness on CT, fever COMPARISON: 01/26/2024 Liver: 15.6 cm in length. Incompletely visualized liver due to bowel gas. No mass or intrahepatic dil atation. Portal Vein: Normal hepatopetal flow with monophasic waveform. Gallbladder: Normally distended gallbladder with no stones or wall thickening. CBD: 0.6 cm Pancreas: Not visualized. Right kidney: 10.2 cm in length. Normal size and echogenicity. No hydronephrosis or mass. Aorta and IVC: Unremarkable abdominal aorta and IVC. No ascites. IMPRESSION: 1. Negative gallbladder. No wall thickening or cholelithiasis. 2. Pancreas is not visualized.
[2024-01-27] MEDS: acetaminophen 650 mg/20.3 mL UDC PO (10:45)
[2024-01-27] MEDS: enoxaparin 100 mg/mL Syringe 80 MG SUBCUT ×2 (10:46→21:39)
--- NOTE | 2024-01-27 12:14 | PC.SLP ---
Pt lethargic and could not keep his eyes open. Pt also demonstrated significant difficulty expectorating, while therapist was in his room. The therapist informed family to not give food/drinks until and eval can be done. Therapist did ok wetting the oral cavity with toothettes. Pt will attempt to evaluate tomorrow. Therapist spoke to nursing.
--- NOTE | 2024-01-27 13:24 | P.PN_ITS ---
Subjective 2 Subjective: Seen this morning. Family at bedside. Patient: As I am seeing him at bedside. Family states that he has had issues with aspiration in the past and they feel he might be aspirating at home as well. They say whenever he gets discharged from the hospital to try to stick to a thickened liquid diet and sometimes small bite sized. They deny that he has a history of dementia. Believe that currently he is close to his baseline mental status. They do notice that he gets more lethargic at times with Tylenol or the hydrocodone he takes at night. In the last few days he has been more lethargic but still taking all his medications.. Family had concerns of why he was not getting all his home medications were at explained that they were being held on purpose given his current condition. Daughter states that patient gets chronic UTIs and recurrent UTIs. They have started doing straight cath for the patient twice a day recently. Follows with urology in [place]. They are unsure however if at this time patient is aspirating or not. 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 Patient used to follow-up with Dr. Schilling and was seen by neurologist in [place] however no longer follows with anybody anymore. Patient uses trilogy at home at nighttime for his sleep apnea. Neurology note reviewed from 2013. 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 He has progressively declined and had profound dysarthria with severe midline ataxia. Patient did not respond to dopaminergic therapy back in the day. 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 Vitals/I&O/Wt Last Vital Signs Temp 98.0 F 01/27/24 12:00 Pulse 79 01/27/24 12:00 Resp 16 01/27/24 12:00 BP 135/67 01/27/24 08:00 Pulse Ox 94 01/27/24 12:00 O2 Del Method Room Air 01/27/24 12:00 01/26/24 01/27/24 01/27/24 22:59 06:59 14:59 Intake Total 50 / 50 50 / 100 1007.5 / 1007.5 Output Total 250 / 250 Balance 50 / 50 -200 / -150 1007.5 / 1007.5 Weight last 48 hrs Weight 78.103 kg Weight 79.469 kg Weight 90.718 kg Physical Exam 2 Narrative: Pleasant and cooperative, dysarthria, difficult to understand Very dry mucous membranes, appears dehydrated. Gurgling at this time. Possibly microaspiration continuous. Does appear slightly drowsy. Offloading dressing right foot Abdomen soft, nontender does not grimace to palpation. States he is not in pain. Bowel sounds present all 4 quadrants. S1, S2 Currently on room air Patient is oriented to himself and does answer questions when asked. Short attention span Daughter is at the bedside, is at bedside. 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 Patient has been kept n.p.o. for possible obstruction However he has had 2 bowel movement so far. Bowel sounds present in all 4 quadrants. Abdominal exam is benign. Nontender soft. Patient is passing gas. I may go ahead and start clear liquid diet for him however he has failed his swallow evaluation at this time. Speech therapy will attempt again in the morning. Patient has slightly drowsy at this time. NG tube was attempted overnight 3 times however could not be placed. I will wait for speech to be see the patient however patient may need modified barium swallow. Clinically I believe he may be aspirating. Initiated aspiration precautions Continue on IV fluids at this time. I will hold Lasix, Entresto at this time. Continue Zosyn. UTI Chronic UTIs Recurrent UTIs Neurogenic bladder?self-catheterization twice a day by family. ? This status has been difficult to cath patient at home due to position and other circumstances. ? I may recommend a Jewell at this time since he is unable to get straight cathed very frequently during the day. He may see urology outpatient to have that removed at a later date. ? Continue on Zosyn at this time. ? Await urine culture report ? Patient to follow-up with urology as outpatient after discharge. For UTI patient will get antibiotics we will wait for urine culture report Patient self caths at home urologist in [place] Patient is bedbound will request D-dimer to rule out thromboembolic phenomenon -D-dimer 1.30. H assessment done. VTE unlikely. He will be considered high risk Continue on Lovenox therapeutic twice daily. 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 Patient on Entresto eplerenone, Lasix at home. Will hold all 3 above at this time Continue aspirin, Coreg. Coreg to be given at reduced dose of 12.5 twice daily. Diabetes mellitus ? On Januvia at home which we will hold at this time. ? May place on low-dose intensity sliding scale however patient is n.p.o. at this time. Patient is on limited resuscitation does not want intubation, this was discussed on previous admissions patient only wants defibrillation and ACLS drugs in ICU admission Attestations 2 Medical Necessity Statement*: More than 2 midnights anticipated Diagnoses Hypotension I95.9 PVD (peripheral vascular disease) I73.9 History of neurological degenerative disease Z86.69 Tracheobronchomalacia J39.8 Proctitis K62.89 Partial bowel obstruction K56.600 Hyperglycemia R73.9
[2024-01-27 16:10] LABS: Glucose Point of Care 155 mg/dL (70-110)
[2024-01-27 16:47] LABS: Acinetobacter baumannii Not Detected (NOT DETECT); Bacteroides fragilis Not Detected (NOT DETECT); CTX-M Not Detected (NOT DETECT); Citrobacter Not Detected (NOT DETECT); Cronobacter sakazakii Not Detected (NOT DETECT); Enterobacter cloacae complex Not Detected (NOT DETECT); Enterobacter non cloacae Not Detected (NOT DETECT); Fusobacterium necrophorum Not Detected (NOT DETECT); Fusobacterium nucleatum Not Detected (NOT DETECT); Haemophilus influenzae Not Detected (NOT DETECT); IMP Resistance Gene Not Detected (NOT DETECT); KPC Resistance Gene Not Detected (NOT DETECT); Klebsiella pneumoniae group Not Detected (NOT DETECT); Morganella morganii Not Detected (NOT DETECT); NDM Resistance Gene Not Detected (NOT DETECT); Neisseria meningitidis Not Detected (NOT DETECT); OXA Resistance Gene Not Detected (NOT DETECT); Pan Candida Not Detected (NOT DETECT); Pan Gram-Positive Not Detected (NOT DETECT); Proteus mirabilis Not Detected (NOT DETECT); Pseudomonas aeruginosa Detected (NOT DETECT); Salmonella Not Detected (NOT DETECT); Serratia Not Detected (NOT DETECT); Serratia marcescens Not Detected (NOT DETECT); Stenotrophomonas maltophilia Not Detected (NOT DETECT); VIM Resistance Gene Not Detected (NOT DETECT)
[2024-01-27 21:44] LABS: Glucose Point of Care 144 mg/dL (70-110)
[2024-01-28] VITALS (11 sets, daily range): BP systolic 116–149; BP diastolic 68–83; PULSE 59–65; RESP 16–21; TEMP 36.3–37.5; O2SAT 90–100
[2024-01-28] MEDS: morphine 4 mg/mL SDV 1 mL 2 MG IVP ×2 (03:03→06:50)
[2024-01-28 04:15] LABS: Glucose Point of Care 171 mg/dL (70-110)
[2024-01-28] MEDS: piperacillin-tazobactam 3.375 GM in sodium chloride 0.9% (plus) 50 ML IV ×2 (05:30→20:00)
[2024-01-28 05:43] LABS: Basophils % 0.4 %; Eosinophils # 0.1 10^3/uL (0.0-0.8); Eosinophils % 0.7 %; Lymphocytes # 0.8 10^3/uL (0.8-4.8); Lymphocytes % 10.3 %; Mean Corpuscular HGB Conc 31.4 g/dL (30-55); Mean Corpuscular Hemoglobin 30.2 pg (27-33); Mean Corpuscular Volume 96.3 fl (82-101); Mean Platelet Volume 10.7 fL (7.4-10.4); Monocytes # 0.4 10^3/uL (0.2-0.9); Monocytes % 5.7 %; Neutrophils # 6.28 10^3/uL (1.8-7.7); Neutrophils % 82.6 %; Nucleated Red Blood Cells % 0 %; Platelet Count 119 10^3/cmm (157-399); Red Blood Count 3.74 10^6/uL (3.85-5.65); Red Cell Distribution Width 14.1 % (12.1-15.1); White Blood Count 7.59 10^3/uL (3.29-11.43)
[2024-01-28 06:18] LABS: Alanine Aminotransferase 12 U/L (0-41); Albumin Level 3.5 g/dL (3.5-5.2); Alkaline Phosphatase 50 U/L (40-130); Anion Gap 17.4 (5-19); Aspartate Amino Transferase 18 U/L (0-40); Blood Urea Nitrogen 28 mg/dL (8-23); Carbon Dioxide 24 mmol/L (22-29); Chloride 108 mmol/L (98-107); Creatinine Clr Calc Pharmacy 61.8975; Glucose 190 mg/dL (65-115); Magnesium 1.9 mg/dL (1.7-2.3); Osmolality Calculated 313 mOsm/kg (285-295); Phosphorus 3.2 mg/dL (2.5-4.5); Potassium 3.4 mmol/L (3.5-5.1); Sodium 146 mmol/L (136-145); Total Bilirubin 0.6 mg/dL (0.15-1.2); Total Protein 6.5 g/dL (6.6-8.7)
--- NOTE | 2024-01-28 09:26 | PC.SLP ---
Therapist spoke to Dr. Hutson prior to evaluating pt. Therapist and agreed to wait on feeding/drinking trials, therefore, trials were not given. Therapist spoke to patient's daughter regarding the risks of aspiration, even if an MBS is completed, the patient has the potential to aspirate during the MBS. Education given regarding weakness of swallowing musculature/function provided. Education involving silent aspiration was also given. The patient's daughter demonstrated understanding. Pt was given morphine prior to ST going into the patient's room. Pt not alert enough, as well. Nursing was present in room during discussion of aspiration risks.
[2024-01-28] MEDS: enoxaparin 100 mg/mL Syringe 80 MG SUBCUT ×2 (09:48→21:40)
[2024-01-28 10:31] LABS: Glucose Point of Care 170 mg/dL (70-110)
[2024-01-28] MEDS: scopolamine 1.5 Patch 1 PATCH TRANSDERMA (11:55)
--- NOTE | 2024-01-28 11:57 | XRR_ITS ---
PROCEDURE INFORMATION: Exam: XR Chest Exam date and time: 01/28/2024 12:35 PM Age: 88 years old Clinical indication: Cough and dyspnea; Additional info: Possible aspiration TECHNIQUE: Imaging protocol: Radiologic exam of the chest. Views: 1 view. COMPARISON: CT chest wo con [id number] 01/28/2024 12:33 PM FINDINGS: Tubes, catheters and devices: Cardiac pacemaker on the left with leads in satisfactory position. Lungs: There is diffuse bilateral pulmonary infiltrate, worse on the left than right. Pleural spaces: A small pleural effusion is noted in the left base. Heart/Mediastinum: Moderate cardiomegaly is noted. Bones/joints: Sternal sutures are noted. XR/XR chest 1V portable [id number] IMPRESSION: CHF with small left pleural effusion
--- NOTE | 2024-01-28 12:06 | CTR_ITS ---
PROCEDURE INFORMATION: Exam: CT Chest Without Contrast; Diagnostic Exam date and time: 01/28/2024 12:33 PM Age: 88 years old Clinical indication: Cough and dyspnea; Additional info: Aspiration? TECHNIQUE: Imaging protocol: Diagnostic computed tomography of the chest without contrast. Radiation optimization: All CT scans at this facility use at least one of these dose optimization techniques: automated exposure control; mA and/or kV adjustment per patient size (includes targeted exams where dose is matched to clinical indication); or iterative reconstruction. COMPARISON: CT chest abdpel w/*[id number] 06/23/2022 8:21 PM RADIATION DOSE METRICS: Total DLP (mGy-cm): 651.25 FINDINGS: Tubes, catheters and devices: Cardiac pacemaker on the left with leads in satisfactory position. Lungs: Patchy pulmonary edema is scattered throughout both lungs. Pleural spaces: Small pleural effusions are noted bilaterally along with bibasilar atelectasis. Heart: Prominent cardiomegaly is noted and there is evidence of previous heart surgery. Lymph nodes: Unremarkable. No enlarged lymph nodes. Vasculature: Unremarkable. No aortic aneurysm. Bones/joints: Unremarkable. No acute fracture. Soft tissues: Unremarkable. CT/CT chest con [id number] IMPRESSION: CHF
--- NOTE | 2024-01-28 12:59 | USCV_ITS ---
Dany Whitehead Age: 88 Gender: M : 1935 Exam Date: 01/28/2024 15:55 Ordering Phys: Le Hutson MD Technologist: Paolo Maynard [place] [facility] [place]: chf BP: 149 / 83 HR: 60 Rhythm: Sinus Technical Quality: MEASUREMENTS (Male / Female) Normal Values 2D ECHO LV Ejection Fraction MOD 2C 28.5 % LV Ejection Fraction 2C AL 28.2 % RA Systolic Volume 4C AL 64.5 ml RA Systolic Volume 4C MOD 62.5 ml DOPPLER AV Peak Velocity 108.0 cm/s LVOT Peak Velocity 61.0 cm/s MV Peak Velocity 106.0 cm/s MV Area PHT 6.5 cm squared Mitral E to A Ratio 2.5 TR Peak Velocity 312.0 cm/s TR Peak Gradient 38.9 mmHg TR Mean Velocity 251.0 cm/s TR Mean Gradient 27.5 mmHg TR Velocity Time Integral 95.0 cm FINDINGS Left Ventricle Moderately dilated left-ventricular with a severe diffuse hypokinesia. Ejection fraction 28%. Right Ventricle Defibrillator wire in the right ventricle. Normal RV size with a slightly diminished ejection fraction Right Atrium Mildly increased right atrial size. Left Atrium Mildly increased left atrial size. Mitral Valve Thickened mitral valve. Mild mitral annular calcification. Moderate mitral valve regurgitation. Aortic Valve No gross abnormalities noted Tricuspid Valve Trace tricuspid valve regurgitation. Pulmonic Valve Pulmonic valve not well visualized. Pericardium No pericardial effusion. Aorta Aorta not well visualized. IVC Inferior vena cava not visualized. CONCLUSIONS Moderately dilated left-ventricular with a severe diffuse hypokinesia, ejection fraction of 28%.. Mild biatrial enlargement. Normal RV size with a slightly diminished ejection fraction Defibrillator wire in the right ventricle. Thickened mitral valve. Mild mitral annular calcification. Moderate mitral valve regurgitation. Trace tricuspid valve regurgitation. There is no pericardial effusion. There are no intracardiac masses. Comparison with the previous study is difficult because of the difference in the technical quality. Dr Thiago Horton MD [facility] (Electronically Signed) Final Date: 28 January 2024 21:24 S
--- NOTE | 2024-01-28 13:07 | P.PN_ITS ---
Subjective 2 Subjective: Overnight patient was given morphine shortness of breath as per nursing staff. Patient gurgling somewhat and is at high risk of aspiration. Daughter states that at home patient has clinical and has been recommended thickened liquids in the past however he takes them for a few days after being discharged from the hospital and then goes back to thin liquids again. She says that he had a good meal on . Monday and Monday he started getting weak and did not eat much. He became more lethargic. Blood culture positive for Pseudomonas. Urine culture positive for gram-negative rods Also has a history of Pseudomonas and toe which is being managed by Dr. Francis at this time. Sodium 146, potassium 3.4. Discussed with speech therapist who recommends to keep patient n.p.o. at this time. Speech therapist recommending modified barium swallow. I discussed this with the family. Daughter states patient will be amenable to a feeding tube if it comes down to it. We have decided to go ahead and order a barium swallow for tomorrow. Patient is confused this morning however follows commands and said hi to me in the room. Able to move all 4 extremities. Says he can breathe comfortably but at times says has trouble breathing. Crackles bilaterally at bases. No longer appears dehydrated. +1200 net balance. Daughter states that patient has history of CABG, CHF and has not received his Entresto or Lasix in last 2 days. I explained to her these were being held since patient was severely dehydrated on admission. She is requesting to see cardiology. Cardiology notified. Dr. Horton will consult with the patient. CT chest was ordered. Patient has been ordered Lasix 40 IV x 1 as well. Nursing staff report that overnight patient was up from 1 AM to 6 AM and then eventually became very restless. Vitals/I&O/Wt Last Vital Signs Temp 98.1 F 01/28/24 10:59 Pulse 62 01/28/24 10:59 Resp 18 01/28/24 10:59 BP 149/83 01/28/24 10:59 Pulse Ox 97 01/28/24 10:59 O2 Del Method Nasal Cannula 01/28/24 10:59 FiO2 28 01/27/24 23:26 01/27/24 01/28/24 01/28/24 22:59 06:59 14:59 Intake Total 956.25 / 1963.75 50 / 2013.75 50 / 50 Output Total 425 / 425 200 / 625 Balance 531.25 / 1538.75 -150 / 1388.75 50 / 50 Weight last 48 hrs Weight 79.696 kg Weight 78.103 kg Weight 79.469 kg Weight 90.718 kg Physical Exam 2 Narrative: Pleasant and cooperative, dysarthria, difficult to understand Good skin turgor. Does not appear dehydrated. Moist mucous membranes At times gurgles which daughter states is his usual Does not appear drowsy at this time. Awake alert. Offloading dressing right foot Abdomen soft, nontender does not grimace to palpation. States he is not in pain. Bowel sounds present all 4 quadrants. S1, S2 Currently on room air Patient appears somewhat confused this morning. Short attention span Daughter at bedside. Saturating 90% on room air. Urinary Catheter Management: Jewell: Cath Placed During This Visit: yes Reason for Continuing Indwelling Catheter: Acute Urinary Retention or Obstruction Urinary Catheter Date of Insertion: 01/27/24 Urinary Catheter Time of Insertion: 00:30 Data 01/28/24 04:58 01/28/24 04:58 Micro: Microbiology 01/26/24 17:03 Urine Culture - Preliminary Urine,Clean Catch Gram Negative Rods 01/27/24 19:15 Blood Culture - Preliminary Blood SPECIMEN COLLECTED 01/27/24 19:15 Blood Culture - Preliminary Blood SPECIMEN COLLECTED 01/26/24 16:45 Blood Culture - Preliminary Blood Pseudomonas aeruginosa 01/26/24 16:42 Blood Culture - Preliminary Blood NEGATIVE TO DATE A&P Assessment and plan (1) Hypotension: (2) PVD (peripheral vascular disease): (3) 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 Pseudomonas bacteremia History of aspiration pneumonia History of tracheobronchomalacia History of multiple systems atrophy Obstructive sleep apnea Patient has been kept n.p.o. for possible obstruction However he has had 3 bowel movement so far. Bowel sounds present in all 4 quadrants. Abdominal exam is benign. Nontender soft. Patient is passing gas. There is suspicion that patient may be aspirating. Speech therapist consult has been ordered. They recommend to keep patient n.p.o. for now. Recommendation to do modified barium swallow in AM. Initiated aspiration precautions Stop normal saline. Will place on D5 water. I will hold Entresto at this time. Continue Zosyn. 1 out of 4 blood cultures bottle positive for Pseudomonas. Repeat cultures obtained 01/26. May repeat every 48 hours till negative. 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 Consult podiatry UTI Chronic UTIs Recurrent UTIs Neurogenic bladder?self-catheterization twice a day by family. ? This status has been difficult to cath patient at home due to position and other circumstances. ? I may recommend a Jewell at this time since he is unable to get straight cathed very frequently during the day. He may see urology outpatient to have that removed at a later date. ? Continue on Zosyn at this time. ? Await urine culture report ? Patient to follow-up with urology as outpatient after discharge. For UTI patient will get antibiotics we will wait for urine culture report Patient self caths at home urologist in [place] Urine culture positive for gram-negative rods. Patient is bedbound will request D-dimer to rule out thromboembolic phenomenon -D-dimer 1.30. H assessment done. VTE unlikely. He will be considered high risk Continue on Lovenox therapeutic twice daily. Acute on chronic right and left-sided systolic heart failure History of CABG History of CAD History of [place] Hyperlipidemia ? Patient on Entresto eplerenone, Lasix at home. Initially medications were being held. Continue aspirin, Coreg. Coreg to be given at reduced dose of 12.5 twice daily. Restart Lasix. Will give Lasix 40 IV x 1 now. Patient is +1200 pounds at this time. Consult cardiology as per patient's daughter's request. Discussed with Dr. Horton. He will see patient in consultation. Diabetes mellitus type II ? On Januvia at home which we will hold at this time. ? May place on low-dose intensity sliding scale however patient is n.p.o. at this time. Patient is on limited resuscitation does not want intubation, this was discussed on previous admissions patient only wants defibrillation and ACLS drugs in ICU admission Discussed CODE STATUS with patient's daughter today. She agrees with above. She says if he does go into respiratory distress or aspirates or any other acute events happen to only provide supportive care at this time.. Attestations 2 Medical Necessity Statement*: More than 2 midnights anticipated Diagnoses Hypotension I95.9 PVD (peripheral vascular disease) I73.9 History of neurological degenerative disease Z86.69 Tracheobronchomalacia J39.8 Proctitis K62.89 Partial bowel obstruction K56.600 Hyperglycemia R73.9
--- NOTE | 2024-01-28 13:21 | PM.CONSULT ---
Providers/Reason For Consult Consulting Physician/Specialty*: GABRIELA Horton MD/cardiology Reason for Consult*: Patient with history of coronary disease, peripheral artery disease, congestive heart failure, cardiomyopathy Requesting Physician: Dr. Hutson Attending Physician: Le Hutson MD Primary Care Provider: Gopal Cameron MD History of Present Illness History of Present Illness Dany Whitehead is a 88 year old male with multiple medical problems, is admitted to hospital with complaints of progressive weakness, shortness of breath and some altered mental status. This patient is known to have coronary artery disease, 5 vessel coronary bypass surgery, ischemic cardiomyopathy, congestive heart failure, chronic atrial fibrillation, status post ICD implantation with revision, peripheral arterial disease status post [employer] of the left SFA, atherectomy angioplasty of the right tibioperoneal system, chronic leg ulcers and multiple other medical problems. He has a history of recurrent UTI and currently has possible aspiration pneumonia. He also is known to have tracheobronchomalacia. Many of his medications were held because of the difficulty in swallowing. Patient was found to have features of decompensated heart failure. cardiology consult is requested for further cardiac evaluation recommendations This patient is not able to give any detailed history. He seems to be responding appropriately to verbal commands. He has not had any chest pain. He had a recent COVID-19 booster shot. As per the family, his symptoms started getting worse since then. He might have had a low-grade fever. He also has a dry cough. Denies any abdominal pain. He has difficulty in urination and has been self catheterizing. Denies any Significant palpitations or syncopal episodes. No ICD discharges lately. He is being followed by Dr. Sanchez at the [facility]. He also is being followed by Dr. Nichols at the [facility] in [place] for his ICD. He had an ICD revision a few years ago. As per the family, he has not had any discharges. He has been compliant with medications and follow-ups. 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 His chronic nonpressure ulcers of the bilateral big toes and second toe is being followed by the entry analyst. He has a total cast system in the left leg and an Unna boot on the right foot. Also is known to have peripheral neuropathy with a right foot drop. History of type 2 diabetes, hypertension, dyslipidemia, COPD and sleep apnea. He has Trelegy History of dysarthria ,multisystem atrophy with a pronounced cerebellar ataxia Review of Systems Narrative: CONSTITUTIONAL: Questionable low-grade fever at home EYES: No blurring of vision or other visual disturbances lately. ENT: Profound dysarthria, and tracheobronchomalacia CARDIOVASCULAR: As mentioned above. RESPIRATORY: As mentioned above GASTROINTESTINAL: Difficulty in swallowing the possible aspiration GENITOURINARY: Difficulty in urination, using self catheterization INTEGUMENTARY: No skin rashes or history of skin cancer. NEURO: As mentioned above PSYCHIATRIC: No history of psychosis or major depression. HEMATOLOGIC: No bleeding disorders or significant anemia. ENDOCRINE: Type 2 diabetes and diabetic neuropathy MUSCULOSKELETAL: No recent joint pain or swelling. ALLERGY/IMMUNOLOGY: As mentioned above. Medications/Allergies Home Medications Medication Instructions Recorded Confirmed Last Taken Type apixaban 5 mg tablet (Eliquis) 5 mg PO BID 12/23/19 01/26/24 01/26/24 History aspirin 81 mg tablet,delayed 81 mg PO QAM 12/23/19 01/26/24 01/26/24 History release carvedilol 25 mg tablet 25 mg PO BID 12/23/19 01/26/24 01/26/24 History eplerenone 25 mg tablet 25 mg PO QAM 12/23/19 01/26/24 01/26/24 History potassium chloride 20 mEq 20 meq PO QAM 12/23/19 01/26/24 01/26/24 History tablet,extended release(part/cryst) simvastatin 80 mg tablet 80 mg PO QAM 12/23/19 01/26/24 01/26/24 History tamsulosin 0.4 mg capsule 0.4 mg PO QPM 12/23/19 01/26/24 01/25/24 History albuterol sulfate 90 mcg/actuation 1 - 2 puff inhalation Q4H PRN 01/09/20 01/26/24 Unknown History aerosol inhaler (ProAir HFA) Shortness Of Breath magnesium L-lactate 84 mg 84 mg PO BID 01/09/20 01/26/24 01/26/24 History tablet,extended release omeprazole 20 mg capsule,delayed 20 mg PO BID 01/09/20 01/26/24 01/26/24 History release acetaminophen 650 mg 650 mg PO BEDTIME PRN Sleep 10/14/20 01/26/24 12/12/21 History tablet,extended release cholecalciferol (vitamin D3) 25 1,000 unit PO BID 10/14/20 01/26/24 01/26/24 History mcg (1,000 unit) capsule (Vitamin D3) olopatadine 0.1 % eye drops 1 drp ophthalmic (eye) BID unknown 10/14/20 01/26/24 Unknown History furosemide 40 mg tablet (Lasix) See Rx Instructions .Route .COMPLEX 05/06/22 01/26/24 01/26/24 History hydrocodone 5 mg-acetaminophen 325 1 tab PO BEDTIME 05/06/22 01/26/24 01/24/24 History mg tablet Diabetic Shoes with smooth bottom #1 ea 05/18/22 01/26/24 Unknown Rx and 3 Pairs of Inserts hydroxyzine HCl 25 mg tablet 25 mg PO BEDTIME 04/02/23 01/26/24 01/25/24 History ondansetron HCl 4 mg tablet 4 mg PO Q8H PRN Nausea 04/02/23 01/26/24 Unknown History gabapentin 400 mg capsule 400 mg PO BID 04/18/23 01/26/24 01/26/24 History sacubitril 49 mg-valsartan 51 mg 1 tab PO BID 05/19/23 01/26/24 01/26/24 History tablet (Entresto) compression stockings C and D #1 ea 12/25/23 01/26/24 Unknown Rx escitalopram oxalate 20 mg tablet 20 mg PO QAM 01/26/24 01/26/24 01/26/24 History fexofenadine 60 mg tablet (Noelle 60 mg PO BID 01/26/24 01/26/24 01/26/24 History Allergy) sitagliptin phosphate 50 mg tablet 50 mg PO QAM 01/26/24 01/26/24 01/26/24 History (Januvia) umeclidinium 62.5 mcg/actuation 1 inh inhalation QAM 01/26/24 01/26/24 Unknown History blister powder for inhalation (Incruse Ellipta) Allergies Allergy/AdvReac Type Severity Reaction Status Date / Time adhesive tape Allergy Mild ALGY-Rash Verified 01/22/24 15:45 latex Allergy Mild ALGY-Rash Verified 01/22/24 15:45 cats Allergy coughing Uncoded 01/22/24 15:45 dogs Allergy coughing Uncoded 01/22/24 15:45 Current Medications Generic Name Dose Route Start Last Admin Trade Name Bandarq PRN Reason Stop Dose Admin Acetaminophen 650 mg 01/27/24 10:28 01/27/24 10:45 Acetaminophen 650 Mg/20.3 Ml Udc PO 650 mg Q6H PRN Administration Mild/Mod Pain Or Temp >/= 101 Aspirin 81 mg 01/28/24 06:00 01/28/24 05:26 Aspirin 81 Mg Ec Tablet PO Not Given QAM [facility] Atorvastatin Calcium 40 mg 01/28/24 06:00 01/28/24 05:26 Atorvastatin 40 Mg Tablet PO Not Given QAM [facility] Carvedilol 12.5 mg 01/27/24 18:00 01/28/24 09:01 Carvedilol 25 Mg Tablet PO Not Given BID [facility] Enoxaparin Sodium 80 mg 01/26/24 22:15 01/28/24 09:48 Enoxaparin 100 Mg/Ml Syringe 1 mg/kg (80 mg) 80 mg SUBCUT Administration Q12H [facility] Piperacillin Sod/Tazobactam 50 mls @ 12.5 mls/hr 01/26/24 22:30 01/28/24 09:30 Sod 3.375 gm/ Sodium Chloride IV Infused Q8H [facility] Infusion Magnesium Lactate 84 mg 01/27/24 18:00 01/28/24 09:01 Magnesium Lactate 84 Mg Tablet PO Not Given BID [facility] Pantoprazole Sodium 40 mg 01/28/24 09:00 01/28/24 09:[address] 40 Mg Tablet PO Not Given DAILY [facility] Tamsulosin HCl 0.4 mg 01/27/24 18:00 01/27/24 17:28 Tamsulosin 0.4 Mg Capsule PO Not Given QPM [facility] PFSH Acute PFSH: Medical History (Updated 01/28/24 @ 18:43 by Thiago Horton MD) Diabetes type 2, uncontrolled DNI (do not intubate) Opiate overdose Tracheobronchomalacia Aspiration pneumonia Hypoxemia Altered mental status Complicated urinary tract infection Hyperlipemia, mixed Depression Hyperlipidemia CHF (congestive heart failure) Coronary artery disease due to type 2 diabetes mellitus Sleep apnea Diabetes mellitus History of prostate cancer COPD (chronic obstructive pulmonary disease) ASCVD (arteriosclerotic cardiovascular disease) A-fib Cardiac defibrillator in place Prostate CA Incontinence PAD (peripheral artery disease) Critical limb ischemia with history of revascularization of same extremity History of [place] (myocardial infarction) CHF (congestive heart failure) Vu, bilateral Onychodystrophy Surgical History S/P carotid endarterectomy S/P hip hemiarthroplasty S/P hernia surgery S/P cataract surgery S/P knee surgery S/P eye surgery S/P prostatectomy S/P cardiac pacemaker procedure S/P CABG (coronary artery bypass graft) X5 Family History Family/Other No problems noted. Father , age 57 [place] Myocardial infarction CAD (coronary artery disease) Hypertension Mother , of Brain CA age 66 Cancer Social History Smoking and tobacco/nicotine status: former use of tobacco/nicotine Alcohol intake: current Alcohol intake frequency: few times a week Alcohol type: hard liquor Substance/Drug Use: never Adopted: No Caregiver/support person: Yes Lives independently: Yes Household members: spouse and family Housing: House Marital status: Number of children: 23 Highest education level completed: Associate Degree: Academic Program service: No Current occupational status: retired Vitals/I&O/Wt Last Vital Signs Temp 98.1 F 01/28/24 10:59 Pulse 62 01/28/24 10:59 Resp 18 01/28/24 10:59 BP 149/83 01/28/24 10:59 Pulse Ox 97 01/28/24 10:59 O2 Del Method Nasal Cannula 01/28/24 10:59 FiO2 28 01/27/24 23:26 01/27/24 01/28/24 01/28/24 22:59 06:59 14:59 Intake Total 956.25 / 1963.75 50 / 2012.75 50 / 50 Output Total 425 / 425 200 / 625 Balance 531.25 / 1538.75 -150 / 1388.75 50 / 50 Weight last 48 hrs Weight 175 lb 11.2 oz Weight 172 lb 3 oz Weight 175 lb 3.2 oz Weight 200 lb Physical Exam Narrative: GENERAL: The patient is somewhat drowsy. Seems to be responding to the verbal commands appropriately. Has some difficulty hearing. Profound dysarthria causing difficulty in communication HEENT: Minimal pallor no icterus or lymphadenopathy NECK: Seems to have some flexion deformity RESPIRATORY: Chest is symmetrical. No intercostals muscle retraction or any accessory muscle activation. There is no chest wall tenderness. Breath sounds are heard bilaterally. No rales or rhonchi heard. No evidence of any consolidation. Diminished intensity present in the bases BREASTS: Deferred. HEART: The heart sounds are of low intensity no S3 or S4. No significant murmurs. No pericardial rub ABDOMEN: No vessel pulsations or distention. No tenderness. No organomegaly appreciated. Bowel sounds are normally heard. : Deferred. RECTAL: Deferred. LYMPHATIC: No lymphadenopathy noted in the neck. EXTREMITIES: Features of chronic venous stasis in the right lower extremity. Foot drop on the right side, he is wearing an Unna boot. Total cast system on the left side MUSCULOSKELETAL: No acute joint deformities or swelling SKIN: There are no significant rashes or ecchymosis NEUROPSYCHIATRIC: Patient is drowsy with a profound dysarthria. Urinary Catheter Management: Jewell: Cath Placed During This Visit: yes Reason for Continuing Indwelling Catheter: Acute Urinary Retention or Obstruction Urinary Catheter Date of Insertion: 01/27/24 Urinary Catheter Time of Insertion: 00:30 Data 01/28/24 04:58 01/28/24 04:58 Other Labs: Laboratory Last Values WBC 7.59 10^3/uL (3.29-11.43) 01/28/24 04:58 RBC 3.74 10^6/uL (3.85-5.65) L 01/28/24 04:58 Hgb 11.30 g/dL (11.27-16.99) 01/28/24 04:58 Hct 36.0 % (37-53) L 01/28/24 04:58 MCV 96.3 fl (82-101) 01/28/24 04:58 MCH 30.2 pg (27-33) 01/28/24 04:58 MCHC 31.4 g/dL (30-55) 01/28/24 04:58 RDW 14.1 % (12.1-15.1) 01/28/24 04:58 Plt Count 119 10^3/cmm (157-399) L 01/28/24 04:58 MPV 10.7 fL (7.4-10.4) H 01/28/24 04:58 Neut % (Auto) 82.6 % 01/28/24 04:58 Lymph % (Auto) 10.3 % 01/28/24 04:58 Bonner % (Auto) 5.7 % 01/28/24 04:58 Eos % (Auto) 0.7 % 01/28/24 04:58 Baso % (Auto) 0.4 % 01/28/24 04:58 Neut # (Auto) 6.28 10^3/uL (1.8-7.7) 01/28/24 04:58 Lymph # (Auto) 0.8 10^3/uL (0.8-4.8) 01/28/24 04:58 Bonner # (Auto) 0.4 10^3/uL (0.2-0.9) 01/28/24 04:58 Eos # (Auto) 0.1 10^3/uL (0.0-0.8) 01/28/24 04:58 Baso # (Auto) 0.0 10^3/uL (0.0-0.1) 01/28/24 04:58 Nucleated RBC % (auto) 0 % 01/28/24 04:58 Nucleated RBCs # 0.0 /100WBC 01/28/24 04:58 D-Dimer 1.30 ug/mLFEU (0-0.59) H 01/26/24 16:42 Sodium 146 mmol/L (136-145) H 01/28/24 04:58 Potassium 3.4 mmol/L (3.5-5.1) L 01/28/24 04:58 Chloride 108 mmol/L (98-107) H 01/28/24 04:58 Carbon Dioxide 24 mmol/L (22-29) 01/28/24 04:58 Anion Gap 17.4 (5-19) 01/28/24 04:58 BUN 28 mg/dL (8-23) H 01/28/24 04:58 Creatinine 0.9 mg/dL (0.7-1.2) 01/28/24 04:58 GFR Calculation Not Reportable 01/28/24 04:58 Glucose 190 mg/dL (65-115) H 01/28/24 04:58 POC Glucose 170 mg/dL (70-110) H 01/28/24 10:23 Calculated Osmolality 313 mOsm/kg (285-295) H 01/28/24 04:58 Lactic Acid 1.9 mmol/L (0.5-2.2) 01/26/24 20:39 Calcium 9.0 mg/dL (8.5-10.5) 01/28/24 04:58 Phosphorus 3.2 mg/dL (2.5-4.5) 01/28/24 04:58 Magnesium 1.9 mg/dL (1.7-2.3) 01/28/24 04:58 Total Bilirubin 0.6 mg/dL (0.15-1.2) 01/28/24 04:58 AST 18 U/L (0-40) 01/28/24 04:58 ALT 12 U/L (0-41) 01/28/24 04:58 Alkaline Phosphatase 50 U/L (40-130) 01/28/24 04:58 Creatine Kinase 51 U/L (39-308) 01/26/24 16:42 Troponin T Baseline 48 ng/L (0-15) H 01/26/24 16:42 Troponin T 120 Minute 50.68 ng/L (0-15) H 01/26/24 18:41 Delta Troponin T 2.68 ABS# (0-10) 01/26/24 18:41 Troponin T Hi Sens 6Hr 43.28 ng/L (0-15) H 01/26/24 22:27 Troponin T Hi Sens 6Hr Delta -4.72 ng/L (0-12) L 01/26/24 22:27 NT-Pro-B Natriuret Pep 5427 pg/mL (0-450) H 01/26/24 16:42 Total Protein 6.5 g/dL (6.6-8.7) L 01/28/24 04:58 Albumin 3.5 g/dL (3.5-5.2) 01/28/24 04:58 Globulin 3.0 g/dL (1.3-4.6) 01/28/24 04:58 Procalcitonin 4.36 ng/mL (0-0.5) H 01/26/24 20:39 TSH 1.97 uIU/mL (0.27-4.20) 01/26/24 20:39 Urine Color Yellow (Yellow) 01/26/24 17:03 Urine Appearance Clear (CLEAR) 01/26/24 17:03 Urine pH 5 (5-7) 01/26/24 17:03 Ur Specific Gail 1.015 (1.005-1.030) 01/26/24 17:03 Urine Protein Neg (Negative) 01/26/24 17:03 Urine Glucose (UA) Norm (Normal) 01/26/24 17:03 Urine Ketones Negative (Negative) 01/26/24 17:03 Urine Blood 3+ (Negative) H 01/26/24 17:03 Urine Nitrate Positive (Negative) H 01/26/24 17:03 Urine Bilirubin Neg (Negative) 01/26/24 17:03 Urine Urobilinogen Norm mg/dL (Negative) 01/26/24 17:03 Ur Leukocyte Esterase 1+ (Negative) H 01/26/24 17:03 Urine RBC 0-4 /hpf (0-2) H 01/26/24 17:03 Urine WBC 5-10 /hpf (0-5) H 01/26/24 17:03 Ur Squamous Epith Cells 0-4 /hpf (0-5) H 01/26/24 17:03 Amorphous Sediment Not Reportable 01/26/24 17:03 Urine Bacteria 4+ /hpf (NONE) H 01/26/24 17:03 Micro: Microbiology 01/26/24 17:03 Urine Culture - Preliminary Urine,Clean Catch Gram Negative Rods 01/27/24 19:15 Blood Culture - Preliminary Blood SPECIMEN COLLECTED 01/27/24 19:15 Blood Culture - Preliminary Blood SPECIMEN COLLECTED 01/26/24 16:45 Blood Culture - Preliminary Blood Pseudomonas aeruginosa 01/26/24 16:42 Blood Culture - Preliminary Blood NEGATIVE TO DATE EKG 1: My Interpretation: EKG showed 100% V paced rhythm. Further interpretation is not possible. Other data: Chest x-ray: Cardiomegaly with prominent pulmonary venous markings. Left-sided pleural effusion. Some interstitial densities on the left side CT of the chest today: Interpreted as congestive heart failure A&P Assessment and plan (1) Acute on chronic diastolic (congestive) heart failure: I may go ahead and do an echocardiogram to evaluate his LV function. We may treat him with IV diuretics. Since that he is not able to tolerate any medications, we may hold off on the Entresto. Instruct the Coreg, may give him Lopressor 5 mg IV every 6 hours (2) Ischemic cardiomyopathy: will hold off on the Entresto till he can tolerate oral medication. (3) Atherosclerosis of coronary artery of [place] heart without angina pectoris: may put him on Nitropaste 1 inch, every 6 hours to anterior chest wall (4) PVD (peripheral vascular disease): currently asymptomatic. (5) Non-pressure chronic ulcer of other part of right foot with necrosis of bone: Continue on the current management Plan patient may require NG tube for medications. Will be closely monitoring him on telemetry. Patient on the clinical progress, further recommendation Will be made. Thank for the opportunity to eval this patient make these recommendations Consult Attestations Medical Necessity Statement: patient requires continued hospital stay for close monitoring and further management Coding Level of Care Code Acute Code for Chg Fwd Diagnoses Acute on chronic diastolic (congestive) heart failure I50.33 Ischemic cardiomyopathy I25.5 Atherosclerosis of coronary artery of [place] heart without angina pectoris I25.10 PVD (peripheral vascular disease) I73.9 Non-pressure chronic ulcer of other part of right foot with necrosis of bone L97.514
[2024-01-28] MEDS: dextrose 5% 1,000 ML 75 ML IV (14:00)
[2024-01-28] MEDS: FUROsemide 10 mg/mL SDV 4mL 40 MG IVP (14:02)
[2024-01-28] MEDS: potassium chloride premix 100 ML 25 MEQ IV (14:02)
--- NOTE | 2024-01-28 15:09 | CTR_ITS ---
PROCEDURE INFORMATION: Exam: CT Abdomen And Pelvis Without Contrast Exam date and time: 01/28/2024 3:28 PM Age: 88 years old Clinical indication: Abdominal pain; Generalized TECHNIQUE: Imaging protocol: Computed tomography of the abdomen and pelvis without contrast. Radiation optimization: All CT scans at this facility use at least one of these dose optimization techniques: automated exposure control; mA and/or kV adjustment per patient size (includes targeted exams where dose is matched to clinical indication); or iterative reconstruction. COMPARISON: CT kidney stone [id number] 01/26/2024 6:08 PM RADIATION DOSE METRICS: Total DLP (mGy-cm): 739.41 FINDINGS: Lungs: Lung bases are clear. No pleural effusion. Pleural spaces: A small right pleural effusion is noted. Heart: Prominent cardiomegaly is noted. Liver: Normal. No mass. Gallbladder and bile ducts: Normal. No calcified stones. No ductal dilation. Pancreas: Normal. No ductal dilation. Spleen: Normal. No splenomegaly. Adrenal glands: Normal. No mass. Kidneys and ureters: Normal. No hydronephrosis. Stomach and bowel: Unremarkable. No obstruction. No mucosal thickening. Appendix: No evidence of appendicitis. Intraperitoneal space: Unremarkable. No free air. No significant fluid collection. Vasculature: Unremarkable. No abdominal aortic aneurysm. Lymph nodes: Unremarkable. No enlarged lymph nodes. Urinary bladder: A Jewell catheter is in good position within the bladder. Reproductive: Unremarkable as visualized. Bones/joints: A right hip prosthesis is well seated and well aligned. Soft tissues: Unremarkable. CT/CT abdomen pelvis wo con [id number] IMPRESSION: 1. Cardiomegaly with small right pleural effusion 2. I see no acute abdominal or pelvic process
[2024-01-28] MEDS: lidocaine 1% INJ 10 mL (per mL) 2.5 ML IV (15:11)
[2024-01-28] MEDS: LORazepam 2 mg/mL INJ 10 mL MDV 0.25 MG IVP (15:19)
[2024-01-28 16:37] LABS: Glucose Point of Care 205 mg/dL (70-110)
[2024-01-28] MEDS: nitroglycerin 1 gm/inch oint Pkt 0.5 INCH TOPICAL (19:54)
[2024-01-28] MEDS: metoprolol tartrate 1 mg/1 mL SDV 5 mL 5 MG IVP (19:58)
[2024-01-28 21:35] LABS: Glucose Point of Care 247 mg/dL (70-110)
[2024-01-29] VITALS (24 sets, daily range): BP systolic 120–150; BP diastolic 76–91; PULSE 59–68; RESP 18–27; TEMP 36.5–37.1; O2SAT 96–100
[2024-01-29] MEDS: metoprolol tartrate 1 mg/1 mL SDV 5 mL 5 MG IVP ×4 (02:09→20:52)
[2024-01-29] MEDS: nitroglycerin 1 gm/inch oint Pkt 0.5 INCH TOPICAL ×4 (02:10→20:51)
[2024-01-29] MEDS: dextrose 5% 1,000 ML 75 ML IV ×2 (03:26→16:59)
[2024-01-29 03:34] LABS: Glucose Point of Care 263 mg/dL (70-110)
[2024-01-29 03:48] LABS: Hematocrit 36.6 % (37-53); Lymphocytes # 0.8 10^3/uL (0.8-4.8); Lymphocytes % 10.9 %; Mean Corpuscular HGB Conc 31.7 g/dL (30-55); Mean Corpuscular Hemoglobin 30.3 pg (27-33); Mean Corpuscular Volume 95.6 fl (82-101); Mean Platelet Volume 11.2 fL (7.4-10.4); Monocytes # 0.4 10^3/uL (0.2-0.9); Monocytes % 4.8 %; Neutrophils # 6.39 10^3/uL (1.8-7.7); Neutrophils % 83.6 %; Nucleated Red Blood Cells % 0 %; Platelet Count 130 10^3/cmm (157-399); Red Blood Count 3.83 10^6/uL (3.85-5.65); Red Cell Distribution Width 14.2 % (12.1-15.1); White Blood Count 7.64 10^3/uL (3.29-11.43)
[2024-01-29 04:11] LABS: Anion Gap 17.2 (5-19); Blood Urea Nitrogen 36 mg/dL (8-23); Calcium 8.8 mg/dL (8.5-10.5); Carbon Dioxide 21 mmol/L (22-29); Chloride 110 mmol/L (98-107); Creatinine Clr Calc Pharmacy 51.3961; Glucose 263 mg/dL (65-115); Osmolality Calculated 315 mOsm/kg (285-295); Potassium 4.2 mmol/L (3.5-5.1); Sodium 144 mmol/L (136-145)
[2024-01-29] MEDS: piperacillin-tazobactam 3.375 GM in sodium chloride 0.9% (plus) 50 ML IV ×3 (04:18→18:21)
--- NOTE | 2024-01-29 07:38 | P.CONIM_ITS ---
Providers/Reason For Consult 2 Consulting Physician/Specialty*: Migue Francis D.P.M. Reason for Consult*: Pressure ulcer left foot great toe and second toe Attending Physician: Le Hutson MD Primary Care Provider: Gopal Cameron MD History of Present Illness History of Present Illness Dany Whitehead is a 88 year old male admitted to the hospital service for UTI with Pseudomonas. I have been managing patient's left great toe and second toe wounds outpatient, currently has a total contact cast in place with Hydrofera Blue as primary dressing. He is accompanied by his daughter and . Review of Systems 2 General: Reports: 10 or more systems reviewed and unremarkable except in HPI and below Const: Denies: fever(s) or chills Eyes: Denies: change in vision Card: Denies: chest pain or palpitations Resp: Denies: dyspnea or productive cough GI: Denies: abdominal pain, nausea or vomiting : Denies: flank pain Musc: Reports: extremity swelling, joint stiffness and deformity Skin/Breast: Reports: erythema, sores, changes in skin color, dry skin, nail changes and change in hair Neuro: Reports: numbness in extremities, sensory changes and difficulty walking Psych: Denies: suicidal ideation Endo: Denies: change in body appearance German/Lymph: Denies: tender lymph nodes Medications/Allergies Home Medications Medication Instructions Recorded Confirmed Last Taken Type apixaban 5 mg tablet (Eliquis) 5 mg PO BID 12/23/19 01/26/24 01/26/24 History aspirin 81 mg tablet,delayed 81 mg PO QAM 12/23/19 01/26/24 01/26/24 History release carvedilol 25 mg tablet 25 mg PO BID 12/23/19 01/26/24 01/26/24 History eplerenone 25 mg tablet 25 mg PO QAM 12/23/19 01/26/24 01/26/24 History potassium chloride 20 mEq 20 meq PO QAM 12/23/19 01/26/24 01/26/24 History tablet,extended release(part/cryst) simvastatin 80 mg tablet 80 mg PO QAM 12/23/19 01/26/24 01/26/24 History tamsulosin 0.4 mg capsule 0.4 mg PO QPM 12/23/19 01/26/24 01/25/24 History albuterol sulfate 90 mcg/actuation 1 - 2 puff inhalation Q4H PRN 01/09/20 01/26/24 Unknown History aerosol inhaler (ProAir HFA) Shortness Of Breath magnesium L-lactate 84 mg 84 mg PO BID 01/09/20 01/26/24 01/26/24 History tablet,extended release omeprazole 20 mg capsule,delayed 20 mg PO BID 01/09/20 01/26/24 01/26/24 History release acetaminophen 650 mg 650 mg PO BEDTIME PRN Sleep 10/14/20 01/26/24 12/12/21 History tablet,extended release cholecalciferol (vitamin D3) 25 1,000 unit PO BID 10/14/20 01/26/24 01/26/24 History mcg (1,000 unit) capsule (Vitamin D3) olopatadine 0.1 % eye drops 1 drp ophthalmic (eye) BID unknown 10/14/20 01/26/24 Unknown History furosemide 40 mg tablet (Lasix) See Rx Instructions .Route .COMPLEX 05/06/22 01/26/24 01/26/24 History hydrocodone 5 mg-acetaminophen 325 1 tab PO BEDTIME 05/06/22 01/26/24 01/24/24 History mg tablet Diabetic Shoes with smooth bottom #1 ea 05/18/22 01/26/24 Unknown Rx and 3 Pairs of Inserts hydroxyzine HCl 25 mg tablet 25 mg PO BEDTIME 04/02/23 01/26/24 01/25/24 History ondansetron HCl 4 mg tablet 4 mg PO Q8H PRN Nausea 04/02/23 01/26/24 Unknown History gabapentin 400 mg capsule 400 mg PO BID 04/18/23 01/26/24 01/26/24 History sacubitril 49 mg-valsartan 51 mg 1 tab PO BID 05/19/23 01/26/24 01/26/24 History tablet (Entresto) compression stockings C and D #1 ea 12/25/23 01/26/24 Unknown Rx escitalopram oxalate 20 mg tablet 20 mg PO QAM 01/26/24 01/26/24 01/26/24 History fexofenadine 60 mg tablet (Noelle 60 mg PO BID 01/26/24 01/26/24 01/26/24 History Allergy) sitagliptin phosphate 50 mg tablet 50 mg PO QAM 01/26/24 01/26/24 01/26/24 History (Januvia) umeclidinium 62.5 mcg/actuation 1 inh inhalation QAM 01/26/24 01/26/24 Unknown History blister powder for inhalation (Incruse Ellipta) Allergies Allergy/AdvReac Type Severity Reaction Status Date / Time adhesive tape Allergy Mild ALGY-Rash Verified 01/22/24 15:45 latex Allergy Mild ALGY-Rash Verified 01/22/24 15:45 cats Allergy coughing Uncoded 01/22/24 15:45 dogs Allergy coughing Uncoded 01/22/24 15:45 Current Medications Generic Name Dose Route Start Last Admin Trade Name Freq PRN Reason Stop Dose Admin Acetaminophen 650 mg 01/27/24 10:28 01/27/24 10:45 Acetaminophen 650 Mg/20.3 Ml Udc PO 650 mg Q6H PRN Administration Mild/Mod Pain Or Temp >/= 101 Aspirin 81 mg 01/28/24 06:00 01/29/24 05:05 Aspirin 81 Mg Ec Tablet PO Not Given QAM [facility] Atorvastatin Calcium 40 mg 01/28/24 06:00 01/29/24 05:05 Atorvastatin 40 Mg Tablet PO Not Given QAM [facility] Carvedilol 12.5 mg 01/27/24 18:00 01/28/24 18:04 Carvedilol 25 Mg Tablet PO Not Given BID [facility] Enoxaparin Sodium 80 mg 01/26/24 22:15 01/28/24 21:40 Enoxaparin 100 Mg/Ml Syringe 1 mg/kg (80 mg) 80 mg SUBCUT Administration Q12H BERNY Piperacillin Sod/Tazobactam 50 mls @ 12.5 mls/hr 01/26/24 22:30 01/29/24 04:18 Sod 3.375 gm/ Sodium Chloride IV 12.5 mls/hr Q8H BERNY Administration Dextrose 1,000 mls @ 75 mls/hr 01/28/24 12:45 01/29/24 03:26 D5w IV 75 mls/hr .[id number] BERNY Administration Magnesium Lactate 84 mg 01/27/24 18:00 01/28/24 18:04 Magnesium Lactate 84 Mg Tablet PO Not Given BID BERYN Metoprolol Tartrate 5 mg 01/28/24 19:00 01/29/24 02:09 Metoprolol Tartrate 1 Mg/1 Ml Sdv 5 Ml IVP 5 mg Q6H BERNY Administration Nitroglycerin 0.5 inch 01/28/24 19:00 01/29/24 02:10 Nitroglycerin 1 Gm/Inch Oint Pkt TOPICAL 0.5 inch Q6H BERNY Administration Pantoprazole Sodium 40 mg 01/28/24 09:00 01/28/24 09:[address] 40 Mg Tablet PO Not Given DAILY BERNY Tamsulosin HCl 0.4 mg 01/27/24 18:00 01/28/24 18:04 Tamsulosin 0.4 Mg Capsule PO Not Given QPM BERNY PFSH Acute 2 PFSH: Medical History (Updated 01/30/24 @ 15:27 by Migue Francis DPM) Diabetes type 2, uncontrolled DNI (do not intubate) Opiate overdose Tracheobronchomalacia Aspiration pneumonia Hypoxemia Altered mental status Complicated urinary tract infection Hyperlipemia, mixed Depression Hyperlipidemia CHF (congestive heart failure) Coronary artery disease due to type 2 diabetes mellitus Sleep apnea Diabetes mellitus History of prostate cancer COPD (chronic obstructive pulmonary disease) ASCVD (arteriosclerotic cardiovascular disease) A-fib Cardiac defibrillator in place Prostate CA Incontinence PAD (peripheral artery disease) Critical limb ischemia with history of revascularization of same extremity History of AK (myocardial infarction) CHF (congestive heart failure) Hammertoe, bilateral Onychodystrophy Surgical History S/P carotid endarterectomy S/P hip hemiarthroplasty S/P hernia surgery S/P cataract surgery S/P knee surgery S/P eye surgery S/P prostatectomy S/P cardiac pacemaker procedure S/P CABG (coronary artery bypass graft) X5 Family History Family/Other No problems noted. Father , age 57 [place] Myocardial infarction CAD (coronary artery disease) Hypertension Mother , of Brain CA age 66 Cancer Social History Smoking and tobacco/nicotine status: former use of tobacco/nicotine Alcohol intake: current Alcohol intake frequency: few times a week Alcohol type: hard liquor Substance/Drug Use: never Adopted: No Caregiver/support person: Yes Lives independently: Yes Household members: spouse and family Housing: House Marital status: Number of children: 23 Highest education level completed: Associate Degree: Academic Program service: No Current occupational status: retired Vitals/I&O/Wt Last Vital Signs Temp 97.7 F 01/29/24 04:03 Pulse 60 01/29/24 05:44 Resp 19 H 01/29/24 04:03 BP 132/78 01/29/24 04:03 Pulse Ox 98 01/29/24 04:03 O2 Del Method Simple Mask 01/29/24 04:03 O2 Flow Rate 2.5 01/28/24 20:00 FiO2 28 01/28/24 20:42 01/28/24 01/29/24 01/29/24 22:59 06:59 14:59 Intake Total 1100 / 1150 1050 / 2200 Output Total 450 / 450 250 / 700 Balance 650 / 700 800 / 1500 Weight last 48 hrs Weight 181 lb 14.4 oz Weight 175 lb 11.2 oz Physical Exam 2 Narrative: Patient is alert and oriented ?3 and in no acute distress. ?The following is a focused bilateral lower extremity exam. VASCULAR: Dorsalis pedis and posterior tibial arteries faintly palpable. ?Capillary refill time less than 5 seconds to the distal hallux bilaterally. Calf is supple and nontender proximally and distally. ?Diffuse Edema bilateral lower extremity, minimal. ?Decreased pedal hair growth noted bilaterally. Rubor to bilateral lower extremities. NEUROLOGICAL: Protective sensation intact 5/10 sites, tested with [place] Celest[place] monofilament to bilateral feet. DERMATOLOGICAL: healed right 2nd toe right great toe 2 mm x 2 mm x 2 mm, continue with dressing changes with hydrofera blue left 2nd toe 0.9cm x 0.8 cm x 0.2cm left great toe 1.4 cm x 1.6 cm x 0.2cm MUSCULOSKELETAL: Hallux malleus bilaterally. Digital contractures a lesser digits 2 through 5 right, semi-reducible with sagittal plane dominance. ?Left second hammertoe deformity with sagittal plane dominance nonreducible, 3 through 5 hammertoe deformities left nonreducible. Decreased muscle strength in all 3 cardinal planes 4/5. ?Patient is utilizing wheelchair. ?Can ambulate with gait belt. Urinary Catheter Management: Jewell: Cath Placed During This Visit: yes Reason for Continuing Indwelling Catheter: Chronic Indwelling Urinary Catheter on Admission Urinary Catheter Date of Insertion: 01/27/24 Urinary Catheter Time of Insertion: 00:30 Data 01/29/24 02:57 01/29/24 02:57 Micro: Microbiology 01/27/24 19:15 Blood Culture - Preliminary Blood NEGATIVE TO DATE 01/27/24 19:15 Blood Culture - Preliminary Blood NEGATIVE TO DATE 01/26/24 17:03 Urine Culture - Preliminary Urine,Clean Catch Gram Negative Rods A&P Assessment and plan (1) Hallux, malleus acquired: (2) Type 2 diabetes mellitus: Qualifiers: Diabetes mellitus group home insulin use: unspecified 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 Right great toe and left great toe and second toe wounds are clinically stable have healthy granular base, no acute signs of infection, no indications for surgical debridement. Will continue with primary wound dressing of Hydrofera Blue and total contact casting to the left for offloading. Podiatry will continue to round and perform wound dressing changes during this hospitalization. Will follow-up as scheduled outpatient once discharged. Coding Level of Care Code Acute Code for Chg Fwd Diagnoses Hallux, malleus acquired M20.30 Type 2 diabetes mellitus with other specified complication, unspecified whether terminal make up operator insulin use E11.69 Diabetes mellitus group home insulin use: unspecified group home insulin use status Diabetes mellitus complication status: with other specified complication Non-pressure chronic ulcer of other part of left foot with fat layer exposed L97.522 Non-pressure chronic ulcer of other part of right foot with fat layer exposed L97.512
--- NOTE | 2024-01-29 08:34 | P.PN_ITS ---
Subjective 2 Subjective: Patient is drowsy. On Bipap Vitals/I&O/Wt Last Vital Signs Temp 97.7 F 01/29/24 08:00 Pulse 61 01/29/24 08:08 Resp 18 01/29/24 08:00 BP 140/84 01/29/24 08:00 Pulse Ox 99 01/29/24 08:08 O2 Del Method Nasal Cannula 01/29/24 08:00 O2 Flow Rate 2.5 01/28/24 20:00 FiO2 28 01/29/24 08:08 01/28/24 01/29/24 01/29/24 22:59 06:59 14:59 Intake Total 1100 / 1150 1050 / 2200 Output Total 450 / 450 250 / 700 Balance 650 / 700 800 / 1500 Weight last 48 hrs Weight 181 lb 14.4 oz Weight 175 lb 11.2 oz Physical Exam 2 Narrative: GENERAL: Patient is drowsy NECK: No jugular vein distension. [] HEENT: No cyanosis. No icterus. No pallor. [] HEART: Regular S1 and S2. No murmur, rub or gallop. [] LUNGS: Diminished air entry CENTRAL NERVOUS SYSTEM: Grossly nonfocal. [] EXTREMITIES: Lower extremities with 1+ edema bilaterally. Urinary Catheter Management: Jewell: Cath Placed During This Visit: yes Reason for Continuing Indwelling Catheter: Chronic Indwelling Urinary Catheter on Admission Urinary Catheter Date of Insertion: 01/27/24 Urinary Catheter Time of Insertion: 00:30 Data 01/29/24 02:57 01/29/24 02:57 Micro: Microbiology 01/27/24 19:15 Blood Culture - Preliminary Blood NEGATIVE TO DATE 01/27/24 19:15 Blood Culture - Preliminary Blood NEGATIVE TO DATE 01/26/24 17:03 Urine Culture - Preliminary Urine,Clean Catch Gram Negative Rods A&P Assessment and plan (1) Acute on chronic diastolic (congestive) heart failure: (2) Ischemic cardiomyopathy: (3) Atherosclerosis of coronary artery of [place] heart without angina pectoris: (4) PVD (peripheral vascular disease): (5) Non-pressure chronic ulcer of other part of right foot with necrosis of bone: Plan Patient unable to swallow medications. Continue IV Lopressor. Will give small dose of Lasix IV 20 mg. Monitor renal function and electrolytes. Keep holding Entresto. Close plan for barium swallow today. Patient's family says they are still undecided about CODE STATUS. They will discuss and will inform shortly. ECHO shows EF of 28%. Can not be compared with prior echocardiogram which was of limited quality and showed at least moderately reduced LV systolic function. Thank you for involving us with care of this patient. We will continue to follow. Please call with questions. Attestations 2 Medical Necessity Statement*: Care expected to cross 2 midnights. Coding Level of Care Code Acute Code for Chg Fwd Diagnoses Acute on chronic diastolic (congestive) heart failure I50.33 Ischemic cardiomyopathy I25.5 Atherosclerosis of coronary artery of [place] heart without angina pectoris I25.10 PVD (peripheral vascular disease) I73.9 Non-pressure chronic ulcer of other part of right foot with necrosis of bone L97.514
--- NOTE | 2024-01-29 09:52 | PC.CHAP ---
Pastoral Care Encounter/Spiritual Assessment Type of Contact [] Declined department clinician visit [] Patient/Family/Request visit [] Outpatient visit [] Follow-up visit [] Physician referral [] Code/Alert [x] Routine visit [] Staff referral [] Actively dying [x] Patient sleeping [] Family support [] [] Out of room [] Palliative care [] [] Receiving care in room [] Pre-surgical visit [] Trauma [] Long length of stay [] ICU visit [] Other: Relational/Emotional Strength [] Patient feels connected with others/family/visitors/staff [] Distress [] Loneliness/isolation [] Abandonment Spirituality of Patient [] Person of Marnie [] Attends Orthodoxy of their Marnie [] Believes in Prayer [] Reads Bible or Latter-Day materials [] There are Spiritual issues to be addressed Speeder Hand Interventions [x] Prayer [] Active listening [] Non-anxious presence [] Spiritual/emotional support [] Crisis/trauma care [] Spiritual counseling [] Bereavement support [] Provided bereavement packet [] Provided Bible/devotional materials [] Provided toy/stuffed animal, coloring book to patient or family member [] Provided Communion [] Anointing/[place] [] Salvation [] Completed spiritual assessment [] Other: Impact on Illness or Injury [] Angry [] Fearful [] Anxious [] Often cries [] Exhaustion [] Unable to work [] Unable to attend anabaptist [] Unable to walk/stand [] Unable to read [] Unable to drive [] Unable to eat/drink [] Unable to sleep [] Unable to be with family [] Patient intubated [] Other: Summary Time spent with patient
[2024-01-29 10:14] LABS: Glucose Point of Care 292 mg/dL (70-110)
[2024-01-29] MEDS: enoxaparin 100 mg/mL Syringe 80 MG SUBCUT ×2 (10:54→22:20)
--- NOTE | 2024-01-29 12:14 | PM.PN ---
Subjective Subjective: afebrile, hemodynamically stable, received last dose of Ativan yesterday. Per family at bedside his mentation appears to be slightly better today. He is able to open his eyes to calling name. Attempts to move his hands, attempts to answer questions, however currently unable to state his name for me. Medications: Reviewed: Yes Vitals/I&O/Wt Last Vital Signs Temp 97.7 F 01/29/24 08:00 Pulse 68 01/29/24 11:49 Resp 24 H 01/29/24 10:00 BP 140/84 01/29/24 08:36 Pulse Ox 100 01/29/24 11:49 O2 Del Method BiPAP 01/29/24 10:00 O2 Flow Rate 2.5 01/28/24 20:00 FiO2 28 01/29/24 11:49 01/28/24 01/29/24 01/29/24 22:59 06:59 14:59 Intake Total 1100 / 1150 1050 / 2200 50 / 50 Output Total 450 / 450 250 / 700 Balance 650 / 700 800 / 1500 50 / 50 Weight last 48 hrs Weight 82.508 kg Weight 79.696 kg Physical Exam Narrative: General: No acute distress, AO x1 HEENT: PERRLA, pupils bilaterally equal and reactive, pallors not present Chest: Normal vesicular breath sounds, no added sounds, equal good air entry bilaterally CVS: S1-S2 regular, no murmurs, no tachycardia, no gallops, no rubs Abdomen: Soft, nontender, no organomegaly, bowel sounds present Neuro: Difficult to assess as patient is currently somnolent, lethargic, currently on a BiPAP. Urinary Catheter Management: Jewell: Cath Placed During This Visit: yes Reason for Continuing Indwelling Catheter: Chronic Indwelling Urinary Catheter on Admission Urinary Catheter Date of Insertion: 01/27/24 Urinary Catheter Time of Insertion: 00:30 Data 01/29/24 02:57 01/29/24 02:57 Micro: Microbiology 01/26/24 16:45 Blood Culture - Preliminary Blood Pseudomonas aeruginosa 01/26/24 17:03 Urine Culture - Final Urine,Clean Catch Escherichia coli 01/27/24 19:15 Blood Culture - Preliminary Blood NEGATIVE TO DATE 01/27/24 19:15 Blood Culture - Preliminary Blood NEGATIVE TO DATE A&P Assessment and plan (1) Hypotension: (2) PVD (peripheral vascular disease): (3) 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 Pseudomonas bacteremia History of aspiration pneumonia History of tracheobronchomalacia History of multiple systems atrophy Obstructive sleep apnea Patient has been kept n.p.o. for possible obstruction However he has had 3 bowel movement so far. Bowel sounds present in all 4 quadrants. Abdominal exam is benign. Nontender soft. Patient is passing gas. There is suspicion that patient may be aspirating. Speech therapist consult has been ordered. They recommend to keep patient n.p.o. for now. Recommendation to do modified barium swallow in AM. Initiated aspiration precautions Stop normal saline. Will place on D5 water. I will hold Entresto at this time. Continue Zosyn. 1 out of 4 blood cultures bottle positive for Pseudomonas. Repeat cultures obtained 01/26. May repeat every 48 hours till negative. 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 Consult podiatry UTI Chronic UTIs Recurrent UTIs Neurogenic bladder?self-catheterization twice a day by family. ? This status has been difficult to cath patient at home due to position and other circumstances. ? I may recommend a Jewell at this time since he is unable to get straight cathed very frequently during the day. He may see urology outpatient to have that removed at a later date. ? Continue on Zosyn at this time. ? Await urine culture report ? Patient to follow-up with urology as outpatient after discharge. For UTI patient will get antibiotics we will wait for urine culture report Patient self caths at home urologist in [place] Urine culture positive for gram-negative rods. Patient is bedbound will request D-dimer to rule out thromboembolic phenomenon -D-dimer 1.30. H assessment done. VTE unlikely. He will be considered high risk Continue on Lovenox therapeutic twice daily. Acute on chronic right and left-sided systolic heart failure History of CABG History of CAD History of NC Hyperlipidemia ? Patient on Entresto eplerenone, Lasix at home. Initially medications were being held. Continue aspirin, Coreg. Coreg to be given at reduced dose of 12.5 twice daily. Restart Lasix. Will give Lasix 40 IV x 1 now. Patient is +1200 pounds at this time. Consult cardiology as per patient's daughter's request. Discussed with Dr. Horton. He will see patient in consultation. Diabetes mellitus type II ? On Januvia at home which we will hold at this time. ? May place on low-dose intensity sliding scale however patient is n.p.o. at this time. Patient is on limited resuscitation does not want intubation, this was discussed on previous admissions patient only wants defibrillation and ACLS drugs in ICU admission Discussed CODE STATUS with patient's daughter today. She agrees with above. She says if he does go into respiratory distress or aspirates or any other acute events happen to only provide supportive care at this time.. Plan for today January 29, 2024: Chart reviewed in detail. Patient with a past medical history of multisystem atrophy, cerebellar ataxia, progressive neurocognitive decline, usually recommended to be on dysphagia diet at home, no formal diagnosis of oropharyngeal dysphagia in the past. Currently admitted send January 24, 2024 after presenting with lethargy, somnolence, altered mental status. Upon evaluation found to have Pseudomonas aeruginosa bacteremia on January 26, 2024. Blood culture thus far clear from January 27, 2024. Patient is empirically on Zosyn while pending susceptibility testing. Potential sources of infection may be related to urinary tract infection. Patient has a history of chronic cystitis, recently established care with urologist and started intermittent self cath for neurogenic bladder/urinary retention. Currently has a Jewell catheter in place. Urine culture itself showing E. coli, however possible that may be a polymicrobial infection. Recently also had a Pseudomonas infection of his right great toe where a pressure injury was infected, treated with outpatient oral antibiotics. Currently his left foot is in a cast, followed by podiatry including as an inpatient. CT of the abdomen and pelvis upon admission raised concern for proctitis, however no clinical correlate for the same. Patient does have chronic constipation for which she takes as needed MiraLAX at home. 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 Currently no clinical signs of a small bowel or large bowel obstruction. Patient has had 3 bowel movements since being here. Abdominal exam is benign. No vomiting. Patient's lethargy currently precludes oral feeding. Ativan, opiates have all been placed on hold, last dose 24 hours ago. Holding gabapentin and antihistamines at this time. Likely altered mental status contributed by metabolic encephalopathy, await improvement with medical treatment. Hold off on NG tube and swallow eval for now as patient highly unlikely to be able to participate in a swallow eval. Additionally patient has previously decided to continue high risk feeding in spite of recommendations for dysphagia diet. Family is uncertain at this time if he would be agreeable for PEG tube if fails swallow eval. Discussions to continue during admission. This documentation was created by [employer] adjunct english instructor software. Every effort was made to ensure accuracy of adjunct english instructor. Any obvious errors or omissions should be clarified with the author of the document. Attestations Medical Necessity Statement*: Continued admission for IV antibiotics, metabolic encephalopathy Coding Level of Care Code Acute Code for Chg Fwd Diagnoses Hypotension I95.9 PVD (peripheral vascular disease) I73.9 History of neurological degenerative disease Z86.69 Tracheobronchomalacia J39.8 Proctitis K62.89 Partial bowel obstruction K56.600 Hyperglycemia R73.9
[2024-01-29] MEDS: FUROsemide 10 mg/mL SDV 2mL 20 MG IVP (13:20)
--- NOTE | 2024-01-29 13:38 | PC.SOCIAL ---
IMM Update pg 2 of [facility] updated and reviewed w/ patients daughter Ashley, She signed the paperwork. Copy provided and copy dated, initialed and placed in chart.
[2024-01-29] MEDS: ipratropium-albuterol 3 mL Neb INHALATION ×2 (13:49→19:43)
--- NOTE | 2024-01-29 14:28 | PC.SLP ---
Pt sound asleep on BiPAP, unable to see at this time.
[2024-01-29 17:08] LABS: Glucose Point of Care 260 mg/dL (70-110)
--- NOTE | 2024-01-29 17:48 | PC.SLP ---
[employer] will attempt to work with the pt tomorrow. Hope for increased pt alertness, medical status.
[2024-01-29] MEDS: insulin lispro 100 unit/1 mL SUBCUT (18:22)
[2024-01-29 20:49] LABS: Glucose Point of Care 231 mg/dL (70-110)
[2024-01-30] VITALS (16 sets, daily range): BP systolic 121–152; BP diastolic 64–81; PULSE 59–89; RESP 13–33; TEMP 36.3–37.9; O2SAT 95–100
[2024-01-30] MEDS: metoprolol tartrate 1 mg/1 mL SDV 5 mL 5 MG IVP ×4 (02:27→20:24)
[2024-01-30] MEDS: nitroglycerin 1 gm/inch oint Pkt 0.5 INCH TOPICAL ×4 (02:28→20:24)
[2024-01-30] MEDS: ipratropium-albuterol 3 mL Neb INHALATION ×4 (02:57→20:44)
[2024-01-30 03:32] LABS: Glucose Point of Care 167 mg/dL (70-110)
[2024-01-30] MEDS: dextrose 5% 1,000 ML 75 ML IV ×2 (04:30→17:20)
[2024-01-30] MEDS: piperacillin-tazobactam 3.375 GM in sodium chloride 0.9% (plus) 50 ML IV ×2 (04:30→12:16)
--- NOTE | 2024-01-30 07:33 | PM.PN ---
Subjective Subjective: Patient appears more alert today. Points to abdomen and per family has on and off discomfort. Vitals/I&O/Wt Last Vital Signs Temp 97.4 F L 01/30/24 03:56 Pulse 60 01/30/24 05:39 Resp 18 01/30/24 03:56 BP 133/71 01/30/24 03:56 Pulse Ox 97 01/30/24 03:56 O2 Del Method BiPAP 01/30/24 03:56 O2 Flow Rate 2.5 01/28/24 20:00 FiO2 28 01/30/24 03:00 01/29/24 01/30/24 01/30/24 22:59 06:59 14:59 Intake Total 1100 / 1150 863.75 / 2013.75 Output Total 200 / 200 600 / 800 Balance 900 / 950 263.75 / 1213.75 Weight last 48 hrs Weight 179 lb 12.8 oz Weight 181 lb 14.4 oz Physical Exam Narrative: GENERAL: Patient is alert NECK: No jugular vein distension. [] HEENT: No cyanosis. No icterus. No pallor. [] HEART: Regular S1 and S2. No murmur, rub or gallop. [] LUNGS: Diminished air entry CENTRAL NERVOUS SYSTEM: Grossly nonfocal. [] EXTREMITIES: Lower extremities with 1+ edema bilaterally. Urinary Catheter Management: Jewell: Cath Placed During This Visit: yes Reason for Continuing Indwelling Catheter: Chronic Indwelling Urinary Catheter on Admission Urinary Catheter Date of Insertion: 01/27/24 Urinary Catheter Time of Insertion: 00:30 Data 01/31/24 05:38 01/31/24 05:38 Micro: Microbiology 01/26/24 16:45 Blood Culture - Preliminary Blood Pseudomonas aeruginosa 01/26/24 17:03 Urine Culture - Final Urine,Clean Catch Escherichia coli A&P Assessment and plan (1) Acute on chronic diastolic (congestive) heart failure: (2) Ischemic cardiomyopathy: (3) Atherosclerosis of coronary artery of [place] heart without angina pectoris: (4) PVD (peripheral vascular disease): (5) Non-pressure chronic ulcer of other part of right foot with necrosis of bone: Plan Patient is stable. Will continue holding Lasix. Monitor renal function. Antibiotic therapy per primary team Thank you for involving us with care of this patient. We will continue to follow. Please call with questions. Attestations Medical Necessity Statement*: Care expected to cross 2 midnights. Coding Level of Care Code Acute Code for Chg Fwd Diagnoses Acute on chronic diastolic (congestive) heart failure I50.33 Ischemic cardiomyopathy I25.5 Atherosclerosis of coronary artery of [place] heart without angina pectoris I25.10 PVD (peripheral vascular disease) I73.9 Non-pressure chronic ulcer of other part of right foot with necrosis of bone L97.514
[2024-01-30] MEDS: pantoprazole 40 mg SDV IVP (08:29)
[2024-01-30 10:15] LABS: Glucose Point of Care 213 mg/dL (70-110)
[2024-01-30 11:10] LABS: C.Diff PCR (Lab) NEGATIVE (Negative)
[2024-01-30] MEDS: enoxaparin 100 mg/mL Syringe 80 MG SUBCUT ×2 (12:16→23:11)
[2024-01-30 12:27] LABS: ABG PCO2 31.2 mmHg (35-45); ABG PH Result 7.46 (7.35-7.45); Arterial Blood Gas Hematocrit 35.8 % (42-52); Base Excess ABG -1.2 mmol/L (-2.0-2.0); Blood Gas Allen Test Pos; Blood Gas Operator Identificat CAK; Blood Gas Sample Site Radial, left; Blood Gas Sample Type Arterial; Oxygen Device BIPAP; PO2 FiO2 Ratio Arterial Blood 0
--- NOTE | 2024-01-30 16:27 | P.PN_ITS ---
Subjective 2 Subjective: Tmax 100.3 Fahrenheit this afternoon. Pseudomonas isolate back with sensitivities now which shows resistance to piperacillin/tazobactam. Change antibiotic to meropenem today. Patient is more awake compared to yesterday. He is able to open his eyes to calling name. Able to follow commands to squeeze my fingers, lift his hands off the bed and hold them there. Speech is dysarthric. Medications: Reviewed: Yes Vitals/I&O/Wt Last Vital Signs Temp 100.3 F H 01/30/24 16:20 Pulse 61 01/30/24 16:20 Resp 14 01/30/24 16:20 BP 152/77 01/30/24 16:20 Pulse Ox 98 01/30/24 16:20 O2 Del Method Nasal Cannula 01/30/24 13:50 O2 Flow Rate 2 01/30/24 13:50 FiO2 28 01/30/24 11:00 01/30/24 01/30/24 01/30/24 06:59 14:59 22:59 Intake Total 863.75 / 2013.75 50 / 50 Output Total 600 / 800 200 / 200 Balance 263.75 / 1213.75 -150 / -150 Weight last 48 hrs Weight 81.556 kg Weight 82.508 kg Physical Exam 2 Narrative: General: No acute distress, AO x1-2 HEENT: PERRLA, pupils bilaterally equal and reactive, pallors not present Chest: Normal vesicular breath sounds, no added sounds, equal good air entry bilaterally CVS: S1-S2 regular, no murmurs, no tachycardia, no gallops, no rubs Abdomen: Soft, nontender, no organomegaly, bowel sounds present Neuro: Appears to be more awake today. Urinary Catheter Management: Jewell: Cath Placed During This Visit: yes Reason for Continuing Indwelling Catheter: Chronic Indwelling Urinary Catheter on Admission Urinary Catheter Date of Insertion: 01/27/24 Urinary Catheter Time of Insertion: 00:30 Data 01/29/24 02:57 01/29/24 02:57 Micro: Microbiology 01/26/24 16:45 Blood Culture - Final Blood Pseudomonas aeruginosa P aerugino M.I.[facility]. RX --------- ------ * Amikacin <=16 S * Aztreonam >16 R * Cefepime >16 R * Ciprofloxacin <=1 S * Gentamicin 4 S * Imipenem <=1 S * Levofloxacin <=2 S * Piperacillin/Tazobactam >64 R 01/29/24 11:04 Urine Culture - Preliminary E coli M.I.C. RX --------- ------ * Amikacin <=16 S * Amoxicillin/Clavulanate >16/8 R * Ampicillin >16 R * Ampicillin/Sulbactam 16/8 I * Aztreonam <=4 S * Cefepime <=8 S * Ceftriaxone <=1 S * Cefuroxime 16 I * Ciprofloxacin >2 R * Gentamicin <=2 S * Imipenem <=1 S * Levofloxacin >4 R * Nitrofurantoin 64 I * Tetracycline <=4 S * Trimethoprim/Sulfamethoxazole <=2/38 S * Piperacillin/Tazobactam <=16 S Urine Catheterized A&P Assessment and plan (1) Hypotension: (2) PVD (peripheral vascular disease): (3) History of neurological degenerative disease: (4) Tracheobronchomalacia: (5) Hyperglycemia: (6) Pseudomonas infection: Plan Metabolic encephalopathy related to proctitis versus polypharmacy versus UTI? Pseudomonas bacteremia History of aspiration pneumonia History of tracheobronchomalacia History of multiple systems atrophy Obstructive sleep apnea Patient has been kept n.p.o. for possible obstruction However he has had 3 bowel movement so far. Bowel sounds present in all 4 quadrants. Abdominal exam is benign. Nontender soft. Patient is passing gas. There is suspicion that patient may be aspirating. Speech therapist consult has been ordered. They recommend to keep patient n.p.o. for now. Recommendation to do modified barium swallow in AM. Initiated aspiration precautions Stop normal saline. Will place on D5 water. I will hold Entresto at this time. Continue Zosyn. 1 out of 4 blood cultures bottle positive for Pseudomonas. Repeat cultures obtained 01/26. May repeat every 48 hours till negative. 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 Consult podiatry UTI Chronic UTIs Recurrent UTIs Neurogenic bladder?self-catheterization twice a day by family. ? This status has been difficult to cath patient at home due to position and other circumstances. ? I may recommend a Jewell at this time since he is unable to get straight cathed very frequently during the day. He may see urology outpatient to have that removed at a later date. ? Continue on Zosyn at this time. ? Await urine culture report ? Patient to follow-up with urology as outpatient after discharge. For UTI patient will get antibiotics we will wait for urine culture report Patient self caths at home urologist in [place] Urine culture positive for gram-negative rods. Patient is bedbound will request D-dimer to rule out thromboembolic phenomenon -D-dimer 1.30. H assessment done. VTE unlikely. He will be considered high risk Continue on Lovenox therapeutic twice daily. Acute on chronic right and left-sided systolic heart failure History of CABG History of CAD History of UT Hyperlipidemia ? Patient on Entresto eplerenone, Lasix at home. Initially medications were being held. Continue aspirin, Coreg. Coreg to be given at reduced dose of 12.5 twice daily. Restart Lasix. Will give Lasix 40 IV x 1 now. Patient is +1200 pounds at this time. Consult cardiology as per patient's daughter's request. Discussed with Dr. Horton. He will see patient in consultation. Diabetes mellitus type II ? On Januvia at home which we will hold at this time. ? May place on low-dose intensity sliding scale however patient is n.p.o. at this time. Patient is on limited resuscitation does not want intubation, this was discussed on previous admissions patient only wants defibrillation and ACLS drugs in ICU admission Discussed CODE STATUS with patient's daughter today. She agrees with above. She says if he does go into respiratory distress or aspirates or any other acute events happen to only provide supportive care at this time.. Plan for today January 29, 2024: Chart reviewed in detail. Patient with a past medical history of multisystem atrophy, cerebellar ataxia, progressive neurocognitive decline, usually recommended to be on dysphagia diet at home, no formal diagnosis of oropharyngeal dysphagia in the past. Currently admitted send January 24, 2024 after presenting with lethargy, somnolence, altered mental status. Upon evaluation found to have Pseudomonas aeruginosa bacteremia on January 26, 2024. Blood culture thus far clear from January 27, 2024. Patient is empirically on Zosyn while pending susceptibility testing. Potential sources of infection may be related to urinary tract infection. Patient has a history of chronic cystitis, recently established care with urologist and started intermittent self cath for neurogenic bladder/urinary retention. Currently has a Jewell catheter in place. Urine culture itself showing E. coli, however possible that may be a polymicrobial infection. Recently also had a Pseudomonas infection of his right great toe where a pressure injury was infected, treated with outpatient oral antibiotics. Currently his left foot is in a cast, followed by podiatry including as an inpatient. CT of the abdomen and pelvis upon admission raised concern for proctitis, however no clinical correlate for the same. Patient does have chronic constipation for which she takes as needed MiraLAX at home. 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 Currently no clinical signs of a small bowel or large bowel obstruction. Patient has had 3 bowel movements since being here. Abdominal exam is benign. No vomiting. Patient's lethargy currently precludes oral feeding. Ativan, opiates have all been placed on hold, last dose 24 hours ago. Holding gabapentin and antihistamines at this time. Likely altered mental status contributed by metabolic encephalopathy, await improvement with medical treatment. Hold off on NG tube and swallow eval for now as patient highly unlikely to be able to participate in a swallow eval. Additionally patient has previously decided to continue high risk feeding in spite of recommendations for dysphagia diet. Family is uncertain at this time if he would be agreeable for PEG tube if fails swallow eval. Discussions to continue during admission. Today January 30, 2024. Febrile today. Pseudomonas aeruginosa isolate showing resistance to piperacillin/tazobactam. Antibiotics switched to meropenem IV every 8 hours in keeping with susceptibility results. Mental status is slightly better. Attempting swallow evaluation so that patient will at least be able to take oral medications. 20 mg IV today. ABG performed as patient has persistently been on BiPAP through the night and again this morning. Also performed ABG to evaluate for hypercapnia as potentially contributing to his somnolence. Overall ABG showing 7.46/31.2/133, bicarb 22 on 28% FiO2, overall consistent with respiratory alkalosis. Discontinued BiPAP use during the daytime. Will use it only at nighttime and as needed. Discussed with family at bedside that additional BiPAP without any indication for the same likely to cause hypercapnia and reduced respiratory drive. Potassium 3.1 on ABG, not seen in the computer but noted on paper report. Replete 20 mEq KCl. Lasix 20 mg IV today. Labs including blood culture in AM. Thus far blood cultures from January 26 negative to date, however would need to be repeated in view of ongoing fever and resistance to piperacillin/tazobactam which has now been discovered. Family declines insulin Attestations 2 Medical Necessity Statement*: Continued need for IV antibiotics, ongoing appropriate disposition planning, awaiting improvement in mental status. Coding Level of Care Code Acute Code for Chg Fwd High MDM includes number and complexity of problems actively addressed during encounter, amount and/or complexity of data reviewed/ordered and described risk of complication, morbidity or mortality of management as documented Diagnoses Hypotension I95.9 PVD (peripheral vascular disease) I73.9 History of neurological degenerative disease Z86.69 Tracheobronchomalacia J39.8 Hyperglycemia R73.9 Pseudomonas infection A49.8
[2024-01-30 17:07] LABS: Glucose Point of Care 202 mg/dL (70-110)
[2024-01-30] MEDS: meropenem 1,000 MG in sodium chloride 0.9% (plus) 50 ML 100 MG IV ×2 (17:16→23:12)
[2024-01-30] MEDS: FUROsemide 10 mg/mL SDV 2mL 20 MG IVP (17:21)
[2024-01-30] MEDS: lidocaine 1% 5 ML in potassium chloride premix 100 ML 25 ML IV (17:22)
[2024-01-30] MEDS: acetaminophen 1,000 MG/100 ML PIGGYBACK 400 MG IV (18:16)
[2024-01-30] MEDS: simethicone 40 mg/0.6 mL Bottle 30mL PO (18:17)
--- NOTE | 2024-01-30 19:15 | P.PN_ITS ---
Subjective 2 Subjective: Patient seen bedside this afternoon. He is in good spirits he is accompanied by his and daughter who is visiting from [place] is also a friend from [place]. Endorses abdominal pain. Vitals/I&O/Wt Last Vital Signs Temp 100.3 F H 01/30/24 16:20 Pulse 61 01/30/24 16:20 Resp 14 01/30/24 16:20 BP 152/77 01/30/24 16:20 Pulse Ox 98 01/30/24 16:20 O2 Del Method Nasal Cannula 01/30/24 13:50 O2 Flow Rate 2 01/30/24 13:50 FiO2 28 01/30/24 11:00 01/30/24 01/30/24 01/30/24 06:59 14:59 22:59 Intake Total 863.75 / 2013.75 50 / 50 1156.667 / 1206.667 Output Total 600 / 800 200 / 200 Balance 263.75 / 1213.75 -150 / -150 1156.667 / 1006.667 Weight last 48 hrs Weight 179 lb 12.8 oz Weight 181 lb 14.4 oz Physical Exam 2 Narrative: Patient is alert and oriented ?3 and in no acute distress. ?The following is a focused bilateral lower extremity exam. VASCULAR: Dorsalis pedis and posterior tibial arteries faintly palpable. ?Capillary refill time less than 5 seconds to the distal hallux bilaterally. Calf is supple and nontender proximally and distally. ?Diffuse Edema bilateral lower extremity, minimal. ?Decreased pedal hair growth noted bilaterally. Rubor to bilateral lower extremities. NEUROLOGICAL: Protective sensation intact 5/10 sites, tested with [place] monofilament to bilateral feet. DERMATOLOGICAL: healed right 2nd toe right great toe 2 mm x 2 mm x 2 mm, continue with dressing changes with hydrofera blue left 2nd toe 0.9cm x 0.8 cm x 0.2cm left great toe 1.4 cm x 1.6 cm x 0.2cm MUSCULOSKELETAL: Hallux malleus bilaterally. Digital contractures a lesser digits 2 through 5 right, semi-reducible with sagittal plane dominance. ?Left second hammertoe deformity with sagittal plane dominance nonreducible, 3 through 5 hammertoe deformities left nonreducible. Decreased muscle strength in all 3 cardinal planes 4/5. ?Patient is utilizing wheelchair. ?Can ambulate with gait belt. Urinary Catheter Management: Jewell: Cath Placed During This Visit: yes Reason for Continuing Indwelling Catheter: Acute Urinary Retention or Obstruction Urinary Catheter Date of Insertion: 01/27/24 Urinary Catheter Time of Insertion: 00:30 Data 01/29/24 02:57 01/29/24 02:57 Micro: Microbiology 01/26/24 16:45 Blood Culture - Final Blood Pseudomonas aeruginosa 01/29/24 11:04 Urine Culture - Preliminary Urine Catheterized A&P Assessment and plan (1) Hallux, malleus acquired: (2) Type 2 diabetes mellitus: Qualifiers: Diabetes mellitus extermination supervisor insulin use: unspecified extermination supervisor insulin use status Diabetes mellitus complication status: with other specified complication Qualified Code(s): E11.69 - Type 2 diabetes mellitus with other specified complication (3) Non-pressure chronic ulcer of other part of left foot with fat layer exposed: (4) Non-pressure chronic ulcer of other part of right foot with fat layer exposed: Plan Pleasant 88-year-old male with bilateral foot wounds. Right great toe and left great toe and second toe wounds are clinically stable have healthy granular base, no acute signs of infection, no indications for surgical debridement. Will continue with primary wound dressing of Hydrofera Blue and total contact casting to the left for offloading. New Hydrofera Blue dressing applied at today's visit. Podiatry will continue to round and perform wound dressing changes during this hospitalization. Will follow-up as scheduled outpatient once discharged. Attestations 2 Medical Necessity Statement*: Bilateral foot wound Coding Level of Care Code Acute Code for [facility] Fwd Diagnoses Hallux, malleus acquired M20.30 Type 2 diabetes mellitus with other specified complication, unspecified whether extermination supervisor insulin use E11.69 Diabetes mellitus extermination supervisor insulin use: unspecified prison insulin use status Diabetes mellitus complication status: with other specified complication Non-pressure chronic ulcer of other part of left foot with fat layer exposed L97.522 Non-pressure chronic ulcer of other part of right foot with fat layer exposed L97.512
[2024-01-30 20:35] LABS: Glucose Point of Care 231 mg/dL (70-110)
[2024-01-31] VITALS (14 sets, daily range): BP systolic 130–152; BP diastolic 76–88; PULSE 56–69; RESP 11–21; TEMP 36.1–36.6; O2SAT 97–100; BMI 25.7
[2024-01-31] MEDS: ipratropium-albuterol 3 mL Neb INHALATION ×4 (01:09→20:23)
[2024-01-31] MEDS: metoprolol tartrate 1 mg/1 mL SDV 5 mL 5 MG IVP ×4 (01:10→20:00)
[2024-01-31] MEDS: nitroglycerin 1 gm/inch oint Pkt 0.5 INCH TOPICAL ×4 (01:11→19:59)
[2024-01-31 03:50] LABS: Glucose Point of Care 246 mg/dL (70-110)
[2024-01-31] MEDS: dextrose 5% 1,000 ML 75 ML IV (05:37)
[2024-01-31 06:01] LABS: Basophils % 0.3 %; Eosinophils # 0.1 10^3/uL (0.0-0.8); Eosinophils % 0.7 %; Hematocrit 34.7 % (37-53); Lymphocytes # 1.3 10^3/uL (0.8-4.8); Lymphocytes % 17.1 %; Mean Corpuscular HGB Conc 32.6 g/dL (30-55); Mean Corpuscular Hemoglobin 30.6 pg (27-33); Mean Platelet Volume 11.1 fL (7.4-10.4); Monocytes # 0.4 10^3/uL (0.2-0.9); Monocytes % 5.4 %; Neutrophils # 5.64 10^3/uL (1.8-7.7); Neutrophils % 74.9 %; Nucleated Red Blood Cells # 0.2 /100WBC; Nucleated Red Blood Cells % 2.3 %; Platelet Count 109 10^3/cmm (157-399); Red Blood Count 3.69 10^6/uL (3.85-5.65); Red Cell Distribution Width 14.1 % (12.1-15.1); White Blood Count 7.53 10^3/uL (3.29-11.43)
[2024-01-31 06:27] LABS: Alanine Aminotransferase 352 U/L (0-41); Albumin Level 3.3 g/dL (3.5-5.2); Alkaline Phosphatase 49 U/L (40-130); Aspartate Amino Transferase 286 U/L (0-40); Blood Urea Nitrogen 35 mg/dL (8-23); Calcium 8.6 mg/dL (8.5-10.5); Carbon Dioxide 21 mmol/L (22-29); Chloride 109 mmol/L (98-107); Creatinine Clr Calc Pharmacy 70.1856; Globulin 2.9 g/dL (1.3-4.6); Glucose 193 mg/dL (65-115); Osmolality Calculated 305 mOsm/kg (285-295); Sodium 141 mmol/L (136-145); Total Bilirubin 0.8 mg/dL (0.15-1.2); Total Protein 6.2 g/dL (6.6-8.7)
[2024-01-31] MEDS: simethicone 40 mg/0.6 mL Bottle 30mL PO (09:09)
[2024-01-31] MEDS: meropenem 1,000 MG in sodium chloride 0.9% (plus) 50 ML 100 MG IV ×2 (09:59→18:07)
[2024-01-31] MEDS: insulin lispro 100 unit/1 mL SUBCUT (10:00)
[2024-01-31] MEDS: pantoprazole 40 mg SDV IVP (10:01)
--- NOTE | 2024-01-31 10:04 | PC.SOCIAL ---
IMM Update pg 2 of IMM updated and reviewed w/ patients daughter Ashley, Copy provided and copy dated, initialed and placed in chart.
[2024-01-31] MEDS: acetaminophen 1,000 MG/100 ML PIGGYBACK 400 MG IV (11:02)
[2024-01-31] MEDS: enoxaparin 100 mg/mL Syringe 80 MG SUBCUT (11:03)
--- NOTE | 2024-01-31 11:30 | P.PN_ITS ---
Subjective 2 Subjective: Patient is more alert today. Seems comfortable. Vitals/I&O/Wt Last Vital Signs Temp 97.6 F 01/31/24 07:29 Pulse 60 01/31/24 10:00 Resp 18 01/31/24 08:00 BP 130/81 01/31/24 10:00 Pulse Ox 99 01/31/24 08:00 O2 Del Method BiPAP 01/31/24 08:00 O2 Flow Rate 2 01/30/24 13:50 FiO2 28 01/31/24 08:00 01/30/24 01/31/24 01/31/24 22:59 06:59 14:59 Intake Total 1156.667 / 7746.207 5120.583 / 2276.250 Output Total 700 / 900 Balance 1156.667 / 1006.667 369.583 / 1376.250 Weight last 48 hrs Weight 179 lb Weight 179 lb 12.8 oz Physical Exam 2 Narrative: GENERAL: Patient is alert NECK: No jugular vein distension. [] HEENT: No cyanosis. No icterus. No pallor. [] HEART: Regular S1 and S2. No murmur, rub or gallop. [] LUNGS: Diminished air entry CENTRAL NERVOUS SYSTEM: Grossly nonfocal. [] EXTREMITIES: Lower extremities with 1+ edema bilaterally. Urinary Catheter Management: Jewell: Cath Placed During This Visit: yes Reason for Continuing Indwelling Catheter: Chronic Indwelling Urinary Catheter on Admission Urinary Catheter Date of Insertion: 01/27/24 Urinary Catheter Time of Insertion: 00:30 Data 02/01/24 04:38 02/01/24 04:38 Micro: Microbiology 01/29/24 11:04 Urine Culture - Final Urine Catheterized 01/31/24 05:41 Blood Culture - Preliminary Blood SPECIMEN COLLECTED 01/31/24 05:38 Blood Culture - Preliminary Blood SPECIMEN COLLECTED 01/26/24 16:45 Blood Culture - Final Blood Pseudomonas aeruginosa A&P Assessment and plan (1) Acute on chronic diastolic (congestive) heart failure: (2) Ischemic cardiomyopathy: (3) Atherosclerosis of coronary artery of [place] heart without angina pectoris: (4) PVD (peripheral vascular disease): (5) Non-pressure chronic ulcer of other part of right foot with necrosis of bone: Plan LFTs have gone up. Primary team planning to perform ultrasound. If that does not show any abdominal etiology, can be from volume overload and right heart failure. In that situation can start diuresis. Thank you for involving us with care of this patient. We will continue to follow. Please call with questions. Attestations 2 Medical Necessity Statement*: Care expected to cross 2 midnights. Coding Level of Care Code Acute Code for Chg Fwd Diagnoses Acute on chronic diastolic (congestive) heart failure I50.33 Ischemic cardiomyopathy I25.5 Atherosclerosis of coronary artery of [place] heart without angina pectoris I25.10 PVD (peripheral vascular disease) I73.9 Non-pressure chronic ulcer of other part of right foot with necrosis of bone L97.514
[2024-01-31 11:39] LABS: Glucose Point of Care 184 mg/dL (70-110)
--- NOTE | 2024-01-31 14:12 | P.PN_ITS ---
Subjective 2 Subjective: Patient is awake this morning, appears to be more alert than previous exams.. Able to state that his name is Ashok. Dry mouth and mucous membrane. Noted to have coughing episodes. Unable to assess orientation, he does not participate in any conversation. Family considering transition to hospice Medications: Reviewed: Yes Vitals/I&O/Wt Last Vital Signs Temp 97.6 F 01/31/24 11:52 Pulse 67 01/31/24 14:09 Resp 16 01/31/24 14:05 BP 139/76 01/31/24 11:52 Pulse Ox 97 01/31/24 14:05 O2 Del Method Nasal Cannula 01/31/24 14:05 O2 Flow Rate 2 01/31/24 14:05 FiO2 28 01/31/24 08:00 01/30/24 01/31/24 01/31/24 22:59 06:59 14:59 Intake Total 1156.667 / 6470.790 2310.583 / 2276.250 Output Total 700 / 900 Balance 1156.667 / 1006.667 369.583 / 1376.250 Weight last 48 hrs Weight 81.193 kg Weight 81.556 kg Physical Exam 2 Narrative: General: No acute distress, AO x1 HEENT: PERRLA, pupils bilaterally equal and reactive, pallors not present Chest: Reduced breath sounds with added crackles right infra axillary and mammary areas. CVS: S1-S2 regular, no murmurs, no tachycardia, no gallops, no rubs Abdomen: Soft, nontender, no organomegaly, bowel sounds present Neuro: Appears to be more awake today. Urinary Catheter Management: Jewell: Cath Placed During This Visit: yes Reason for Continuing Indwelling Catheter: Chronic Indwelling Urinary Catheter on Admission Urinary Catheter Date of Insertion: 01/27/24 Urinary Catheter Time of Insertion: 00:30 Data 01/31/24 05:38 01/31/24 05:38 Micro: Microbiology 01/29/24 11:04 Urine Culture - Final Urine Catheterized 01/31/24 05:41 Blood Culture - Preliminary Blood SPECIMEN COLLECTED 01/31/24 05:38 Blood Culture - Preliminary Blood SPECIMEN COLLECTED 01/26/24 16:45 Blood Culture - Final Blood Pseudomonas aeruginosa A&P Assessment and plan (1) Hypotension: (2) PVD (peripheral vascular disease): (3) History of neurological degenerative disease: (4) Tracheobronchomalacia: (5) Hyperglycemia: (6) Pseudomonas infection: Plan Metabolic encephalopathy related to proctitis versus polypharmacy versus UTI? Pseudomonas bacteremia History of aspiration pneumonia History of tracheobronchomalacia History of multiple systems atrophy Obstructive sleep apnea Patient has been kept n.p.o. for possible obstruction However he has had 3 bowel movement so far. Bowel sounds present in all 4 quadrants. Abdominal exam is benign. Nontender soft. Patient is passing gas. There is suspicion that patient may be aspirating. Speech therapist consult has been ordered. They recommend to keep patient n.p.o. for now. Recommendation to do modified barium swallow in AM. Initiated aspiration precautions Stop normal saline. Will place on D5 water. I will hold Entresto at this time. Continue Zosyn. 1 out of 4 blood cultures bottle positive for Pseudomonas. Repeat cultures obtained 01/26. May repeat every 48 hours till negative. 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 Consult podiatry UTI Chronic UTIs Recurrent UTIs Neurogenic bladder?self-catheterization twice a day by family. ? This status has been difficult to cath patient at home due to position and other circumstances. ? I may recommend a Jewell at this time since he is unable to get straight cathed very frequently during the day. He may see urology outpatient to have that removed at a later date. ? Continue on Zosyn at this time. ? Await urine culture report ? Patient to follow-up with urology as outpatient after discharge. For UTI patient will get antibiotics we will wait for urine culture report Patient self caths at home urologist in [place] Urine culture positive for gram-negative rods. Patient is bedbound will request D-dimer to rule out thromboembolic phenomenon -D-dimer 1.30. H assessment done. VTE unlikely. He will be considered high risk Continue on Lovenox therapeutic twice daily. 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 Patient on Entresto eplerenone, Lasix at home. Initially medications were being held. Continue aspirin, Coreg. Coreg to be given at reduced dose of 12.5 twice daily. Restart Lasix. Will give Lasix 40 IV x 1 now. Patient is +1200 pounds at this time. Consult cardiology as per patient's daughter's request. Discussed with Dr. Horton. He will see patient in consultation. Diabetes mellitus type II ? On Januvia at home which we will hold at this time. ? May place on low-dose intensity sliding scale however patient is n.p.o. at this time. Patient is on limited resuscitation does not want intubation, this was discussed on previous admissions patient only wants defibrillation and ACLS drugs in ICU admission Discussed CODE STATUS with patient's daughter today. She agrees with above. She says if he does go into respiratory distress or aspirates or any other acute events happen to only provide supportive care at this time.. Plan for today January 29, 2024: Chart reviewed in detail. Patient with a past medical history of multisystem atrophy, cerebellar ataxia, progressive neurocognitive decline, usually recommended to be on dysphagia diet at home, no formal diagnosis of oropharyngeal dysphagia in the past. Currently admitted send January 24, 2024 after presenting with lethargy, somnolence, altered mental status. Upon evaluation found to have Pseudomonas aeruginosa bacteremia on January 26, 2024. Blood culture thus far clear from January 27, 2024. Patient is empirically on Zosyn while pending susceptibility testing. Potential sources of infection may be related to urinary tract infection. Patient has a history of chronic cystitis, recently established care with urologist and started intermittent self cath for neurogenic bladder/urinary retention. Currently has a Jewell catheter in place. Urine culture itself showing E. coli, however possible that may be a polymicrobial infection. Recently also had a Pseudomonas infection of his right great toe where a pressure injury was infected, treated with outpatient oral antibiotics. Currently his left foot is in a cast, followed by podiatry including as an inpatient. CT of the abdomen and pelvis upon admission raised concern for proctitis, however no clinical correlate for the same. Patient does have chronic constipation for which she takes as needed MiraLAX at home. 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 Currently no clinical signs of a small bowel or large bowel obstruction. Patient has had 3 bowel movements since being here. Abdominal exam is benign. No vomiting. Patient's lethargy currently precludes oral feeding. Ativan, opiates have all been placed on hold, last dose 24 hours ago. Holding gabapentin and antihistamines at this time. Likely altered mental status contributed by metabolic encephalopathy, await improvement with medical treatment. Hold off on NG tube and swallow eval for now as patient highly unlikely to be able to participate in a swallow eval. Additionally patient has previously decided to continue high risk feeding in spite of recommendations for dysphagia diet. Family is uncertain at this time if he would be agreeable for PEG tube if fails swallow eval. Discussions to continue during admission. Today January 30, 2024. Febrile today. Pseudomonas aeruginosa isolate showing resistance to piperacillin/tazobactam. Antibiotics switched to meropenem IV every 8 hours in keeping with susceptibility results. Mental status is slightly better. Attempting swallow evaluation so that patient will at least be able to take oral medications. 20 mg IV today. ABG performed as patient has persistently been on BiPAP through the night and again this morning. Also performed ABG to evaluate for hypercapnia as potentially contributing to his somnolence. Overall ABG showing 7.46/31.2/133, bicarb 22 on 28% FiO2, overall consistent with respiratory alkalosis. Discontinued BiPAP use during the daytime. Will use it only at nighttime and as needed. Discussed with family at bedside that additional BiPAP without any indication for the same likely to cause hypercapnia and reduced respiratory drive. Potassium 3.1 on ABG, not seen in the computer but noted on paper report. Replete 20 mEq KCl. Lasix 20 mg IV today. Labs including blood culture in AM. Thus far blood cultures from January 26 negative to date, however would need to be repeated in view of ongoing fever and resistance to piperacillin/tazobactam which has now been discovered. Family declines insulin Plan for today January 31, 2024. Last fever yesterday afternoon at 100.3 Fahrenheit. Continuing on meropenem since yesterday. Last blood culture positive on January 26, 2024. Blood cultures from January 26 thus far negative to date, however upon further review it does not appear these have been updated since January 28, 2024. Will await at least 48 hours fever free prior to consideration of PICC line placement. Patient appears to be more awake and alert however still not participating in any meaningful conversation. Continues to have component of metabolic encephalopathy in the background of advancing neurocognitive decline. Discussed with family that this may very well be his new baseline. In view of his multiple comorbidities and gradual decline family considering transition to hospice, would like more information. Hospice services to discuss with family later today. Patient continues to be n.p.o. owing to severe aspiration risk. Repeat swallow evaluation today. Family would like to explore the possibility of trial of parenteral nutrition while awaiting improvement in his encephalopathy. This would be reasonable, however discussed with daughter that TPN/PPN would need to be a temporary bridge with eventual plan to transition to some way of enteral nutrition. This will need to be largely dependent on patient's overall goals of care. At this time it appears patient and family would not want to proceed with PEG placement and would likely opt for comfort feeding should he continue to fail repeated swallow evaluations. Complaining of abdominal pain. Abdominal exam is overall benign. Recent CT from January 28, 2024 without acute abdominal events. Patient has good bowel sounds. IV Tylenol provided him comfort yesterday. Trial of IV Tylenol x 1 now. Avoiding opiates in view of poor mentation. Trial of Toradol 15 mg x 1. Repleted potassium. CXR to assess for interval pneumonia, suspect aspiration episode. Attestations 2 Medical Necessity Statement*: Continued admission for IV antibiotics, goals of care discussions Coding Level of Care Code Acute Code for Chg Fwd High MDM includes number and complexity of problems actively addressed during encounter, amount and/or complexity of data reviewed/ordered and described risk of complication, morbidity or mortality of management as documented Diagnoses Hypotension I95.9 PVD (peripheral vascular disease) I73.9 History of neurological degenerative disease Z86.69 Tracheobronchomalacia J39.8 Hyperglycemia R73.9 Pseudomonas infection A49.8
--- NOTE | 2024-01-31 14:13 | XRR_ITS ---
PROCEDURE INFORMATION: Exam: XR Chest Exam date and time: 01/31/2024 1:33 PM Age: 88 years old Clinical indication: Condition or disease; Lung condition and disease; Pneumonia TECHNIQUE: Imaging protocol: Radiologic exam of the chest. Views: 1 view. COMPARISON: CR (CHEST, ) 01/28/2024 12:35 PM FINDINGS: Tubes, catheters and devices: Median sternotomy suture wires. Multi lead pacemaker/defibrillator. Lungs: Left lower lobe infiltrate. Mild interstitial prominence. Pleural spaces: Unremarkable. No pleural effusion. No pneumothorax. Heart/Mediastinum: See Vasculature finding. Vasculature: Mild cardiomegaly and uncoiling of the thoracic aorta each accentuated by the AP positioning. Bones/joints: Unremarkable. XR/XR chest 1V portable [id number] IMPRESSION: No significant change.
--- NOTE | 2024-01-31 14:13 | XRR_ITS ---
PROCEDURE INFORMATION: Exam: XR Abdomen Exam date and time: 01/31/2024 1:35 PM Age: 88 years old Clinical indication: Abdominal pain; Generalized; Prior surgery; Surgery date: 6+ months; Surgery type: Prostate; Additional info: Assess for ileus TECHNIQUE: Imaging protocol: Radiologic exam of the abdomen. Views: Frontal supine view of the abdomen. 1 View. COMPARISON: CT abdomen pelvis con [id number] 01/28/2024 3:28 PM FINDINGS: Gastrointestinal tract: Extensive small bowel loops can, nondilated, and containing gas. Main considerations are aerophagia versus ileus. Vasculature: Arterial calcifications. Bones/joints: Right hip replacement. Other findings: No erect images, I cannot evaluate for gas fluid levels. Evidence of prior pelvic surgery. XR/XR abdomen 1V* [id number] IMPRESSION: Gas within multiple loops of nondilated small bowel. Aerophagia versus ileus.
[2024-01-31] MEDS: ketorolac 30 mg/mL INJ 15 MG IVP (15:18)
[2024-01-31] MEDS: lidocaine 1% 5 ML in potassium chloride premix 100 ML 26.25 ML IV (15:19)
[2024-01-31] MEDS: AA-Dex 4.25%-5% w/Lytes 1,000 ML with multivitamin inj 5 ML 83 ML IV (15:59)
[2024-01-31 16:43] LABS: Glucose Point of Care 89 mg/dL (70-110)
--- NOTE | 2024-01-31 17:40 | USR_ITS ---
PROCEDURE INFORMATION: Exam: US Abdomen; Limited Exam date and time: 01/31/2024 6:06 PM Age: 88 years old Clinical indication: Abnormal findings; Abnormal lab test; Elevated liver enzymes; Additional info: Transaminitis, worsening liver function, C/O ruq pain, check liver and TECHNIQUE: Imaging protocol: Real time ultrasound of the abdomen with image documentation. Limited exam focused on the region of clinical interest. COMPARISON: CT abdomen pelvis wo con [id number] 01/28/2024 3:28 PM FINDINGS: Pleural spaces: Partially imaged small right pleural effusion Liver: Liver is within normal limits for size and is grossly unremarkable, with no focal liver lesion demonstrated. Gallbladder: Gallbladder is mildly distended by the presence of sludge. No gallbladder stones, pericholecystic fluid or wall thickening to suggest cholecystitis. Biliary ducts: CBD is within limits for size. Pancreas: Pancreas is inadequately visualized secondary to obscuration from adjacent bowel gas. Right kidney: Right kidney is 10.0 cm in length and demonstrates 2 subcentimeter simple versus hemorrhagic/proteinaceous cysts. No findings of urinary obstruction. Intraperitoneal space: No ascites demonstrated Aorta: Visualized abdominal aorta is within normal limits for size measuring maximally 2.2 cm diameter Portal venous: Main portal vein is within normal limits for size and shows normal direction of flow; it demonstrates pulsatile waveforms as well as dilated hepatic veins, which is suggestive of right heart failure and/or tricuspid regurgitation. US/US liver [id number] IMPRESSION: 1. Gallbladder is mildly distended by the presence of layering sludge. No findings to suggest cholecystitis. 2. Main portal vein shows findings suggestive right heart failure and/or tricuspid regurgitation. See above report. 3. Right kidney cysts as described 4. Partially imaged right pleural effusion
[2024-01-31 22:53] LABS: Glucose Point of Care 137 mg/dL (70-110)
[2024-02-01] VITALS (18 sets, daily range): BP systolic 133–166; BP diastolic 82–92; PULSE 60–70; RESP 16–42; TEMP 36.2–36.7; O2SAT 92–100
[2024-02-01] MEDS: meropenem 1,000 MG in sodium chloride 0.9% (plus) 50 ML 100 MG IV ×3 (00:12→16:37)
[2024-02-01] MEDS: enoxaparin 100 mg/mL Syringe 80 MG SUBCUT ×3 (00:12→22:08)
[2024-02-01] MEDS: ipratropium-albuterol 3 mL Neb INHALATION ×4 (02:21→20:58)
[2024-02-01] MEDS: metoprolol tartrate 1 mg/1 mL SDV 5 mL 5 MG IVP ×4 (02:55→20:21)
[2024-02-01] MEDS: nitroglycerin 1 gm/inch oint Pkt 0.5 INCH TOPICAL ×4 (02:55→20:18)
[2024-02-01] MEDS: ketorolac 30 mg/mL INJ 15 MG IVP (04:29)
[2024-02-01 05:15] LABS: Basophils % 0.3 %; Eosinophils # 0.1 10^3/uL (0.0-0.8); Eosinophils % 0.8 %; Hematocrit 38.6 % (37-53); Lymphocytes # 1.4 10^3/uL (0.8-4.8); Lymphocytes % 13.7 %; Mean Corpuscular HGB Conc 32.4 g/dL (30-55); Mean Corpuscular Hemoglobin 30.6 pg (27-33); Mean Corpuscular Volume 94.4 fl (82-101); Mean Platelet Volume 11.8 fL (7.4-10.4); Monocytes # 0.5 10^3/uL (0.2-0.9); Monocytes % 5.1 %; Neutrophils # 7.75 10^3/uL (1.8-7.7); Neutrophils % 76.9 %; Nucleated Red Blood Cells # 0.3 /100WBC; Platelet Count 126 10^3/cmm (157-399); Red Blood Count 4.09 10^6/uL (3.85-5.65); Red Cell Distribution Width 14.2 % (12.1-15.1); White Blood Count 10.07 10^3/uL (3.29-11.43)
[2024-02-01 05:41] LABS: Alanine Aminotransferase 490 U/L (0-41); Albumin Level 3.5 g/dL (3.5-5.2); Alkaline Phosphatase 56 U/L (40-130); Aspartate Amino Transferase 351 U/L (0-40); Blood Urea Nitrogen 32 mg/dL (8-23); Calcium 8.3 mg/dL (8.5-10.5); Carbon Dioxide 20 mmol/L (22-29); Chloride 107 mmol/L (98-107); Creatinine Clr Calc Pharmacy 70.1856; Globulin 2.5 g/dL (1.3-4.6); Glucose 199 mg/dL (65-115); Osmolality Calculated 304 mOsm/kg (285-295); Sodium 141 mmol/L (136-145); Total Bilirubin 0.8 mg/dL (0.15-1.2)
[2024-02-01 05:44] LABS: Anion Gap 17.9 (5-19); Potassium 3.9 mmol/L (3.5-5.1)
[2024-02-01 06:02] LABS: Glucose Point of Care 204 mg/dL (70-110)
[2024-02-01] MEDS: pantoprazole 40 mg SDV IVP (08:40)
[2024-02-01] MEDS: AA-Dex 4.25%-5% w/Lytes 1,000 ML with multivitamin inj 5 ML 83 ML IV ×2 (09:55→21:15)
[2024-02-01 11:20] LABS: Glucose Point of Care 223 mg/dL (70-110)
[2024-02-01] MEDS: insulin lispro 100 unit/1 mL SUBCUT ×3 (11:30→21:17)
--- NOTE | 2024-02-01 14:53 | PM.PN ---
Subjective Subjective: Patient is much more awake and alert today. He is and attempting to have a conversation, maintains eye contact with me and with several family members. Attempts to talk and make his wishes known. Per family he worked with exercising his upper extremities. He is using words such as all right when being asked how he is doing,, not now when asked if he wants to eat, better when asked about pain. He is afebrile and hemodynamically stable. Medications: Reviewed: Yes Vitals/I&O/Wt Last Vital Signs Temp 97.8 F 02/01/24 08:00 Pulse 62 02/01/24 11:41 Resp 16 02/01/24 11:41 BP 146/89 02/01/24 08:00 Pulse Ox 92 02/01/24 11:41 O2 Del Method Nasal Cannula 02/01/24 11:41 O2 Flow Rate 2 02/01/24 08:06 FiO2 28 02/01/24 02:23 01/31/24 02/01/24 02/01/24 22:59 06:59 14:59 Intake Total 1193.75 / 1193.75 150 / 1343.75 821.133 / 821.133 Balance 1193.75 / 1193.75 150 / 1343.75 821.133 / 821.133 Weight last 48 hrs Weight 81.193 kg Weight 81.193 kg Physical Exam Narrative: General: Much more awake and alert HEENT: PERRLA, pupils bilaterally equal and reactive, pallors not present Chest: Reduced breath sounds with added crackles right infra axillary and mammary areas. CVS: S1-S2 regular, no murmurs, no tachycardia, no gallops, no rubs Abdomen: Soft, nontender, no organomegaly, bowel sounds present Neuro: Appears to be more awake today. Urinary Catheter Management: Jewell: Cath Placed During This Visit: yes Reason for Continuing Indwelling Catheter: Chronic Indwelling Urinary Catheter on Admission Urinary Catheter Date of Insertion: 01/27/24 Urinary Catheter Time of Insertion: 00:30 Data 02/01/24 04:38 02/01/24 04:38 Micro: Microbiology 01/31/24 05:41 Blood Culture - Preliminary Blood NEGATIVE TO DATE 01/31/24 05:38 Blood Culture - Preliminary Blood NEGATIVE TO DATE 01/26/24 16:42 Blood Culture - Final Blood NO GROWTH AFTER 5 DAYS pec #: [id number] López: 01/26/24-1644 Status: COMP Req #: [id number] Recd: 01/26/[address]: Jimbo Alexandre DO Src: Blood [facility]: Ordered: Bcult Procedure Result Verified Site Blood Culture Final 01/30/24-1013 1 of 4 BOTTLES POSITIVE DIRECT GRAM STAIN: GRAM NEGATIVE RODS IDENTIFICATION BY DIRECT PCR Organism 1 Pseudomonas aeruginosa Growth 1 BOTTLE Gram Stain Charge Charge for Gram Stain CRITICAL RESULT YES/NO: YES CRITICAL CALLED BY: RT TO AND READ BACK BY: CHEL DATE: 01/27/24 TIME: 1658 P aerugino [facility] RX --------- ------ * Amikacin <=16 S * Aztreonam >16 R * Cefepime >16 R * Ciprofloxacin <=1 S * Gentamicin 4 S * Imipenem <=1 S * Levofloxacin <=2 S * Piperacillin/Tazobactam >64 R Blood Culture Preliminary (changed) 01/29/24-1052 1 of 4 BOTTLES POSITIVE DIRECT GRAM STAIN: GRAM NEGATIVE RODS IDENTIFICATION BY DIRECT PCR Organism 1 Pseudomonas aeruginosa Growth 1 BOTTLE Gram Stain Charge Charge for Gram Stain CRITICAL RESULT YES/NO: YES CRITICAL CALLED BY: RT TO AND READ BACK BY: HAVEN DATE: 01/27/24 TIME: 1658 P aerugino [facility] RX --------- ------ * Amikacin <=16 S * Aztreonam >16 R * Cefepime >16 R * Ciprofloxacin <=1 S * Gentamicin 4 S * Imipenem <=1 S * Levofloxacin <=2 S * Piperacillin/Tazobactam >64 R Blood Culture Preliminary (changed) 01/27/24-170 1 of 4 BOTTLES POSITIVE DIRECT GRAM STAIN: GRAM NEGATIVE RODS IDENTIFICATION BY DIRECT PCR RESULTS TO FOLLOW Organism 1 Pseudomonas aeruginosa Growth 1 BOTTLE CRITICAL RESULT YES/NO: YES CRITICAL CALLED BY: RT TO AND READ BACK BY: HAVEN DATE: 01/27/24 TIME: 1658 Spec #: [id number] López: 01/26/24-1702 Status: COMP Req #: [id number] Recd: 01/26/24-[address]: Jimbo Alexandre DO Src: Urine CC SpDesc: Ordered: UC Procedure Result Verified Site Urine Culture Final 01/29/24-1039 Organism 1 Escherichia coli [place] Count >100,000 CFU/ml DAY 2 E coli M.I.C. RX --------- ------ * Amikacin <=16 S * Amoxicillin/Clavulanate >16/8 R * Ampicillin >16 R * Ampicillin/Sulbactam 16/8 I * Aztreonam <=4 S * Cefepime <=8 S * Ceftriaxone <=1 S * Cefuroxime 16 I * Ciprofloxacin >2 R * Gentamicin <=2 S * Imipenem <=1 S * Levofloxacin >4 R * Nitrofurantoin 64 I * Tetracycline <=4 S * Trimethoprim/Sulfamethoxazole <=2/38 S * Piperacillin/Tazobactam <=16 S A&P Assessment and plan (1) Hypotension: (2) PVD (peripheral vascular disease): (3) History of neurological degenerative disease: (4) Tracheobronchomalacia: (5) Hyperglycemia: (6) Pseudomonas infection: Plan Metabolic encephalopathy related to proctitis versus polypharmacy versus UTI? Pseudomonas bacteremia History of aspiration pneumonia History of tracheobronchomalacia History of multiple systems atrophy Obstructive sleep apnea Patient has been kept n.p.o. for possible obstruction However he has had 3 bowel movement so far. Bowel sounds present in all 4 quadrants. Abdominal exam is benign. Nontender soft. Patient is passing gas. There is suspicion that patient may be aspirating. Speech therapist consult has been ordered. They recommend to keep patient n.p.o. for now. Recommendation to do modified barium swallow in AM. Initiated aspiration precautions Stop normal saline. Will place on D5 water. I will hold Entresto at this time. Continue Zosyn. 1 out of 4 blood cultures bottle positive for Pseudomonas. Repeat cultures obtained 01/26. May repeat every 48 hours till negative. 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 Consult podiatry UTI Chronic UTIs Recurrent UTIs Neurogenic bladder?self-catheterization twice a day by family. ? This status has been difficult to cath patient at home due to position and other circumstances. ? I may recommend a Jewell at this time since he is unable to get straight cathed very frequently during the day. He may see urology outpatient to have that removed at a later date. ? Continue on Zosyn at this time. ? Await urine culture report ? Patient to follow-up with urology as outpatient after discharge. For UTI patient will get antibiotics we will wait for urine culture report Patient self caths at home urologist in [place] Urine culture positive for gram-negative rods. Patient is bedbound will request D-dimer to rule out thromboembolic phenomenon -D-dimer 1.30. H assessment done. VTE unlikely. He will be considered high risk Continue on Lovenox therapeutic twice daily. 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 Patient on Entresto eplerenone, Lasix at home. Initially medications were being held. Continue aspirin, Coreg. Coreg to be given at reduced dose of 12.5 twice daily. Restart Lasix. Will give Lasix 40 IV x 1 now. Patient is +1200 pounds at this time. Consult cardiology as per patient's daughter's request. Discussed with Dr. Horton. He will see patient in consultation. Diabetes mellitus type II ? On Januvia at home which we will hold at this time. ? May place on low-dose intensity sliding scale however patient is n.p.o. at this time. Patient is on limited resuscitation does not want intubation, this was discussed on previous admissions patient only wants defibrillation and ACLS drugs in ICU admission Discussed CODE STATUS with patient's daughter today. She agrees with above. She says if he does go into respiratory distress or aspirates or any other acute events happen to only provide supportive care at this time.. Plan for today January 29, 2024: Chart reviewed in detail. Patient with a past medical history of multisystem atrophy, cerebellar ataxia, progressive neurocognitive decline, usually recommended to be on dysphagia diet at home, no formal diagnosis of oropharyngeal dysphagia in the past. Currently admitted send January 24, 2024 after presenting with lethargy, somnolence, altered mental status. Upon evaluation found to have Pseudomonas aeruginosa bacteremia on January 26, 2024. Blood culture thus far clear from January 27, 2024. Patient is empirically on Zosyn while pending susceptibility testing. Potential sources of infection may be related to urinary tract infection. Patient has a history of chronic cystitis, recently established care with urologist and started intermittent self cath for neurogenic bladder/urinary retention. Currently has a Jewell catheter in place. Urine culture itself showing E. coli, however possible that may be a polymicrobial infection. Recently also had a Pseudomonas infection of his right great toe where a pressure injury was infected, treated with outpatient oral antibiotics. Currently his left foot is in a cast, followed by podiatry including as an inpatient. CT of the abdomen and pelvis upon admission raised concern for proctitis, however no clinical correlate for the same. Patient does have chronic constipation for which she takes as needed MiraLAX at home. 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 Currently no clinical signs of a small bowel or large bowel obstruction. Patient has had 3 bowel movements since being here. Abdominal exam is benign. No vomiting. Patient's lethargy currently precludes oral feeding. Ativan, opiates have all been placed on hold, last dose 24 hours ago. Holding gabapentin and antihistamines at this time. Likely altered mental status contributed by metabolic encephalopathy, await improvement with medical treatment. Hold off on NG tube and swallow eval for now as patient highly unlikely to be able to participate in a swallow eval. Additionally patient has previously decided to continue high risk feeding in spite of recommendations for dysphagia diet. Family is uncertain at this time if he would be agreeable for PEG tube if fails swallow eval. Discussions to continue during admission. Today January 30, 2024. Febrile today. Pseudomonas aeruginosa isolate showing resistance to piperacillin/tazobactam. Antibiotics switched to meropenem IV every 8 hours in keeping with susceptibility results. Mental status is slightly better. Attempting swallow evaluation so that patient will at least be able to take oral medications. 20 mg IV today. ABG performed as patient has persistently been on BiPAP through the night and again this morning. Also performed ABG to evaluate for hypercapnia as potentially contributing to his somnolence. Overall ABG showing 7.46/31.2/133, bicarb 22 on 28% FiO2, overall consistent with respiratory alkalosis. Discontinued BiPAP use during the daytime. Will use it only at nighttime and as needed. Discussed with family at bedside that additional BiPAP without any indication for the same likely to cause hypercapnia and reduced respiratory drive. Potassium 3.1 on ABG, not seen in the computer but noted on paper report. Replete 20 mEq KCl. Lasix 20 mg IV today. Labs including blood culture in AM. Thus far blood cultures from January 26 negative to date, however would need to be repeated in view of ongoing fever and resistance to piperacillin/tazobactam which has now been discovered. Family declines insulin Plan for today January 31, 2024. Last fever yesterday afternoon at 100.3 Fahrenheit. Continuing on meropenem since yesterday. Last blood culture positive on January 26, 2024. Blood cultures from January 26 thus far negative to date, however upon further review it does not appear these have been updated since January 28, 2024. Will await at least 48 hours fever free prior to consideration of PICC line placement. Patient appears to be more awake and alert however still not participating in any meaningful conversation. Continues to have component of metabolic encephalopathy in the background of advancing neurocognitive decline. Discussed with family that this may very well be his new baseline. In view of his multiple comorbidities and gradual decline family considering transition to hospice, would like more information. Hospice services to discuss with family later today. Patient continues to be n.p.o. owing to severe aspiration risk. Repeat swallow evaluation today. Family would like to explore the possibility of trial of parenteral nutrition while awaiting improvement in his encephalopathy. This would be reasonable, however discussed with daughter that TPN/PPN would need to be a temporary bridge with eventual plan to transition to some way of enteral nutrition. This will need to be largely dependent on patient's overall goals of care. At this time it appears patient and family would not want to proceed with PEG placement and would likely opt for comfort feeding should he continue to fail repeated swallow evaluations. Complaining of abdominal pain. Abdominal exam is overall benign. Recent CT from January 28, 2024 without acute abdominal events. Patient has good bowel sounds. IV Tylenol provided him comfort yesterday. Trial of IV Tylenol x 1 now. Avoiding opiates in view of poor mentation. Trial of Toradol 15 mg x 1. Repleted potassium. CXR to assess for interval pneumonia, suspect aspiration episode. Plan for today February 01, 2024. Patient is much more awake and alert today. He is attempting to communicate, maintains good eye contact, attempts to have a conversation with family. Per daughter he appeared to be very lucid overnight however was not continuous abdominal pain. Pain has not appropriately responded to treatment with IV Tylenol, IV Toradol. Discussed with family that with uptrending LFTs, using higher doses of Tylenol does not appear to be appropriate at this time. Liver ultrasound was performed last evening which showed that the gallbladder was mildly distended with some sludge however no findings to suggest cholecystitis. Alkaline phosphatase is normal. 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 Will use Lasix 20 mg IV today. Gentle diuresis being performed as patient had been intravascularly depleted which is appearing to be finally improving today. Chest x-ray performed yesterday showed a left lower lobe infiltrate, suspected related to aspiration. PEG tube placement declined, not compatible with overall goals of care per discussion with family. Discussed extensively that nonopiate pain management options appear to be very limited at this point. Keeping patient's comfort in mind, may be appropriate to resume opiates at this point in time since his mentation is otherwise improving.. Family would prefer a trial of tramadol which has tolerated in the past before moving to other opiates. Also amenable to resuming hydrocodone as patient takes at home. Avoiding excessive doses of Toradol or other NSAIDs given patient is also on full dose anticoagulation and had epistaxis after attempted placement of NG tube previously. Swallow evaluation pending today, however do anticipate patient to continue to have some degree of aspiration. Since PEG tube is not an option, we would have to find the appropriate time to resume oral intake understanding the high risk of aspiration which may be a fatal event.. For today we will resume oral medications with applesauce. Additionally starting ice chips, shaven ice. Resume home doses of Lexapro and hydroxyzine and closely monitor. If tolerates plan to start modified dysphagia diet. Plan to discontinue PPN once able to resume at least some oral intake. Blood culture from January 27, 2024 remain negative to date. Holding off on PICC line currently as patient's family and discussion with [facility] to inquire about hospice range of services. Reviewing sensitivity results, likely that patient may be able to transition to oral ciprofloxacin for Pseudomonas bacteremia when ready to discharge. He is completing day 7 days of appropriate antibiotic regimen (Zosyn/meropenem) for E. coli obtained from urine culture. Attestations Medical Necessity Statement*: Continued IV antibiotics, disposition planning, goals of care discussions, resuming medications. Coding Level of Care Code Acute Code for Chg Fwd High MDM includes number and complexity of problems actively addressed during encounter, amount and/or complexity of data reviewed/ordered and described risk of complication, morbidity or mortality of management as documented Diagnoses Hypotension I95.9 PVD (peripheral vascular disease) I73.9 History of neurological degenerative disease Z86.69 Tracheobronchomalacia J39.8 Hyperglycemia R73.9 Pseudomonas infection A49.8
[2024-02-01] MEDS: simethicone 40 mg/0.6 mL Bottle 30mL 80 MG PO ×2 (15:32→21:16)
[2024-02-01] MEDS: FUROsemide 10 mg/mL SDV 2mL 20 MG IVP (15:32)
[2024-02-01 15:51] LABS: C.Diff PCR (Lab) NEGATIVE (Negative)
--- NOTE | 2024-02-01 16:03 | P.PN_ITS ---
Subjective 2 Subjective: Patient's overall condition is unchanged. Vitals/I&O/Wt Last Vital Signs Temp 97.8 F 02/01/24 08:00 Pulse 60 02/01/24 14:40 Resp 30 H 02/01/24 14:30 BP 146/89 02/01/24 08:00 Pulse Ox 98 02/01/24 14:30 O2 Del Method Nasal Cannula 02/01/24 14:30 O2 Flow Rate 2 02/01/24 14:30 FiO2 28 02/01/24 02:23 02/01/24 02/01/24 02/01/24 06:59 14:59 22:59 Intake Total 150 / 1343.75 821.133 / 821.133 Balance 150 / 1343.75 821.133 / 821.133 Weight last 48 hrs Weight 179 lb Weight 179 lb Physical Exam 2 Narrative: GENERAL: Patient is alert NECK: No jugular vein distension. [] HEENT: No cyanosis. No icterus. No pallor. [] HEART: Regular S1 and S2. No murmur, rub or gallop. [] LUNGS: Diminished air entry CENTRAL NERVOUS SYSTEM: Grossly nonfocal. [] EXTREMITIES: Lower extremities with 1+ edema bilaterally. Urinary Catheter Management: Jewell: Cath Placed During This Visit: yes Reason for Continuing Indwelling Catheter: Chronic Indwelling Urinary Catheter on Admission Urinary Catheter Date of Insertion: 01/27/24 Urinary Catheter Time of Insertion: 00:30 Data 02/02/24 05:33 02/03/24 05:10 Micro: Microbiology 01/31/24 05:41 Blood Culture - Preliminary Blood NEGATIVE TO DATE 01/31/24 05:38 Blood Culture - Preliminary Blood NEGATIVE TO DATE 01/26/24 16:42 Blood Culture - Final Blood NO GROWTH AFTER 5 DAYS A&P Assessment and plan (1) Acute on chronic diastolic (congestive) heart failure: (2) Ischemic cardiomyopathy: (3) Atherosclerosis of coronary artery of [place] heart without angina pectoris: (4) PVD (peripheral vascular disease): (5) Non-pressure chronic ulcer of other part of right foot with necrosis of bone: Plan Patient is stable. Family considering hospice options. Can have PRN lasix. Thank you for involving us with care of this patient. Please call with questions. Attestations 2 Medical Necessity Statement*: Care expected to cross 2 midnights. Coding Level of Care Code Acute Code for Chg Fwd Diagnoses Acute on chronic diastolic (congestive) heart failure I50.33 Ischemic cardiomyopathy I25.5 Atherosclerosis of coronary artery of [place] heart without angina pectoris I25.10 PVD (peripheral vascular disease) I73.9 Non-pressure chronic ulcer of other part of right foot with necrosis of bone L97.514
[2024-02-01 16:52] LABS: Glucose Point of Care 242 mg/dL (70-110)
--- NOTE | 2024-02-01 17:55 | PC.SLP ---
Pain persists. Daughters willing to accept risk of aspiration for oral intake of pain meds. BMX RIDER will attempt to follow-up with the pt.
[2024-02-01] MEDS: TRAMadol 50 mg Tablet PO (18:00)
[2024-02-01 20:40] LABS: Glucose Point of Care 178 mg/dL (70-110)
[2024-02-01] MEDS: hyDROXYzine 25 mg Capsule PO (21:17)
[2024-02-01] MEDS: HYDROcodone-APAP 7.5-325 mg/15 mL UDC 10 ML PO (21:28)
[2024-02-02] VITALS (17 sets, daily range): BP systolic 139–177; BP diastolic 32–87; PULSE 60–78; RESP 14–32; TEMP 36.4–36.7; O2SAT 94–100
[2024-02-02] MEDS: nitroglycerin 1 gm/inch oint Pkt 0.5 INCH TOPICAL ×4 (02:18→20:26)
[2024-02-02] MEDS: meropenem 1,000 MG in sodium chloride 0.9% (plus) 50 ML 100 MG IV ×3 (02:18→17:02)
[2024-02-02] MEDS: simethicone 40 mg/0.6 mL Bottle 30mL 80 MG PO ×4 (02:19→20:28)
[2024-02-02] MEDS: metoprolol tartrate 1 mg/1 mL SDV 5 mL 5 MG IVP ×4 (02:19→20:25)
[2024-02-02 04:36] LABS: Glucose Point of Care 191 mg/dL (70-110)
[2024-02-02 05:49] LABS: Basophils % 0.4 %; Eosinophils # 0.1 10^3/uL (0.0-0.8); Eosinophils % 0.9 %; Hematocrit 36.8 % (37-53); Lymphocytes % 17.7 %; Mean Corpuscular HGB Conc 32.9 g/dL (30-55); Mean Corpuscular Hemoglobin 30.6 pg (27-33); Mean Corpuscular Volume 93.2 fl (82-101); Mean Platelet Volume 11.4 fL (7.4-10.4); Monocytes # 0.6 10^3/uL (0.2-0.9); Monocytes % 4.9 %; Neutrophils # 8.22 10^3/uL (1.8-7.7); Neutrophils % 72.8 %; Nucleated Red Blood Cells # 0.4 /100WBC; Nucleated Red Blood Cells % 3.5 %; Platelet Count 115 10^3/cmm (157-399); Red Blood Count 3.95 10^6/uL (3.85-5.65); Red Cell Distribution Width 14.5 % (12.1-15.1); White Blood Count 11.27 10^3/uL (3.29-11.43)
[2024-02-02 06:10] LABS: Alanine Aminotransferase 351 U/L (0-41); Albumin Level 3.4 g/dL (3.5-5.2); Alkaline Phosphatase 50 U/L (40-130); Anion Gap 15.6 (5-19); Aspartate Amino Transferase 146 U/L (0-40); Blood Urea Nitrogen 38 mg/dL (8-23); Calcium 8.8 mg/dL (8.5-10.5); Carbon Dioxide 22 mmol/L (22-29); Chloride 109 mmol/L (98-107); Creatinine Clr Calc Pharmacy 70.0185; Globulin 3.3 g/dL (1.3-4.6); Glucose 209 mg/dL (65-115); Lipase 10 U/L (13-60); Osmolality Calculated 311 mOsm/kg (285-295); Potassium 3.6 mmol/L (3.5-5.1); Sodium 143 mmol/L (136-145); Total Bilirubin 0.8 mg/dL (0.15-1.2); Total Protein 6.7 g/dL (6.6-8.7)
[2024-02-02] MEDS: ipratropium-albuterol 3 mL Neb INHALATION ×4 (07:34→20:19)
[2024-02-02] MEDS: pantoprazole 40 mg SDV IVP (08:44)
[2024-02-02] MEDS: escitalopram 10 mg Tablet 20 MG PO (08:44)
[2024-02-02] MEDS: TRAMadol 50 mg Tablet PO (08:44)
[2024-02-02] MEDS: AA-Dex 4.25%-5% w/Lytes 1,000 ML with multivitamin inj 5 ML 83 ML IV (09:49)
[2024-02-02] MEDS: enoxaparin 100 mg/mL Syringe 80 MG SUBCUT (09:53)
--- NOTE | 2024-02-02 10:08 | PC.SLP ---
Speech therapist attempted to see the patient 2x. Family present both times and denied therapy. Family stated patient is not feeling well enough for therapy. Family would like to receive therapy if patient is feeling better tomorrow/while still in hospital. Erika Han M.S. [employer] MAKING SUPERVISOR
[2024-02-02 11:40] LABS: Glucose Point of Care 231 mg/dL (70-110)
[2024-02-02] MEDS: insulin lispro 100 unit/1 mL SUBCUT (11:58)
[2024-02-02] MEDS: FUROsemide 10 mg/mL SDV 4mL 40 MG IVP (14:00)
--- NOTE | 2024-02-02 15:27 | PC.SOCIAL ---
IMM Update pg 2 of IMM updated and reviewed w/ patients daughters. Copy provided and copy dated, initialed and placed in chart.
--- NOTE | 2024-02-02 16:19 | P.PN_ITS ---
Subjective 2 Subjective: Patient's family met with hospice [facility] services yesterday and have decided to transition to hospice care at home. They would like to continue treatment while still in the hospital. His breathing appears to be more labored compared to yesterday. He did sleep better after receiving hydrocodone and hydroxyzine overnight. Medications: Reviewed: Yes Vitals/I&O/Wt Last Vital Signs Temp 97.5 F L 02/02/24 04:49 Pulse 60 02/02/24 15:33 Resp 22 H 02/02/24 15:15 BP 167/78 02/02/24 12:00 Pulse Ox 94 02/02/24 15:15 O2 Del Method Nasal Cannula 02/02/24 15:15 O2 Flow Rate 2 02/02/24 15:15 FiO2 28 02/02/24 04:45 02/02/24 02/02/24 02/02/24 06:59 14:59 22:59 Intake Total 150 / 9460.072 5230 / 1055 Output Total 450 / 1700 Balance -300 / 637.899 9917 / 1055 Weight last 48 hrs Weight 80.739 kg Weight 81.193 kg Physical Exam 2 Narrative: General: Much more awake and alert HEENT: PERRLA, pupils bilaterally equal and reactive, pallors not present Chest: Reduced breath sounds with added crackles right infra axillary and mammary areas. CVS: S1-S2 regular, no murmurs, no tachycardia, no gallops, no rubs Abdomen: Soft, nontender, no organomegaly, bowel sounds present Neuro: Appears to be more awake today. Urinary Catheter Management: Jewell: Cath Placed During This Visit: yes Reason for Continuing Indwelling Catheter: Other Urinary Catheter Date of Insertion: 01/27/24 Urinary Catheter Time of Insertion: 00:30 Data 02/02/24 05:33 02/02/24 05:33 Micro: Microbiology 01/27/24 19:15 Blood Culture - Final Blood NO GROWTH AFTER 5 DAYS 01/27/24 19:15 Blood Culture - Final Blood NO GROWTH AFTER 5 DAYS A&P Assessment and plan (1) Hypotension: (2) PVD (peripheral vascular disease): (3) History of neurological degenerative disease: (4) Tracheobronchomalacia: (5) Hyperglycemia: (6) Pseudomonas infection: Plan Metabolic encephalopathy related to proctitis versus polypharmacy versus UTI? Pseudomonas bacteremia History of aspiration pneumonia History of tracheobronchomalacia History of multiple systems atrophy Obstructive sleep apnea Patient has been kept n.p.o. for possible obstruction However he has had 3 bowel movement so far. Bowel sounds present in all 4 quadrants. Abdominal exam is benign. Nontender soft. Patient is passing gas. There is suspicion that patient may be aspirating. Speech therapist consult has been ordered. They recommend to keep patient n.p.o. for now. Recommendation to do modified barium swallow in AM. Initiated aspiration precautions Stop normal saline. Will place on D5 water. I will hold Entresto at this time. Continue Zosyn. 1 out of 4 blood cultures bottle positive for Pseudomonas. Repeat cultures obtained 01/26. May repeat every 48 hours till negative. 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 Consult podiatry UTI Chronic UTIs Recurrent UTIs Neurogenic bladder?self-catheterization twice a day by family. ? This status has been difficult to cath patient at home due to position and other circumstances. ? I may recommend a Jewell at this time since he is unable to get straight cathed very frequently during the day. He may see urology outpatient to have that removed at a later date. ? Continue on Zosyn at this time. ? Await urine culture report ? Patient to follow-up with urology as outpatient after discharge. For UTI patient will get antibiotics we will wait for urine culture report Patient self caths at home urologist in [place] Urine culture positive for gram-negative rods. Patient is bedbound will request D-dimer to rule out thromboembolic phenomenon -D-dimer 1.30. H assessment done. VTE unlikely. He will be considered high risk Continue on Lovenox therapeutic twice daily. 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 Patient on Entresto eplerenone, Lasix at home. Initially medications were being held. Continue aspirin, Coreg. Coreg to be given at reduced dose of 12.5 twice daily. Restart Lasix. Will give Lasix 40 IV x 1 now. Patient is +1200 pounds at this time. Consult cardiology as per patient's daughter's request. Discussed with Dr. Horton. He will see patient in consultation. Diabetes mellitus type II ? On Januvia at home which we will hold at this time. ? May place on low-dose intensity sliding scale however patient is n.p.o. at this time. Patient is on limited resuscitation does not want intubation, this was discussed on previous admissions patient only wants defibrillation and ACLS drugs in ICU admission Discussed CODE STATUS with patient's daughter today. She agrees with above. She says if he does go into respiratory distress or aspirates or any other acute events happen to only provide supportive care at this time.. Plan for today January 29, 2024: Chart reviewed in detail. Patient with a past medical history of multisystem atrophy, cerebellar ataxia, progressive neurocognitive decline, usually recommended to be on dysphagia diet at home, no formal diagnosis of oropharyngeal dysphagia in the past. Currently admitted send January 24, 2024 after presenting with lethargy, somnolence, altered mental status. Upon evaluation found to have Pseudomonas aeruginosa bacteremia on January 26, 2024. Blood culture thus far clear from January 27, 2024. Patient is empirically on Zosyn while pending susceptibility testing. Potential sources of infection may be related to urinary tract infection. Patient has a history of chronic cystitis, recently established care with urologist and started intermittent self cath for neurogenic bladder/urinary retention. Currently has a Jewell catheter in place. Urine culture itself showing E. coli, however possible that may be a polymicrobial infection. Recently also had a Pseudomonas infection of his right great toe where a pressure injury was infected, treated with outpatient oral antibiotics. Currently his left foot is in a cast, followed by podiatry including as an inpatient. CT of the abdomen and pelvis upon admission raised concern for proctitis, however no clinical correlate for the same. Patient does have chronic constipation for which she takes as needed MiraLAX at home. 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 Currently no clinical signs of a small bowel or large bowel obstruction. Patient has had 3 bowel movements since being here. Abdominal exam is benign. No vomiting. Patient's lethargy currently precludes oral feeding. Ativan, opiates have all been placed on hold, last dose 24 hours ago. Holding gabapentin and antihistamines at this time. Likely altered mental status contributed by metabolic encephalopathy, await improvement with medical treatment. Hold off on NG tube and swallow eval for now as patient highly unlikely to be able to participate in a swallow eval. Additionally patient has previously decided to continue high risk feeding in spite of recommendations for dysphagia diet. Family is uncertain at this time if he would be agreeable for PEG tube if fails swallow eval. Discussions to continue during admission. Today January 30, 2024. Febrile today. Pseudomonas aeruginosa isolate showing resistance to piperacillin/tazobactam. Antibiotics switched to meropenem IV every 8 hours in keeping with susceptibility results. Mental status is slightly better. Attempting swallow evaluation so that patient will at least be able to take oral medications. 20 mg IV today. ABG performed as patient has persistently been on BiPAP through the night and again this morning. Also performed ABG to evaluate for hypercapnia as potentially contributing to his somnolence. Overall ABG showing 7.46/31.2/133, bicarb 22 on 28% FiO2, overall consistent with respiratory alkalosis. Discontinued BiPAP use during the daytime. Will use it only at nighttime and as needed. Discussed with family at bedside that additional BiPAP without any indication for the same likely to cause hypercapnia and reduced respiratory drive. Potassium 3.1 on ABG, not seen in the computer but noted on paper report. Replete 20 mEq KCl. Lasix 20 mg IV today. Labs including blood culture in AM. Thus far blood cultures from January 26 negative to date, however would need to be repeated in view of ongoing fever and resistance to piperacillin/tazobactam which has now been discovered. Family declines insulin Plan for today January 31, 2024. Last fever yesterday afternoon at 100.3 Fahrenheit. Continuing on meropenem since yesterday. Last blood culture positive on January 26, 2024. Blood cultures from January 26 thus far negative to date, however upon further review it does not appear these have been updated since January 28, 2024. Will await at least 48 hours fever free prior to consideration of PICC line placement. Patient appears to be more awake and alert however still not participating in any meaningful conversation. Continues to have component of metabolic encephalopathy in the background of advancing neurocognitive decline. Discussed with family that this may very well be his new baseline. In view of his multiple comorbidities and gradual decline family considering transition to hospice, would like more information. Hospice services to discuss with family later today. Patient continues to be n.p.o. owing to severe aspiration risk. Repeat swallow evaluation today. Family would like to explore the possibility of trial of parenteral nutrition while awaiting improvement in his encephalopathy. This would be reasonable, however discussed with daughter that TPN/PPN would need to be a temporary bridge with eventual plan to transition to some way of enteral nutrition. This will need to be largely dependent on patient's overall goals of care. At this time it appears patient and family would not want to proceed with PEG placement and would likely opt for comfort feeding should he continue to fail repeated swallow evaluations. Complaining of abdominal pain. Abdominal exam is overall benign. Recent CT from January 28, 2024 without acute abdominal events. Patient has good bowel sounds. IV Tylenol provided him comfort yesterday. Trial of IV Tylenol x 1 now. Avoiding opiates in view of poor mentation. Trial of Toradol 15 mg x 1. Repleted potassium. CXR to assess for interval pneumonia, suspect aspiration episode. Plan for today February 01, 2024. Patient is much more awake and alert today. He is attempting to communicate, maintains good eye contact, attempts to have a conversation with family. Per daughter he appeared to be very lucid overnight however was not continuous abdominal pain. Pain has not appropriately responded to treatment with IV Tylenol, IV Toradol. Discussed with family that with uptrending LFTs, using higher doses of Tylenol does not appear to be appropriate at this time. Liver ultrasound was performed last evening which showed that the gallbladder was mildly distended with some sludge however no findings to suggest cholecystitis. Alkaline phosphatase is normal. 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 Will use Lasix 20 mg IV today. Gentle diuresis being performed as patient had been intravascularly depleted which is appearing to be finally improving today. Chest x-ray performed yesterday showed a left lower lobe infiltrate, suspected related to aspiration. PEG tube placement declined, not compatible with overall goals of care per discussion with family. Discussed extensively that nonopiate pain management options appear to be very limited at this point. Keeping patient's comfort in mind, may be appropriate to resume opiates at this point in time since his mentation is otherwise improving.. Family would prefer a trial of tramadol which has tolerated in the past before moving to other opiates. Also amenable to resuming hydrocodone as patient takes at home. Avoiding excessive doses of Toradol or other NSAIDs given patient is also on full dose anticoagulation and had epistaxis after attempted placement of NG tube previously. Swallow evaluation pending today, however do anticipate patient to continue to have some degree of aspiration. Since PEG tube is not an option, we would have to find the appropriate time to resume oral intake understanding the high risk of aspiration which may be a fatal event.. For today we will resume oral medications with applesauce. Additionally starting ice chips, shaven ice. Resume home doses of Lexapro and hydroxyzine and closely monitor. If tolerates plan to start modified dysphagia diet. Plan to discontinue PPN once able to resume at least some oral intake. Blood culture from January 27, 2024 remain negative to date. Holding off on PICC line currently as patient's family and discussion with [facility] to inquire about hospice range of services. Reviewing sensitivity results, likely that patient may be able to transition to oral ciprofloxacin for Pseudomonas bacteremia when ready to discharge. He is completing day 7 days of appropriate antibiotic regimen (Zosyn/meropenem) for E. coli obtained from urine culture. Plan for today February 02, 2024. Patient appears to be awake and alert. Attempted to have conversation with family at bedside. Speaks few words, however unable to speak in any sentences. Does not hold a conversation with me today, however earlier directed family to sit bedside, hold his hand, play music etc. Unable to complete repeat swallow evaluations as he has been asleep at the time of assessment. He did tolerate a trial of shaved ice and oral medications in applesauce yesterday. Tramadol did not help him much however hydrocodone did. Discussed with family that at this time given his overall goals of being pain- free, would increase hydrocodone dosing to twice a day. Discontinue tramadol as it has not helped much. Lasix 40 mg IV today as patient appears to be hypervolemic. Raised JVD. Working harder to breathe today. Oxygen requirement is same. Discontinue TPN. Family has decided to transition care to hospice at the time of discharge. In spite of noticeable aspiration, PEG is not a consideration given his overall goals of care. We will resume trial of extremely thick dysphagia diet with Ensure as tolerated by patient, understanding the high risk of aspiration including risk of fatal aspiration events. Discontinue Lovenox. Patient noted to have bruising over abdominal wall. Hemoglobin is stable at 12. Potentially abdominal wall hematomas may be contributing to his abdominal discomfort. LFTs are stable, likely hepatic congestion. Continue meropenem. Planned transition to oral ciprofloxacin at discharge. Patient will discharge with Jewell catheter. Attestations 2 Medical Necessity Statement*: Iv abx, GOC, transition of care Coding Level of Care Code Acute Code for Chg Fwd High MDM includes number and complexity of problems actively addressed during encounter, amount and/or complexity of data reviewed/ordered and described risk of complication, morbidity or mortality of management as documented Diagnoses Hypotension I95.9 PVD (peripheral vascular disease) I73.9 History of neurological degenerative disease Z86.69 Tracheobronchomalacia J39.8 Hyperglycemia R73.9 Pseudomonas infection A49.8
[2024-02-02 16:35] LABS: Glucose Point of Care 200 mg/dL (70-110)
[2024-02-02] MEDS: sacubitril/valsartan 24-26 mg Tablet 2 EACH PO (17:02)
[2024-02-02] MEDS: tamsulosin 0.4 mg Capsule 0.400000000000000022 MG PO (17:03)
[2024-02-02] MEDS: hyDROXYzine 25 mg Capsule PO (20:26)
[2024-02-02] MEDS: HYDROcodone-APAP 7.5-325 mg/15 mL UDC 10 ML PO (20:27)
[2024-02-02 21:17] LABS: Glucose Point of Care 190 mg/dL (70-110)
--- NOTE | 2024-02-02 22:02 | PC.NURSE ---
Pt family stated that they were concerned with glucose levels bottoming out. Family told this nurse that pt's occ med physician recommended keeping pt sugar elevated. Insulin not given per family request.
[2024-02-03] VITALS (14 sets, daily range): BP systolic 142–176; BP diastolic 68–72; PULSE 59–66; RESP 17–26; TEMP 36.5–37.6; O2SAT 93–100
[2024-02-03] MEDS: meropenem 1,000 MG in sodium chloride 0.9% (plus) 50 ML 100 MG IV ×3 (01:57→16:19)
[2024-02-03] MEDS: simethicone 40 mg/0.6 mL Bottle 30mL 80 MG PO ×4 (01:58→20:55)
[2024-02-03] MEDS: nitroglycerin 1 gm/inch oint Pkt 0.5 INCH TOPICAL ×4 (01:58→19:55)
[2024-02-03] MEDS: metoprolol tartrate 1 mg/1 mL SDV 5 mL 5 MG IVP ×4 (01:58→19:54)
[2024-02-03 06:26] LABS: Alanine Aminotransferase 246 U/L (0-41); Albumin Level 3.3 g/dL (3.5-5.2); Alkaline Phosphatase 49 U/L (40-130); Anion Gap 16.4 (5-19); Aspartate Amino Transferase 65 U/L (0-40); Blood Urea Nitrogen 35 mg/dL (8-23); Calcium 8.5 mg/dL (8.5-10.5); Carbon Dioxide 23 mmol/L (22-29); Chloride 112 mmol/L (98-107); Creatinine Clr Calc Pharmacy 70.0185; Glucose 167 mg/dL (65-115); Osmolality Calculated 318 mOsm/kg (285-295); Potassium 3.4 mmol/L (3.5-5.1); Sodium 148 mmol/L (136-145); Total Bilirubin 1.1 mg/dL (0.15-1.2); Total Protein 6.3 g/dL (6.6-8.7)
[2024-02-03 06:37] LABS: Glucose Point of Care 157 mg/dL (70-110)
[2024-02-03] MEDS: ipratropium-albuterol 3 mL Neb INHALATION ×4 (07:39→20:15)
[2024-02-03] MEDS: sacubitril/valsartan 24-26 mg Tablet 2 EACH PO (10:12)
[2024-02-03] MEDS: escitalopram 10 mg Tablet 20 MG PO (10:12)
[2024-02-03] MEDS: pantoprazole 40 mg SDV IVP (10:14)
[2024-02-03] MEDS: HYDROcodone-APAP 7.5-325 mg/15 mL UDC 10 ML PO ×2 (10:15→23:16)
[2024-02-03 11:58] LABS: Glucose Point of Care 194 mg/dL (70-110)
[2024-02-03] MEDS: lidocaine 1% 5 ML in potassium chloride premix 100 ML 52.5 ML IV (12:36)
--- NOTE | 2024-02-03 15:35 | P.PN_ITS ---
Subjective 2 Subjective: Appears to be more comfortable, though more somnolent today after increasing frequency of hydrocodone to BID yesterday. Additionally started oral medications. Not eating much. Took few sips of Ensure yesterday. Medications: Reviewed: Yes Vitals/I&O/Wt Last Vital Signs Temp 98.4 F 02/03/24 08:00 Pulse 61 02/03/24 11:59 Resp 24 H 02/03/24 11:59 BP 165/71 02/03/24 08:00 Pulse Ox 93 02/03/24 11:59 O2 Del Method Room Air 02/03/24 11:59 O2 Flow Rate 1.5 02/03/24 07:39 FiO2 28 02/03/24 00:54 02/03/24 02/03/24 02/03/24 06:59 14:59 22:59 Intake Total 50 / 1775 155 / 155 Output Total 250 / 2375 Balance -200 / -600 155 / 155 Weight last 48 hrs Weight 81.25 kg Weight 80.739 kg Physical Exam 2 Narrative: General: lethargic, asleep, wakes up to calling name and attempts to smile, unable to converse HEENT: PERRLA, pupils bilaterally equal and reactive, pallors not present Chest: Normal vesicular breath sounds, no added sounds, equal good air entry bilaterally CVS: S1-S2 regular, no murmurs, no tachycardia, no gallops, no rubs Abdomen: Soft, nontender, no organomegaly, bowel sounds present Urinary Catheter Management: Jewell: Cath Placed During This Visit: yes Reason for Continuing Indwelling Catheter: Other Urinary Catheter Date of Insertion: 01/27/24 Urinary Catheter Time of Insertion: 00:30 Data 02/02/24 05:33 02/03/24 05:10 A&P Assessment and plan (1) Hypotension: (2) PVD (peripheral vascular disease): (3) History of neurological degenerative disease: (4) Tracheobronchomalacia: (5) Hyperglycemia: (6) Pseudomonas infection: Plan Metabolic encephalopathy related to proctitis versus polypharmacy versus UTI? Pseudomonas bacteremia History of aspiration pneumonia History of tracheobronchomalacia History of multiple systems atrophy Obstructive sleep apnea Patient has been kept n.p.o. for possible obstruction However he has had 3 bowel movement so far. Bowel sounds present in all 4 quadrants. Abdominal exam is benign. Nontender soft. Patient is passing gas. There is suspicion that patient may be aspirating. Speech therapist consult has been ordered. They recommend to keep patient n.p.o. for now. Recommendation to do modified barium swallow in AM. Initiated aspiration precautions Stop normal saline. Will place on D5 water. I will hold Entresto at this time. Continue Zosyn. 1 out of 4 blood cultures bottle positive for Pseudomonas. Repeat cultures obtained 01/26. May repeat every 48 hours till negative. 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 Consult podiatry UTI Chronic UTIs Recurrent UTIs Neurogenic bladder?self-catheterization twice a day by family. ? This status has been difficult to cath patient at home due to position and other circumstances. ? I may recommend a Jewell at this time since he is unable to get straight cathed very frequently during the day. He may see urology outpatient to have that removed at a later date. ? Continue on Zosyn at this time. ? Await urine culture report ? Patient to follow-up with urology as outpatient after discharge. For UTI patient will get antibiotics we will wait for urine culture report Patient self caths at home urologist in [place] Urine culture positive for gram-negative rods. Patient is bedbound will request D-dimer to rule out thromboembolic phenomenon -D-dimer 1.30. H assessment done. VTE unlikely. He will be considered high risk Continue on Lovenox therapeutic twice daily. 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 Patient on Entresto eplerenone, Lasix at home. Initially medications were being held. Continue aspirin, Coreg. Coreg to be given at reduced dose of 12.5 twice daily. Restart Lasix. Will give Lasix 40 IV x 1 now. Patient is +1200 pounds at this time. Consult cardiology as per patient's daughter's request. Discussed with Dr. Horton. He will see patient in consultation. Diabetes mellitus type II ? On Januvia at home which we will hold at this time. ? May place on low-dose intensity sliding scale however patient is n.p.o. at this time. Patient is on limited resuscitation does not want intubation, this was discussed on previous admissions patient only wants defibrillation and ACLS drugs in ICU admission Discussed CODE STATUS with patient's daughter today. She agrees with above. She says if he does go into respiratory distress or aspirates or any other acute events happen to only provide supportive care at this time.. Plan for today January 29, 2024: Chart reviewed in detail. Patient with a past medical history of multisystem atrophy, cerebellar ataxia, progressive neurocognitive decline, usually recommended to be on dysphagia diet at home, no formal diagnosis of oropharyngeal dysphagia in the past. Currently admitted send January 24, 2024 after presenting with lethargy, somnolence, altered mental status. Upon evaluation found to have Pseudomonas aeruginosa bacteremia on January 26, 2024. Blood culture thus far clear from January 27, 2024. Patient is empirically on Zosyn while pending susceptibility testing. Potential sources of infection may be related to urinary tract infection. Patient has a history of chronic cystitis, recently established care with urologist and started intermittent self cath for neurogenic bladder/urinary retention. Currently has a Jewell catheter in place. Urine culture itself showing E. coli, however possible that may be a polymicrobial infection. Recently also had a Pseudomonas infection of his right great toe where a pressure injury was infected, treated with outpatient oral antibiotics. Currently his left foot is in a cast, followed by podiatry including as an inpatient. CT of the abdomen and pelvis upon admission raised concern for proctitis, however no clinical correlate for the same. Patient does have chronic constipation for which she takes as needed MiraLAX at home. 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 Currently no clinical signs of a small bowel or large bowel obstruction. Patient has had 3 bowel movements since being here. Abdominal exam is benign. No vomiting. Patient's lethargy currently precludes oral feeding. Ativan, opiates have all been placed on hold, last dose 24 hours ago. Holding gabapentin and antihistamines at this time. Likely altered mental status contributed by metabolic encephalopathy, await improvement with medical treatment. Hold off on NG tube and swallow eval for now as patient highly unlikely to be able to participate in a swallow eval. Additionally patient has previously decided to continue high risk feeding in spite of recommendations for dysphagia diet. Family is uncertain at this time if he would be agreeable for PEG tube if fails swallow eval. Discussions to continue during admission. Today January 30, 2024. Febrile today. Pseudomonas aeruginosa isolate showing resistance to piperacillin/tazobactam. Antibiotics switched to meropenem IV every 8 hours in keeping with susceptibility results. Mental status is slightly better. Attempting swallow evaluation so that patient will at least be able to take oral medications. 20 mg IV today. ABG performed as patient has persistently been on BiPAP through the night and again this morning. Also performed ABG to evaluate for hypercapnia as potentially contributing to his somnolence. Overall ABG showing 7.46/31.2/133, bicarb 22 on 28% FiO2, overall consistent with respiratory alkalosis. Discontinued BiPAP use during the daytime. Will use it only at nighttime and as needed. Discussed with family at bedside that additional BiPAP without any indication for the same likely to cause hypercapnia and reduced respiratory drive. Potassium 3.1 on ABG, not seen in the computer but noted on paper report. Replete 20 mEq KCl. Lasix 20 mg IV today. Labs including blood culture in AM. Thus far blood cultures from January 26 negative to date, however would need to be repeated in view of ongoing fever and resistance to piperacillin/tazobactam which has now been discovered. Family declines insulin Plan for today January 31, 2024. Last fever yesterday afternoon at 100.3 Fahrenheit. Continuing on meropenem since yesterday. Last blood culture positive on January 26, 2024. Blood cultures from January 26 thus far negative to date, however upon further review it does not appear these have been updated since January 28, 2024. Will await at least 48 hours fever free prior to consideration of PICC line placement. Patient appears to be more awake and alert however still not participating in any meaningful conversation. Continues to have component of metabolic encephalopathy in the background of advancing neurocognitive decline. Discussed with family that this may very well be his new baseline. In view of his multiple comorbidities and gradual decline family considering transition to hospice, would like more information. Hospice services to discuss with family later today. Patient continues to be n.p.o. owing to severe aspiration risk. Repeat swallow evaluation today. Family would like to explore the possibility of trial of parenteral nutrition while awaiting improvement in his encephalopathy. This would be reasonable, however discussed with daughter that TPN/PPN would need to be a temporary bridge with eventual plan to transition to some way of enteral nutrition. This will need to be largely dependent on patient's overall goals of care. At this time it appears patient and family would not want to proceed with PEG placement and would likely opt for comfort feeding should he continue to fail repeated swallow evaluations. Complaining of abdominal pain. Abdominal exam is overall benign. Recent CT from January 28, 2024 without acute abdominal events. Patient has good bowel sounds. IV Tylenol provided him comfort yesterday. Trial of IV Tylenol x 1 now. Avoiding opiates in view of poor mentation. Trial of Toradol 15 mg x 1. Repleted potassium. CXR to assess for interval pneumonia, suspect aspiration episode. Plan for today February 01, 2024. Patient is much more awake and alert today. He is attempting to communicate, maintains good eye contact, attempts to have a conversation with family. Per daughter he appeared to be very lucid overnight however was not continuous abdominal pain. Pain has not appropriately responded to treatment with IV Tylenol, IV Toradol. Discussed with family that with uptrending LFTs, using higher doses of Tylenol does not appear to be appropriate at this time. Liver ultrasound was performed last evening which showed that the gallbladder was mildly distended with some sludge however no findings to suggest cholecystitis. Alkaline phosphatase is normal. 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 Will use Lasix 20 mg IV today. Gentle diuresis being performed as patient had been intravascularly depleted which is appearing to be finally improving today. Chest x-ray performed yesterday showed a left lower lobe infiltrate, suspected related to aspiration. PEG tube placement declined, not compatible with overall goals of care per discussion with family. Discussed extensively that nonopiate pain management options appear to be very limited at this point. Keeping patient's comfort in mind, may be appropriate to resume opiates at this point in time since his mentation is otherwise improving.. Family would prefer a trial of tramadol which has tolerated in the past before moving to other opiates. Also amenable to resuming hydrocodone as patient takes at home. Avoiding excessive doses of Toradol or other NSAIDs given patient is also on full dose anticoagulation and had epistaxis after attempted placement of NG tube previously. Swallow evaluation pending today, however do anticipate patient to continue to have some degree of aspiration. Since PEG tube is not an option, we would have to find the appropriate time to resume oral intake understanding the high risk of aspiration which may be a fatal event.. For today we will resume oral medications with applesauce. Additionally starting ice chips, shaven ice. Resume home doses of Lexapro and hydroxyzine and closely monitor. If tolerates plan to start modified dysphagia diet. Plan to discontinue PPN once able to resume at least some oral intake. Blood culture from January 27, 2024 remain negative to date. Holding off on PICC line currently as patient's family and discussion with [facility] to inquire about hospice range of services. Reviewing sensitivity results, likely that patient may be able to transition to oral ciprofloxacin for Pseudomonas bacteremia when ready to discharge. He is completing day 7 days of appropriate antibiotic regimen (Zosyn/meropenem) for E. coli obtained from urine culture. Plan for today February 02, 2024. Patient appears to be awake and alert. Attempted to have conversation with family at bedside. Speaks few words, however unable to speak in any sentences. Does not hold a conversation with me today, however earlier directed family to sit bedside, hold his hand, play music etc. Unable to complete repeat swallow evaluations as he has been asleep at the time of assessment. He did tolerate a trial of shaved ice and oral medications in applesauce yesterday. Tramadol did not help him much however hydrocodone did. Discussed with family that at this time given his overall goals of being pain- free, would increase hydrocodone dosing to twice a day. Discontinue tramadol as it has not helped much. Lasix 40 mg IV today as patient appears to be hypervolemic. Raised JVD. Working harder to breathe today. Oxygen requirement is same. Discontinue TPN. Family has decided to transition care to hospice at the time of discharge. In spite of noticeable aspiration, PEG is not a consideration given his overall goals of care. We will resume trial of extremely thick dysphagia diet with Ensure as tolerated by patient, understanding the high risk of aspiration including risk of fatal aspiration events. Discontinue Lovenox. Patient noted to have bruising over abdominal wall. Hemoglobin is stable at 12. Potentially abdominal wall hematomas may be contributing to his abdominal discomfort. LFTs are stable, likely hepatic congestion. Continue meropenem. Planned transition to oral ciprofloxacin at discharge. Patient will discharge with Jewell catheter. Plan for today February 03, 2024. Patient is more lethargic compared to yesterday. Wakes up to calling name unable to engage in any conversation, does not hold eye contact today. Suspect this is related to increasing the dose of opiates yesterday and resuming his home doses of Lexapro and hydroxyzine. However given that his overall goals of care are now tools compatible with hospice/comfort management, we will continue the current line of treatment with opiates. Additionally added morphine 1 mg IV every 4 hours as needed as needed. Family agreeable to these changes. Still continues to show signs of aspiration, however comfort feeding compatible with overall goals of care. Anticipate discharge in the upcoming 24 hours with hospice. [employer] is delivering a lot of his equipment today, family requesting some time to set up the home to receive patient. Discontinue Entresto as no added benefit. Would not place back on anticoagulation at this time. Bilateral diffuse crackles on exam. Elevated JVD. Lasix 40 mg IV today to minimize work of breathing. Attestations 2 Medical Necessity Statement*: Transition of care to hospice, likely discharge in the upcoming 24 hours. Coding Level of Care Code Acute Code for Chg Fwd Diagnoses Hypotension I95.9 PVD (peripheral vascular disease) I73.9 History of neurological degenerative disease Z86.69 Tracheobronchomalacia J39.8 Hyperglycemia R73.9 Pseudomonas infection A49.8
[2024-02-03] MEDS: FUROsemide 10 mg/mL SDV 4mL 40 MG IVP (16:18)
[2024-02-03 17:01] LABS: Glucose Point of Care 194 mg/dL (70-110)
[2024-02-03] MEDS: hyDROXYzine 25 mg Capsule PO (21:05)
[2024-02-03 21:29] LABS: Glucose Point of Care 176 mg/dL (70-110)
[2024-02-04] VITALS (7 sets, daily range): BP systolic 158–175; BP diastolic 68–90; PULSE 60–64; RESP 17–24; TEMP 36.7–37.6; O2SAT 91–96
[2024-02-04] MEDS: meropenem 1,000 MG in sodium chloride 0.9% (plus) 50 ML 100 MG IV ×2 (01:16→09:27)
[2024-02-04] MEDS: metoprolol tartrate 1 mg/1 mL SDV 5 mL 5 MG IVP ×2 (01:55→09:26)
[2024-02-04] MEDS: nitroglycerin 1 gm/inch oint Pkt 0.5 INCH TOPICAL ×2 (01:56→09:26)
[2024-02-04 06:50] LABS: Glucose Point of Care 219 mg/dL (70-110)
[2024-02-04] MEDS: ipratropium-albuterol 3 mL Neb INHALATION (07:30)
[2024-02-04] MEDS: pantoprazole 40 mg SDV IVP (09:26)
[2024-02-04 10:31] LABS: Glucose Point of Care 172 mg/dL (70-110)
[2024-02-04] MEDS: HYDROcodone-APAP 7.5-325 mg/15 mL UDC 10 ML PO (12:33)
--- NOTE | 2024-02-04 17:19 | PM.DCS ---
Discharge Providers Date of Admission: 01/26/24 17:56 Date of Discharge: February 04, 2024 Attending Provider at Admission: Le Hutson MD Attending Provider at Discharge: Lenka Cuba MD Primary Care Provider: Gopal Cameron MD Diagnoses at Discharge Discharge Diagnosis (1) Hypotension: Status: Acute (2) PVD (peripheral vascular disease): Status: Acute (3) History of neurological degenerative disease: Status: Acute (4) Tracheobronchomalacia: Status: Acute (5) Hyperglycemia: Status: Acute (6) Pseudomonas infection: Status: Acute Reason for Visit Reason for Visit: ams, sob, altered mentation Hospital Course Hospital Course Dany Whitehead is a 87 year old male with a past medical history of atrial fibrillation on Eliquis, history of CHF, noninsulin-dependent type 2 diabetes mellitus, GERD, CAD, history of defibrillator placed, COPD on home trilogy, history of limb ischemia, history of CABG, who presents to [facility] due to altered mental status on 01/26/24. Initial CAT scans were concerning for possibility of proctitis with bowel obstruction, however serial CT and clinical exam not compatible with the same. Patient has a history ofs radiation for prostate cancer and longstanding history of radiation proctitis. He did however have Pseudomonas bacteremia and E. coli UTI. Overall cause of his altered mental status was thought to be metabolic encephalopathy from acute infection. For the Pseudomonas bacteremia, possible source was thought to be urinary in origin. For E. coli UTI and Pseudomonas bacteremia he received treatment initially with Zosyn and then with with meropenem based on susceptibility results. Please see daily progress note for details. Patient has been transitioned to oral ciprofloxacin for Pseudomonas bacteremia for total duration of 14 days at the time of discharge. He aslo had aspiration pneumonia. His hospital course was also notable for several goals of care discussion. Patient has a longstanding history of multisystem atrophy, cerebellar ataxia, progressive neurocognitive decline, recurrent aspiration recommended to be on a dysphagia diet at home. He also has a history of chronic cystitis, recently established care with urologist and started on intermittent self cath for neurogenic bladder/urinary retention. There were several goals of care discussion with the family during the hospital course. PEG was not a consideration in keeping with his last known wishes. Even though he failed several swallow evaluations, oral comfort feeding was eventually started as family elected to transition care to hospice at the time of discharge. Please see daily progress notes for specific details. Patient is being discharged today in stable, chronically ill condition with hospice services. Physical Exam Narrative: General: No acute distress, AO x1 HEENT: PERRLA, pupils bilaterally equal and reactive, pallors not present Chest: Normal vesicular breath sounds, no added sounds, equal good air entry bilaterally CVS: S1-S2 regular, no murmurs, no tachycardia, no gallops, no rubs Abdomen: Soft, nontender, no organomegaly, bowel sounds present Neuro: AO x1,attempts to smile, squeezes hands, eats and chews when fed by daughter at bedside Extremities: left foot in cam boot Urinary Catheter Management: Jewell: Cath Placed During This Visit: yes Reason for Continuing Indwelling Catheter: Acute Urinary Retention or Obstruction Urinary Catheter Date of Insertion: 01/27/24 Urinary Catheter Time of Insertion: 00:30 Discharge Data Studies Completed and Pending Completed Studies During Hospitalization Category Date Time Status CT abdomen pelvis wo con 82103 Stat Cat Scan 01/28/24 15:[address] chest wo con [id number] Stat Cat Scan 01/28/24 12:[address] head wo con* [id number] Stat Cat Scan 01/26/24 16:[address] kidney stone [id number] Stat Cat Scan 01/26/24 17:35 Completed CXRP [XR chest 1V portable [id number]] Routine Exams 01/31/24 14:13 Completed XR abdomen 1V* [id number] Routine Exams 01/31/24 14:13 Completed XR chest 1V portable [id number] Stat Exams 01/26/24 16:08 Completed XR chest 1V portable [id number] Stat Exams 01/28/24 11:57 Completed CV. echo complete* [id number] Urgent Ultrasound 01/28/24 12:59 Completed US gall bladder [id number] Urgent Ultrasound 01/27/24 09:39 Completed US liver [id number] Routine Ultrasound 01/31/24 17:40 Completed Pending at discharge Category Date Time Status Blood Culture AM LABS Lab 01/31/24 05:41 Results Radiology Impressions Head CT 01/26/24 16:10 IMPRESSION: 1. No acute findings. 2. Cerebral atrophy is noted along with chronic white matter ischemic changes. Chest CT 01/28/24 12:06 IMPRESSION: CHF Abdomen/Pelvis CT 01/28/24 15:09 IMPRESSION: 1. Cardiomegaly with small right pleural effusion 2. I see no acute abdominal or pelvic process Abdomen X-Ray 01/31/24 14:13 IMPRESSION: Gas within multiple loops of nondilated small bowel. Aerophagia versus ileus. Chest X-Ray 01/31/24 14:13 IMPRESSION: No significant change. Liver Ultrasound 01/31/24 17:40 IMPRESSION: 1. Gallbladder is mildly distended by the presence of layering sludge. No findings to suggest cholecystitis. 2. Main portal vein shows findings suggestive right heart failure and/or tricuspid regurgitation. See above report. 3. Right kidney cysts as described 4. Partially imaged right pleural effusion Laboratory Results WBC 11.27 10^3/uL (3.29-11.43) 02/02/24 05:33 RBC 3.95 10^6/uL (3.85-5.65) 02/02/24 05:33 Hgb 12.10 g/dL (11.27-16.99) 02/02/24 05:33 Hct 36.8 % (37-53) L 02/02/24 05:33 MCV 93.2 fl (82-101) 02/02/24 05:33 MCH 30.6 pg (27-33) 02/02/24 05:33 MCHC 32.9 g/dL (30-55) 02/02/24 05:33 RDW 14.5 % (12.1-15.1) 02/02/24 05:33 Plt Count 115 10^3/cmm (157-399) L 02/02/24 05:33 MPV 11.4 fL (7.4-10.4) H 02/02/24 05:33 Neut % (Auto) 72.8 % 02/02/24 05:33 Lymph % (Auto) 17.7 % 02/02/24 05:33 [place] % (Auto) 4.9 % 02/02/24 05:33 Eos % (Auto) 0.9 % 02/02/24 05:33 Baso % (Auto) 0.4 % 02/02/24 05:33 Neut # (Auto) 8.22 10^3/uL (1.8-7.7) H 02/02/24 05:33 Lymph # (Auto) 2.0 10^3/uL (0.8-4.8) 02/02/24 05:33 [place] # (Auto) 0.6 10^3/uL (0.2-0.9) 02/02/24 05:33 Eos # (Auto) 0.1 10^3/uL (0.0-0.8) 02/02/24 05:33 Baso # (Auto) 0.0 10^3/uL (0.0-0.1) 02/02/24 05:33 Nucleated RBC % (auto) 3.5 % 02/02/24 05:33 Nucleated RBCs # 0.4 /100WBC 02/02/24 05:33 D-Dimer 1.30 ug/mLFEU (0-0.59) H 01/26/24 16:42 Specimen Type Arterial 01/30/24 12:15 Sample Site Radial, left 01/30/24 12:15 ABG pH 7.46 (7.35-7.45) H 01/30/24 12:15 ABG pCO2 31.2 mmHg (35-45) L 01/30/24 12:15 ABG pO2 133.0 mmHg (80.0-100.0) H 01/30/24 12:15 ABG PO2/FiO2 Ratio 0 01/30/24 12:15 ABG HCO3 22.0 mmol/L (22-26) 01/30/24 12:15 ABG Base Excess -1.2 mmol/L (-2.0-2.0) 01/30/24 12:15 Sidney Test Pos 01/30/24 12:15 Hematocrit 35.8 % (42-52) L 01/30/24 12:15 O2 Delivery Device Bipap 01/30/24 12:15 FiO2 28.0 % 01/30/24 12:15 Sports Editor ID Cak 01/30/24 12:15 Sodium 148 mmol/L (136-145) H 02/03/24 05:10 Potassium 3.4 mmol/L (3.5-5.1) L 02/03/24 05:10 Chloride 112 mmol/L (98-107) H 02/03/24 05:10 Carbon Dioxide 23 mmol/L (22-29) 02/03/24 05:10 Anion Gap 16.4 (5-19) 02/03/24 05:10 BUN 35 mg/dL (8-23) H 02/03/24 05:10 Creatinine 0.6 mg/dL (0.7-1.2) L 02/03/24 05:10 GFR Calculation Not Reportable 02/03/24 05:10 Glucose 167 mg/dL (65-115) H 02/03/24 05:10 POC Glucose 172 mg/dL (70-110) H 02/04/24 10:27 Calculated Osmolality 318 mOsm/kg (285-295) H 02/03/24 05:10 Lactic Acid 1.9 mmol/L (0.5-2.2) 01/26/24 20:39 Calcium 8.5 mg/dL (8.5-10.5) 02/03/24 05:10 Phosphorus 3.2 mg/dL (2.5-4.5) 01/28/24 04:58 Magnesium 2.0 mg/dL (1.7-2.3) 01/29/24 02:57 Total Bilirubin 1.1 mg/dL (0.15-1.2) 02/03/24 05:10 AST 65 U/L (0-40) H 02/03/24 05:10 ALT 246 U/L (0-41) H 02/03/24 05:10 Alkaline Phosphatase 49 U/L (40-130) 02/03/24 05:10 Creatine Kinase 51 U/L (39-308) 01/26/24 16:42 Troponin T Baseline 48 ng/L (0-15) H 01/26/24 16:42 Troponin T 120 Minute 50.68 ng/L (0-15) H 01/26/24 18:41 Delta Troponin T 2.68 ABS# (0-10) 01/26/24 18:41 Troponin T Hi Sens 6Hr 43.28 ng/L (0-15) H 01/26/24 22:27 Troponin T Hi Sens 6Hr Delta -4.72 ng/L (0-12) L 01/26/24 22:27 NT-Pro-B Natriuret Pep 5427 pg/mL (0-450) H 01/26/24 16:42 Total Protein 6.3 g/dL (6.6-8.7) L 02/03/24 05:10 Albumin 3.3 g/dL (3.5-5.2) L 02/03/24 05:10 Globulin 3.0 g/dL (1.3-4.6) 02/03/24 05:10 Lipase 10 U/L (13-60) L 02/02/24 05:33 Procalcitonin 4.36 ng/mL (0-0.5) H 01/26/24 20:39 TSH 1.97 uIU/mL (0.27-4.20) 01/26/24 20:39 Urine Color Yellow (Yellow) 01/26/24 17:03 Urine Appearance Clear (CLEAR) 01/26/24 17:03 Urine pH 5 (5-7) 01/26/24 17:03 Ur Specific Powers 1.015 (1.005-1.030) 01/26/24 17:03 Urine Protein Neg (Negative) 01/26/24 17:03 Urine Glucose (UA) Norm (Normal) 01/26/24 17:03 Urine Ketones Negative (Negative) 01/26/24 17:03 Urine Blood 3+ (Negative) H 01/26/24 17:03 Urine Nitrate Positive (Negative) H 01/26/24 17:03 Urine Bilirubin Neg (Negative) 01/26/24 17:03 Urine Urobilinogen Norm mg/dL (Negative) 01/26/24 17:03 Ur Leukocyte Esterase 1+ (Negative) H 01/26/24 17:03 Urine RBC 0-4 /hpf (0-2) H 01/26/24 17:03 Urine WBC 5-10 /hpf (0-5) H 01/26/24 17:03 Ur Squamous Epith Cells 0-4 /hpf (0-5) H 01/26/24 17:03 Amorphous Sediment Not Reportable 01/26/24 17:03 Urine Bacteria 4+ /hpf (NONE) H 01/26/24 17:03 C. difficile (PCR) Negative (Negative) 02/01/24 14:38 Vitals Last Vital Signs Temp 99.6 F 02/04/24 13:34 Pulse 60 02/04/24 13:34 Resp 22 H 02/04/24 13:34 BP 175/83 02/04/24 13:34 Pulse Ox 96 02/04/24 13:34 O2 Del Method Room Air 02/04/24 11:31 O2 Flow Rate 1.5 02/03/24 07:39 FiO2 28 02/03/24 00:54 Discharge Plan Discharge Patient Disposition: Hospice - Home Condition: Stable Prescriptions: New ciprofloxacin 500 mg/5 mL suspension,microcapsule recon 500 mg PO Q12H 9 Days Qty: 100 0RF Continued albuterol sulfate [ProAir HFA] 90 mcg/actuation HFA aerosol inhaler 1 - 2 puff INHALATION Q4H PRN (Reason: Shortness Of Breath) Lasix 40 mg tablet See Rx Instructions .ROUTE .COMPLEX Rx Instructions: 80mg po qam and 40mg po bedtime hydrocodone-acetaminophen 5-325 mg tablet 1 tab PO BEDTIME carvedilol 25 mg tablet 25 mg PO BID simvastatin 80 mg tablet 80 mg PO QAM aspirin 81 mg tablet,delayed release (DR/EC) 81 mg PO QAM potassium chloride 20 mEq tablet,ER particles/crystals 20 meq PO QAM tamsulosin 0.4 mg capsule 0.4 mg PO QPM eplerenone 25 mg tablet 25 mg PO QAM Eliquis 5 mg tablet 5 mg PO BID magnesium L-lactate 84 mg tablet extended release 84 mg PO BID omeprazole 20 mg capsule,delayed release(DR/EC) 20 mg PO BID (DME) Diabetic Shoes with smooth bottom and 3 Pairs of Inserts See Rx Instructions .Route .MEDSUPPLY Qty: 1 0RF Rx Instructions: As directed gabapentin 400 mg capsule 400 mg PO BID Entresto 49-51 mg tablet 1 tab PO BID (DME) compression stockings C and D See Rx Instructions .Route .MEDSUPPLY Qty: 1 0RF Rx Instructions: As directed by HOME HEALTH acetaminophen 650 mg Tablet Extended Release 650 mg PO BEDTIME PRN (Reason: Sleep) olopatadine 0.1 % drops 1 drp ophthalmic (eye) BID cholecalciferol (vitamin D3) [Vitamin D3] 25 mcg (1,000 unit) Capsule 1,000 unit PO BID ondansetron HCl 4 mg Tablet 4 mg PO Q8H PRN (Reason: Nausea) hydroxyzine HCl 25 mg tablet 25 mg PO BEDTIME escitalopram oxalate 20 mg tablet 20 mg PO QAM Incruse Ellipta 62.5 mcg/actuation blister with device 1 inh INHALATION QAM Januvia 50 mg tablet 50 mg PO QAM Noelle Allergy 60 mg Tablet 60 mg PO BID Discharge Orders: Discharge Order (Routine); Ordered 02/04/24 Ordered By: Lenka Cuba Referrals: [facility] [Outside] Gopal Cameron MD [Primary Care Provider] - (We have notified your physician's clinic of the need for a follow-up appointment to be scheduled. If you have not heard from them within the next 2 business days, please call them directly. ) Patient Instructions: Altered Mental Status (ED), Opioid Safety Discharge Attestations Time Spent in Discharge Care*: greater than 30 min Status at Discharge: Cognitive status at discharge: mildly impaired cognition, Behavioral status at discharge: cooperative, Quality Metrics Clinical Quality Measures [ No reported AMI, CVA or VTE this stay] Coding Level of Care Code Acute Code for Chg Fwd Diagnoses Hypotension I95.9 PVD (peripheral vascular disease) I73.9 History of neurological degenerative disease Z86.69 Tracheobronchomalacia J39.8 Hyperglycemia R73.9 Pseudomonas infection A49.8
== END 2024-02-04 13:35 | disposition hospice, home (50) | DRG 689 ==
LOC: ER 17:25 → MEDSURG 18:48
PROVIDERS: Internal Medicine; Admitting Provider Internal Medicine; Emergency Provider Family Medicine; PCP Family Medicine; Visit Provider Student in an Organized Health Care Education/Training Program
DX: N39.0 Urinary tract infection, site not specified (principal); G93.41 Metabolic encephalopathy; I50.33 Acute on chronic diastolic (congestive) heart failure; R78.81 Bacteremia; I48.20 Chronic atrial fibrillation, unspecified; G11.9 Hereditary ataxia, unspecified; G23.2 Striatonigral degeneration; B96.5 Pseudomonas (aeruginosa) (mallei) (pseudomallei) as the cause of diseases classified elsewhere; B96.20 Unspecified Escherichia coli [E. coli] as the cause of diseases classified elsewhere; K59.09 Other constipation; I25.5 Ischemic cardiomyopathy; M21.371 Foot drop, right foot; E11.42 Type 2 diabetes mellitus with diabetic polyneuropathy; Z85.46 Personal history of malignant neoplasm of prostate; I25.2 Old myocardial infarction; Z74.01 Bed confinement status; E78.5 Hyperlipidemia, unspecified; E11.621 Type 2 diabetes mellitus with foot ulcer; L97.522 Non-pressure chronic ulcer of other part of left foot with fat layer exposed; L97.512 Non-pressure chronic ulcer of other part of right foot with fat layer exposed; Z79.01 Long term (current) use of anticoagulants; I11.0 Hypertensive heart disease with heart failure; I25.10 Atherosclerotic heart disease of native coronary artery without angina pectoris; Z95.1 Presence of aortocoronary bypass graft; Z99.89 Dependence on other enabling machines and devices; K21.9 Gastro-esophageal reflux disease without esophagitis; Z95.810 Presence of automatic (implantable) cardiac defibrillator; J44.9 Chronic obstructive pulmonary disease, unspecified; I73.9 Peripheral vascular disease, unspecified; I95.9 Hypotension, unspecified; J39.8 Other specified diseases of upper respiratory tract; Z87.891 Personal history of nicotine dependence; G47.33 Obstructive sleep apnea (adult) (pediatric); E86.0 Dehydration; N31.9 Neuromuscular dysfunction of bladder, unspecified; R33.9 Retention of urine, unspecified; E11.65 Type 2 diabetes mellitus with hyperglycemia
CPT/HCPCS: 36415; 36416; 36600; 51702; 70450; 71045; 71250; 74018; 74176; 76705; 80048; 80053; 81001; 82550; 82803; 82962; 83605; 83690; 83735; 83880; 84100; 84145; 84443; 84484; 85025; 85378; 87040; 87077; 87086; 87150; 87186; 87205; 87493; 92523; 92610; 93005; 93306; 94640; 94660; 94664; 96365; 96372; 99285; C9113; J0131; J0696; J1650; J1815; J1885; J1940; J2060; J2185; J2270; J2543; J3480; J3490; J7030; J7070